=== PATIENT | female | born 1935 | race Caucasian/White ===

== ENCOUNTER 2016-05-07 20:45 | Inpatient (IN) | payer MEDICARE, OTHER ==
[2016-05-07] MEDS ORDERED: IV VANCOMYCIN PER PHARMACY 1 EACH MISC MISCELLANE PRN (20:53)
[2016-05-07] MEDS ORDERED: PIPERACILLIN-TAZOBACTAM 3.375 GM in DEXTROSE/WATER 1 50ML.BAG IVPB STA (20:53)
[2016-05-07] MEDS ORDERED: ACETAMINOPHEN TAB 500 MG TAB PO STA (20:53)
[2016-05-07] MEDS ORDERED: VANCOMYCIN 1,250 MG in SODIUM CHLORIDE 0.9% 250 ML IVPB STA (21:20)
[2016-05-07] MEDS: SODIUM CHLORIDE 0.9% 1,000 ML IV SCH (21:45)
[2016-05-07 21:55] LABS: Anisocytosis Slight; Basophils # (A) 0.2 k/uL (0-0.2); Basophils % (A) 2 %; CH 26.3; Eosinophils # (A) 0.2 k/uL (0-0.7); Eosinophils % (A) 2 %; HCT 42.6 % (34.0-46.0); HDW 2.99; HGB 12.5 gm/dL (11.4-16.0); Hypochromasia Moderate; Luc # (Auto) 0.28; Luc % (Auto) 3; Lymphocytes # (A) 0.6 k/uL (1.0-4.8); Lymphocytes % (A) 6 %; MCHC 29.3 g/dL (31.0-37.0); MCV 85.5 fL (80.0-100.0); Mean Platelet Volume 9.1; Monocytes # (A) 0.9 k/uL (0-1.0); Monocytes % (A) 9 %; Neutrophils # (A) 7.4 k/uL (1.3-7.7); Neutrophils % (A) 78 %; RBC 4.99 m/uL (3.80-5.40); RDW 16.6 % (11.5-15.5); WBC 9.5 k/uL (3.8-10.6); WBC (Perox) 9.98
[2016-05-07 22:05] LABS: INR 1.1 (<1.1); Partial Thromboplastin Time 22.8 sec (22.0-30.0)
[2016-05-07 22:22] LABS: Potassium 4.8 mmol/L (3.5-5.1); Total Bilirubin 1.1 mg/dL (0.2-1.3)
--- NOTE | 2016-05-07 22:29 | XR ---
EXAMINATION TYPE: XR cervical spine comp DATE OF EXAM: 05/07/2016 10:24 PM COMPARISON: NONE HISTORY: Fell out of the chair. Pain. TECHNIQUE: 6 views FINDINGS: Vertebra have normal alignment. There is narrowing of C5-6 disc space. There is osteopenia. Posterior elements are intact. Atlantoaxial facet joint is normal. There are no cervical ribs. IMPRESSION: Mild spondylosis. No fracture.
--- NOTE | 2016-05-07 22:31 | XR ---
EXAMINATION TYPE: XR chest 2V DATE OF EXAM: 05/07/2016 10:24 PM COMPARISON: 04/19/2016 HISTORY: Fell out of the chair. TECHNIQUE: Frontal and lateral views of the chest are obtained. FINDINGS: There is some infiltrate at the right cardiac border. There is no heart failure. There is no pneumothorax. Heart size is normal. Thoracic aorta is atheromatous. There are chest leads. IMPRESSION: There is right middle lobe infiltrate that is new compared to old exam. No heart failure seen. No fracture seen in the thoracic spine.
--- NOTE | 2016-05-07 22:32 | CT ---
EXAMINATION TYPE: CT brain wo con DATE OF EXAM: 05/07/2016 10:25 PM COMPARISON: NONE HISTORY: fall from chair CT DLP: 1098.80 mGycm Automated exposure control for dose reduction was used. FINDINGS: There is cerebral mild cortical atrophy. There is patchy hypodensity in the periventricular white mat ter. There is no mass effect nor midline shift. There is no sign of intracranial hemorrhage. The calv arium is intact. There is minor mucosal thickening in the maxillary sinuses. IMPRESSION: Cerebral atrophy and mild chronic small vessel ischemia. No acute intracranial abnormality.
[2016-05-07 22:55] LABS: Creatine Kinase MB 0.6 ng/mL (0.0-2.4)
[2016-05-07 23:12] LABS: Troponin I 0.035 ng/mL (0.000-0.034)
[2016-05-07] MEDS ORDERED: NITROGLYCERIN SL TABS 0.4 MG TAB SUBLINGUAL PRN (23:43)
[2016-05-07] MEDS ORDERED: ACETAMINOPHEN TAB 325 MG TAB PO PRN (23:43)
[2016-05-07] MEDS ORDERED: MORPHINE SULFATE 2 MG/ML SYRINGE IVP PRN (23:43)
--- NOTE | 2016-05-07 23:43 | ED ---
General Adult HPI - General Chief complaint: Recheck/Abnormal Lab/Rx Stated complaint: lower extremity pain,poss pneumonia Time Seen by Provider: 05/07/16 20:53 Source: patient Mode of arrival: EMS Limitations: no limitations - History of Present Illness Initial comments: He presented with a fever chills she has been coughing and there was a question of confusion as well according to EMS are temperature was 101.5 and she was quite tachycardic pulse rate was 123 and she is breathing fast as well she was coughing pretty hard and is bringing up phlegm. She denies any chest pain today but she has a slight chest pain yesterday he does not hurt to take a deep breath and she denies any trauma to the chest. He does not she does have a history of irregular heartbeat and it was noticed in today's EKG as well as her old EKG from 04/19/2016 also had atrial fibrillation. Denies any headaches no neck stiffness has been coughing no abdominal pain no frequency urgency dysuria no signs of TIA or CVA - Related Data Home Medications Medication Instructions Recorded Confirmed Atorvastatin [Lipitor] 20 mg PO HS 09/30/14 04/19/16 Ergocalciferol [Vitamin D2 50,000 unit PO Q14D 09/30/14 04/19/16 (DRISDOL)] Furosemide 20 mg PO BID 09/30/14 04/19/16 Cholecalciferol [Vitamin D3] 4,000 unit PO BID 07/24/15 04/19/16 Gabapentin 300 mg PO BID 07/24/15 04/19/16 Insulin Lispro [humaLOG Kwikpen] 8 unit SQ AC-TID 07/24/15 04/19/16 Isosorbide Mononitrate ER [Imdur] 30 mg PO DAILY 07/24/15 04/19/16 predniSONE 10 mg PO DAILY 07/24/15 04/19/16 Insulin Glargine,Hum.rec.anlog 14 units SQ HS 01/10/16 04/19/16 [Lux Solloida] Levothyroxine Sodium [Synthroid] 112 mcg PO DAILY 01/10/16 04/19/16 Montelukast [Singulair] 10 mg PO HS 01/10/16 04/19/16 Oxybutynin Chloride 5 mg PO DAILY 01/10/16 04/19/16 HYDROcodone/APAP 5-325MG [[place] 1 tab PO QID PRN 02/28/16 04/19/16 5-325] Vit C/E/Zn/Coppr/Lutein/Zeaxan 1 cap PO BID 02/28/16 04/19/16 [Preservision Areds 2 Softgel] Omeprazole [PriLOSEC] 20 mg PO AC-SUPPER 04/19/16 04/19/16 Aspirin [Adult Low Dose Aspirin EC] 81 mg PO DAILY 04/20/16 04/20/16 Previous Rx's Medication Instructions Recorded Temazepam [Restoril] 30 mg PO HS #12 cap 01/17/16 Clopidogrel [Plavix] 75 mg PO DAILY #30 tab 02/07/16 Diltiazem Oral [Cardizem*] 30 mg PO TID #90 tab 02/07/16 Metoprolol Tartrate [Lopressor] 25 mg PO TID #90 tab 04/21/16 Allergies Allergy/AdvReac Type Severity Reaction Status Date / Time cat dander Allergy Unknown Verified 05/07/16 21:09 Sulfa (Sulfonamide Allergy Rash/Hives Verified 05/07/16 21:09 Antibiotics) Review of Systems ROS Statement: Those systems with pertinent positive or pertinent negative responses have been documented in the HPI. ROS Other: All systems not noted in ROS Statement are negative. Past Medical History Past Medical History: Atrial Fibrillation, Asthma, Coronary Artery Disease (CAD) , Diabetes Mellitus, Deep Vein Thrombosis (DVT), GERD/Reflux, Hypertension, Myocardial Infarction ([place]), Pneumonia, Pulmonary Embolus ([place]), Thyroid Disorder Additional Past Medical History / Comment(s): Pulmonary sarcoidosis, FALL IN AUGUST , pt stated she is dm type 1, neuroptathy Last Myocardial Infarction Date:: * History of Any Multi-Drug Resistant Organisms: None Reported Past Surgical History: Heart Catheterization With Stent, Hysterectomy, Joint Replacement, Orthopedic Surgery Additional Past Surgical History / Comment(s): Dr. Rivera and Dr. Arriaga placed 6 stents 13 years ago, left knee surgery AND IN DEC 2015 HEART CATH AND STENT -PT STATED TOTAL OF 7 STENTS NOW Past Anesthesia/Blood Transfusion Reactions: No Reported Reaction Date of Last Stent Placement:: 1999 Past Psychological History: No Psychological Hx Reported Smoking Status: Never smoker Past Alcohol Use History: Occasional Past Drug Use History: None Reported - Past Family History Father Family Medical History: Myocardial Infarction ([place]) Mother Family Medical History: Liver Disease General Exam - General Exam Comments Initial Comments: General: The patient is awake and alert, in no distress, and does not appear acutely ill. Expect pale and looks pale Skin: Skin is warm and dry and no rashes or lesions are noted. Eye: Pupils are equal, round and reactive to light, extra-ocular movements are intact; there is normal conjunctiva bilaterally. Ears, nose, mouth and throat: There are moist mucous membranes and no oral lesions. Neck: The neck is supple, there is no tenderness Cardiovascular: Noticed a regular irregular heart beat, is quite tachycardia noticed heart rate of 123 Respiratory: To auscultation bilateral, it is crackles bilateral Gastrointestinal: Soft, non-distended, non-tender abdomen without masses or organomegaly noted. There is no rebound or guarding present. Bowel sounds are unremarkable. Back: There is no tenderness to palpation in the midline. There is no obvious deformity. Musculoskeletal: Normal ROM, no tenderness, There is no pedal edema. There is no calf tenderness or swelling. No cords were appreciated. Neurological: CN II-XII intact, Cranial nerves III through XII are intact. There are no obvious motor or sensory deficits. Coordination appears grossly intact. Speech is normal. Psychiatric: Cooperative, appropriate mood & affect, normal judgment. Limitations: no limitations Course Vital Signs 05/07/16 21:04 Temperature 101.1 F H Pulse Rate 123 H Respiratory 18 Rate Blood Pressure 164/82 O2 Sat by Pulse 95 Oximetry EKG Findings - EKG Comments: EKG Findings:: She has a defibrillation with the rapid ventricular response ventricular rate is 123 [place] interval, QRS duration is 86 QT/QTc is 258/369, noticed some mom ST elevation in V1 and V2 though patient hasn't no chest pain also some ST elevation in V3 her old EKG have some similar findings but this EKG have these findings more pronounced Medical Decision Making - Lab Data Result diagrams: 05/07/16 21:30 05/07/16 21:30 Lab Results 05/07/16 05/07/16 05/07/16 Range/Units 21:30 21:30 21:30 WBC 9.5 (3.8-10.6) k/uL RBC 4.99 (3.80-5.40) m/uL Hgb 12.5 (11.4-16.0) gm/dL Hct 42.6 (34.0-46.0) % MCV 85.5 (80.0-100.0) fL MCH 25.0 (25.0-35.0) pg MCHC 29.3 L (31.0-37.0) g/dL RDW 16.6 H (11.5-15.5) % Plt Count 149 L (150-450) k/uL Neutrophils % 78 % Lymphocytes % 6 % Monocytes % 9 % Eosinophils % 2 % Basophils % 2 % Neutrophils # 7.4 (1.3-7.7) k/uL Lymphocytes # 0.6 L (1.0-4.8) k/uL Monocytes # 0.9 (0-1.0) k/uL Eosinophils # 0.2 (0-0.7) k/uL Basophils # 0.2 (0-0.2) k/uL Hypochromasia Moderate Anisocytosis Slight PT (9.0-12.0) sec INR (<1.1) APTT (22.0-30.0) sec Sodium 139 (137-145) mmol/L Potassium 4.8 (3.5-5.1) mmol/L Chloride 100 (98-107) mmol/L Carbon Dioxide 27 (22-30) mmol/L Anion Gap 12 mmol/L BUN 23 H (7-17) mg/dL Creatinine 1.20 H (0.52-1.04) mg/dL Est GFR (MDRD) Af Amer 52 (>60 ml/min/1.73 sqM) Est GFR (MDRD) Non-Af 43 (>60 ml/min/1.73 sqM) Glucose 217 H (74-99) mg/dL Plasma Lactic Acid [place] (0.7-2.0) mmol/L Calcium 9.0 (8.4-10.2) mg/dL Total Bilirubin 1.1 (0.2-1.3) mg/dL AST 31 (14-36) U/L ALT 33 (9-52) U/L Alkaline Phosphatase 66 (38-126) U/L Total Creatine Kinase 120 (30-135) U/L CK-MB (CK-2) 0.6 (0.0-2.4) ng/mL CK-MB (CK-2) Rel Index 0.5 Troponin I 0.035 H* (0.000-0.034) ng/mL Total Protein 6.0 L (6.3-8.2) g/dL Albumin 3.5 (3.5-5.0) g/dL Cortisol 20 ug/dL Influenza Type A RNA (Not Detectd) Influenza Type B (PCR) (Not Detectd) 05/07/16 05/07/16 05/07/16 Range/Units 21:30 21:30 22:13 WBC (3.8-10.6) k/uL RBC (3.80-5.40) m/uL Hgb (11.4-16.0) gm/dL Hct (34.0-46.0) % MCV (80.0-100.0) fL MCH (25.0-35.0) pg MCHC (31.0-37.0) g/dL RDW (11.5-15.5) % Plt Count (150-450) k/uL Neutrophils % % Lymphocytes % % Monocytes % % Eosinophils % % Basophils % % Neutrophils # (1.3-7.7) k/uL Lymphocytes # (1.0-4.8) k/uL Monocytes # (0-1.0) k/uL Eosinophils # (0-0.7) k/uL Basophils # (0-0.2) k/uL Hypochromasia Anisocytosis PT 11.0 (9.0-12.0) sec INR 1.1 (<1.1) APTT 22.8 (22.0-30.0) sec Sodium (137-145) mmol/L Potassium (3.5-5.1) mmol/L Chloride (98-107) mmol/L Carbon Dioxide (22-30) mmol/L Anion Gap mmol/L BUN (7-17) mg/dL Creatinine (0.52-1.04) mg/dL Est GFR (MDRD) Af Amer (>60 ml/min/1.73 sqM) Est GFR (MDRD) Non-Af (>60 ml/min/1.73 sqM) Glucose (74-99) mg/dL Plasma Lactic Acid [place] 1.4 (0.7-2.0) mmol/L Calcium (8.4-10.2) mg/dL Total Bilirubin (0.2-1.3) mg/dL AST (14-36) U/L ALT (9-52) U/L Alkaline Phosphatase (38-126) U/L Total Creatine Kinase (30-135) U/L CK-MB (CK-2) (0.0-2.4) ng/mL CK-MB (CK-2) Rel Index Troponin I (0.000-0.034) ng/mL Total Protein (6.3-8.2) g/dL Albumin (3.5-5.0) g/dL Cortisol ug/dL Influenza Type A RNA Not Detected (Not Detectd) Influenza Type B (PCR) Not Detected (Not Detectd) Critical Care Time Total Critical Care Time: 39 Critical Care Time: Came in she was quite tachycardiac Neck and she had a fever she was given some Tylenol she was done given some fluid hydration and she was started on Zosyn entertaining the possibility of sepsis she no chest pain did notice her troponin was borderline elevated considering her risk factors she be admitted to hospitalist service and cardiology be consulted she does have a history of atrial fibrillation this is not new she aspirin and Plavix that she is not on any nausea OR [place] or any of those anticoagulants considering that I would hold off any anticoagulants and she has no chest pain at this point I'll leave that to cardiology Disposition Clinical Impression: Pneumonia, Tachycardia, Tachypnea, Elevated d-dimer Disposition: ADMITTED IP TO THIS HOSP Condition: Good
[2016-05-07] MEDS ORDERED: AZITHROMYCIN 500 MG in SODIUM CHLORIDE 0.9% 250 ML IVPB STA (23:51)
[2016-05-08] MEDS ORDERED: DILTIAZEM 125 MG in SODIUM CHLORIDE 0.9% 100 ML IV ONE (00:02)
[2016-05-08 00:21] LABS: Appearance,Urine Clear (Clear); Bacteria,Urine Rare /hpf; Bilirubin,Urine Negative (Negative); Glucose,Urine (UA) Negative (Negative); Ketones,Urine 1+ (Negative); Leukocyte Esterase,Urine Trace (Negative); Mucus,Urine Rare /hpf; Nitrite,Urine Negative (Negative); Particle Count 1062; Protein,Urine Negative (Negative); RBC,Urine 1 /hpf (0-5); Specific Gravity,Urine 1.012 (1.001-1.035); UA Billing (MACRO vs. MICRO) MICRO; WBC,Urine 2 /hpf (0-5)
[2016-05-08] MEDS: HYDROcodone/APAP 5-325MG 1 EACH TAB PO PRN ×3 (01:36→14:56)
[2016-05-08 02:17] VITALS: BMI 28.1
[2016-05-08 03:22] LABS: Cholesterol 124 mg/dL (<200); HDL Cholesterol 28 mg/dL (40-60); Triglycerides 131 mg/dL (<150)
[2016-05-08 03:43] LABS: Creatine Kinase MB 0.8 ng/mL (0.0-2.4)
[2016-05-08 03:54] LABS: Troponin I 0.053 ng/mL (0.000-0.034)
[2016-05-08 04:26] LABS: Glucose,Whole Blood 181 mg/dL (75-99)
[2016-05-08] MEDS: LEVOTHYROXINE 112 MCG TAB PO SCH (06:31)
[2016-05-08 06:32] LABS: Glucose,Whole Blood 213 mg/dL (75-99)
[2016-05-08] MEDS: SODIUM CHLORIDE 0.9% 1,000 ML IV SCH ×2 (06:34→16:16)
[2016-05-08] MEDS: CHOLECALCIFEROL 1,000 UNIT TAB PO SCH ×2 (07:53→20:30)
[2016-05-08] MEDS: VIT A,C & E-LUTEIN-MINERALS 1 EACH TAB PO SCH ×2 (07:53→20:31)
[2016-05-08] MEDS: ASPIRIN 325 MG TAB PO SCH (07:53)
[2016-05-08] MEDS: predniSONE 10 MG TAB PO SCH (07:54)
[2016-05-08] MEDS: FUROSEMIDE 20 MG TAB PO SCH ×2 (07:54→20:30)
[2016-05-08] MEDS: GABAPENTIN 300 MG CAP PO SCH ×2 (07:54→20:30)
[2016-05-08] MEDS: CLOPIDOGREL 75 MG TAB PO SCH (07:54)
[2016-05-08] MEDS: OXYBUTYNIN CHLORIDE 5 MG TAB PO SCH (07:54)
[2016-05-08] MEDS: ISOSORBIDE MONONITRATE ER 30 MG TAB.ER.24H PO SCH (07:54)
[2016-05-08] MEDS ORDERED: DILTIAZEM ORAL 30 MG TAB PO SCH (09:00)
[2016-05-08] MEDS ORDERED: METOPROLOL TARTRATE 25 MG TAB PO SCH (09:00)
[2016-05-08] MEDS ORDERED: NON-FORMULARY DRUG (Aspirin [Adult Low Dose Aspirin Ec] 81 MG) PO SCH (09:00)
--- NOTE | 2016-05-08 09:05 | P.CRDCN ---
History of Present Illness Consult date: 05/08/16 Requesting physician: Raimundo Hernandez Consult reason: atrial fibrillation Chief complaint: Cough and weakness History of present illness: This is a pleasant 80-year-old female who follows regularly with Dr. Rivera in the office. She has a known history of sarcoidosis, coronary artery disease with prior stent placement, chronic persistent atrial fibrillation, asthma, diabetes, hypertension, hyperlipidemia, hypothyroidism, prior DVT. She presents to the hospital primarily with symptoms of stream fatigue and weakness, with associated persistent cough of productive sputum. Patient states she was in her lazy boy chair, fell down onto the floor and was unable to get up because she was so weak. Patient denies any chest discomfort other than the pain in her chest with coughing. On arrival here patient was found to have a temperature of 101.5. Chest x-ray reveals a right middle lobe infiltrate new as compared with prior exam. CT of the brain was performed which revealed cerebral atrophy and mild chronic small vessel ischemia. No acute intracranial abnormality. EKG on arrival here showed atrial fibrillation with a rapid ventricular response. Patient has been on anticoagulation in the past, this was discontinued at some point because of bleeding, exact details unavailable. Laboratory data, potassium 4.8, BUN 23, creatinine 1.2. Troponins 0.035, 0.053. Flu screen was negative. Blood pressure on arrival 164 /80, heart rate in the 120s. At this time of my examination this morning, patient continues to have a harsh productive cough of dark yellow sputum. Denies to be in atrial fibrillation with a heart rate of 90. On a Cardizem drip at 5 mg per hour. Cardiology consultation was requested because of A. fib with RVR as well as abnormal troponins. Past Medical History Past Medical History: Atrial Fibrillation, Asthma, Coronary Artery Disease (CAD) , Diabetes Mellitus, Deep Vein Thrombosis (DVT), Hypertension, Myocardial Infarction ([place]), Pneumonia, Pulmonary Embolus ([place]), Thyroid Disorder Additional Past Medical History / Comment(s): Pulmonary sarcoidosis, FALL IN AUGUST , pt stated she is dm type 1, neuroptathy Last Myocardial Infarction Date:: * History of Any Multi-Drug Resistant Organisms: None Reported Past Surgical History: Heart Catheterization With Stent, Hysterectomy, Joint Replacement, Orthopedic Surgery Additional Past Surgical History / Comment(s): Dr. Rivera and Dr. Arriaga placed 6 stents 13 years ago, left knee surgery AND IN DEC 2015 HEART CATH AND STENT -PT STATED TOTAL OF 7 STENTS NOW Past Anesthesia/Blood Transfusion Reactions: No Reported Reaction Date of Last Stent Placement:: 1999 Past Psychological History: No Psychological Hx Reported Smoking Status: Never smoker Past Alcohol Use History: Occasional Past Drug Use History: None Reported - Past Family History Father Family Medical History: Myocardial Infarction ([place]) Mother Family Medical History: Liver Disease Medications and Allergies Home Medications Medication Instructions Recorded Confirmed Type Atorvastatin [Lipitor] 20 mg PO HS 09/30/14 05/08/16 History Ergocalciferol [Vitamin D2 50,000 unit PO Q14D 09/30/14 05/08/16 History (DRISDOL)] Furosemide 20 mg PO BID 09/30/14 05/08/16 History Cholecalciferol [Vitamin D3] 4,000 unit PO BID 07/24/15 05/08/16 History Gabapentin 300 mg PO BID 07/24/15 05/08/16 History Insulin Lispro [humaLOG Kwikpen] 8 unit SQ AC-LUNCH 07/24/15 05/08/16 History Isosorbide Mononitrate ER [Imdur] 30 mg PO DAILY 07/24/15 05/08/16 History predniSONE 10 mg PO DAILY 07/24/15 05/08/16 History Insulin Glargine,Hum.rec.anlog 14 units SQ HS 01/10/16 05/08/16 History [[place] Solostar] Levothyroxine Sodium [Synthroid] 112 mcg PO DAILY 01/10/16 05/08/16 History Montelukast [Singulair] 10 mg PO HS 01/10/16 05/08/16 History Oxybutynin Chloride 5 mg PO DAILY 01/10/16 05/08/16 History HYDROcodone/APAP 5-325MG [[place] 1 tab PO QID PRN 02/28/16 05/08/16 History 5-325] Vit C/E/Zn/Coppr/Lutein/Zeaxan 1 cap PO BID 02/28/16 05/08/16 History [Preservision Areds 2 Softgel] Omeprazole [PriLOSEC] 20 mg PO AC-SUPPER 04/19/16 05/08/16 History Aspirin [Adult Low Dose Aspirin EC] 81 mg PO DAILY 04/20/16 05/08/16 History Insulin Lispro [humaLOG Kwikpen] 7 unit SQ AC-BRKFST 05/08/16 05/08/16 History Insulin Lispro [humaLOG Kwikpen] 8 unit SQ AC-SUPPER 05/08/16 05/08/16 History Insulin Lispro [humaLOG Kwikpen] See Protocol SQ AC-TID PRN 05/08/16 05/08/16 History Allergies Allergy/AdvReac Type Severity Reaction Status Date / Time cat dander Allergy Unknown Verified 05/08/16 08:38 Sulfa (Sulfonamide Allergy Rash/Hives Verified 05/08/16 08:38 Antibiotics) Physical Exam Vitals: Vital Signs Temp Pulse Pulse Resp BP BP Pulse Ox 05/08/16 04:00 97.0 F L 101 H 18 100/58 97 05/08/16 01:16 100 F H 130 H 18 148/78 99 05/08/16 01:10 98.4 F 137 H 18 121/68 94 L 05/08/16 01:00 128 H 16 133/56 99 05/08/16 00:00 113 H 18 165/74 99 Intake and Output 05/07/16 05/08/16 05/08/16 22:59 06:59 14:59 Other: Weight 70.3 kg PHYSICAL EXAMINATION: HEENT: Head is atraumatic, normocephalic. Pupils equal, round. Neck is supple. There is no elevated jugular venous pressure. HEART EXAMINATION: Heart S1 and S2 irregular irregular CHEST EXAMINATION: A real scattered coarse wheezes and rhonchi throughout. ABDOMEN: Soft, nontender. Bowel sounds are heard. No organomegaly noted. EXTREMITIES: 2+ peripheral pulses with no evidence of peripheral edema and no calf tenderness noted. NEUROLOGIC patient is awake, alert and oriented -3. . Results 05/07/16 21:30 05/07/16 21:30 Cardiac Enzymes 05/08/16 Range/Units 02:40 CK-MB (CK-2) 0.8 (0.0-2.4) ng/mL Troponin I 0.053 H* (0.000-0.034) ng/mL Lipids 05/08/16 Range/Units 02:40 Triglycerides 131 (<150) mg/dL Cholesterol 124 (<200) mg/dL HDL Cholesterol 28 L (40-60) mg/dL Current Medications Generic Name Dose Route Start Last Admin Trade Name Freq PRN Reason Stop Dose Admin Acetaminophen 650 mg 05/07/16 23:43 Tylenol Tab PO Q4HR PRN Pain Acetaminophen/Hydrocodone Bitart 1 each 05/07/16 23:48 05/08/16 06:31 [place] 5-325 PO 1 each QID PRN Administration Pain Aspirin 325 mg 05/08/16 09:00 05/08/16 07:53 Aspirin PO 325 mg DAILY MISTI Administration Atorvastatin Calcium 20 mg 05/08/16 21:00 Lipitor PO HS MISTI Cholecalciferol 4,000 unit 05/08/16 09:00 05/08/16 07:53 Vitamin D3 PO 4,000 unit BID MISTI Administration Clopidogrel Bisulfate 75 mg 05/08/16 09:00 05/08/16 07:54 Plavix PO 75 mg DAILY MISTI Administration Ergocalciferol 50,000 unit 05/09/16 09:00 Vitamin D2 PO Q14D MISTI Furosemide 20 mg 05/08/16 09:00 05/08/16 07:54 Lasix PO 20 mg BID MISTI Administration Gabapentin 300 mg 05/08/16 09:00 05/08/16 07:54 Neurontin PO 300 mg BID MISTI Administration Sodium Chloride 1,000 mls @ 100 mls/hr 05/07/16 21:00 05/08/16 06:34 Saline 0.9% IV 100 mls/hr .Q10H MISTI Administration Diltiazem HCl 125 mg/ Sodium 125 mls @ 5 mls/hr 05/08/16 00:02 05/08/16 01:44 Chloride IV 05/09/16 00:01 5 mg/hr .Q24H ONE 5 mls/hr 5 MG/HR Administration Vancomycin HCl 1,250 mg/ 250 mls @ 125 mls/hr 05/09/16 22:00 Sodium Chloride IVPB Q48H MISTI Insulin Glargine 14 unit 05/08/16 21:00 Lantus SQ HS MISTI Isosorbide Mononitrate 30 mg 05/08/16 09:00 05/08/16 07:54 Imdur PO 30 mg DAILY MISTI Administration Levothyroxine Sodium 112 mcg 05/08/16 06:30 05/08/16 06:31 Synthroid PO 112 mcg 0630 MISTI Administration Metoprolol Tartrate 25 mg 05/08/16 09:00 05/08/16 07:54 Lopressor PO 25 mg TID MISTI Administration Montelukast Sodium 10 mg 05/08/16 21:00 Singulair PO HS MISTI Morphine Sulfate 2 mg 05/07/16 23:43 05/08/16 00:15 Morphine Sulfate (Inj) IVP 2 mg Q5M PRN Administration Chest Pain Multivitamins/Minerals 1 each 05/08/16 09:00 05/08/16 07:53 Ivite PO 1 each BID MISTI Administration Nitroglycerin 0.4 mg 05/07/16 23:43 Nitrostat SUBLINGUAL Q5M PRN Chest Pain Oxybutynin Chloride 5 mg 05/08/16 09:00 05/08/16 07:54 Ditropan PO 5 mg DAILY MISTI Administration Pantoprazole Sodium 40 mg 05/08/16 17:30 Protonix PO AC-SUPPER MISTI Prednisone 10 mg 05/08/16 09:00 05/08/16 07:54 PO 10 mg DAILY MISTI Administration Temazepam 30 mg 05/08/16 21:00 Restoril PO HS MISTI Intake and Output 05/07/16 05/08/16 05/08/16 22:59 06:59 14:59 Other: Weight 70.3 kg EKG Interpretations (text) EKG shows atrial ventricular response Assessment and Plan Plan: Assessment and plan #1 new right middle lobe pneumonia. On antibiotics. #2 atrial fibrillation with rapid ventricular response, patient has history of chronic persistent atrial fibrillation. Not a candidate for anticoagulation because of prior bleeding. #3 known history of coronary artery disease with prior stent placement, most recent stent was placed in December of last year at which time the patient underwent arthrectomy of the proximal LAD was successful stenting of the proximal LAD. #4 hypertension #5 diabetes #6 hyperlipidemia #7 sarcoidosis #8 asthma #9 abnormal troponin values, not consistent with acute coronary syndrome. Likely secondary to oxygen supply and demand mismatch. Plan An echocardiogram with Doppler study will be requested. We'll also recommend to continue antibiotics. Discontinue IV Cardizem and increase dose of beta sera. Further recommendations to follow. Obtain free T4 and TSH. DNP note has been reviewed, I agree with a documented findings and plan of care. Patient was seen and examined.
--- NOTE | 2016-05-08 09:08 | P.PN ---
Progress Note - Text This is an addendum to progress note dictated in January 2016, for clarification of dictation. Patient did not have a myocardial infarction during that admission, she did have a myocardial infarction, non-ST elevation with proximal LAD stenting in December 2015. January admission was for atrial fibrillation, chronic persistent. DNP note has been reviewed, I agree with a documented findings and plan of care. Patient was seen and examined.
--- NOTE | 2016-05-08 10:02 | ECHOF ---
Referral Reason:afib MEASUREMENTS -------- HEIGHT: 157.5 cm WEIGHT: 69.8 kg BP: 100/58 RVIDd: 2.8 cm (< 3.3) IVSd: 1.1 cm (0.6 - 1.1) LVIDd: 4.0 cm (3.9 - 5.3) LVPWd: 1.2 cm (0.6 - 1.1) IVSs: 1.6 cm LVIDs: 3.0 cm LVPWs: 1.6 cm LA Diam: 4.0 cm (2.7 - 3.8) LAESV Index (A-L): 33.53 ml/m Ao Diam: 3.0 cm (2.0 - 3.7) AV Cusp: 1.2 cm (1.5 - 2.6) MV EXCURSION: 15.488 mm (> 18.000) MV EF SLOPE: 99 mm/s (70 - 150) EPSS: 1.0 cm AV maxP.61 mmHg AV meanP.48 mmHg RAP: 5.00 mmHg RVSP: 35.99 mmHg FINDINGS -------- Atrial fibrillation. This was a technically adequate study. The left ventricular size is normal. There is borderline concentric left ventricular hypertrophy. Overall left ventricular systolic function is mildly impaired with, an EF between 45 - 50 %. Basal inferior LV wall motion is hypokinetic. The right ventricle is normal in size. LA is midly dilated 29-33ml/m2. The right atrium is normal in size. Aortic valve is trileaflet and is moderately thickened. There is mild aortic stenosis present. Peak/mean gradient across the Aortic Valve is 19.61mmHg / 10.48mmHg. The mitral valve leaflets are mild to moderately thickened. Moderate mitral annular calcification present. Mild mitral regurgitation is present. The peak and mean MV gradients are 9.45mmHg 3.32mmHg as measured by doppler. Mild tricuspid regurgitation present. There is mild pulmonary hypertension. The right ventricular systolic pressure, as measured by Doppler, is 35.99mmHg. Trace/mild (physiologic) pulmonic regurgitation. The aortic root size is normal. The inferior vena cava is mildly dilated. There is no pericardial effusion. CONCLUSIONS -------- 1. Atrial fibrillation. 2. There is mild aortic stenosis present. 3. Peak/mean gradient across the Aortic Valve is 19.61mmHg / 10.48mmHg. 4. The mitral valve leaflets are mild to moderately thickened. 5. Moderate mitral annular calcification present. 6. Mild mitral regurgitation is present. 7. The peak and mean MV gradients are 9.45mmHg 3.32mmHg as measured by doppler. 8. Mild tricuspid regurgitation present. 9. There is mild pulmonary hypertension. 10. The right ventricular systolic pressure, as measured by Doppler, is 35.99mmHg. 11. Trace/mild (physiologic) pulmonic regurgitation. 12. This was a technically adequate study. 13. The aortic root size is normal. 14. The inferior vena cava is mildly dilated. 15. There is no pericardial effusion. 16. The left ventricular size is normal. 17. There is borderline concentric left ventricular hypertrophy. 18. Overall left ventricular systolic function is mildly impaired with, an EF between 45 - 50 %. 19. The right ventricle is normal in size. 20. LA is midly dilated 29-33ml/m2. 21. The right atrium is normal in size. 22. Aortic valve is trileaflet and is moderately thickened. [employer] SCIENTIST: Kalli Tejeda RDCS
[2016-05-08 10:25] LABS: Creatine Kinase MB 1.4 ng/mL (0.0-2.4); Troponin I 0.032 ng/mL (0.000-0.034)
[2016-05-08 12:01] LABS: Glucose,Whole Blood 301 mg/dL (75-99)
[2016-05-08] MEDS ORDERED: INSULIN LISPRO (humaLOG) 300 UNIT/3 ML VIAL SQ ONE (13:07)
--- NOTE | 2016-05-08 14:02 | P.CNPUL ---
History of Present Illness Consult date: 05/08/16 Requesting physician: Raimundo Hernandez Reason for consult: pneumonia Chief complaint: Weakness, and cough. History of present illness: This is an 80-year-old female with history of multiple medical problems including sarcoidosis, coronary artery disease, chronic atrial fibrillation, bronchial asthma, hypertension, hypothyroidism, previous history of DVT. Patient has been doing relatively well since her last hospital discharge, however yesterday when she was sitting on the lazy boy chair, apparently she fell off down to the floor and she was unable to get up. She was very weak, and the patient was brought into the hospital because of weakness. Upon evaluation in the ER, she was found to have a temp of 101.5. Patient was asked if she was having any pulmonary symptoms, apparently she has been experiencing episodes of productive cough for the last few days. Some wheezing, chest x-ray showed a right middle lobe infiltrate, patient was admitted with the impression of pneumonia, and this consult was initiated. While in the ER the patient had atrial fibrillation with RVR, hence the patient was placed on Cardizem drip, and she was admitted she was also placed on empiric antibiotics for her right middle lobe pneumonia. She is already feeling better, breathing easier, minimal cough, no wheezing, no shortness of breath, no chest pain. No headache no blurred vision no dizziness. No nausea no vomiting no abdominal pain. He continues to have some generalized weakness. Troponins were noted to be a bit elevated. Otherwise her other labs were unremarkable. No evidence of leukocytosis. Review of Systems 14 point review of systems were obtained, please refer to pertinent positives and negatives in HPI Past Medical History Past Medical History: Atrial Fibrillation, Asthma, Coronary Artery Disease (CAD) , Diabetes Mellitus, Deep Vein Thrombosis (DVT), Hypertension, Myocardial Infarction ([place]), Pneumonia, Pulmonary Embolus (PE), Thyroid Disorder Additional Past Medical History / Comment(s): Pulmonary sarcoidosis, FALL IN AUGUST , pt stated she is dm type 1, neuroptathy Last Myocardial Infarction Date:: * History of Any Multi-Drug Resistant Organisms: None Reported Past Surgical History: Heart Catheterization With Stent, Hysterectomy, Joint Replacement, Orthopedic Surgery Additional Past Surgical History / Comment(s): Dr. Rivera and Dr. Arriaga placed 6 stents 13 years ago, left knee surgery AND IN DEC 2015 HEART CATH AND STENT -PT STATED TOTAL OF 7 STENTS NOW Past Anesthesia/Blood Transfusion Reactions: No Reported Reaction Date of Last Stent Placement:: 1999 Past Psychological History: No Psychological Hx Reported Smoking Status: Never smoker Past Alcohol Use History: Occasional Past Drug Use History: None Reported - Past Family History Father Family Medical History: Myocardial Infarction ([place]) Mother Family Medical History: Liver Disease Medications and Allergies Home Medications Medication Instructions Recorded Confirmed Type Atorvastatin [Lipitor] 20 mg PO HS 09/30/14 05/08/16 History Ergocalciferol [Vitamin D2 50,000 unit PO Q14D 09/30/14 05/08/16 History (DRISDOL)] Furosemide 20 mg PO BID 09/30/14 05/08/16 History Cholecalciferol [Vitamin D3] 4,000 unit PO BID 07/24/15 05/08/16 History Gabapentin 300 mg PO BID 07/24/15 05/08/16 History Insulin Lispro [humaLOG Kwikpen] 8 unit SQ AC-LUNCH 07/24/15 05/08/16 History Isosorbide Mononitrate ER [Imdur] 30 mg PO DAILY 07/24/15 05/08/16 History predniSONE 10 mg PO DAILY 07/24/15 05/08/16 History Insulin Glargine,Hum.rec.anlog 14 units SQ HS 01/10/16 05/08/16 History [[place] Solostar] Levothyroxine Sodium [Synthroid] 112 mcg PO DAILY 01/10/16 05/08/16 History Montelukast [Singulair] 10 mg PO HS 01/10/16 05/08/16 History Oxybutynin Chloride 5 mg PO DAILY 01/10/16 05/08/16 History HYDROcodone/APAP 5-325MG [[place] 1 tab PO QID PRN 02/28/16 05/08/16 History 5-325] Vit C/E/Zn/Coppr/Lutein/Zeaxan 1 cap PO BID 02/28/16 05/08/16 History [Preservision Areds 2 Softgel] Omeprazole [PriLOSEC] 20 mg PO AC-SUPPER 04/19/16 05/08/16 History Aspirin [Adult Low Dose Aspirin EC] 81 mg PO DAILY 04/20/16 05/08/16 History Insulin Lispro [humaLOG Kwikpen] 7 unit SQ AC-BRKFST 05/08/16 05/08/16 History Insulin Lispro [humaLOG Kwikpen] 8 unit SQ AC-SUPPER 05/08/16 05/08/16 History Insulin Lispro [humaLOG Kwikpen] See Protocol SQ AC-TID PRN 05/08/16 05/08/16 History Allergies Allergy/AdvReac Type Severity Reaction Status Date / Time cat dander Allergy Unknown Verified 05/08/16 08:38 Sulfa (Sulfonamide Allergy Rash/Hives Verified 05/08/16 08:38 Antibiotics) Physical Exam Vitals: Vital Signs Temp Pulse Pulse Resp BP BP Pulse Ox 05/08/16 12:00 96.9 F L 94 16 116/65 95 05/08/16 08:00 96.8 F L 105 H 16 114/66 94 L 05/08/16 04:00 97.0 F L 101 H 18 100/58 97 05/08/16 01:16 100 F H 130 H 18 148/78 99 05/08/16 01:10 98.4 F 137 H 18 121/68 94 L 05/08/16 01:00 128 H 16 133/56 99 05/08/16 00:00 113 H 18 165/74 99 Intake and Output 05/07/16 05/08/16 05/08/16 22:59 06:59 14:59 Other: # Voids 1 Weight 70.3 kg Physical Exam: Revealed an 80-year-old female in no distress HEENT:[Neck is supple.] [No neck masses.] [No thyromegaly.] [No JVD.] Chest: [Clear throughout, no crackles, no rhonchi, no wheezes.] Cardiac Exam: [Normal S1 and S2, no S3 gallop, no murmur.] Abdomen: [Soft, nontender, no megaly, no rebound, no guarding, normal bowel sounds.] Extremities: [No clubbing, no edema, no cyanosis.] Neurological Exam: [No focal neurologic deficit.] Results Impression: Acute right middle lobe pneumonia Multiple comorbidities including chronic atrial fibrillation with RVR, history of coronary artery disease and previous stent placement, history of hypertension , diabetes, sarcoidosis, bronchial asthma, and abnormal troponin values. Recommendation: Agree with the present treatment plan, patient could be switched to oral antibiotics by tomorrow, and consider discharge home. - Laboratory Findings CBC and BMP: 05/07/16 21:30 05/07/16 21:30 PT/INR, D-dimer PT 11.0 sec (9.0-12.0) 05/07/16 21:30 INR 1.1 (<1.1) 05/07/16 21:30 Abnormal lab findings: Abnormal Labs 05/08/16 05/08/16 05/08/16 00:03 02:40 02:40 POC Glucose (mg/dL) Total Creatine Kinase 257 H Troponin I 0.053 H* HDL Cholesterol 28 L Urine Ketones 1+ H Ur Leukocyte Esterase Trace H Urine Bacteria Rare H Hyaline Casts 5 H Urine Mucus Rare H 05/08/16 05/08/16 05/08/16 04:11 06:24 09:15 POC Glucose (mg/dL) 181 H 213 H Total Creatine Kinase 294 H Troponin I HDL Cholesterol Urine Ketones Ur Leukocyte Esterase Urine Bacteria Hyaline Casts Urine Mucus 05/08/16 12:00 POC Glucose (mg/dL) 301 H Total Creatine Kinase Troponin I HDL Cholesterol Urine Ketones Ur Leukocyte Esterase Urine Bacteria Hyaline Casts Urine Mucus Assessment and Plan Plan: Impression: 1 acute right middle lobe pneumonia 2 multiple comorbidities including chronic atrial fibrillation with RVR, history of underlying coronary artery disease and previous stent placement in December of last year, history of hypertension, diabetes, hyperlipidemia, sarcoidosis, bronchial asthma, and abnormal troponin. Recommendation: Agree with the present treatment plan, no changes will be made, we'll continue to follow, consider discharge planning in the next 48 hours.
[2016-05-08 14:55] LABS: Glucose,Whole Blood 312 mg/dL (75-99)
[2016-05-08] MEDS: ENOXAPARIN 30 MG/0.3 ML SYRINGE SQ SCH (16:12)
[2016-05-08 16:54] LABS: Glucose,Whole Blood 259 mg/dL (75-99)
[2016-05-08] MEDS: INSULIN LISPRO (humaLOG) 300 UNIT/3 ML VIAL SQ SCH ×3 (17:51→21:19)
[2016-05-08] MEDS: PANTOPRAZOLE 40 MG TABLET PO SCH (17:51)
[2016-05-08] MEDS: PIPERACILLIN-TAZOBACTAM 3.375 GM in DEXTROSE/WATER 1 50ML.BAG IVPB SCH (18:25)
--- NOTE | 2016-05-08 20:24 | HP ---
DATE OF ADMISSION: 05/07/2016 PRESENTING COMPLAINT: Weak, tired, cough. HISTORY OF PRESENTING COMPLAINT: A very pleasant 80-year-old patient of Dr. Gonzales whose chronic stable medical conditions include GERD, hypothyroid, osteoarthritis, coronary artery disease with stent, diabetes and peripheral neuropathy, sarcoidosis, asthma. The patient started becoming weak, tired home, cough, sputum production, ( ) fell out of a chair, and brought in, found to have pneumonia with a sepsis-like picture, atrial fibrillation with rapid ventricular rate. The patient is started on IV Cardizem and antibiotics admitted to the hospital. Review of systems: CONSTITUTIONAL: Weak and tired. HEENT: None. RESPIRATORY: As above. Sputum production. CARDIOVASCULAR: Rapid heart rate. GASTROINTESTINAL: None. GENITOURINARY: None. MUSCULOSKELETAL: Pain in multiple joints. Dermatological: Diffuse bruising. HEMATOLOGICAL: As above. LYMPHATICS: None. PSYCHIATRY: Patient is somewhat confused on presentation. NEUROLOGICAL: Numbness and tingling. Some pain in the distal limbs. PAST MEDICAL HISTORY: Atrial fibrillation, asthma, coronary artery disease with stent. Diabetes mellitus, type II, history of DVT PE, hypertension, pulmonary embolism, pulmonary sarcoidosis. PAST SURGICAL HISTORY: Cardiac cath with stent. Hysterectomy. Joint replacement, left knee surgery and also lost coronary intervention December 2005 with stent placement and had a total 7 stent placements. SOCIAL HISTORY: . Never smoked. Alcohol occasionally. FAMILY HISTORY: Myocardial infarction. HOME MEDICATIONS: 1. Prednisone 10 mg a day. 2. Preservision. 3. ( ) 1 capsule p.o. b.i.d. 4. Restoril 30 mg p.o. q.h.s. 5. Oxybutynin 5 mg p.o. daily. 6. Prilosec 20 mg before supper. 7. Singulair 10 mg q.h.s. 8. Lopressor 25 p.o. b.i.d. 9. Synthroid 112 mcg p.o. daily. 10. Imdur ER 30 mg p.o. daily. 11. Insulin Lispro 8 units with supper 7 at breakfast. Eight at lunch. 12. Insulin Lantus 14 units subcu q.h.s. 13. [place] 5 1 tablets p.o. q.i.d. p.r.n. 14. Neurontin 300 mg p.o. b.i.d. 15. Lasix 20 mg b.i.d. 16. Vitamin D2 50,000 units every 14 days. 17. Cardizem 30 mg p.o. t.i.d. 18. Plavix 75 mg a day. 19. Vitamin D3, 4000 units p.o. daily. 20. Lipitor 20 mg q.h.s. 21. Aspirin 81 mg daily. ALLERGIES TO CAT DANDER AND SULFA. On examination: Vital signs on presentation: Temperature 101.1, pulse 123, respiration 18, blood pressure 164/82, pulse ox 95% on room air. GENERAL APPEARANCE: Propped in bed, tired-appearing. EYES: Pupils equal. Conjunctivae normal. HEENT: External appearance of nose and ears normal. Oral cavity normal. NECK: JVD not raised. Mass not palpable. RESPIRATORY: Effort increased. LUNGS: Wheezing. Right base coarse crackles. CARDIOVASCULAR: Heart sounds irregular. No edema. ABDOMEN: Soft, nontender. Liver and spleen not palpable. LYMPHATIC: No lymph node palpable in neck or axillae. PSYCHIATRY: Alert and oriented x3. Mood and affect normal. NEUROLOGICAL: Pupils are equal. Cranial nerves grossly intact. MUSCULOSKELETAL: Evidence of osteoarthritis of multiple joints. Dermatological: Diffuse bruising. 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 INVESTIGATIONS: White count 9.5, hemoglobin 12.5, potassium 4.8. BUN 23, creatinine 1.20. Troponin 0.035. Chest x-ray shows right middle lobe pneumonia. ASSESSMENT: 1. Right middle lobe pneumonia, consider gram-negative organism with a sepsis-like picture present on admission. 2. Paroxysmal atrial fibrillation with rapid ventricular rate, present on admission. 3. Gastroesophageal reflux disease. 4. Hypothyroidism, chronic. 5. Primary osteoarthritis of multiple joints, bilateral. 6. Coronary artery disease with prior history of stent. 7. Diabetes mellitus type 2 with peripheral neuropathy. Chronically on insulin. 8. Chronic sarcoidosis. 9. Persistent chronic asthma with acute exacerbation. PLAN: Patient's home medication are resumed. Patient is put on nebulized bronchodilators, antibiotics. Sputum will be sent for Gram stain culture. Also put on a Cardizem drip. Consultation to pulmonary and cardiology was done. Care was discussed with the patient. Questions answered.
[2016-05-08] MEDS: ATORVASTATIN 20 MG TAB PO SCH (20:30)
[2016-05-08] MEDS: METOPROLOL TARTRATE 50 MG TAB PO SCH (20:31)
[2016-05-08] MEDS: MONTELUKAST 10 MG TAB PO SCH (20:31)
[2016-05-08 20:56] LABS: Glucose,Whole Blood 104 mg/dL (75-99)
[2016-05-08] MEDS: INSULIN GLARGINE 100 UNIT/ML 10 ML VIAL SQ SCH (21:26)
[2016-05-08] MEDS: guaiFENesin 600 MG TABLET.ER PO SCH (21:26)
[2016-05-08] MEDS: TEMAZEPAM 30 MG CAP PO SCH (21:30)
[2016-05-09] MEDS: PIPERACILLIN-TAZOBACTAM 3.375 GM in DEXTROSE/WATER 1 50ML.BAG IVPB SCH ×3 (00:19→16:23)
[2016-05-09] MEDS ORDERED: METOPROLOL TARTRATE 50 MG TAB PO STA (02:27)
[2016-05-09] MEDS: SODIUM CHLORIDE 0.9% 1,000 ML IV SCH ×2 (02:39→12:11)
[2016-05-09] MEDS ORDERED: DILTIAZEM 5 MG/ML 5 ML VIAL IVP STA (05:57)
[2016-05-09 05:59] LABS: Glucose,Whole Blood 111 mg/dL (75-99)
[2016-05-09] MEDS ORDERED: DILTIAZEM 125 MG in SODIUM CHLORIDE 0.9% 100 ML IV SCH (06:00)
[2016-05-09] MEDS: INSULIN LISPRO (humaLOG) 300 UNIT/3 ML VIAL SQ SCH ×7 (06:02→23:08)
[2016-05-09] MEDS: LEVOTHYROXINE 112 MCG TAB PO SCH (07:10)
[2016-05-09] MEDS: HYDROcodone/APAP 5-325MG 1 EACH TAB PO PRN (07:10)
[2016-05-09 07:14] LABS: Calcium 8.1 mg/dL (8.4-10.2)
[2016-05-09] MEDS: CLOPIDOGREL 75 MG TAB PO SCH (08:03)
[2016-05-09] MEDS: METOPROLOL TARTRATE 50 MG TAB PO SCH ×2 (08:04→23:02)
[2016-05-09] MEDS: CHOLECALCIFEROL 1,000 UNIT TAB PO SCH ×2 (08:04→23:03)
[2016-05-09] MEDS: FUROSEMIDE 20 MG TAB PO SCH ×2 (08:04→23:02)
[2016-05-09] MEDS: ASPIRIN 325 MG TAB PO SCH (08:05)
[2016-05-09] MEDS: GABAPENTIN 300 MG CAP PO SCH ×2 (08:05→23:02)
[2016-05-09] MEDS: ENOXAPARIN 30 MG/0.3 ML SYRINGE SQ SCH (08:05)
[2016-05-09] MEDS: ISOSORBIDE MONONITRATE ER 30 MG TAB.ER.24H PO SCH (08:05)
[2016-05-09] MEDS: OXYBUTYNIN CHLORIDE 5 MG TAB PO SCH (08:06)
[2016-05-09] MEDS: VIT A,C & E-LUTEIN-MINERALS 1 EACH TAB PO SCH ×2 (08:06→23:02)
[2016-05-09] MEDS: guaiFENesin 600 MG TABLET.ER PO SCH ×2 (08:06→23:02)
[2016-05-09] MEDS: predniSONE 10 MG TAB PO SCH (08:06)
[2016-05-09] MEDS ORDERED: ERGOCALCIFEROL 50,000 UNIT CAP PO SCH (09:00)
[2016-05-09] MEDS ORDERED: FUROSEMIDE 10 MG/ML 4 ML VIAL IV STA (10:02)
--- NOTE | 2016-05-09 10:31 | XR ---
EXAMINATION TYPE: XR chest 1V portable DATE OF EXAM: 05/09/2016 10:19 AM COMPARISON: 05/07/2016 INDICATION: Pneumonia TECHNIQUE: Single frontal view of the chest is obtained. FINDINGS: The heart size is normal. The pulmonary vasculature is normal. A right lower lobe infiltrate and consolidation is present. Findings have worsened from May 12. IMPRESSION: 1. Developing right lower lobe pneumonia.
--- NOTE | 2016-05-09 11:37 | P.PN ---
Subjective Principal diagnosis: Acute right middle lobe pneumonia This is an 80-year-old female with history of multiple medical problems including sarcoidosis, coronary artery disease, chronic atrial fibrillation, bronchial asthma, hypertension, hypothyroidism, previous history of DVT. Patient has been doing relatively well since her last hospital discharge, however yesterday when she was sitting on the lazy boy chair, apparently she fell off down to the floor and she was unable to get up. She was very weak, and the patient was brought into the hospital because of weakness. Upon evaluation in the ER, she was found to have a temp of 101.5. Patient was asked if she was having any pulmonary symptoms, apparently she has been experiencing episodes of productive cough for the last few days. Some wheezing, chest x-ray showed a right middle lobe infiltrate, patient was admitted with the impression of pneumonia, and this consult was initiated. While in the ER the patient had atrial fibrillation with RVR, hence the patient was placed on Cardizem drip, and she was admitted she was also placed on empiric antibiotics for her right middle lobe pneumonia. She is already feeling better, breathing easier, minimal cough, no wheezing, no shortness of breath, no chest pain. No headache no blurred vision no dizziness. No nausea no vomiting no abdominal pain. He continues to have some generalized weakness. Troponins were noted to be a bit elevated. Otherwise her other labs were unremarkable. No evidence of leukocytosis. Patient was reevaluated today on 05/09/16, she is feeling better, however she is having significant amount of night sweats. Chest x-ray continues to suggest possibility of right middle lobe and right lower lobe pneumonia. No documented fever overnight. Her O2 sat is 94% on room air, and again clinically the patient is feeling better. Objective - Vital Signs Vital signs: Vital Signs Temp 97.0 F L 05/09/16 08:00 Pulse 95 05/09/16 08:00 Resp 20 05/09/16 08:00 BP 99/54 05/09/16 08:00 Pulse Ox 94 L 05/09/16 08:00 Intake & Output 05/08/16 05/09/16 05/09/16 18:59 06:59 18:59 Intake Total 50 120 Balance 50 120 Weight 70.5 kg Intake: Intake, IV Titration 50 Amount Piperacillin-Tazobactam 3 50 .375 gm In Dextrose/Water 1 50ml.bag @ 12.5 mls/hr IVPB Q8HR [facility] Rx#: [id number] Oral 120 Other: Voiding Method Toilet # Voids 1 1 - Exam Physical Exam: Revealed an 80-year-old female in no distress HEENT:[Neck is supple.] [No neck masses.] [No thyromegaly.] [No JVD.] Chest: [Minimal crackles at the bases were noted today..] Cardiac Exam: [Normal S1 and S2, no S3 gallop, no murmur.] Abdomen: [Soft, nontender, no megaly, no rebound, no guarding, normal bowel sounds.] Extremities: [No clubbing, no edema, no cyanosis.] Neurological Exam: [No focal neurologic deficit.] - Labs CBC & Chem 7: 05/07/16 21:30 05/09/16 06:10 Labs: Abnormal Lab Results - Last 24 Hours (Table) 05/08/16 05/08/16 05/08/16 Range/Units 12:00 14:54 16:51 BUN (7-17) mg/dL Creatinine (0.52-1.04) mg/dL Glucose (74-99) mg/dL POC Glucose (mg/dL) 301 H 312 H 259 H (75-99) mg/dL Calcium (8.4-10.2) mg/dL 05/08/16 05/09/16 05/09/16 Range/Units 20:55 05:57 06:10 BUN 25 H (7-17) mg/dL Creatinine 1.30 H (0.52-1.04) mg/dL Glucose 100 H (74-99) mg/dL POC Glucose (mg/dL) 104 H 111 H (75-99) mg/dL Calcium 8.1 L (8.4-10.2) mg/dL Microbiology - Last 24 Hours (Table) 05/08/16 00:03 Urine Culture - Final Urine,Voided Assessment and Plan Plan: Impression: 1 acute right middle lobe pneumonia and the right lower lobe pneumonia 2 multiple comorbidities including chronic atrial fibrillation with RVR, history of underlying coronary artery disease and previous stent placement in December of last year, history of hypertension, diabetes, hyperlipidemia, sarcoidosis, bronchial asthma, and abnormal troponin. Recommendation: Agree with the present treatment plan, no changes will be made, we'll continue to follow, consider discharge planning in the next 48 hours. On oral antibiotics. Time with Patient: Less than 30
[2016-05-09 11:57] LABS: Glucose,Whole Blood 150 mg/dL (75-99)
--- NOTE | 2016-05-09 14:07 | P.PN ---
Subjective Principal diagnosis: Pneumonia This is a pleasant 80-year-old female who follows regularly with Dr. Rivera in the office. She has a known history of sarcoidosis, coronary artery disease with prior stent placement, chronic persistent atrial fibrillation, asthma, diabetes, hypertension, hyperlipidemia, hypothyroidism, prior DVT. She presents to the hospital primarily with symptoms of stream fatigue and weakness, with associated persistent cough of productive sputum. Patient states she was in her lazy boy chair, fell down onto the floor and was unable to get up because she was so weak. Patient denies any chest discomfort other than the pain in her chest with coughing. On arrival here patient was found to have a temperature of 101.5. Chest x-ray reveals a right middle lobe infiltrate new as compared with prior exam. CT of the brain was performed which revealed cerebral atrophy and mild chronic small vessel ischemia. No acute intracranial abnormality. EKG on arrival here showed atrial fibrillation with a rapid ventricular response. Patient has been on anticoagulation in the past, this was discontinued at some point because of bleeding, exact details unavailable. Continues to be in A. fib with a controlled ventricular response. Objective - Vital Signs Vital signs: Vital Signs Temp 97.1 F L 05/09/16 11:48 Pulse 78 05/09/16 11:50 Resp 20 05/09/16 11:50 BP 94/51 05/09/16 11:48 Pulse Ox 94 L 05/09/16 11:48 Intake & Output 05/08/16 05/09/16 05/09/16 18:59 06:59 18:59 Intake Total 50 570 Balance 50 570 Weight 70.5 kg Intake: IV 250 .9 @ 50 250 Intake, IV Titration 50 100 Amount Diltiazem 125 mg In 50 Sodium Chloride 0.9% 100 ml @ 10 MG/HR 10 mls/hr IV .[id number] [facility] Rx#: [id number] Piperacillin-Tazobactam 3 50 50 .375 gm In Dextrose/Water 1 50ml.bag @ 12.5 mls/hr IVPB Q8HR [facility] Rx#: [id number] Oral 220 Other: Voiding Method Toilet # Voids 1 1 - Exam PHYSICAL EXAMINATION: HEENT: Head is atraumatic, normocephalic. Pupils equal, round. Neck is supple. There is no elevated jugular venous pressure. HEART EXAMINATION: Heart S1 and S2 irregular irregular CHEST EXAMINATION: A real scattered coarse wheezes and rhonchi throughout. ABDOMEN: Soft, nontender. Bowel sounds are heard. No organomegaly noted. EXTREMITIES: 2+ peripheral pulses with no evidence of peripheral edema and no calf tenderness noted. NEUROLOGIC patient is awake, alert and oriented -3. . - Labs CBC & Chem 7: 05/07/16 21:30 05/09/16 06:10 Labs: Abnormal Lab Results - Last 24 Hours (Table) 05/08/16 05/08/16 05/08/16 Range/Units 14:54 16:51 20:55 BUN (7-17) mg/dL Creatinine (0.52-1.04) mg/dL Glucose (74-99) mg/dL POC Glucose (mg/dL) 312 H 259 H 104 H (75-99) mg/dL Calcium (8.4-10.2) mg/dL 05/09/16 05/09/16 05/09/16 Range/Units 05:57 06:10 11:51 BUN 25 H (7-17) mg/dL Creatinine 1.30 H (0.52-1.04) mg/dL Glucose 100 H (74-99) mg/dL POC Glucose (mg/dL) 111 H 150 H (75-99) mg/dL Calcium 8.1 L (8.4-10.2) mg/dL Microbiology - Last 24 Hours (Table) 05/08/16 00:03 Urine Culture - Final Urine,Voided Assessment and Plan Plan: Assessment and plan #1 new right middle lobe pneumonia. On antibiotics. #2 atrial fibrillation with rapid ventricular response, patient has history of chronic persistent atrial fibrillation. Not a candidate for anticoagulation because of prior bleeding. #3 known history of coronary artery disease with prior stent placement, most recent stent was placed in December of last year at which time the patient underwent arthrectomy of the proximal LAD was successful stenting of the proximal LAD. #4 hypertension #5 diabetes #6 hyperlipidemia #7 sarcoidosis #8 asthma #9 abnormal troponin values, not consistent with acute coronary syndrome. Likely secondary to oxygen supply and demand mismatch. Plan Echo cardiogram with Doppler study was performed which revealed an ejection fraction of 45-50%. Free T4 and TSH were normal. We will discontinue the IV Cardizem. Continue oral beta sera. DNP note has been reviewed, I agree with a documented findings and plan of care. Patient was seen and examined.
--- NOTE | 2016-05-09 17:06 | PN ---
DATE OF SERVICE: 05/09/2016 PRESENTING COMPLAINT: Cough. INTERVAL HISTORY: This very pleasant lady presented with pneumonia. Still has a cough, congested, brining up some sputum, feeling tired. Also in A. fib with rapid ventricular rate. Patient had been on Cardizem drip. Heart rate has been up to the 80s. Review of systems done for constitutional, cardiovascular, GI, pulmonary; relevant findings as above. Current medications are reviewed and include IV Zosyn and vancomycin. On examination, temperature 97, pulse 81, respirations 18, blood pressure 105/63, pulse ox 96% on room air. GENERAL APPEARANCE: Sitting up on a chair, not in distress. EYES: Pupils equal. Conjunctivae normal. NECK: JVD unable to assess. Mass not palpable. RESPIRATORY: Effort increased. LUNGS: Decreased breath sounds. Expiratory wheezing. Right basal core crackles. CARDIOVASCULAR: Heart sounds irregular. No edema. ABDOMEN: Soft, nontender. Liver and spleen not palpable. PSYCHIATRY: Alert and oriented x3. Mood, affect normal. INVESTIGATIONS: Potassium 4. BUN 25, creatinine 1.30. Chest x-ray shows infiltrate. ASSESSMENT: 1. Right middle lobe pneumonia consider gram-negative organism with a sepsis-like picture present on admission. 2. Atrial fibrillation with rapid ventricular rate on presentation, now better controlled. 3. Gastroesophageal reflux disease. 4. Hypothyroidism, chronic. 5. Primary osteoarthritis in multiple joints, bilateral. 6. Coronary artery disease with prior history of stent. 7. 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 8. Chronic sarcoidosis. 9. Persistent chronic asthma with acute exacerbation. PLAN: Continue current medication and treatment plan. Patient is slow to respond. Care was discussed with the patient. Patient's 2-D echocardiogram shows EF of 45 to 50%. Follow.
[2016-05-09] MEDS: PANTOPRAZOLE 40 MG TABLET PO SCH (17:31)
[2016-05-09] MEDS ORDERED: SENNOSIDES-DOCUSATE SODIUM 1 EACH TAB PO PRN (17:36)
[2016-05-09 17:41] LABS: Glucose,Whole Blood 111 mg/dL (75-99)
[2016-05-09 21:11] LABS: Glucose,Whole Blood 129 mg/dL (75-99)
[2016-05-09] MEDS: ATORVASTATIN 20 MG TAB PO SCH (23:02)
[2016-05-09] MEDS: MONTELUKAST 10 MG TAB PO SCH (23:03)
[2016-05-09] MEDS: TEMAZEPAM 30 MG CAP PO SCH (23:04)
[2016-05-09] MEDS: VANCOMYCIN 1,250 MG in SODIUM CHLORIDE 0.9% 250 ML IVPB SCH (23:06)
[2016-05-09] MEDS: INSULIN GLARGINE 100 UNIT/ML 10 ML VIAL SQ SCH (23:11)
[2016-05-10] MEDS: HYDROcodone/APAP 5-325MG 1 EACH TAB PO PRN ×3 (02:48→18:10)
[2016-05-10] MEDS: PIPERACILLIN-TAZOBACTAM 3.375 GM in DEXTROSE/WATER 1 50ML.BAG IVPB SCH ×3 (05:23→18:04)
[2016-05-10 06:11] LABS: Glucose,Whole Blood 128 mg/dL (75-99)
[2016-05-10 06:38] LABS: Calcium 7.7 mg/dL (8.4-10.2); Potassium 3.8 mmol/L (3.5-5.1)
[2016-05-10] MEDS: INSULIN LISPRO (humaLOG) 300 UNIT/3 ML VIAL SQ SCH ×7 (07:05→23:02)
[2016-05-10] MEDS: LEVOTHYROXINE 112 MCG TAB PO SCH (07:05)
[2016-05-10] MEDS: CHOLECALCIFEROL 1,000 UNIT TAB PO SCH ×2 (08:45→22:59)
[2016-05-10] MEDS: ASPIRIN 325 MG TAB PO SCH (08:45)
[2016-05-10] MEDS: CLOPIDOGREL 75 MG TAB PO SCH (08:46)
[2016-05-10] MEDS: ENOXAPARIN 30 MG/0.3 ML SYRINGE SQ SCH (08:46)
[2016-05-10] MEDS: GABAPENTIN 300 MG CAP PO SCH ×2 (08:46→23:00)
[2016-05-10] MEDS: FUROSEMIDE 20 MG TAB PO SCH ×2 (08:46→23:00)
[2016-05-10] MEDS: guaiFENesin 600 MG TABLET.ER PO SCH ×2 (08:47→23:00)
[2016-05-10] MEDS: METOPROLOL TARTRATE 50 MG TAB PO SCH ×2 (08:47→23:00)
[2016-05-10] MEDS: VIT A,C & E-LUTEIN-MINERALS 1 EACH TAB PO SCH ×2 (08:47→22:59)
[2016-05-10] MEDS: ISOSORBIDE MONONITRATE ER 30 MG TAB.ER.24H PO SCH (08:47)
[2016-05-10] MEDS: predniSONE 10 MG TAB PO SCH (08:48)
[2016-05-10] MEDS: OXYBUTYNIN CHLORIDE 5 MG TAB PO SCH (08:48)
[2016-05-10 12:11] LABS: Glucose,Whole Blood 127 mg/dL (75-99)
--- NOTE | 2016-05-10 13:00 | P.PN ---
Subjective Principal diagnosis: Acute right middle lobe pneumonia This is an 80-year-old female with history of multiple medical problems including sarcoidosis, coronary artery disease, chronic atrial fibrillation, bronchial asthma, hypertension, hypothyroidism, previous history of DVT. Patient has been doing relatively well since her last hospital discharge, however yesterday when she was sitting on the lazy boy chair, apparently she fell off down to the floor and she was unable to get up. She was very weak, and the patient was brought into the hospital because of weakness. Upon evaluation in the ER, she was found to have a temp of 101.5. Patient was asked if she was having any pulmonary symptoms, apparently she has been experiencing episodes of productive cough for the last few days. Some wheezing, chest x-ray showed a right middle lobe infiltrate, patient was admitted with the impression of pneumonia, and this consult was initiated. While in the ER the patient had atrial fibrillation with RVR, hence the patient was placed on Cardizem drip, and she was admitted she was also placed on empiric antibiotics for her right middle lobe pneumonia. She is already feeling better, breathing easier, minimal cough, no wheezing, no shortness of breath, no chest pain. No headache no blurred vision no dizziness. No nausea no vomiting no abdominal pain. He continues to have some generalized weakness. Troponins were noted to be a bit elevated. Otherwise her other labs were unremarkable. No evidence of leukocytosis. Patient was reevaluated today on 05/09/16, she is feeling better, however she is having significant amount of night sweats. Chest x-ray continues to suggest possibility of right middle lobe and right lower lobe pneumonia. No documented fever overnight. Her O2 sat is 94% on room air, and again clinically the patient is feeling better. Reevaluated today on 05/10/2016, patient continues to do well, she has intermittent productive cough, no fever no chills no hemoptysis no chest pain. Renal functioning however today seems to be getting a bit worse, and I believe is most likely related to diuretics. Otherwise the patient is doing well overall. And I believe we could start consider discharge planning in the next 24 hours. Objective - Vital Signs Vital signs: Vital Signs Temp 97.6 F 05/10/16 08:00 Pulse 98 05/10/16 08:00 Resp 20 05/10/16 08:00 BP 114/72 05/10/16 08:00 Pulse Ox 98 01/18/17 08:00 Intake & Output 05/09/16 05/10/16 05/10/16 18:59 06:59 18:59 Intake Total 690 100 330 Balance 690 100 330 Weight 72.3 kg Intake: IV 250 100 .9 @ 50 250 100 Intake, IV Titration 100 100 50 Amount Diltiazem 125 mg In 50 Sodium Chloride 0.9% 100 ml @ 10 MG/HR 10 mls/hr IV .[id number] [facility] Rx#: [id number] Piperacillin-Tazobactam 3 50 100 50 .375 gm In Dextrose/Water 1 50ml.bag @ 12.5 mls/hr IVPB Q8HR [facility] Rx#: [id number] Oral 340 180 Other: Voiding Method Toilet Toilet Toilet - Exam Physical Exam: Revealed an 80-year-old female in no distress HEENT:[Neck is supple.] [No neck masses.] [No thyromegaly.] [No JVD.] Chest: [Minimal crackles at the bases were noted today..] Cardiac Exam: [Normal S1 and S2, no S3 gallop, no murmur.] Abdomen: [Soft, nontender, no megaly, no rebound, no guarding, normal bowel sounds.] Extremities: [No clubbing, no edema, no cyanosis.] Neurological Exam: [No focal neurologic deficit.] - Labs CBC & Chem 7: 05/07/16 21:30 05/10/16 05:48 Labs: Abnormal Lab Results - Last 24 Hours (Table) 05/09/16 05/09/16 05/10/16 Range/Units 17:06 21:10 05:48 BUN 37 H (7-17) mg/dL Creatinine 1.42 H (0.52-1.04) mg/dL Glucose 131 H (74-99) mg/dL POC Glucose (mg/dL) 111 H 129 H (75-99) mg/dL Calcium 7.7 L (8.4-10.2) mg/dL 05/10/16 05/10/16 Range/Units 06:10 12:06 BUN (7-17) mg/dL Creatinine (0.52-1.04) mg/dL Glucose (74-99) mg/dL POC Glucose (mg/dL) 128 H 127 H (75-99) mg/dL Calcium (8.4-10.2) mg/dL Microbiology - Last 24 Hours (Table) 05/08/16 00:03 Urine Culture - Final Urine,Voided Assessment and Plan Plan: Impression: 1 acute right middle lobe pneumonia and the right lower lobe pneumonia 2 multiple comorbidities including chronic atrial fibrillation with RVR, history of underlying coronary artery disease and previous stent placement in December of last year, history of hypertension, diabetes, hyperlipidemia, sarcoidosis, bronchial asthma, and abnormal troponin. Recommendation: Agree with the present treatment plan, no changes will be made, we'll continue to follow, possible discharging the patient in the next 24 hours. Time with Patient: Less than 30
--- NOTE | 2016-05-10 15:14 | PN ---
DATE OF SERVICE: 05/10/2016 PRESENTING COMPLAINT: Cough. INTERVAL HISTORY: This is a patient who presented with pneumonia, got a cough, less congested. Minimal sputum, has been out of bed. Family at the bedside. Heart rate is better controlled. Review of systems done for constitutional, cardiovascular, GI, pulmonary; relevant findings as above. Current medications are reviewed that include IV Zosyn, Lopressor. On examination, temperature 96.3, pulse 81, respirations 16, blood pressure 94/65, pulse ox 99% on room air. GENERAL APPEARANCE: Sitting up, not in distress. EYES: Pupils equal. Conjunctivae normal. NECK: JVD unable to assess. Mass not palpable. Respiratory effort increased. LUNGS: Decreased breath sounds, slightly decreased wheezing, improved crackles. CARDIOVASCULAR: Heart sounds irregular. No edema. ABDOMEN: Soft. Liver and spleen not palpable. PSYCHIATRY: Alert and oriented x3. Mood and affect slightly anxious-appearing. INVESTIGATIONS: BUN 37, creatinine 1.42. ASSESSMENT: 1. Right lobe pneumonia, consider gram-negative organism with a sepsis-like picture, present on admission. 2. Atrial fibrillation with rapid ventricular rate on presentation, now better controlled. 3. Gastroesophageal reflux disease. 4. Hypothyroidism, chronic. 5. Primary osteoarthritis of multiple joints, bilateral. 6. Coronary artery disease with prior history of stent. 7. 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 8. Chronic sarcoidosis. 9. Persistent chronic asthma with acute exacerbation. PLAN: Continue current medication and treatment plan. Care was discussed with the patient and family at the bedside. Patient encouraged to ambulate. Will follow.
--- NOTE | 2016-05-10 15:30 | P.PN ---
Subjective Principal diagnosis: Pneumonia This is a pleasant 80-year-old female who follows regularly with Dr. Rivera in the office. She has a known history of sarcoidosis, coronary artery disease with prior stent placement, chronic persistent atrial fibrillation, asthma, diabetes, hypertension, hyperlipidemia, hypothyroidism, prior DVT. She presents to the hospital primarily with symptoms of stream fatigue and weakness, with associated persistent cough of productive sputum. Patient states she was in her lazy boy chair, fell down onto the floor and was unable to get up because she was so weak. Patient denies any chest discomfort other than the pain in her chest with coughing. On arrival here patient was found to have a temperature of 101.5. Chest x-ray reveals a right middle lobe infiltrate new as compared with prior exam. CT of the brain was performed which revealed cerebral atrophy and mild chronic small vessel ischemia. No acute intracranial abnormality. EKG on arrival here showed atrial fibrillation with a rapid ventricular response. Patient has been on anticoagulation in the past, this was discontinued at some point because of bleeding, exact details unavailable. Continues to be in A. fib with a controlled ventricular response. Objective - Vital Signs Vital signs: Vital Signs Temp 96.3 F L 05/10/16 12:00 Pulse 81 05/10/16 12:00 Resp 16 05/10/16 12:00 BP 94/65 05/10/16 12:00 Pulse Ox 99 05/10/16 12:00 Intake & Output 05/09/16 05/10/16 05/10/16 18:59 06:59 18:59 Intake Total 690 100 510 Balance 690 100 510 Weight 72.3 kg Intake: IV 250 100 .9 @ 50 250 100 Intake, IV Titration 100 100 50 Amount Diltiazem 125 mg In 50 Sodium Chloride 0.9% 100 ml @ 10 MG/HR 10 mls/hr IV .[id number] [facility] Rx#: [id number] Piperacillin-Tazobactam 3 50 100 50 .375 gm In Dextrose/Water 1 50ml.bag @ 12.5 mls/hr IVPB Q8HR [facility] Rx#: [id number] Oral 340 360 Other: Voiding Method Toilet Toilet Toilet - Exam PHYSICAL EXAMINATION: HEENT: Head is atraumatic, normocephalic. Pupils equal, round. Neck is supple. There is no elevated jugular venous pressure. HEART EXAMINATION: Heart S1 and S2 irregular irregular CHEST EXAMINATION: A real scattered coarse wheezes and rhonchi throughout. ABDOMEN: Soft, nontender. Bowel sounds are heard. No organomegaly noted. EXTREMITIES: 2+ peripheral pulses with no evidence of peripheral edema and no calf tenderness noted. NEUROLOGIC patient is awake, alert and oriented -3. . - Labs CBC & Chem 7: 05/07/16 21:30 05/10/16 05:48 Labs: Abnormal Lab Results - Last 24 Hours (Table) 05/09/16 05/09/16 05/10/16 Range/Units 17:06 21:10 05:48 BUN 37 H (7-17) mg/dL Creatinine 1.42 H (0.52-1.04) mg/dL Glucose 131 H (74-99) mg/dL POC Glucose (mg/dL) 111 H 129 H (75-99) mg/dL Calcium 7.7 L (8.4-10.2) mg/dL 05/10/16 05/10/16 Range/Units 06:10 12:06 BUN (7-17) mg/dL Creatinine (0.52-1.04) mg/dL Glucose (74-99) mg/dL POC Glucose (mg/dL) 128 H 127 H (75-99) mg/dL Calcium (8.4-10.2) mg/dL Microbiology - Last 24 Hours (Table) 05/08/16 00:03 Urine Culture - Final Urine,Voided Assessment and Plan Plan: Assessment and plan #1 new right middle lobe pneumonia. On antibiotics. #2 atrial fibrillation with rapid ventricular response, patient has history of chronic persistent atrial fibrillation. Not a candidate for anticoagulation because of prior bleeding. #3 known history of coronary artery disease with prior stent placement, most recent stent was placed in December of last year at which time the patient underwent arthrectomy of the proximal LAD was successful stenting of the proximal LAD. #4 hypertension #5 diabetes #6 hyperlipidemia #7 sarcoidosis #8 asthma #9 abnormal troponin values, not consistent with acute coronary syndrome. Likely secondary to oxygen supply and demand mismatch. Plan Echo cardiogram with Doppler study was performed which revealed an ejection fraction of 45-50%. Free T4 and TSH were normal. The tinea beta sera. We will follow this patient with you now as-needed basis only. Please call with questions. DNP note has been reviewed, I agree with a documented findings and plan of care. Patient was seen and examined.
[2016-05-10 17:02] LABS: Glucose,Whole Blood 217 mg/dL (75-99)
[2016-05-10] MEDS: PANTOPRAZOLE 40 MG TABLET PO SCH (18:04)
[2016-05-10 21:32] LABS: Glucose,Whole Blood 217 mg/dL (75-99)
[2016-05-10] MEDS: MONTELUKAST 10 MG TAB PO SCH (23:00)
[2016-05-10] MEDS: ATORVASTATIN 20 MG TAB PO SCH (23:00)
[2016-05-10] MEDS: INSULIN GLARGINE 100 UNIT/ML 10 ML VIAL SQ SCH (23:01)
[2016-05-10] MEDS: TEMAZEPAM 30 MG CAP PO SCH (23:42)
[2016-05-11] MEDS: HYDROcodone/APAP 5-325MG 1 EACH TAB PO PRN ×3 (00:12→16:10)
[2016-05-11] MEDS: PIPERACILLIN-TAZOBACTAM 3.375 GM in DEXTROSE/WATER 1 50ML.BAG IVPB SCH ×4 (00:13→23:40)
[2016-05-11 05:52] LABS: Glucose,Whole Blood 60 mg/dL (75-99)
[2016-05-11 06:14] LABS: Glucose,Whole Blood 60 mg/dL (75-99)
[2016-05-11 06:29] LABS: Glucose,Whole Blood 67 mg/dL (75-99)
[2016-05-11] MEDS: INSULIN LISPRO (humaLOG) 300 UNIT/3 ML VIAL SQ SCH ×7 (06:32→20:55)
[2016-05-11] MEDS: LEVOTHYROXINE 112 MCG TAB PO SCH (06:48)
[2016-05-11 06:52] LABS: Glucose,Whole Blood 78 mg/dL (75-99)
[2016-05-11 07:14] LABS: Calcium 8.2 mg/dL (8.4-10.2); Potassium 4.1 mmol/L (3.5-5.1)
[2016-05-11] MEDS: ENOXAPARIN 30 MG/0.3 ML SYRINGE SQ SCH (10:02)
[2016-05-11] MEDS: METOPROLOL TARTRATE 50 MG TAB PO SCH ×2 (10:02→21:06)
[2016-05-11] MEDS: guaiFENesin 600 MG TABLET.ER PO SCH ×2 (10:02→21:05)
[2016-05-11] MEDS: CLOPIDOGREL 75 MG TAB PO SCH (10:03)
[2016-05-11] MEDS: VIT A,C & E-LUTEIN-MINERALS 1 EACH TAB PO SCH ×2 (10:03→21:06)
[2016-05-11] MEDS: CHOLECALCIFEROL 1,000 UNIT TAB PO SCH ×2 (10:03→21:04)
[2016-05-11] MEDS: ASPIRIN 325 MG TAB PO SCH (10:03)
[2016-05-11] MEDS: predniSONE 10 MG TAB PO SCH (10:04)
[2016-05-11] MEDS: GABAPENTIN 300 MG CAP PO SCH ×2 (10:04→21:05)
[2016-05-11] MEDS: FUROSEMIDE 20 MG TAB PO SCH ×2 (10:04→21:05)
[2016-05-11] MEDS: ISOSORBIDE MONONITRATE ER 30 MG TAB.ER.24H PO SCH (10:04)
[2016-05-11] MEDS: OXYBUTYNIN CHLORIDE 5 MG TAB PO SCH (10:04)
--- NOTE | 2016-05-11 10:35 | XR ---
EXAMINATION TYPE: XR chest 1V DATE OF EXAM: 05/11/2016 10:28 AM HISTORY: Shortness of breath. COMPARISON: 05/09/2016 TECHNIQUE: Single view of the chest is submitted. FINDINGS: Demonstrated are scattered senescent parenchymal change. There is slight interval improvement in patchy density right medial lung base. The heart is stable. Hilar and mediastinal structures are within normal limits. Degenerative changes are seen of the dorsal spine. IMPRESSION: 1. There is slight interval improvement in patchy density right medial lung base.
[2016-05-11 11:59] LABS: Glucose,Whole Blood 145 mg/dL (75-99)
[2016-05-11 14:14] LABS: Appearance,Urine Clear (Clear); Bilirubin,Urine Negative (Negative); Glucose,Urine (UA) Negative (Negative); Ketones,Urine Negative (Negative); Leukocyte Esterase,Urine Small (Negative); Nitrite,Urine Negative (Negative); Particle Count 401; Protein,Urine Negative (Negative); Specific Gravity,Urine 1.008 (1.001-1.035); Squamous Epithelial Cell,Urine <1 /hpf (0-4); UA Billing (MACRO vs. MICRO) MICRO; Urobilinogen,Urine <2.0 mg/dL (<2.0); WBC,Urine 1 /hpf (0-5)
--- NOTE | 2016-05-11 16:09 | P.PN ---
Subjective Principal diagnosis: Acute right middle lobe pneumonia This is an 80-year-old female with history of multiple medical problems including sarcoidosis, coronary artery disease, chronic atrial fibrillation, bronchial asthma, hypertension, hypothyroidism, previous history of DVT. Patient has been doing relatively well since her last hospital discharge, however yesterday when she was sitting on the lazy boy chair, apparently she fell off down to the floor and she was unable to get up. She was very weak, and the patient was brought into the hospital because of weakness. Upon evaluation in the ER, she was found to have a temp of 101.5. Patient was asked if she was having any pulmonary symptoms, apparently she has been experiencing episodes of productive cough for the last few days. Some wheezing, chest x-ray showed a right middle lobe infiltrate, patient was admitted with the impression of pneumonia, and this consult was initiated. While in the ER the patient had atrial fibrillation with RVR, hence the patient was placed on Cardizem drip, and she was admitted she was also placed on empiric antibiotics for her right middle lobe pneumonia. She is already feeling better, breathing easier, minimal cough, no wheezing, no shortness of breath, no chest pain. No headache no blurred vision no dizziness. No nausea no vomiting no abdominal pain. He continues to have some generalized weakness. Troponins were noted to be a bit elevated. Otherwise her other labs were unremarkable. No evidence of leukocytosis. Patient was reevaluated today on 05/09/16, she is feeling better, however she is having significant amount of night sweats. Chest x-ray continues to suggest possibility of right middle lobe and right lower lobe pneumonia. No documented fever overnight. Her O2 sat is 94% on room air, and again clinically the patient is feeling better. Reevaluated today on 05/10/2016, patient continues to do well, she has intermittent productive cough, no fever no chills no hemoptysis no chest pain. Renal functioning however today seems to be getting a bit worse, and I believe is most likely related to diuretics. Otherwise the patient is doing well overall. And I believe we could start consider discharge planning in the next 24 hours. Patient was reevaluated today on 05/11/2016, she is feeling generally weak, she has intermittent episodes of cough, slight wheezing, no fever no chills no hemoptysis and no chest pain. Chest x-ray is clearly showing definite improvement in her right middle lobe and right lower lobe pneumonia. Hence I believe the patient could be considered for discharge planning in a.m. Objective - Vital Signs Vital signs: Vital Signs Temp 97.6 F 05/11/16 11:56 Pulse 68 05/11/16 11:57 Resp 18 05/11/16 11:57 BP 123/75 05/11/16 11:56 Pulse Ox 98 05/11/16 11:56 Intake & Output 05/10/16 05/11/16 05/11/16 18:59 06:59 18:59 Intake Total 630 540 530 Balance 630 540 530 Weight 73.2 kg Intake: IV 100 140 .9 @ 20 100 140 Intake, IV Titration 50 50 Amount Piperacillin-Tazobactam 3 50 50 .375 gm In Dextrose/Water 1 50ml.bag @ 12.5 mls/hr IVPB Q8HR [facility] Rx#: [id number] Oral 480 540 340 Other: Voiding Method Toilet Toilet Toilet # Voids 2 # Bowel Movements 1 - Exam Physical Exam: Revealed an 80-year-old female in no distress HEENT:[Neck is supple.] [No neck masses.] [No thyromegaly.] [No JVD.] Chest: [Minimal crackles at the bases were noted today..] Cardiac Exam: [Normal S1 and S2, no S3 gallop, no murmur.] Abdomen: [Soft, nontender, no megaly, no rebound, no guarding, normal bowel sounds.] Extremities: [No clubbing, no edema, no cyanosis.] Neurological Exam: [No focal neurologic deficit.] - Labs CBC & Chem 7: 05/07/16 21:30 05/11/16 06:13 Labs: Abnormal Lab Results - Last 24 Hours (Table) 05/10/16 05/10/16 05/11/16 Range/Units 16:56 21:30 05:50 BUN (7-17) mg/dL Creatinine (0.52-1.04) mg/dL Glucose (74-99) mg/dL POC Glucose (mg/dL) 217 H 217 H 60 L (75-99) mg/dL Calcium (8.4-10.2) mg/dL Ur Leukocyte Esterase (Negative) 01/19/17 01/19/17 01/19/17 Range/Units 06:12 06:13 06:27 BUN 39 H (7-17) mg/dL Creatinine 1.42 H (0.52-1.04) mg/dL Glucose 54 L (74-99) mg/dL POC Glucose (mg/dL) 60 L 67 L (75-99) mg/dL Calcium 8.2 L (8.4-10.2) mg/dL Ur Leukocyte Esterase (Negative) 05/11/16 05/11/16 Range/Units 11:50 12:30 BUN (7-17) mg/dL Creatinine (0.52-1.04) mg/dL Glucose (74-99) mg/dL POC Glucose (mg/dL) 145 H (75-99) mg/dL Calcium (8.4-10.2) mg/dL Ur Leukocyte Esterase Small H (Negative) Assessment and Plan Plan: Impression: 1 acute right middle lobe pneumonia and the right lower lobe pneumonia 2 multiple comorbidities including chronic atrial fibrillation with RVR, history of underlying coronary artery disease and previous stent placement in December of last year, history of hypertension, diabetes, hyperlipidemia, sarcoidosis, bronchial asthma, and abnormal troponin. Recommendation: Continue present meds, discharge plans for a.m. I will follow the patient on outpatient basis. Time with Patient: Less than 30
[2016-05-11] MEDS: FLUCONAZOLE 100 MG TAB PO SCH (16:48)
[2016-05-11 17:19] LABS: Glucose,Whole Blood 188 mg/dL (75-99)
[2016-05-11] MEDS: PANTOPRAZOLE 40 MG TABLET PO SCH (17:22)
--- NOTE | 2016-05-11 19:47 | PN ---
DATE OF SERVICE: 05/11/2016 PRESENTING COMPLAINT: Cough. INTERVAL HISTORY: This patient presented with pneumonia; has still got a cough, but no more sputum production. Breathing overall is better. Tolerating a diet. Has been out of bed. Atrial fibrillation is controlled, though remains in atrial fibrillation. Review of systems done for constitutional, cardiovascular, GI, pulmonary; relevant findings as above. Current medications are reviewed that include IV Zosyn and vancomycin. On examination, temperature 97.6, pulse 104, respiration 18, blood pressure 123/75, pulse ox 98% on room air. GENERAL APPEARANCE: Sitting up, not in distress. EYES: Pupils equal. Conjunctivae normal. HEENT: Patient has pharyngeal thrush. NECK: JVD not raised. Mass not palpable. RESPIRATORY: Effort normal. LUNGS: Diminished breath sounds. CARDIOVASCULAR: Heart sounds irregular. No edema. ABDOMEN: Soft, non-tender. Liver and spleen not palpable. PSYCHIATRY: Alert and oriented x3. Mood and affect normal. INVESTIGATIONS: White count 9.5, hemoglobin 12.5. Potassium 4.8. BUN 39, creatinine 1.42. ASSESSMENT: 1. Right lower lobe pneumonia. Consider Gram-negative organism with a sepsis-like picture, present on admission, with clinical improvement. 2. Pharyngeal candidiasis. 3. Persistent atrial fibrillation, rate controlled. 4. Gastroesophageal reflux disease. 5. Hypothyroidism, chronic. 6. Primary osteoarthritis in multiple joints, bilateral. 7. Coronary artery disease with prior history of stent. 8. Diabetes mellitus, type 2, with peripheral neuropathy, chronically on insulin. 9. Chronic sarcoidosis. 10. Persistent chronic asthma with acute exacerbation. PLAN: Patient clinically is doing much better. Will start the patient on Diflucan. Discussed with Dr. Gonzales. Hopefully we can discharge the patient tomorrow.
[2016-05-11 20:15] LABS: Glucose,Whole Blood 108 mg/dL (75-99)
[2016-05-11] MEDS: TEMAZEPAM 30 MG CAP PO SCH (20:59)
[2016-05-11] MEDS: VANCOMYCIN 1,250 MG in SODIUM CHLORIDE 0.9% 250 ML IVPB SCH (21:04)
[2016-05-11] MEDS: INSULIN GLARGINE 100 UNIT/ML 10 ML VIAL SQ SCH (21:04)
[2016-05-11] MEDS: ATORVASTATIN 20 MG TAB PO SCH (21:05)
[2016-05-11] MEDS: MONTELUKAST 10 MG TAB PO SCH (21:06)
[2016-05-11 22:45] VITALS: RESP 16
[2016-05-12] MEDS: LEVOTHYROXINE 112 MCG TAB PO SCH (06:28)
[2016-05-12 07:28] LABS: Glucose,Whole Blood 77 mg/dL (75-99)
[2016-05-12 07:28] LABS: Glucose,Whole Blood 54 mg/dL (75-99)
[2016-05-12 07:47] VITALS: BP 138/80; PULSE 102; TEMP 98.2
[2016-05-12] MEDS: INSULIN LISPRO (humaLOG) 300 UNIT/3 ML VIAL SQ SCH ×4 (08:00→13:04)
[2016-05-12] MEDS: CHOLECALCIFEROL 1,000 UNIT TAB PO SCH (08:41)
[2016-05-12] MEDS: ENOXAPARIN 30 MG/0.3 ML SYRINGE SQ SCH (08:42)
[2016-05-12] MEDS: FLUCONAZOLE 100 MG TAB PO SCH (08:42)
[2016-05-12] MEDS: ASPIRIN 325 MG TAB PO SCH (08:42)
[2016-05-12] MEDS: METOPROLOL TARTRATE 50 MG TAB PO SCH (08:42)
[2016-05-12] MEDS: guaiFENesin 600 MG TABLET.ER PO SCH (08:42)
[2016-05-12] MEDS: predniSONE 10 MG TAB PO SCH (08:43)
[2016-05-12] MEDS: OXYBUTYNIN CHLORIDE 5 MG TAB PO SCH (08:43)
[2016-05-12] MEDS: CLOPIDOGREL 75 MG TAB PO SCH (08:43)
[2016-05-12] MEDS: GABAPENTIN 300 MG CAP PO SCH (08:43)
[2016-05-12] MEDS: ISOSORBIDE MONONITRATE ER 30 MG TAB.ER.24H PO SCH (08:43)
[2016-05-12] MEDS: FUROSEMIDE 20 MG TAB PO SCH (08:43)
[2016-05-12] MEDS: VIT A,C & E-LUTEIN-MINERALS 1 EACH TAB PO SCH (08:44)
[2016-05-12 09:09] LABS: Calcium 8.6 mg/dL (8.4-10.2); Potassium 3.8 mmol/L (3.5-5.1)
[2016-05-12] MEDS: HYDROcodone/APAP 5-325MG 1 EACH TAB PO PRN (09:21)
[2016-05-12] MEDS: PIPERACILLIN-TAZOBACTAM 3.375 GM in DEXTROSE/WATER 1 50ML.BAG IVPB SCH (09:49)
[2016-05-12 12:44] LABS: Glucose,Whole Blood 150 mg/dL (75-99)
--- NOTE | 2016-05-12 15:19 | P.PN ---
Subjective This is an 80-year-old female with history of multiple medical problems including sarcoidosis, coronary artery disease, chronic atrial fibrillation, bronchial asthma, hypertension, hypothyroidism, previous history of DVT. Patient has been doing relatively well since her last hospital discharge, however yesterday when she was sitting on the lazy boy chair, apparently she fell off down to the floor and she was unable to get up. She was very weak, and the patient was brought into the hospital because of weakness. Upon evaluation in the ER, she was found to have a temp of 101.5. Patient was asked if she was having any pulmonary symptoms, apparently she has been experiencing episodes of productive cough for the last few days. Some wheezing, chest x-ray showed a right middle lobe infiltrate, patient was admitted with the impression of pneumonia, and this consult was initiated. While in the ER the patient had atrial fibrillation with RVR, hence the patient was placed on Cardizem drip, and she was admitted she was also placed on empiric antibiotics for her right middle lobe pneumonia. She is seen again today 05/12/2016 in follow-up. She is awake and alert in no acute distress. She states she is nearly back to her baseline. Less coughing less shortness of breath. She is maintaining good O2 saturations in the upper 90s on room air. Her blood and urine cultures were negative. Yesterday's chest x-ray revealed improvement in the density of the right mid lung. Objective - Vital Signs Vital signs: Vital Signs Temp 98.2 F 05/12/16 07:00 Pulse 102 H 05/12/16 07:00 Resp 16 05/12/16 08:00 BP 138/80 05/12/16 07:00 Pulse Ox 97 05/12/16 07:00 Intake & Output 05/11/16 05/12/16 05/12/16 18:59 06:59 18:59 Intake Total 710 300 100 Output Total 300 Balance 410 300 100 Intake: IV 140 300 100 .9 @ 20 140 50 Piperacillin-Tazobactam 3 50 50 .375 gm In Dextrose/Water 1 50ml.bag @ 12.5 mls/hr IVPB Q8HR [facility] Rx#: [id number] Vancomycin 1,250 mg In 250 Sodium Chloride 0.9% 250 ml @ 125 mls/hr IVPB Q48H [facility] Rx#:[id number] Intake, IV Titration 50 Amount Piperacillin-Tazobactam 3 50 .375 gm In Dextrose/Water 1 50ml.bag @ 12.5 mls/hr IVPB Q8HR [facility] Rx#: [id number] Oral 520 Output: Urine 300 Other: Voiding Method Toilet Toilet Toilet # Voids 1 3 - Exam GENERAL EXAM: Alert, active, comfortable in no apparent distress. HEAD: Normocephalic. EYES: Normal reaction of pupils, equal size. NOSE: Clear with pink turbinates. THROAT: No erythema or exudates. NECK: No masses, no JVD. CHEST: No chest wall deformity. LUNGS: Equal air entry with no crackles, wheeze, rhonchi or dullness. CVS: S1 and S2 normal with no audible murmurs, regular rhythm. ABDOMEN: No hepatosplenomegaly, normal bowel sounds, no guarding or rigidity. SPINE: No scoliosis or deformity SKIN: No rashes CENTRAL NERVOUS SYSTEM: No focal deficits, tone is normal in all 4 extremities. Extremities: There is no peripheral edema. No clubbing, no cyanosis. Peripheral pulses are intact. - Labs CBC & Chem 7: 05/07/16 21:30 05/12/16 07:50 Labs: Abnormal Lab Results - Last 24 Hours (Table) 05/11/16 05/11/16 05/12/16 Range/Units 17:16 20:13 07:10 Sodium (137-145) mmol/L BUN (7-17) mg/dL Creatinine (0.52-1.04) mg/dL Glucose (74-99) mg/dL POC Glucose (mg/dL) 188 H 108 H 54 L (75-99) mg/dL 05/12/16 05/12/16 Range/Units 07:50 12:34 Sodium 146 H (137-145) mmol/L BUN 31 H (7-17) mg/dL Creatinine 1.32 H (0.52-1.04) mg/dL Glucose 104 H (74-99) mg/dL POC Glucose (mg/dL) 150 H (75-99) mg/dL Assessment and Plan Plan: Impression: #1 Acute right middle lobe pneumonia and right lower lobe pneumonia. Improved both clinically and radiographically. #2 Chronic atrial fibrillation. #3 Coronary artery disease with previous stent placement. #4 Hypertension. #5 Diabetes mellitus. #6 Hyperlipidemia. #7 Sarcoidosis. #8 Mild intermittent asthma. Plan: The patient was seen and evaluated by Dr. Gonzales. She is cleared for discharge from the pulmonary standpoint. She'll complete her course of antibiotics, prednisone taper and usual pulmonary medications at home. She'll see us in the office in 1 week. We'll repeat her chest x-ray then. The patient is encouraged to call sooner with any recurrence of symptoms or other questions or concerns.
--- NOTE | 2016-05-13 12:33 | DS ---
DATE OF ADMISSION: 05/07/2016 DATE OF DISCHARGE: 05/12/2016 FINAL DIAGNOSES: 1. Right lower lobe pneumonia, consider gram-negative organism with a sepsis-like picture present on admission. 2. Pharyngeal candidiasis. 3. Persistent atrial fibrillation, rate controlled, not a candidate for anticoagulation because of prior bleed. 4. Gastroesophageal reflux disease. 5. Hypothyroidism, chronic. 6. Primary osteoarthritis multiple joints, bilateral. 7. Coronary artery disease with prior history of stent. 8. Diabetes mellitus type 2 with peripheral neuropathy chronically on insulin. 9. Chronic sarcoidosis. 10. Persistent chronic asthma with acute exacerbation, present on admission. HOSPITAL COURSE: This patient presented with A. fib with rapid ventricular rate, pneumonia. Medications were adjusted. Doing much better at the time of discharge. ON EXAMINATION: LUNGS: Improved air entry. PSYCH: Alert and oriented x3. CONSULTATION: Dr. Gonzales from pulmonary; Dr. Liu from cardiology. Patient's 2-D echocardiogram EF of 45% to 50%. Discharge planning more than 35 minutes. DISCHARGE MEDICATIONS: 1. Lipitor 20 mg q.h.s. 2. Vitamin D2, 50,000 units p.o. every 14 days. 3. Lasix 20 mg p.o. b.i.d. 4. Vitamin D3, 4000 units p.o. b.i.d. 5. Neurontin 300 mg p.o. b.i.d. 6. Insulin Humalog 8 units subcu at lunch. 7. Imdur ER 30 mg a day. 8. Prednisone ( ) mg for 3 days. 9. Insulin Lantus 14 units subcutaneously q.h.s. 10. Synthroid 112 mcg p.o. daily. 11. Singulair 10 mg q.h.s. 12. Oxybutynin 5 mg p.o. daily. 13. Restoril 30 mg p.o. q.h.s. 14. Plavix 75 mg p.o. daily. 15. Wickliffe 5 one tablet q.i.d. p.r.n. 16. PreserVision Areds 2 softgel 1 capsule p.o. b.i.d. 17. Prilosec 20 mg with supper. 18. Aspirin 81 mg p.o. daily. 19. Insulin Humalog 7 units at breakfast, 8 with supper. 20. Augmentin 875 one tablet p.o. q.12, ten tablets. 21. Diflucan 100 mg p.o. daily for 7 tablets. 22. Lopressor 50 mg p.o. b.i.d., new dose. 23. Cardizem discontinued. 24. Senokot-S 2 tablets p.o. b.i.d. Follow up with Dr. Gonzales on 05/18/16. BMP in 3 days.
[2016-05-13] MEDS ORDERED: VANCOMYCIN TROUGH DUE 1 EACH MISC MISCELLANE ONE (21:00)
== END 2016-05-12 15:14 | disposition home health service (06) | DRG 871 ==
LOC: EC 20:45 → 6SEL 23:40 → 4MS4W 05-11 21:40
PROVIDERS: ADMIT Hospitalist; ATTEND Hospitalist
DX: A41.9 Sepsis, unspecified organism (principal); J15.6 Pneumonia due to other Gram-negative bacteria; E10.42 Type 1 diabetes mellitus with diabetic polyneuropathy; I48.1 Persistent atrial fibrillation; J45.21 Mild intermittent asthma with (acute) exacerbation; B37.0 Candidal stomatitis; D86.9 Sarcoidosis, unspecified; K21.9 Gastro-esophageal reflux disease without esophagitis; E03.9 Hypothyroidism, unspecified; M19.91 Primary osteoarthritis, unspecified site; I25.10 Atherosclerotic heart disease of native coronary artery without angina pectoris; Z95.5 Presence of coronary angioplasty implant and graft; Z86.718 Personal history of other venous thrombosis and embolism; Z86.711 Personal history of pulmonary embolism; Z90.710 Acquired absence of both cervix and uterus; Z96.60 Presence of unspecified orthopedic joint implant; E78.5 Hyperlipidemia, unspecified; I25.2 Old myocardial infarction; I10 Essential (primary) hypertension; Z91.81 History of falling; Z79.82 Long term (current) use of aspirin; Z79.02 Long term (current) use of antithrombotics/antiplatelets; Z79.4 Long term (current) use of insulin; Z79.52 Long term (current) use of systemic steroids; Z79.899 Other long term (current) drug therapy
CPT/HCPCS: 36415; 70450; 71010; 71020; 72050; 80048; 80053; 80061; 81001; 82533; 82550; 82553; 83605; 84439; 84443; 84484; 85025; 85610; 85730; 87040; 87086; 87502; 93005; 93306; 94760; 96365; 96366; 96375; 99291

== ENCOUNTER → 2016-05-18 | Outpatient (CLI) | payer MEDICARE, OTHER ==
[2016-05-18 15:46] LABS: Calcium 9.2 mg/dL (8.4-10.2)
== END | disposition home or self-care (01) ==
LOC: LABWHC1 15:04
PROVIDERS: ATTEND Hospitalist
DX: I48.91 Unspecified atrial fibrillation (principal)
CPT/HCPCS: 36415; 80048

== ENCOUNTER → 2016-07-21 | Outpatient (CLI) | payer MEDICARE, OTHER ==
--- NOTE | 2016-07-21 11:46 | FL ---
EXAMINATION TYPE: FL barium swallow w video DATE OF EXAM ORDERED: 07/21/2016 11:41 AM HISTORY: R13.10 dysphagia. COMPARISON: None. TECHNIQUE: The patient was challenged with varying food substances ranging from thin liquids through solids. FINDINGS: There are minimal vallecular residuals. There is no evidence of penetration or aspiration. IMPRESSION: MINIMAL VALLECULAR RESIDUALS.
--- NOTE | 2016-07-25 07:44 | MM ---
Reason for exam: screening (asymptomatic). Last mammogram was performed 1 year ago. History: Patient is postmenopausal and is nulliparous. Benign excisional biopsy of the right breast. Took estrogen for 5 years beginning at age 40. Physical Findings: A clinical breast exam by your physician is recommended on an annual basis and results should be correlated with mammographic findings. MG Screening Mammo w CAD Bilateral CC and MLO view(s) were taken. Prior study comparison: July 09, 2015, bilateral MG screening mammo w CAD. June 01, 2014, bilateral MG screening mammo w CAD. May 15, 2013, bilateral digital screening mammo w/CAD. The breast tissue is heterogeneously dense. This may lower the sensitivity of mammography. Finding: There are typically benign vascular, round calcifications in both breasts. There is no discrete abnormality. ASSESSMENT: Benign, BI-RAD 2 RECOMMENDATION: Routine screening mammogram of both breasts in 1 year.
== END | disposition home or self-care (01) ==
LOC: RADFLMAIN 11:12
PROVIDERS: ATTEND Internal Medicine
DX: R13.10 Dysphagia, unspecified (principal); Z12.31 Encounter for screening mammogram for malignant neoplasm of breast
CPT/HCPCS: 92611; 74230; G0202

== ENCOUNTER 2016-07-31 19:59 | Inpatient (IN) | payer MEDICARE, OTHER ==
[2016-07-31 20:45] LABS: Glucose,Whole Blood 58 mg/dL (75-99)
[2016-07-31] MEDS ORDERED: DEXTROSE 50%-WATER 50 ML SYRINGE IVP STA (20:46)
[2016-07-31] MEDS ORDERED: DILTIAZEM 5 MG/ML 5 ML VIAL IVP STA (21:05)
[2016-07-31] MEDS ORDERED: SODIUM CHLORIDE 0.9% 1,000 ML IV STA (21:05)
--- NOTE | 2016-07-31 21:14 | ED ---
General Adult HPI - General Chief complaint: Weakness Stated complaint: Hypoglycemia Time Seen by Provider: 07/31/16 20:42 Source: patient, family, EMS, RN notes reviewed, old records reviewed Mode of arrival: EMS - History of Present Illness Initial comments: Chief complaint and history of present illness this is an 80-year-old female scone the emergency room by ambulance. Earlier today the patient had been fasting for lab tests at her doctor's office. While there she was diagnosed with probable pneumonia and placed on Levaquin. When she got home she didn't feel well, felt weak. And was found by her unconscious. EMS found that the patient's blood sugar was only 27. They gave her 1 amp of glucose and she responded rapidly. Patient does have history of chronic A. fib with RVR. When she arrived emergency room was approximately 125 to 1:30 with RVR. Patient has no other complaints. - Related Data Home Medications Medication Instructions Recorded Confirmed Atorvastatin [Lipitor] 20 mg PO HS 09/30/14 07/31/16 Ergocalciferol [Vitamin D2 50,000 unit PO Q14D 09/30/14 07/31/16 (DRISDOL)] Furosemide 20 mg PO BID 09/30/14 07/31/16 Cholecalciferol [Vitamin D3] 4,000 unit PO BID 07/24/15 07/31/16 Gabapentin 300 mg PO BID 07/24/15 07/31/16 Insulin Lispro [humaLOG Kwikpen] 8 unit SQ AC-LUNCH 07/24/15 07/31/16 Isosorbide Mononitrate ER [Imdur] 30 mg PO DAILY 07/24/15 07/31/16 predniSONE 10 mg PO DAILY 07/24/15 07/31/16 Insulin Glargine,Hum.rec.anlog 14 units SQ HS 01/10/16 07/31/16 [[place] Solostar] Levothyroxine Sodium [Synthroid] 112 mcg PO DAILY 01/10/16 07/31/16 Montelukast [Singulair] 10 mg PO HS 01/10/16 07/31/16 Oxybutynin Chloride 5 mg PO DAILY 01/10/16 07/31/16 HYDROcodone/APAP 5-325MG [[place] 1 tab PO Q6H PRN 02/28/16 07/31/16 5-325] Vit C/E/Zn/Coppr/Lutein/Zeaxan 1 cap PO BID 02/28/16 07/31/16 [Preservision Areds 2 Softgel] Omeprazole [PriLOSEC] 20 mg PO AC-SUPPER 04/19/16 07/31/16 Insulin Lispro [humaLOG Kwikpen] 7 unit SQ AC-BRKFST 05/08/16 07/31/16 Insulin Lispro [humaLOG Kwikpen] 8 unit SQ AC-SUPPER 05/08/16 07/31/16 Insulin Lispro [humaLOG Kwikpen] See Protocol SQ AC-TID PRN 05/08/16 07/31/16 Diltiazem HCl 30 mg PO BID 07/31/16 07/31/16 Levofloxacin [Levaquin] 500 mg PO DAILY 07/31/16 07/31/16 Metoprolol Tartrate [Lopressor] 50 mg PO BID 07/31/16 07/31/16 Previous Rx's Medication Instructions Recorded Temazepam [Restoril] 30 mg PO HS #12 cap 01/17/16 Clopidogrel [Plavix] 75 mg PO DAILY #30 tab 02/07/16 Allergies Allergy/AdvReac Type Severity Reaction Status Date / Time cat dander Allergy Unknown Verified 07/31/16 20:03 Sulfa (Sulfonamide Allergy Rash/Hives Verified 07/31/16 20:03 Antibiotics) Review of Systems ROS Statement: Those systems with pertinent positive or pertinent negative responses have been documented in the HPI. Review of systems. The patient's denying any visual acuity changes no headache. No chest pain but she is chronically short of breath. She has had a cough. She was placed on Levaquin today by her family physician after he diagnosed with probable pneumonia. No abdominal pain no nausea no vomiting. She has chronic left knee pain. All systems were otherwise reviewed. Past medical problems significant for A. fib with RVR. For which she takes Plavix. Also history of asthma,. Coronary disease, insulin-dependent diabetes mellitus. She did accidentally took too much insulin today when not eating for lab tests and became hypoglycemic which was treated by EMS en route. She needed food plus another half amp of D50 while in emergency room. She also has a history of hypertension, previous NE, pneumonia, PE and DVT, hypothyroidism. Chronic pulmonary sarcoidosis. Surgeries include heart catheterization with 7 stents, total hysterectomy, left knee replaced twice, and she sees a joint machine operator. Nonsmoker nondrinker ROS Other: All systems not noted in ROS Statement are negative. Past Medical History Past Medical History: Atrial Fibrillation, Asthma, Coronary Artery Disease (CAD) , Diabetes Mellitus, Deep Vein Thrombosis (DVT), Hypertension, Myocardial Infarction (NE), Pneumonia, Pulmonary Embolus (PE), Thyroid Disorder Additional Past Medical History / Comment(s): Pulmonary sarcoidosis, FALL IN AUGUST , pt stated she is dm type 1, neuroptathy Last Myocardial Infarction Date:: * History of Any Multi-Drug Resistant Organisms: None Reported Past Surgical History: Heart Catheterization With Stent, Hysterectomy, Joint Replacement, Orthopedic Surgery Additional Past Surgical History / Comment(s): Dr. Rivera and Dr. Arriaga placed 6 stents 13 years ago, left knee surgery AND IN DEC 2015 HEART CATH AND STENT -PT STATED TOTAL OF 7 STENTS NOW Past Anesthesia/Blood Transfusion Reactions: No Reported Reaction Date of Last Stent Placement:: 1999 Past Psychological History: No Psychological Hx Reported Smoking Status: Never smoker Past Alcohol Use History: Occasional Past Drug Use History: None Reported - Past Family History Father Family Medical History: Myocardial Infarction (NE) Mother Family Medical History: Liver Disease General Exam - General Exam Comments Initial Comments: General: The patient is awake and alert, in no distress, and does not appear acutely ill. After receiving IV glucose the patient awakened rapidly and feels much better. Her vital signs upon arrival to emergency room showed a pulse of 133 with a respiratory rate 20 pulse ox, 100%. Eye: Pupils are equal, round and reactive to light, extra-ocular movements are intact ; there is normal conjunctiva bilaterally. No signs of icterus. Ears, nose, mouth and throat: There are moist mucous membranes and no oral lesions. Neck: The neck is supple, there is no tenderness . Cardiovascular: Rapid heart rate, 130. Rhythm strip shows A. fib with RVR. Respiratory: Crepitant rales left base. Gastrointestinal: Soft, non-distended, non-tender abdomen without masses or organomegaly noted. There is no rebound or guarding present. No CVA tenderness. Bowel sounds are unremarkable. Back: There is no tenderness to palpation in the midline. There is no obvious deformity. No rashes noted. Musculoskeletal: Chronic left knee pain after 2 knee replacements. Also multiple bruising to the skin patient is on Plavix. Neurological: No neuro deficits complained of no noticed at this time. Skin: Multiple areas of ecchymosis on the extremities secondary to Plavix. Course Vital Signs 07/31/16 07/31/16 07/31/16 20:04 21:26 21:52 Pulse Rate 133 H 126 H 100 Respiratory 20 18 Rate Blood Pressure 108/65 131/100 O2 Sat by Pulse 100 100 Oximetry 07/31/16 22:25 Pulse Rate 126 H Respiratory Rate Blood Pressure O2 Sat by Pulse Oximetry Medical Decision Making - Medical Decision Making Medical decision making; patient's white count is 9.2 hemoglobin 12 hematocrit of 40. INR 1.2. The patient's BUN is 28 creatinine 1.1 with a GFR 48. The patient's initial glucose at home was 27. She was given glucose upon arrival to emergency room initial was 58. She then received 1 amp of D50 and her glucose is 132. She's been eating without difficulty. Chest x-ray was done and reviewed by radiologist his impression is he favors CHF exacerbation, cardiomegaly, central venous congestion. As read by Dr. rios The case discussed with Dr. dr youngblood, the patient's attending who saw her in the office this morning. She'll be continued on Levaquin and he prescribed for the possible pneumonia he diagnosed in the office today. She'll also be kept on Cardizem drip for A. fib with RVR - Lab Data Result diagrams: 07/31/16 21:40 07/31/16 21:40 Lab Results 07/31/16 07/31/16 07/31/16 Range/Units 20:41 21:40 21:40 WBC 9.2 (3.8-10.6) k/uL RBC 4.64 (3.80-5.40) m/uL Hgb 12.2 (11.4-16.0) gm/dL Hct 40.9 (34.0-46.0) % MCV 88.0 (80.0-100.0) fL MCH 26.2 (25.0-35.0) pg MCHC 29.7 L (31.0-37.0) g/dL RDW 18.0 H (11.5-15.5) % Plt Count 168 (150-450) k/uL Neutrophils % 84 % Lymphocytes % 6 % Monocytes % 8 % Eosinophils % 1 % Basophils % 0 % Neutrophils # 7.7 (1.3-7.7) k/uL Lymphocytes # 0.5 L (1.0-4.8) k/uL Monocytes # 0.8 (0-1.0) k/uL Eosinophils # 0.1 (0-0.7) k/uL Basophils # 0.0 (0-0.2) k/uL Hypochromasia Marked Anisocytosis Slight PT (9.0-12.0) sec INR (<1.1) APTT (22.0-30.0) sec Sodium (137-145) mmol/L Potassium (3.5-5.1) mmol/L Chloride (98-107) mmol/L Carbon Dioxide (22-30) mmol/L Anion Gap mmol/L BUN (7-17) mg/dL Creatinine (0.52-1.04) mg/dL Est GFR (MDRD) Af Amer (>60 ml/min/1.73 sqM) Est GFR (MDRD) Non-Af (>60 ml/min/1.73 sqM) Glucose (74-99) mg/dL POC Glucose (mg/dL) 58 L (75-99) mg/dL POC Glu Construction Manager ID Lorrie Castellanos Calcium (8.4-10.2) mg/dL Total Bilirubin (0.2-1.3) mg/dL AST (14-36) U/L ALT (9-52) U/L Alkaline Phosphatase (38-126) U/L Total Creatine Kinase 104 (30-135) U/L Total Protein (6.3-8.2) g/dL Albumin (3.5-5.0) g/dL Urine Color Urine Appearance (Clear) Urine pH (5.0-8.0) Ur Specific [place] (1.001-1.035) Urine Protein (Negative) Urine Glucose (UA) (Negative) Urine Ketones (Negative) Urine Blood (Negative) Urine Nitrite (Negative) Urine Bilirubin (Negative) Urine Urobilinogen (<2.0) mg/dL Ur Leukocyte Esterase (Negative) 07/31/16 07/31/16 07/31/16 Range/Units 21:40 21:40 21:49 WBC (3.8-10.6) k/uL RBC (3.80-5.40) m/uL Hgb (11.4-16.0) gm/dL Hct (34.0-46.0) % MCV (80.0-100.0) fL MCH (25.0-35.0) pg MCHC (31.0-37.0) g/dL RDW (11.5-15.5) % Plt Count (150-450) k/uL Neutrophils % % Lymphocytes % % Monocytes % % Eosinophils % % Basophils % % Neutrophils # (1.3-7.7) k/uL Lymphocytes # (1.0-4.8) k/uL Monocytes # (0-1.0) k/uL Eosinophils # (0-0.7) k/uL Basophils # (0-0.2) k/uL Hypochromasia Anisocytosis PT 11.6 (9.0-12.0) sec INR 1.2 (<1.1) APTT 23.6 (22.0-30.0) sec Sodium 140 (137-145) mmol/L Potassium 3.8 (3.5-5.1) mmol/L Chloride 98 (98-107) mmol/L Carbon Dioxide 30 (22-30) mmol/L Anion Gap 12 mmol/L BUN 28 H (7-17) mg/dL Creatinine 1.10 H (0.52-1.04) mg/dL Est GFR (MDRD) Af Amer 58 (>60 ml/min/1.73 sqM) Est GFR (MDRD) Non-Af 48 (>60 ml/min/1.73 sqM) Glucose 136 H (74-99) mg/dL POC Glucose (mg/dL) 132 H (75-99) mg/dL POC Glu Construction Manager ID Krissy Gonzalez Calcium 8.3 L (8.4-10.2) mg/dL Total Bilirubin 0.6 (0.2-1.3) mg/dL AST 40 H (14-36) U/L ALT 42 (9-52) U/L Alkaline Phosphatase 67 (38-126) U/L Total Creatine Kinase (30-135) U/L Total Protein 6.0 L (6.3-8.2) g/dL Albumin 3.4 L (3.5-5.0) g/dL Urine Color Urine Appearance (Clear) Urine pH (5.0-8.0) Ur Specific [place] (1.001-1.035) Urine Protein (Negative) Urine Glucose (UA) (Negative) Urine Ketones (Negative) Urine Blood (Negative) Urine Nitrite (Negative) Urine Bilirubin (Negative) Urine Urobilinogen (<2.0) mg/dL Ur Leukocyte Esterase (Negative) 07/31/16 07/31/16 Range/Units 22:15 22:22 WBC (3.8-10.6) k/uL RBC (3.80-5.40) m/uL Hgb (11.4-16.0) gm/dL Hct (34.0-46.0) % MCV (80.0-100.0) fL MCH (25.0-35.0) pg MCHC (31.0-37.0) g/dL RDW (11.5-15.5) % Plt Count (150-450) k/uL Neutrophils % % Lymphocytes % % Monocytes % % Eosinophils % % Basophils % % Neutrophils # (1.3-7.7) k/uL Lymphocytes # (1.0-4.8) k/uL Monocytes # (0-1.0) k/uL Eosinophils # (0-0.7) k/uL Basophils # (0-0.2) k/uL Hypochromasia Anisocytosis PT (9.0-12.0) sec INR (<1.1) APTT (22.0-30.0) sec Sodium (137-145) mmol/L Potassium (3.5-5.1) mmol/L Chloride (98-107) mmol/L Carbon Dioxide (22-30) mmol/L Anion Gap mmol/L BUN (7-17) mg/dL Creatinine (0.52-1.04) mg/dL Est GFR (MDRD) Af Amer (>60 ml/min/1.73 sqM) Est GFR (MDRD) Non-Af (>60 ml/min/1.73 sqM) Glucose (74-99) mg/dL POC Glucose (mg/dL) 111 H (75-99) mg/dL POC Glu Construction Manager ID Krissy Gonzalez Calcium (8.4-10.2) mg/dL Total Bilirubin (0.2-1.3) mg/dL AST (14-36) U/L ALT (9-52) U/L Alkaline Phosphatase (38-126) U/L Total Creatine Kinase (30-135) U/L Total Protein (6.3-8.2) g/dL Albumin (3.5-5.0) g/dL Urine Color Yellow Urine Appearance Clear (Clear) Urine pH 6.0 (5.0-8.0) Ur Specific [place] 1.011 (1.001-1.035) Urine Protein Negative (Negative) Urine Glucose (UA) 1+ H (Negative) Urine Ketones Trace H (Negative) Urine Blood Negative (Negative) Urine Nitrite Negative (Negative) Urine Bilirubin Negative (Negative) Urine Urobilinogen <2.0 (<2.0) mg/dL Ur Leukocyte Esterase Negative (Negative) Disposition Clinical Impression: Atrial fibrillation with rapid ventricular response, CHF exacerbation Disposition: ADMITTED IP TO THIS HOSP
[2016-07-31 21:50] LABS: Glucose,Whole Blood 132 mg/dL (75-99)
[2016-07-31 21:51] LABS: Anisocytosis Slight; Basophils % (A) 0 %; CH 26.2; Eosinophils # (A) 0.1 k/uL (0-0.7); Eosinophils % (A) 1 %; HCT 40.9 % (34.0-46.0); HDW 2.86; HGB 12.2 gm/dL (11.4-16.0); Hypochromasia Marked; Luc # (Auto) 0.13; Luc % (Auto) 1; Lymphocytes # (A) 0.5 k/uL (1.0-4.8); Lymphocytes % (A) 6 %; MCH 26.2 pg (25.0-35.0); MCHC 29.7 g/dL (31.0-37.0); Mean Platelet Volume 8.5; Monocytes # (A) 0.8 k/uL (0-1.0); Monocytes % (A) 8 %; Neutrophils # (A) 7.7 k/uL (1.3-7.7); Neutrophils % (A) 84 %; RBC 4.64 m/uL (3.80-5.40); WBC 9.2 k/uL (3.8-10.6); WBC (Perox) 9.94
[2016-07-31 21:59] LABS: Calcium 8.3 mg/dL (8.4-10.2); Potassium 3.8 mmol/L (3.5-5.1); Total Bilirubin 0.6 mg/dL (0.2-1.3)
[2016-07-31 22:03] LABS: INR 1.2 (<1.1); Partial Thromboplastin Time 23.6 sec (22.0-30.0); Prothrombin Time 11.6 sec (9.0-12.0)
--- NOTE | 2016-07-31 22:03 | XR ---
EXAMINATION TYPE: XR chest 2V DATE OF EXAM: 07/31/2016 9:59 PM COMPARISON: Chest x-ray May 18, 2016. HISTORY: Cough. Abnormal physical exam with Rales left lung base. TECHNIQUE: Frontal and lateral views of the chest are obtained. FINDINGS: There is is persistent cardiomegaly with mild central vascular congestion felt present. No large pleural effusion or pneumothorax is seen bilaterally. The osseous structures are intact. IMPRESSION: Favor CHF exacerbation as there is cardiomegaly with central vascular congestion felt pre sent. Clinical correlation advised.
[2016-07-31 22:23] LABS: Glucose,Whole Blood 111 mg/dL (75-99)
[2016-07-31 22:35] LABS: Appearance,Urine Clear (Clear); Bilirubin,Urine Negative (Negative); Glucose,Urine (UA) 1+ (Negative); Ketones,Urine Trace (Negative); Leukocyte Esterase,Urine Negative (Negative); Nitrite,Urine Negative (Negative); Protein,Urine Negative (Negative); Specific Gravity,Urine 1.011 (1.001-1.035); UA Billing (MACRO vs. MICRO) CHEM; Urobilinogen,Urine <2.0 mg/dL (<2.0)
[2016-07-31] MEDS ORDERED: ACETAMINOPHEN TAB 325 MG TAB PO PRN (22:40)
[2016-07-31] MEDS ORDERED: NALOXONE 0.4 MG/ML 1 ML VIAL IV PRN (22:40)
[2016-07-31] MEDS ORDERED: SODIUM CHLORIDE 0.9% 1,000 ML IV SCH (22:45)
[2016-07-31 22:47] LABS: Creatine Kinase MB 4.5 ng/mL (0.0-2.4)
[2016-07-31] MEDS ORDERED: FUROSEMIDE 10 MG/ML 4 ML VIAL IV STA (22:47)
[2016-07-31 22:48] LABS: Troponin I 0.217 ng/mL (0.000-0.034)
[2016-07-31] MEDS ORDERED: HEPARIN SODIUM,PORCINE/D5W PMX 25,000 UNIT in DEXTROSE/WATER 1 500ML.BAG IV SCH (23:00)
[2016-07-31] MEDS: DILTIAZEM 125 MG in SODIUM CHLORIDE 0.9% 100 ML IV ONE (23:29)
[2016-07-31 23:36] LABS: Glucose,Whole Blood 126 mg/dL (75-99)
[2016-08-01 00:13] LABS: Glucose,Whole Blood 116 mg/dL (75-99)
[2016-08-01] MEDS ORDERED: METOPROLOL TARTRATE 50 MG TAB PO STA (00:58)
[2016-08-01] MEDS: DILTIAZEM 125 MG in SODIUM CHLORIDE 0.9% 100 ML IV ONE ×3 (01:00→18:23)
[2016-08-01] MEDS: HYDROcodone/APAP 5-325MG 1 EACH TAB PO PRN ×2 (02:03→08:00)
[2016-08-01 05:34] LABS: INR 1.4 (<1.1); Partial Thromboplastin Time 46.6 sec (22.0-30.0); Prothrombin Time 13.3 sec (9.0-12.0)
[2016-08-01 05:36] LABS: Anion Gap 10 mmol/L; Blood Urea Nitrogen 28 mg/dL (7-17); Calcium 7.7 mg/dL (8.4-10.2); Carbon Dioxide 25 mmol/L (22-30); Chloride 98 mmol/L (98-107); Glucose 66 mg/dL (74-99); Magnesium 1.5 mg/dL (1.6-2.3); Non-African American GFR(MDRD) 53 (>60 ml/min/1.73 sqM); Phosphorous 3.6 mg/dL (2.5-4.5); Potassium 3.6 mmol/L (3.5-5.1); Sodium 133 mmol/L (137-145)
[2016-08-01] MEDS ORDERED: Potassium Replacement Protocol 1 EACH MISC MISCELLANE PRN ×2 (05:44→09:49)
[2016-08-01] MEDS ORDERED: Magnesium Replacement Protocol 1 EACH MISC MISCELLANE PRN ×2 (05:45→09:49)
[2016-08-01 05:50] LABS: Glucose,Whole Blood 68 mg/dL (75-99)
[2016-08-01 06:05] LABS: Creatine Kinase MB 2.8 ng/mL (0.0-2.4); Troponin I 0.561 ng/mL (0.000-0.034)
[2016-08-01 06:22] LABS: Anisocytosis Slight; CH 25.7; CHCM 30.2; HCT 34.4 % (34.0-46.0); Hypochromasia Marked; MCH 27.5 pg (25.0-35.0); MCV 85.8 fL (80.0-100.0); Mean Platelet Volume 8.5; RBC 4.01 m/uL (3.80-5.40); RDW 17.7 % (11.5-15.5); WBC 11.9 k/uL (3.8-10.6)
[2016-08-01 06:32] LABS: Glucose,Whole Blood 104 mg/dL (75-99)
[2016-08-01] MEDS: MAGNESIUM SULFATE-D5W PMX 1 GM in DEXTROSE/WATER 1 100ML.BAG IVPB SCH ×2 (06:50→10:23)
[2016-08-01] MEDS: METOPROLOL TARTRATE 50 MG TAB PO SCH ×2 (08:01→22:25)
[2016-08-01] MEDS: LEVOTHYROXINE 112 MCG TAB PO SCH (08:01)
[2016-08-01] MEDS: GABAPENTIN 300 MG CAP PO SCH ×2 (08:01→22:24)
[2016-08-01] MEDS: OXYBUTYNIN CHLORIDE 5 MG TAB PO SCH (08:02)
[2016-08-01 08:08] LABS: Glucose,Whole Blood 102 mg/dL (75-99)
[2016-08-01] MEDS ORDERED: FUROSEMIDE 20 MG TAB PO SCH ×2 (09:00→16:00)
[2016-08-01] MEDS ORDERED: LEVOFLOXACIN 500 MG TAB PO SCH (09:00)
[2016-08-01] MEDS ORDERED: DILTIAZEM ORAL 30 MG TAB PO SCH (09:00)
[2016-08-01] MEDS: INSULIN LISPRO (humaLOG) 300 UNIT/3 ML VIAL SQ SCH ×4 (09:24→22:24)
[2016-08-01] MEDS: POTASSIUM CHLORIDE 10 MEQ, LIDOCAINE 2% INJ 10 MG in SODIUM CHLORIDE 0.9% 100 ML IV SCH ×2 (09:24→10:26)
[2016-08-01] MEDS: ISOSORBIDE MONONITRATE ER 30 MG TAB.ER.24H PO SCH (10:25)
[2016-08-01] MEDS: CHOLECALCIFEROL 1,000 UNIT TAB PO SCH ×2 (10:26→22:24)
[2016-08-01 12:07] LABS: Glucose,Whole Blood 243 mg/dL (75-99)
[2016-08-01 12:08] LABS: Creatine Kinase MB 2.6 ng/mL (0.0-2.4); Troponin I 0.509 ng/mL (0.000-0.034)
[2016-08-01] MEDS ORDERED: SODIUM CHLORIDE 0.9% 500 ML IV ONE (12:12)
[2016-08-01] MEDS: predniSONE 10 MG TAB PO SCH (12:15)
[2016-08-01 12:16] LABS: Hemoglobin A1C 8.9 % (4.2-6.1)
--- NOTE | 2016-08-01 12:16 | P.HPIM ---
History of Present Illness H&P Date: 08/01/16 Chief Complaint: Unresponsive This is a 80-year-old female with past medical history noted below that went to my office yesterday morning for fasting blood work. Patient said that she was not feeling well at that time. She was complaining of worsening cough that was productive of yellowish sputum. She was evaluated by my partner Dr. Duckworth in the office and was advised to go to the hospital for further evaluation. Patient thought that she would get better. She received a prescription for Levaquin and went home with her . Later during the day, her found her very lethargic and almost unresponsive. He called EMS. Her blood glucose was found to be 27. Patient is diabetic and usually takes short-acting insulin on a sliding scale before each meal. She was brought to the emergency room and her mental status improved significantly after receiving IV D50. She was noted to be tachycardic and 12-lead EKG showed atrial fibrillation with rapid ventricular response. Patient is known to have chronic A. fib and is not on any anticoagulation because of history of recurrent bleeds. She remained hemodynamically stable. She was started on a Cardizem drip and was admitted to the intensive care unit for further evaluation. Review of Systems Review of system: 14 points review of systems were obtained and were negative except to what were mentioned in the HPI. Past Medical History Past Medical History: Atrial Fibrillation, Asthma, Coronary Artery Disease (CAD) , Diabetes Mellitus, Deep Vein Thrombosis (DVT), Hypertension, Myocardial Infarction ([place]), Pneumonia, Pulmonary Embolus (PE), Thyroid Disorder Additional Past Medical History / Comment(s): Pulmonary sarcoidosis, FALL IN AUGUST , pt stated she is dm type 1, neuroptathy Last Myocardial Infarction Date:: * History of Any Multi-Drug Resistant Organisms: None Reported Past Surgical History: Heart Catheterization With Stent, Hysterectomy, Joint Replacement, Orthopedic Surgery Additional Past Surgical History / Comment(s): Dr. Rivera and Dr. Arriaga placed 6 stents 13 years ago, left knee surgery AND IN DEC 2015 HEART CATH AND STENT -PT STATED TOTAL OF 7 STENTS NOW Past Anesthesia/Blood Transfusion Reactions: No Reported Reaction Date of Last Stent Placement:: 1999 Past Psychological History: No Psychological Hx Reported Smoking Status: Never smoker Past Alcohol Use History: Occasional Past Drug Use History: None Reported - Past Family History Father Family Medical History: Myocardial Infarction ([place]) Mother Family Medical History: Liver Disease Medications and Allergies Home Medications Medication Instructions Recorded Confirmed Type Atorvastatin [Lipitor] 20 mg PO HS 09/30/14 07/31/16 History Ergocalciferol [Vitamin D2 50,000 unit PO Q14D 09/30/14 07/31/16 History (DRISDOL)] Furosemide 20 mg PO BID 09/30/14 07/31/16 History Cholecalciferol [Vitamin D3] 4,000 unit PO BID 07/24/15 07/31/16 History Gabapentin 300 mg PO BID 07/24/15 07/31/16 History Insulin Lispro [humaLOG Kwikpen] 8 unit SQ AC-LUNCH 07/24/15 07/31/16 History Isosorbide Mononitrate ER [Imdur] 30 mg PO DAILY 07/24/15 07/31/16 History predniSONE 10 mg PO DAILY 07/24/15 07/31/16 History Insulin Glargine,Hum.rec.anlog 14 units SQ HS 01/10/16 07/31/16 History [[place] Solostar] Levothyroxine Sodium [Synthroid] 112 mcg PO DAILY 01/10/16 07/31/16 History Montelukast [Singulair] 10 mg PO HS 01/10/16 07/31/16 History Oxybutynin Chloride 5 mg PO DAILY 01/10/16 07/31/16 History HYDROcodone/APAP 5-325MG [[place] 1 tab PO Q6H PRN 02/28/16 07/31/16 History 5-325] Vit C/E/Zn/Coppr/Lutein/Zeaxan 1 cap PO BID 02/28/16 07/31/16 History [Preservision Areds 2 Softgel] Omeprazole [PriLOSEC] 20 mg PO AC-SUPPER 04/19/16 07/31/16 History Insulin Lispro [humaLOG Kwikpen] 7 unit SQ AC-BRKFST 05/08/16 07/31/16 History Insulin Lispro [humaLOG Kwikpen] 8 unit SQ AC-SUPPER 05/08/16 07/31/16 History Insulin Lispro [humaLOG Kwikpen] See Protocol SQ AC-TID PRN 05/08/16 07/31/16 History Diltiazem HCl 30 mg PO BID 07/31/16 07/31/16 History Levofloxacin [Levaquin] 500 mg PO DAILY 07/31/16 07/31/16 History Metoprolol Tartrate [Lopressor] 50 mg PO BID 07/31/16 07/31/16 History Allergies Allergy/AdvReac Type Severity Reaction Status Date / Time cat dander Allergy Unknown Verified 07/31/16 20:03 Sulfa (Sulfonamide Allergy Rash/Hives Verified 07/31/16 20:03 Antibiotics) Physical Exam Vitals: Vital Signs Temp Pulse Pulse Resp BP BP Pulse Ox 08/01/16 09:00 103 H 24 104/47 96 08/01/16 08:00 98.5 F 106 H 24 86/63 97 08/01/16 07:42 98.5 F 97 24 86/43 96 08/01/16 04:00 100 07/31/16 23:39 98.6 F 141 H 20 176/93 93 L 07/31/16 23:36 99.5 F 127 H 28 H 147/83 Intake and Output 07/31/16 08/01/16 08/01/16 22:59 06:59 14:59 Intake Total 41.084 0 Balance 41.084 0 Intake: Intake, IV Titration 41.084 0 Amount Diltiazem 125 mg In 12.917 Sodium Chloride 0.9% 100 ml @ 5 MG/HR 5 mls/hr IV .Q24H [facility] Rx#:[id number] Diltiazem 125 mg In 28.167 0 Sodium Chloride 0.9% 100 ml @ 5 MG/HR 5 mls/hr IV .Q24H [facility] Rx#:[id number] Other: Voiding Method Bedpan Bedpan Incontinent Incontinent # Voids 2 Weight 74.6 kg General: The patient is awake and alert, in no distress, and does not appear acutely ill. Eye: extra-ocular movements are intact; there is normal conjunctiva bilaterally. . Neck: The neck is supple, there is no tenderness or JVD. Cardiovascular: Normal S1-S2, no S3-S4, no murmurs. Respiratory: Lungs with bibasilar crackles Gastrointestinal: Abdomen is soft, nontender, nondistended, Musculoskeletal: Normal ROM, no tenderness, There is +1-2 pitting edema worse on the left. Neurological: There are no obvious motor or sensory deficits. Speech is normal. Skin: Skin is warm and dry. There is diffuse bruising and ecchymosis on both upper extremities up to the elbow Results CBC & Chem 7: 08/01/16 04:13 08/01/16 04:13 Labs: Abnormal Lab Results - Last 24 Hours (Table) 07/31/16 08/01/16 08/01/16 Range/Units 23:34 00:11 04:13 WBC (3.8-10.6) k/uL Hgb (11.4-16.0) gm/dL RDW (11.5-15.5) % PT (9.0-12.0) sec APTT (22.0-30.0) sec Sodium (137-145) mmol/L BUN (7-17) mg/dL Glucose (74-99) mg/dL POC Glucose (mg/dL) 126 H 116 H (75-99) mg/dL Calcium (8.4-10.2) mg/dL Magnesium (1.6-2.3) mg/dL Total Creatine Kinase 153 H (30-135) U/L CK-MB (CK-2) 2.8 H* (0.0-2.4) ng/mL Troponin I 0.561 H* (0.000-0.034) ng/mL 08/01/16 08/01/16 08/01/16 Range/Units 04:13 04:13 04:13 WBC 11.9 H (3.8-10.6) k/uL Hgb 11.0 L (11.4-16.0) gm/dL RDW 17.7 H (11.5-15.5) % PT 13.3 H (9.0-12.0) sec APTT 46.6 H (22.0-30.0) sec Sodium 133 L (137-145) mmol/L BUN 28 H (7-17) mg/dL Glucose 66 L (74-99) mg/dL POC Glucose (mg/dL) (75-99) mg/dL Calcium 7.7 L (8.4-10.2) mg/dL Magnesium 1.5 L (1.6-2.3) mg/dL Total Creatine Kinase (30-135) U/L CK-MB (CK-2) (0.0-2.4) ng/mL Troponin I (0.000-0.034) ng/mL 08/01/16 08/01/16 08/01/16 Range/Units 05:48 06:30 08:06 WBC (3.8-10.6) k/uL Hgb (11.4-16.0) gm/dL RDW (11.5-15.5) % PT (9.0-12.0) sec APTT (22.0-30.0) sec Sodium (137-145) mmol/L BUN (7-17) mg/dL Glucose (74-99) mg/dL POC Glucose (mg/dL) 68 L 104 H 102 H (75-99) mg/dL Calcium (8.4-10.2) mg/dL Magnesium (1.6-2.3) mg/dL Total Creatine Kinase (30-135) U/L CK-MB (CK-2) (0.0-2.4) ng/mL Troponin I (0.000-0.034) ng/mL 08/01/16 08/01/16 08/01/16 Range/Units 10:41 10:41 12:02 WBC (3.8-10.6) k/uL Hgb (11.4-16.0) gm/dL RDW (11.5-15.5) % PT (9.0-12.0) sec APTT 92.3 H (22.0-30.0) sec Sodium (137-145) mmol/L BUN (7-17) mg/dL Glucose (74-99) mg/dL POC Glucose (mg/dL) 243 H (75-99) mg/dL Calcium (8.4-10.2) mg/dL Magnesium (1.6-2.3) mg/dL Total Creatine Kinase 320 H (30-135) U/L CK-MB (CK-2) (0.0-2.4) ng/mL Troponin I (0.000-0.034) ng/mL Thrombosis Risk Factor Assmnt - Choose All That Apply Each Risk Factor Represents 3 Points: Age 75 years or older, History of DVT/PE Thrombosis Risk Factor Assessment Total Risk Factor Score: 6 Thrombosis Risk Factor Assessment Level: High Risk Assessment and Plan Plan: 1. Atrial fibrillation with rapid ventricular response: Currently on Cardizem drip. Cardiology consulted. Blood pressure borderline low with systolic in the 90s. I would give the patient 0.9 normal saline IV bolus 250 ml 2. Hypoglycemia: Patient is not sure if she took insulin yesterday as she was not feeling well. Blood glucose of shown improvement. We will continue to monitor closely. 3. Acute bacterial bronchitis: Currently on oral Levaquin 4. Coronary artery disease with prior stent placement last in December 2015.. We'll continue optimize medical management 5. Troponin elevation: Most likely non-thrombotic troponin leak secondary to A. fib with RVR. Patient denies any chest pain. Cardiology following. 6. Underlying sarcoidosis: Maintained chronically on low-dose prednisone. Pulmonology consulted for further evaluation. 7. Acute hypoxic respiratory failure: Wean off O2 as tolerated for O2 sat above 90% 8. Hypothyroidism maintained on levothyroxin Today. I reviewed her medication list and lab work results. Continue current regimen. Awaiting echocardiogram. Appreciate business objects consultant's recommendations. Repeat lab work in the morning. GI and DVT prophylaxis.
--- NOTE | 2016-08-01 13:35 | P.CNPUL ---
History of Present Illness Consult date: 08/01/16 Requesting physician: Shyla Alcantara Reason for consult: other (history of asthma and sarcoidosis, found unresponsive ) Chief complaint: unresponsiveness History of present illness: this is an 80-year-old female quite familiar to my service, known to have history of asthma, chronic atrial fibrillation, coronary artery disease, diabetes, history of deep vein thrombosis, hypertension, previous [place], sarcoidosis, and previous history of pulmonary embolism. Patient presented to her primary care's office yesterday for fasting blood work, and she was not feeling well. She was also complaining of some cough, productive with yellow phlegm, she was placed on Levaquin, and advised to oh to the emergency room if she did not feel well. Later during the day, patient was found lethargic and almost unresponsive by her . EMS was notified, but sugar was noted to be 27 at the time. Patient is normally on insulin for type 2 diabetes. Patient received 1 amp of D50, upon presentation to the ER she was noted to be tachycardic, in atrial fibrillation with RVR. Patient is known to have history of chronic atrial fibrillation. She was placed on Cardizem drip, admitted to the intensive care unit as overflow she was supposed to be admitted to selective but no beds were available. Presently the patient is doing much better, she has occasional cough no wheezing, no fever, no chills, no hemoptysis.chest x-ray showed mild congestive heart failure changes with central vascular congestion. Review of Systems 14 point review of systems were obtained, please refer to pertinent positives and negatives as per HPI. Past Medical History Past Medical History: Atrial Fibrillation, Asthma, Coronary Artery Disease (CAD) , Diabetes Mellitus, Deep Vein Thrombosis (DVT), Hypertension, Myocardial Infarction ([place]), Pneumonia, Pulmonary Embolus ([place]), Thyroid Disorder Additional Past Medical History / Comment(s): Pulmonary sarcoidosis, FALL IN AUGUST , pt stated she is dm type 1, neuroptathy Last Myocardial Infarction Date:: * History of Any Multi-Drug Resistant Organisms: None Reported Past Surgical History: Heart Catheterization With Stent, Hysterectomy, Joint Replacement, Orthopedic Surgery Additional Past Surgical History / Comment(s): Dr. Rivera and Dr. Arriaga placed 6 stents 13 years ago, left knee surgery AND IN DEC 2015 HEART CATH AND STENT -PT STATED TOTAL OF 7 STENTS NOW Past Anesthesia/Blood Transfusion Reactions: No Reported Reaction Date of Last Stent Placement:: 1999 Past Psychological History: No Psychological Hx Reported Smoking Status: Never smoker Past Alcohol Use History: Occasional Past Drug Use History: None Reported - Past Family History Father Family Medical History: Myocardial Infarction ([place]) Mother Family Medical History: Liver Disease Medications and Allergies Home Medications Medication Instructions Recorded Confirmed Type Atorvastatin [Lipitor] 20 mg PO HS 09/30/14 07/31/16 History Ergocalciferol [Vitamin D2 50,000 unit PO Q14D 09/30/14 07/31/16 History (DRISDOL)] Furosemide 20 mg PO BID 09/30/14 07/31/16 History Cholecalciferol [Vitamin D3] 4,000 unit PO BID 07/24/15 07/31/16 History Gabapentin 300 mg PO BID 07/24/15 07/31/16 History Insulin Lispro [humaLOG Kwikpen] 8 unit SQ AC-LUNCH 07/24/15 07/31/16 History Isosorbide Mononitrate ER [Imdur] 30 mg PO DAILY 07/24/15 07/31/16 History predniSONE 10 mg PO DAILY 07/24/15 07/31/16 History Insulin Glargine,Hum.rec.anlog 14 units SQ HS 01/10/16 07/31/16 History [[place] Solostar] Levothyroxine Sodium [Synthroid] 112 mcg PO DAILY 01/10/16 07/31/16 History Montelukast [Singulair] 10 mg PO HS 01/10/16 07/31/16 History Oxybutynin Chloride 5 mg PO DAILY 01/10/16 07/31/16 History HYDROcodone/APAP 5-325MG [[place] 1 tab PO Q6H PRN 02/28/16 07/31/16 History 5-325] Vit C/E/Zn/Coppr/Lutein/Zeaxan 1 cap PO BID 02/28/16 07/31/16 History [Preservision Areds 2 Softgel] Omeprazole [PriLOSEC] 20 mg PO AC-SUPPER 04/19/16 07/31/16 History Insulin Lispro [humaLOG Kwikpen] 7 unit SQ AC-BRKFST 05/08/16 07/31/16 History Insulin Lispro [humaLOG Kwikpen] 8 unit SQ AC-SUPPER 05/08/16 07/31/16 History Insulin Lispro [humaLOG Kwikpen] See Protocol SQ AC-TID PRN 05/08/16 07/31/16 History Diltiazem HCl 30 mg PO BID 07/31/16 07/31/16 History Levofloxacin [Levaquin] 500 mg PO DAILY 07/31/16 07/31/16 History Metoprolol Tartrate [Lopressor] 50 mg PO BID 07/31/16 07/31/16 History Allergies Allergy/AdvReac Type Severity Reaction Status Date / Time cat dander Allergy Unknown Verified 07/31/16 20:03 Sulfa (Sulfonamide Allergy Rash/Hives Verified 07/31/16 20:03 Antibiotics) Physical Exam Vitals: Vital Signs Temp Pulse Pulse Resp BP BP Pulse Ox 08/01/16 09:00 103 H 24 104/47 96 08/01/16 08:00 98.5 F 106 H 24 86/63 97 08/01/16 07:42 98.5 F 97 24 86/43 96 08/01/16 04:00 100 07/31/16 23:39 98.6 F 141 H 20 176/93 93 L 07/31/16 23:36 99.5 F 127 H 28 H 147/83 Intake and Output 07/31/16 08/01/16 08/01/16 22:59 06:59 14:59 Intake Total 41.084 221.02 Balance 41.084 221.02 Intake: Intake, IV Titration 41.084 221.02 Amount Diltiazem 125 mg In 12.917 Sodium Chloride 0.9% 100 ml @ 5 MG/HR 5 mls/hr IV .Q24H ONE Rx#:[id number] Diltiazem 125 mg In 28.167 0 Sodium Chloride 0.9% 100 ml @ 5 MG/HR 5 mls/hr IV .Q24H ONE Rx#:[id number] Heparin Sodium,Porcine/ 221.02 D5w Pmx 25,000 unit In Dextrose/Water 1 500ml. bag @ 12 UNITS/KG/HR 17.2 mls/hr IV .Q24H [facility] Rx#: [id number] Other: Voiding Method Bedpan Bedpan Incontinent Incontinent # Voids 2 Weight 74.6 kg Physical Exam: Revealed an 80-year-old female, pleasant, in no form of respiratory distress. HEENT:[Neck is supple.] [No neck masses.] [No thyromegaly.] [No JVD.] Chest: [crackles and rhonchi noted especially at the bases..] Cardiac Exam: [irregular irregular rhythmNormal S1 and S2, no S3 gallop, 2/6 systolic murmur throughout the precordium.] Abdomen: [Soft, nontender, no megaly, no rebound, no guarding, normal bowel sounds.] Extremities: [No clubbing, 1+ bipedal edema, no cyanosis.] Neurological Exam: [No focal neurologic deficit.] Results - Laboratory Findings CBC and BMP: 08/01/16 04:13 08/01/16 04:13 PT/INR, D-dimer PT 13.3 sec (9.0-12.0) H 08/01/16 04:13 INR 1.4 (<1.1) 08/01/16 04:13 Abnormal lab findings: Abnormal Labs 07/31/16 08/01/16 08/01/16 23:34 00:11 04:13 WBC Hgb RDW PT APTT Sodium BUN Glucose POC Glucose (mg/dL) 126 H 116 H Hemoglobin A1c Calcium Magnesium Total Creatine Kinase 153 H CK-MB (CK-2) 2.8 H* Troponin I 0.561 H* 08/01/16 08/01/16 08/01/16 04:13 04:13 04:13 WBC 11.9 H Hgb 11.0 L RDW 17.7 H PT 13.3 H APTT 46.6 H Sodium BUN Glucose POC Glucose (mg/dL) Hemoglobin A1c 8.9 H Calcium Magnesium Total Creatine Kinase CK-MB (CK-2) Troponin I 08/01/16 08/01/16 08/01/16 04:13 05:48 06:30 WBC Hgb RDW PT APTT Sodium 133 L BUN 28 H Glucose 66 L POC Glucose (mg/dL) 68 L 104 H Hemoglobin A1c Calcium 7.7 L Magnesium 1.5 L Total Creatine Kinase CK-MB (CK-2) Troponin I 08/01/16 08/01/16 08/01/16 08:06 10:41 10:41 WBC Hgb RDW PT APTT 92.3 H Sodium BUN Glucose POC Glucose (mg/dL) 102 H Hemoglobin A1c Calcium Magnesium Total Creatine Kinase 320 H CK-MB (CK-2) 2.6 H* Troponin I 0.509 H* 08/01/16 12:02 WBC Hgb RDW PT APTT Sodium BUN Glucose POC Glucose (mg/dL) 243 H Hemoglobin A1c Calcium Magnesium Total Creatine Kinase CK-MB (CK-2) Troponin I - Diagnostic Findings Chest x-ray: image reviewed (suggestive of mild congestive heart failure changes.) Assessment and Plan Plan: impression: 1acute hypoglycemia in a patient with history of diabetes, on insulin.patient responded well to 1 amp of D50 upon initial evaluation by EMS. 2 paroxysmal atrial fibrillation with RVR, presently on Cardizem drip. 3 mild congestive heart failure mostly related to cardiac arrhythmia. 4 recent episode of tracheobronchitis, presently on Levaquin. 5multiple comorbidities including sarcoidosis, bronchial asthma, underlying coronary artery disease, history of hypothyroidism, and history of diabetes. Recommendation: Chest x-ray, meds, treatment plan,were all reviewed. Patient will remain on Cardizem,antibiotics,bronchodilators, heparin, and we will continue to follow. Time with Patient: Greater than 30
[2016-08-01] MEDS: FUROSEMIDE 10 MG/ML 2 ML VIAL IV SCH ×2 (16:39→23:45)
[2016-08-01] MEDS: CLOPIDOGREL 75 MG TAB PO SCH (16:39)
[2016-08-01 16:41] LABS: Glucose,Whole Blood 141 mg/dL (75-99)
[2016-08-01] MEDS: IPRATROPIUM-ALBUTEROL 3 ML NEB INHALATION SCH ×2 (16:49→19:31)
[2016-08-01 17:15] LABS: Glucose,Whole Blood 159 mg/dL (75-99)
[2016-08-01] MEDS: PANTOPRAZOLE 40 MG TABLET PO SCH (17:30)
[2016-08-01 21:13] LABS: Glucose,Whole Blood 138 mg/dL (75-99)
[2016-08-01] MEDS: DILTIAZEM ORAL 60 MG TAB PO SCH (22:23)
[2016-08-01] MEDS: ATORVASTATIN 20 MG TAB PO SCH (22:24)
[2016-08-01] MEDS: MONTELUKAST 10 MG TAB PO SCH (22:25)
[2016-08-01] MEDS: HEPARIN SODIUM,PORCINE 5,000 UNIT/ML 1 ML VIAL SQ SCH (22:25)
[2016-08-01] MEDS: TEMAZEPAM 30 MG CAP PO SCH (22:27)
[2016-08-02 06:48] LABS: Glucose,Whole Blood 90 mg/dL (75-99)
[2016-08-02] MEDS: INSULIN LISPRO (humaLOG) 300 UNIT/3 ML VIAL SQ SCH ×4 (06:48→21:06)
[2016-08-02 06:52] LABS: Anisocytosis Slight; Basophils % (A) 0 %; CH 25.7; Eosinophils % (A) 0 %; HCT 33.5 % (34.0-46.0); HDW 2.65; HGB 9.8 gm/dL (11.4-16.0); Hypochromasia Marked; Luc # (Auto) 0.13; Luc % (Auto) 1; Lymphocytes # (A) 0.7 k/uL (1.0-4.8); Lymphocytes % (A) 6 %; MCH 26.1 pg (25.0-35.0); MCHC 29.3 g/dL (31.0-37.0); MCV 89.1 fL (80.0-100.0); Mean Platelet Volume 8.6; Monocytes # (A) 0.5 k/uL (0-1.0); Monocytes % (A) 5 %; Neutrophils # (A) 9.8 k/uL (1.3-7.7); Neutrophils % (A) 88 %; RBC 3.76 m/uL (3.80-5.40); RDW 17.6 % (11.5-15.5); WBC 11.2 k/uL (3.8-10.6); WBC (Perox) 11.68
[2016-08-02 07:08] LABS: Calcium 7.5 mg/dL (8.4-10.2); Magnesium 2.3 mg/dL (1.6-2.3); Phosphorous 4.8 mg/dL (2.5-4.5); Potassium 4.4 mmol/L (3.5-5.1); Total Bilirubin 0.8 mg/dL (0.2-1.3); Total Protein 5.1 g/dL (6.3-8.2)
[2016-08-02] MEDS: GABAPENTIN 300 MG CAP PO SCH ×2 (07:54→21:07)
[2016-08-02] MEDS: LEVOTHYROXINE 112 MCG TAB PO SCH (07:54)
[2016-08-02] MEDS: CHOLECALCIFEROL 1,000 UNIT TAB PO SCH ×2 (07:54→21:07)
[2016-08-02] MEDS: DILTIAZEM ORAL 60 MG TAB PO SCH ×2 (07:54→21:07)
[2016-08-02] MEDS: ISOSORBIDE MONONITRATE ER 30 MG TAB.ER.24H PO SCH (07:55)
[2016-08-02] MEDS: METOPROLOL TARTRATE 50 MG TAB PO SCH ×2 (07:55→21:07)
[2016-08-02] MEDS: predniSONE 10 MG TAB PO SCH (07:55)
[2016-08-02] MEDS: CLOPIDOGREL 75 MG TAB PO SCH (07:55)
[2016-08-02] MEDS: FUROSEMIDE 20 MG TAB PO SCH ×2 (07:55→15:23)
[2016-08-02] MEDS: OXYBUTYNIN CHLORIDE 5 MG TAB PO SCH (07:55)
[2016-08-02] MEDS: FUROSEMIDE 10 MG/ML 2 ML VIAL IV SCH (07:56)
[2016-08-02] MEDS: HEPARIN SODIUM,PORCINE 5,000 UNIT/ML 1 ML VIAL SQ SCH ×2 (07:56→21:07)
[2016-08-02] MEDS: IPRATROPIUM-ALBUTEROL 3 ML NEB INHALATION SCH ×4 (08:03→20:30)
--- NOTE | 2016-08-02 09:36 | CONS ---
DATE OF CONSULTATION: REASON FOR CONSULTATION: 1. Atrial fibrillation with a rapid ventricular rate. 2. Syncope. 3. History of CAD. This is an elderly 80-year-old lady who sees Dr. Rivera in the outpatient setting. She has history of cad with stenting of a very calcified LAD lesion performed by Dr. Liu sometime in December. This lady has a chronic atrial fibrillation and has had issues with bleeding, ecchymosis and she had bleeding into the eye as well and therefore she has not been on anticoagulation. I talked to Dr. Rivera in this regard. This lady apparently was found unresponsive. Her blood sugar when EMS checked was 27. They gave her an amp of glucose. She responded and she was brought into the hospital. She has atrial fib, rapid ventricular rate. No chest pain. She is resting comfortably, breathing easier. She has been started on heparin for atrial fib, but because of the bleeding risk, I have recommended that we discontinue heparin. She denies any chest pain. She had stenting in December of her complex calcified LAD. She is resting comfortably without symptoms at this time. PAST MEDICAL HISTORY: 1. Chronic atrial fibrillation. 2. CAD with previous PCI. 3. History of DVT. 4. Type 2 diabetes mellitus. 5. Past history of [place]. 6. She also has a history of pulmonary sarcoidosis. She is status post left knee operation. She has had stenting performed of circumflex performed in December of last year. Laboratory data suggests that her troponin is up to 0.2 and 0.5 and 0.5. The troponin pattern in the setting of hypoglycemia possible hypoxia does not suggest any significant myocardial injury. I am not recommending any intervention. Her BNP was also elevated over 9000. Please refer to the detailed note by Dr. Alcantara. Medications at home include: 1. Metoprolol tartrate 50 mg b.i.d. 2. Lipitor 20 mg daily. 3. Plavix 75 mg daily. 4. Aspirin 81 mg daily. 5. Humalog insulin. 6. Synthroid 112 mcg daily. 7. She takes the prednisone. 8. Diltiazem 30 mg b.i.d. 9. Atorvastatin 20 mg daily. ALLERGIES: SULFA. On examination blood pressure is 110/60. Patient's blood pressure was low but has improved. Heart rate is about 80 to 90, irregular. HEENT: Unremarkable. Fundus was not examined by me. Neck is supple. There is JVD of 1 cm. No carotid bruit. Heart exam reveals S1, S2 with irregular rate and rhythm, short systolic murmur at the base. Lungs reveal fine rales over both bases. ABDOMEN: Soft, nontender. Lower extremities reveal bilateral trace to 1+ edema, diminished pulses. CENTRAL NERVOUS SYSTEM: Grossly no focal deficits. IMPRESSION: 1. Syncope/hypoglycemia, which has resolved. 2. Coronary artery disease, status post PCI. 3. Chronic atrial fibrillation, not on anticoagulation because of a high bleeding risk and bleeding into her orbit. 4. Diabetes mellitus. 5. History of degenerative joint disease. RECOMMENDATIONS: Elevated troponin does not require any aggressive intervention at this time. I am recommending that we will obtain an echocardiogram to assess LV function. I would also suggest that we not use any Coumadin. I will therefore discontinue the heparin and put her on some subcu heparin instead. We will obtain echocardiogram and cautiously diurese her and based on clinical course, I will make further recommendations. Prognosis remains guarded for this patient. Thank you very much for the consult.
--- NOTE | 2016-08-02 09:57 | P.PN ---
Subjective Principal diagnosis: Unresponsiveness secondary to hypoglycemia this is an 80-year-old female quite familiar to my service, known to have history of asthma, chronic atrial fibrillation, coronary artery disease, diabetes, history of deep vein thrombosis, hypertension, previous DC, sarcoidosis, and previous history of pulmonary embolism. Patient presented to her primary care's office yesterday for fasting blood work, and she was not feeling well. She was also complaining of some cough, productive with yellow phlegm, she was placed on Levaquin, and advised to oh to the emergency room if she did not feel well. Later during the day, patient was found lethargic and almost unresponsive by her . EMS was notified, but sugar was noted to be 27 at the time. Patient is normally on insulin for type 2 diabetes. Patient received 1 amp of D50, upon presentation to the ER she was noted to be tachycardic, in atrial fibrillation with RVR. Patient is known to have history of chronic atrial fibrillation. She was placed on Cardizem drip, admitted to the intensive care unit as overflow she was supposed to be admitted to selective but no beds were available. Presently the patient is doing much better, she has occasional cough no wheezing, no fever, no chills, no hemoptysis.chest x-ray showed mild congestive heart failure changes with central vascular congestion. Patient was reevaluated today on 08/02/2016, feeling better from the pulmonary perspective and cardiac perspective, however the patient is complaining of pain in the left ankle. Apparently she had this pain for quite some time, and she would likely benefit from orthopedic consultation. Less cough and less shortness of breath noted. CBC is normal hemoglobin is 9.8 electrolytes and renal profile are unremarkable, creatinine however is a bit elevated at 1.27. Objective - Vital Signs Vital signs: Vital Signs Temp 96.6 F L 08/02/16 07:52 Pulse 100 08/02/16 08:16 Resp 20 08/02/16 08:00 BP 125/62 08/02/16 07:52 Pulse Ox 99 08/02/16 07:52 Intake & Output 08/01/16 08/02/16 08/02/16 18:59 06:59 18:59 Intake Total 827.687 180 Output Total 350 Balance 477.687 180 Weight 76.5 kg Intake: Intake, IV Titration 647.687 Amount Diltiazem 125 mg In 51.667 Sodium Chloride 0.9% 100 ml @ 5 MG/HR 5 mls/hr IV .Q24H [facility] Rx#:[id number] Heparin Sodium,Porcine/ 221.02 D5w Pmx 25,000 unit In Dextrose/Water 1 500ml. bag @ 12 UNITS/KG/HR 17.2 mls/hr IV .Q24H [facility] Rx#: [id number] Sodium Chloride 0.9% 1, 375 000 ml @ 70 mls/hr IV . [id number] [facility] Rx#:[id number] Oral 180 180 Output: Urine 350 Other: Voiding Method Incontinent Bedpan Bedpan # Voids 1 # Bowel Movements 1 - Exam Physical Exam: Revealed an 80-year-old female, pleasant, in no form of respiratory distress. HEENT:[Neck is supple.] [No neck masses.] [No thyromegaly.] [No JVD.] Chest: [crackles and rhonchi noted especially at the bases..] Cardiac Exam: [irregular irregular rhythmNormal S1 and S2, no S3 gallop, 2/6 systolic murmur throughout the precordium.] Abdomen: [Soft, nontender, no megaly, no rebound, no guarding, normal bowel sounds.] Extremities: [No clubbing, 1+ bipedal edema, no cyanosis.] Neurological Exam: [No focal neurologic deficit.] - Labs CBC & Chem 7: 08/02/16 05:57 08/02/16 05:57 Labs: Abnormal Lab Results - Last 24 Hours (Table) 08/01/16 08/01/16 08/01/16 Range/Units 04:13 10:41 10:41 WBC (3.8-10.6) k/uL RBC (3.80-5.40) m/uL Hgb (11.4-16.0) gm/dL Hct (34.0-46.0) % MCHC (31.0-37.0) g/dL RDW (11.5-15.5) % Plt Count (150-450) k/uL Neutrophils # (1.3-7.7) k/uL Lymphocytes # (1.0-4.8) k/uL APTT 92.3 H (22.0-30.0) sec Sodium (137-145) mmol/L BUN (7-17) mg/dL Creatinine (0.52-1.04) mg/dL POC Glucose (mg/dL) (75-99) mg/dL Hemoglobin A1c 8.9 H (4.2-6.1) % Calcium (8.4-10.2) mg/dL Phosphorus (2.5-4.5) mg/dL AST (14-36) U/L Total Creatine Kinase 320 H (30-135) U/L CK-MB (CK-2) 2.6 H* (0.0-2.4) ng/mL Troponin I 0.509 H* (0.000-0.034) ng/mL Total Protein (6.3-8.2) g/dL Albumin (3.5-5.0) g/dL 08/01/16 08/01/16 08/01/16 Range/Units 12:02 16:38 17:13 WBC (3.8-10.6) k/uL RBC (3.80-5.40) m/uL Hgb (11.4-16.0) gm/dL Hct (34.0-46.0) % MCHC (31.0-37.0) g/dL RDW (11.5-15.5) % Plt Count (150-450) k/uL Neutrophils # (1.3-7.7) k/uL Lymphocytes # (1.0-4.8) k/uL APTT (22.0-30.0) sec Sodium (137-145) mmol/L BUN (7-17) mg/dL Creatinine (0.52-1.04) mg/dL POC Glucose (mg/dL) 243 H 141 H 159 H (75-99) mg/dL Hemoglobin A1c (4.2-6.1) % Calcium (8.4-10.2) mg/dL Phosphorus (2.5-4.5) mg/dL AST (14-36) U/L Total Creatine Kinase (30-135) U/L CK-MB (CK-2) (0.0-2.4) ng/mL Troponin I (0.000-0.034) ng/mL Total Protein (6.3-8.2) g/dL Albumin (3.5-5.0) g/dL 08/01/16 08/01/16 08/02/16 Range/Units 19:11 21:11 05:57 WBC (3.8-10.6) k/uL RBC (3.80-5.40) m/uL Hgb (11.4-16.0) gm/dL Hct (34.0-46.0) % MCHC (31.0-37.0) g/dL RDW (11.5-15.5) % Plt Count (150-450) k/uL Neutrophils # (1.3-7.7) k/uL Lymphocytes # (1.0-4.8) k/uL APTT 37.6 H (22.0-30.0) sec Sodium 132 L (137-145) mmol/L BUN 31 H (7-17) mg/dL Creatinine 1.27 H (0.52-1.04) mg/dL POC Glucose (mg/dL) 138 H (75-99) mg/dL Hemoglobin A1c (4.2-6.1) % Calcium 7.5 L (8.4-10.2) mg/dL Phosphorus 4.8 H (2.5-4.5) mg/dL AST 81 H (14-36) U/L Total Creatine Kinase (30-135) U/L CK-MB (CK-2) (0.0-2.4) ng/mL Troponin I (0.000-0.034) ng/mL Total Protein 5.1 L (6.3-8.2) g/dL Albumin 2.7 L (3.5-5.0) g/dL 08/02/16 Range/Units 05:57 WBC 11.2 H (3.8-10.6) k/uL RBC 3.76 L (3.80-5.40) m/uL Hgb 9.8 L (11.4-16.0) gm/dL Hct 33.5 L (34.0-46.0) % MCHC 29.3 L (31.0-37.0) g/dL RDW 17.6 H (11.5-15.5) % Plt Count 142 L (150-450) k/uL Neutrophils # 9.8 H (1.3-7.7) k/uL Lymphocytes # 0.7 L (1.0-4.8) k/uL APTT (22.0-30.0) sec Sodium (137-145) mmol/L BUN (7-17) mg/dL Creatinine (0.52-1.04) mg/dL POC Glucose (mg/dL) (75-99) mg/dL Hemoglobin A1c (4.2-6.1) % Calcium (8.4-10.2) mg/dL Phosphorus (2.5-4.5) mg/dL AST (14-36) U/L Total Creatine Kinase (30-135) U/L CK-MB (CK-2) (0.0-2.4) ng/mL Troponin I (0.000-0.034) ng/mL Total Protein (6.3-8.2) g/dL Albumin (3.5-5.0) g/dL Assessment and Plan Plan: impression: 1acute hypoglycemia in a patient with history of diabetes, on insulin.patient responded well to 1 amp of D50 upon initial evaluation by EMS. 2 paroxysmal atrial fibrillation with RVR, presently on Cardizem drip. 3 mild congestive heart failure mostly related to cardiac arrhythmia. 4 recent episode of tracheobronchitis, presently on Levaquin. 5multiple comorbidities including sarcoidosis, bronchial asthma, underlying coronary artery disease, history of hypothyroidism, and history of diabetes. Recommendation: Continue present treatment plan, consider discharge planning in the next 24 hours, may benefit from orthopedic evaluation of the left ankle. Time with Patient: Less than 30
[2016-08-02 11:41] VITALS: BMI 30.8
[2016-08-02 11:59] LABS: Glucose,Whole Blood 157 mg/dL (75-99)
[2016-08-02] MEDS: LEVOFLOXACIN 250 MG TAB PO SCH (12:19)
--- NOTE | 2016-08-02 12:51 | P.PN ---
Subjective patient is doing fairly well today. Heart rate is well-controlled. She is complaining of worsening left hip pain and low back pain. She feels generally weak. Objective - Vital Signs Vital signs: Vital Signs Temp 96.8 F L 08/02/16 11:23 Pulse 100 08/02/16 12:07 Resp 20 08/02/16 11:25 BP 97/52 08/02/16 11:23 Pulse Ox 98 08/02/16 11:23 Intake & Output 08/01/16 08/02/16 08/02/16 18:59 06:59 18:59 Intake Total 827.687 180 Output Total 350 200 Balance 477.687 -20 Weight 76.5 kg 76.5 kg Intake: Intake, IV Titration 647.687 Amount Diltiazem 125 mg In 51.667 Sodium Chloride 0.9% 100 ml @ 5 MG/HR 5 mls/hr IV .Q24H [facility] Rx#:[id number] Heparin Sodium,Porcine/ 221.02 D5w Pmx 25,000 unit In Dextrose/Water 1 500ml. bag @ 12 UNITS/KG/HR 17.2 mls/hr IV .Q24H [facility] Rx#: [id number] Sodium Chloride 0.9% 1, 375 000 ml @ 70 mls/hr IV . [id number] [facility] Rx#:[id number] Oral 180 180 Output: Urine 350 200 Other: Voiding Method Incontinent Bedpan Bedpan # Voids 1 1 # Bowel Movements 1 - Exam General: The patient is awake and alert, in no distress Eye: there is normal conjunctiva bilaterally. Neck: The neck is supple, there is no JVD. Cardiovascular: Normal S1-S2, no S3-S4, no murmurs. Respiratory: Lungs clear to auscultation bilaterally Gastrointestinal: Abdomen is soft, nontender Musculoskeletal: There is no pedal edema. Neurological:. Speech is normal. Skin: Skin is warm and dry. There is bruising and ecchymosis on both hands and arms up to the elbow as well as throughout her abdomen and thighs - Labs CBC & Chem 7: 08/02/16 05:57 08/02/16 05:57 Labs: Abnormal Lab Results - Last 24 Hours (Table) 08/01/16 08/01/16 08/01/16 Range/Units 04:13 16:38 17:13 WBC (3.8-10.6) k/uL RBC (3.80-5.40) m/uL Hgb (11.4-16.0) gm/dL Hct (34.0-46.0) % MCHC (31.0-37.0) g/dL RDW (11.5-15.5) % Plt Count (150-450) k/uL Neutrophils # (1.3-7.7) k/uL Lymphocytes # (1.0-4.8) k/uL APTT (22.0-30.0) sec Sodium (137-145) mmol/L BUN (7-17) mg/dL Creatinine (0.52-1.04) mg/dL POC Glucose (mg/dL) 141 H 159 H (75-99) mg/dL Hemoglobin A1c 8.9 H (4.2-6.1) % Calcium (8.4-10.2) mg/dL Phosphorus (2.5-4.5) mg/dL AST (14-36) U/L Total Protein (6.3-8.2) g/dL Albumin (3.5-5.0) g/dL 08/01/16 08/01/16 08/02/16 Range/Units 19:11 21:11 05:57 WBC (3.8-10.6) k/uL RBC (3.80-5.40) m/uL Hgb (11.4-16.0) gm/dL Hct (34.0-46.0) % MCHC (31.0-37.0) g/dL RDW (11.5-15.5) % Plt Count (150-450) k/uL Neutrophils # (1.3-7.7) k/uL Lymphocytes # (1.0-4.8) k/uL APTT 37.6 H (22.0-30.0) sec Sodium 132 L (137-145) mmol/L BUN 31 H (7-17) mg/dL Creatinine 1.27 H (0.52-1.04) mg/dL POC Glucose (mg/dL) 138 H (75-99) mg/dL Hemoglobin A1c (4.2-6.1) % Calcium 7.5 L (8.4-10.2) mg/dL Phosphorus 4.8 H (2.5-4.5) mg/dL AST 81 H (14-36) U/L Total Protein 5.1 L (6.3-8.2) g/dL Albumin 2.7 L (3.5-5.0) g/dL 08/02/16 08/02/16 Range/Units 05:57 11:57 WBC 11.2 H (3.8-10.6) k/uL RBC 3.76 L (3.80-5.40) m/uL Hgb 9.8 L (11.4-16.0) gm/dL Hct 33.5 L (34.0-46.0) % MCHC 29.3 L (31.0-37.0) g/dL RDW 17.6 H (11.5-15.5) % Plt Count 142 L (150-450) k/uL Neutrophils # 9.8 H (1.3-7.7) k/uL Lymphocytes # 0.7 L (1.0-4.8) k/uL APTT (22.0-30.0) sec Sodium (137-145) mmol/L BUN (7-17) mg/dL Creatinine (0.52-1.04) mg/dL POC Glucose (mg/dL) 157 H (75-99) mg/dL Hemoglobin A1c (4.2-6.1) % Calcium (8.4-10.2) mg/dL Phosphorus (2.5-4.5) mg/dL AST (14-36) U/L Total Protein (6.3-8.2) g/dL Albumin (3.5-5.0) g/dL Assessment and Plan Plan: 1. Atrial fibrillation with rapid ventricular response: Currently on Cardizem orally. cardiology following. Not a candidate for anticoagulation. 2. Hypoglycemia: on presentation. Now resolved. Blood glucose within acceptable range. 3. Acute bacterial bronchitis: Currently on oral Levaquin. Would finish 7 days course 4. Coronary artery disease with prior stent placement last in December 2015.. We'll continue optimize medical management 5. Troponin elevation: Most likely non-thrombotic troponin leak secondary to A. fib with RVR. Patient denies any chest pain. 6. Underlying sarcoidosis: Maintained chronically on low-dose prednisone. seen and evaluated by pulmonology 7. Acute hypoxic respiratory failure: Wean off O2 as tolerated for O2 sat above 90% 8. Hypothyroidism maintained on levothyroxin Today. I reviewed her medication list and lab work results. Continue current regimen. Awaiting echocardiogram. I would order x-ray of the left hip and lumbar spine for further evaluation of pain. Patient is obviously debilitated and would benefit from physical therapy. to consult for PM&R to evaluate if she is a candidate for acute rehab. we will continue supportive care otherwise. Appreciate financial operations consultant's recommendations. Repeat lab work in the morning. GI and DVT prophylaxis.
--- NOTE | 2016-08-02 13:50 | XR ---
EXAMINATION TYPE: XR Hip Complete LT DATE OF EXAM: 08/02/2016 1:26 PM CLINICAL HISTORY: Chronic left hip pain. TECHNIQUE: AP and frogleg views of the left hip are obtained. COMPARISON: Pelvic x-ray January 10, 2016 FINDINGS: There is no acute fracture/dislocation evident in the left hip. Osseous structures are dem ineralized. Focal bulge or spurring superior lateral head neck junction left hip is redemonstrated. M ild axial joint space loss and acetabular spurring is again seen. There is small spur from greater tr ochanter level of left hip. There is vascular calcification left groin region and left pelvis. Rounde d densities could reflect calcified or barium-filled diverticula in the sigmoid pelvis. IMPRESSION: There is no acute fracture or dislocation in the left hip. Demineralization and degenera tive changes are redemonstrated without significant change from prior.
--- NOTE | 2016-08-02 13:54 | XR ---
EXAMINATION TYPE: XR lumbar spine 2 or 3V DATE OF EXAM: 08/02/2016 1:26 PM CLINICAL HISTORY: Acute on chronic back pain TECHNIQUE: Frontal and lateral images of the lumbar spine are obtained. COMPARISON: Lumbar spine x-ray September 09, 2013 FINDINGS: There are 5 lumbar type vertebral bodies identified. Osseous structures are demineralized which is noted to lower radiographic sensitivity. The lumbar spine shows straightened alignment witho ut evidence of acute fracture or dislocation. Vertebral body heights are within normal limits. Ther e is moderate to severe multilevel disc space narrowing with multilevel vacuum disc phenomenon and mi ld multilevel anterior spurring. Vascular calcification of overlying abdominal aorta is noted extendi ng into pelvic branch vessels. There are some opacified diverticula in the pelvis likely from recent barium swallow study July 21. IMPRESSION: Demineralization with straightening of lumbar spine and multilevel moderate to advanced d egenerative changes redemonstrated without significant change from prior study noted.
--- NOTE | 2016-08-02 14:43 | P.CONS ---
History of Present Illness - Chief Complaint medical debility - History of Present Illness the patient was admitted July 31 after being found by with loss of consciousness. Workup revealed blood sugar 27. Further workup revealed rapid heart rate and paroxysmal atrophy fibrillation. Seen by pulmonary. He prescribed and I have added OT. Should note x-rays done. LS-spine demonstrates demineralization and multilevel DDD. Left hip x-ray with demineralization. Previous functional history: As elicited from patient and corroborated by and daughter: 80-year-old left-handed white female who is lives in one floor farmhouse with . Retired. Describes independent with cooking, laundry, driving, standing shower and gait without device. Family history of cirrhosis in mother and stroke in father. Review of Systems Review of systems: ENT: Denies sneezes or discharge. Eyes: Denies discharge or photophobia. Cardiac: Denies chest pain or palpitation. Pulmonary: Denies cough or shortness of breath. Breast: Denies discharge or lumps. Gastrointestinal: Denies nausea, emesis, constipation, diarrhea. Genitourinary: Denies discharge or frequency. Musculoskeletal: aches and pains in legs. Neurologic: mild generalized weakness. Endocrine: Denies shakes or sweats. Oncology: Denies cancers. Dermatologic: Denies rash, itching, pruritus. ALLERGY/immunology: Denies sneezes, rashes. Past Medical History Past Medical History: Atrial Fibrillation, Asthma, Coronary Artery Disease (CAD) , Diabetes Mellitus, Deep Vein Thrombosis (DVT), Hypertension, Myocardial Infarction (OK), Pneumonia, Pulmonary Embolus (PE), Thyroid Disorder Additional Past Medical History / Comment(s): Pulmonary sarcoidosis, FALL IN AUGUST , pt stated she is dm type 1, neuroptathy Last Myocardial Infarction Date:: * History of Any Multi-Drug Resistant Organisms: None Reported Past Surgical History: Heart Catheterization With Stent, Hysterectomy, Joint Replacement, Orthopedic Surgery Additional Past Surgical History / Comment(s): Dr. Rivera and Dr. Arriaga placed 6 stents 13 years ago, left knee surgery AND IN DEC 2015 HEART CATH AND STENT -PT STATED TOTAL OF 7 STENTS NOW Past Anesthesia/Blood Transfusion Reactions: No Reported Reaction Date of Last Stent Placement:: 1999 Past Psychological History: No Psychological Hx Reported Smoking Status: Never smoker Past Alcohol Use History: Occasional Past Drug Use History: None Reported - Past Family History Father Family Medical History: Myocardial Infarction (OK) Mother Family Medical History: Liver Disease Medications and Allergies Home Medications Medication Instructions Recorded Confirmed Type Atorvastatin [Lipitor] 20 mg PO HS 09/30/14 07/31/16 History Ergocalciferol [Vitamin D2 50,000 unit PO Q14D 09/30/14 07/31/16 History (DRISDOL)] Furosemide 20 mg PO BID 09/30/14 07/31/16 History Cholecalciferol [Vitamin D3] 4,000 unit PO BID 07/24/15 07/31/16 History Gabapentin 300 mg PO BID 07/24/15 07/31/16 History Insulin Lispro [humaLOG Kwikpen] 8 unit SQ AC-LUNCH 07/24/15 07/31/16 History Isosorbide Mononitrate ER [Imdur] 30 mg PO DAILY 07/24/15 07/31/16 History predniSONE 10 mg PO DAILY 07/24/15 07/31/16 History Insulin Glargine,Hum.rec.anlog 14 units SQ HS 01/10/16 07/31/16 History [Toujeo Solostar] Levothyroxine Sodium [Synthroid] 112 mcg PO DAILY 01/10/16 07/31/16 History Montelukast [Singulair] 10 mg PO HS 01/10/16 07/31/16 History Oxybutynin Chloride 5 mg PO DAILY 01/10/16 07/31/16 History HYDROcodone/APAP 5-325MG [[place] 1 tab PO Q6H PRN 02/28/16 07/31/16 History 5-325] Vit C/E/Zn/Coppr/Lutein/Zeaxan 1 cap PO BID 02/28/16 07/31/16 History [Preservision Areds 2 Softgel] Omeprazole [PriLOSEC] 20 mg PO AC-SUPPER 04/19/16 07/31/16 History Insulin Lispro [humaLOG Kwikpen] 7 unit SQ AC-BRKFST 05/08/16 07/31/16 History Insulin Lispro [humaLOG Kwikpen] 8 unit SQ AC-SUPPER 05/08/16 07/31/16 History Insulin Lispro [humaLOG Kwikpen] See Protocol SQ AC-TID PRN 05/08/16 07/31/16 History Diltiazem HCl 30 mg PO BID 07/31/16 07/31/16 History Levofloxacin [Levaquin] 500 mg PO DAILY 07/31/16 07/31/16 History Metoprolol Tartrate [Lopressor] 50 mg PO BID 07/31/16 07/31/16 History Allergies Allergy/AdvReac Type Severity Reaction Status Date / Time cat dander Allergy Unknown Verified 07/31/16 20:03 Sulfa (Sulfonamide Allergy Rash/Hives Verified 07/31/16 20:03 Antibiotics) Physical Exam Vitals: Vital Signs Temp Pulse Pulse Resp BP BP BP 08/02/16 12:07 100 08/02/16 11:55 100 08/02/16 11:25 77 20 08/02/16 11:23 96.8 F L 77 20 97/52 08/02/16 08:16 100 08/02/16 08:04 108 H 08/02/16 08:00 102 H 20 08/02/16 07:52 96.6 F L 102 H 20 125/62 08/02/16 04:00 97 F L 86 18 99/58 08/02/16 00:00 96.7 F L 104 H 18 98/50 08/01/16 20:00 100.1 F H 114 H 18 122/84 08/01/16 19:43 90 08/01/16 19:32 92 08/01/16 17:15 98.8 F 96 18 103/60 08/01/16 16:00 98.2 F 98 23 109/72 08/01/16 15:00 84 22 92/57 Pulse Ox 08/02/16 12:07 08/02/16 11:55 08/02/16 11:25 08/02/16 11:23 98 08/02/16 08:16 08/02/16 08:04 08/02/16 08:00 08/02/16 07:52 99 08/02/16 04:00 100 08/02/16 00:00 95 08/01/16 20:00 100 08/01/16 19:43 08/01/16 19:32 08/01/16 17:15 96 08/01/16 16:00 99 08/01/16 15:00 98 Intake and Output 08/01/16 08/02/16 08/02/16 22:59 06:59 14:59 Intake Total 231.667 660 Output Total 200 Balance 231.667 460 Intake: IV 240 .9 @ 20 240 Intake, IV Titration 51.667 Amount Diltiazem 125 mg In 51.667 Sodium Chloride 0.9% 100 ml @ 5 MG/HR 5 mls/hr IV .Q24H [facility] Rx#:[id number] Oral 180 420 Output: Urine 200 Other: Voiding Method Incontinent Bedpan Bedpan # Voids 2 1 1 Weight 76.5 kg 76.5 kg Patient Weight 08/03/16 06:59 Weight 76.5 kg Skin: atrophic and multiple bruises/ecchymoses noted, especially arms. General: Medium build and comfortable appearance. Head: Normocephalic, atraumatic. Eyes: Symmetric. Pupils equal round. Ears: Symmetric. Hearing within normal limits. Mouth: Clear. Neck: Supple. Carotid without bruit. Cardiac: Regular rate and rhythm. Lungs: Clear anteriorly and posteriorly. Abdomen: Soft active nontender. Extremities: Normal tone. Neurological: Mental status: Alert, cooperative, pleasant. Cranial nerves: Symmetric facial tone and trapezius. Motor: able to elevate arms off of bed but not legs. Sensation: Intact throughout. DTRs: Symmetric and equal throughout. Mobility: patient and would visitors and did not attempt to sit or stand. Defer to PT evaluation. Results CBC & Chem 7: 08/02/16 05:57 08/02/16 05:57 Labs: Abnormal Lab Results - Last 24 Hours (Table) 08/01/16 08/01/16 08/01/16 Range/Units 16:38 17:13 19:11 WBC (3.8-10.6) k/uL RBC (3.80-5.40) m/uL Hgb (11.4-16.0) gm/dL Hct (34.0-46.0) % MCHC (31.0-37.0) g/dL RDW (11.5-15.5) % Plt Count (150-450) k/uL Neutrophils # (1.3-7.7) k/uL Lymphocytes # (1.0-4.8) k/uL APTT 37.6 H (22.0-30.0) sec Sodium (137-145) mmol/L BUN (7-17) mg/dL Creatinine (0.52-1.04) mg/dL POC Glucose (mg/dL) 141 H 159 H (75-99) mg/dL Calcium (8.4-10.2) mg/dL Phosphorus (2.5-4.5) mg/dL AST (14-36) U/L Total Protein (6.3-8.2) g/dL Albumin (3.5-5.0) g/dL 08/01/16 08/02/16 08/02/16 Range/Units 21:11 05:57 05:57 WBC 11.2 H (3.8-10.6) k/uL RBC 3.76 L (3.80-5.40) m/uL Hgb 9.8 L (11.4-16.0) gm/dL Hct 33.5 L (34.0-46.0) % MCHC 29.3 L (31.0-37.0) g/dL RDW 17.6 H (11.5-15.5) % Plt Count 142 L (150-450) k/uL Neutrophils # 9.8 H (1.3-7.7) k/uL Lymphocytes # 0.7 L (1.0-4.8) k/uL APTT (22.0-30.0) sec Sodium 132 L (137-145) mmol/L BUN 31 H (7-17) mg/dL Creatinine 1.27 H (0.52-1.04) mg/dL POC Glucose (mg/dL) 138 H (75-99) mg/dL Calcium 7.5 L (8.4-10.2) mg/dL Phosphorus 4.8 H (2.5-4.5) mg/dL AST 81 H (14-36) U/L Total Protein 5.1 L (6.3-8.2) g/dL Albumin 2.7 L (3.5-5.0) g/dL 08/02/16 Range/Units 11:57 WBC (3.8-10.6) k/uL RBC (3.80-5.40) m/uL Hgb (11.4-16.0) gm/dL Hct (34.0-46.0) % MCHC (31.0-37.0) g/dL RDW (11.5-15.5) % Plt Count (150-450) k/uL Neutrophils # (1.3-7.7) k/uL Lymphocytes # (1.0-4.8) k/uL APTT (22.0-30.0) sec Sodium (137-145) mmol/L BUN (7-17) mg/dL Creatinine (0.52-1.04) mg/dL POC Glucose (mg/dL) 157 H (75-99) mg/dL Calcium (8.4-10.2) mg/dL Phosphorus (2.5-4.5) mg/dL AST (14-36) U/L Total Protein (6.3-8.2) g/dL Albumin (3.5-5.0) g/dL Assessment and Plan (1) Atrial fibrillation with RVR Status: Acute Plan: impression: 1. Medical debility. 2. Diabetes with admission blood sugar of 27. 3. Paroxysmal atrial fibrillation with rapid ventricular response. 4. Hypertension. 5. Asthma. 6. History of DVTand PE. 7. History of [place]. Comments and plan: At this time PT and OT are prescribed. We'll follow with yourself. Hopefully patient admitted and treated quickly and so functional deficits should be kept to a minimum. We'll follow with yourself closely.
[2016-08-02] MEDS: HYDROcodone/APAP 5-325MG 1 EACH TAB PO PRN (15:29)
--- NOTE | 2016-08-02 15:41 | P.PN ---
Subjective Principal diagnosis: Syncope/hypoglycemia This is an 80-year-old female who follows regularly with Dr. Rivera in the office. She has a history of coronary artery disease with prior LAD stenting, chronic persistent atrial fibrillation, hypertension, hyperlipidemia, diabetes, pulmonary sarcoidosis. Patient has not been in anticoagulation because of significant ecchymosis and bleeding. Patient presented to the hospital on this occasion because she was found to be unresponsive. Her blood sugars were documented at that time to be 27. She was given an amp of glucose, after which she responded and then she was brought to the emergency room for further evaluation. Cardiology was consulted because of atrial fibrillation with rapid ventricular response As well as abnormal troponin. Blood pressure today 98/60 with a heart rate in the 70s. CBC 11.2, hemoglobin 9.8, sodium 132, potassium 4.4, BUN 31, creatinine 1.2. Objective - Vital Signs Vital signs: Vital Signs Temp 96.8 F L 08/02/16 11:23 Pulse 100 08/02/16 12:07 Resp 20 08/02/16 11:25 BP 97/52 08/02/16 11:23 Pulse Ox 98 08/02/16 11:23 Intake & Output 08/01/16 08/02/16 08/02/16 18:59 06:59 18:59 Intake Total 827.687 660 Output Total 350 200 Balance 477.687 460 Weight 76.5 kg 76.5 kg Intake: IV 240 .9 @ 20 240 Intake, IV Titration 647.687 Amount Diltiazem 125 mg In 51.667 Sodium Chloride 0.9% 100 ml @ 5 MG/HR 5 mls/hr IV .Q24H ONE Rx#:[id number] Heparin Sodium,Porcine/ 221.02 D5w Pmx 25,000 unit In Dextrose/Water 1 500ml. bag @ 12 UNITS/KG/HR 17.2 mls/hr IV .Q24H MISTI Rx#: [id number] Sodium Chloride 0.9% 1, 375 000 ml @ 70 mls/hr IV . [id number] MISTI Rx#:[id number] Oral 180 420 Output: Urine 350 200 Other: Voiding Method Incontinent Bedpan Bedpan # Voids 1 1 # Bowel Movements 1 - Exam PHYSICAL EXAMINATION: HEENT: Head is atraumatic, normocephalic. Pupils equal, round. Neck is supple. There is no elevated jugular venous pressure. HEART EXAMINATION: Heart S1 S2 1 systolic murmur is heard. CHEST EXAMINATION: Reveal coarse crackles bilaterally. ABDOMEN: One plus peripheral pulses with 1+ bilateral peripheral edema.. EXTREMITIES: 2+ peripheral pulses with no evidence of peripheral edema and no calf tenderness noted. Evidence of significant ecchymosis on bilateral arms. NEUROLOGIC patient is awake, alert and oriented -3. . - Labs CBC & Chem 7: 08/02/16 05:57 08/02/16 05:57 Labs: Abnormal Lab Results - Last 24 Hours (Table) 08/01/16 08/01/16 08/01/16 Range/Units 16:38 17:13 19:11 WBC (3.8-10.6) k/uL RBC (3.80-5.40) m/uL Hgb (11.4-16.0) gm/dL Hct (34.0-46.0) % MCHC (31.0-37.0) g/dL RDW (11.5-15.5) % Plt Count (150-450) k/uL Neutrophils # (1.3-7.7) k/uL Lymphocytes # (1.0-4.8) k/uL APTT 37.6 H (22.0-30.0) sec Sodium (137-145) mmol/L BUN (7-17) mg/dL Creatinine (0.52-1.04) mg/dL POC Glucose (mg/dL) 141 H 159 H (75-99) mg/dL Calcium (8.4-10.2) mg/dL Phosphorus (2.5-4.5) mg/dL AST (14-36) U/L Total Protein (6.3-8.2) g/dL Albumin (3.5-5.0) g/dL 08/01/16 08/02/16 08/02/16 Range/Units 21:11 05:57 05:57 WBC 11.2 H (3.8-10.6) k/uL RBC 3.76 L (3.80-5.40) m/uL Hgb 9.8 L (11.4-16.0) gm/dL Hct 33.5 L (34.0-46.0) % MCHC 29.3 L (31.0-37.0) g/dL RDW 17.6 H (11.5-15.5) % Plt Count 142 L (150-450) k/uL Neutrophils # 9.8 H (1.3-7.7) k/uL Lymphocytes # 0.7 L (1.0-4.8) k/uL APTT (22.0-30.0) sec Sodium 132 L (137-145) mmol/L BUN 31 H (7-17) mg/dL Creatinine 1.27 H (0.52-1.04) mg/dL POC Glucose (mg/dL) 138 H (75-99) mg/dL Calcium 7.5 L (8.4-10.2) mg/dL Phosphorus 4.8 H (2.5-4.5) mg/dL AST 81 H (14-36) U/L Total Protein 5.1 L (6.3-8.2) g/dL Albumin 2.7 L (3.5-5.0) g/dL 08/02/16 Range/Units 11:57 WBC (3.8-10.6) k/uL RBC (3.80-5.40) m/uL Hgb (11.4-16.0) gm/dL Hct (34.0-46.0) % MCHC (31.0-37.0) g/dL RDW (11.5-15.5) % Plt Count (150-450) k/uL Neutrophils # (1.3-7.7) k/uL Lymphocytes # (1.0-4.8) k/uL APTT (22.0-30.0) sec Sodium (137-145) mmol/L BUN (7-17) mg/dL Creatinine (0.52-1.04) mg/dL POC Glucose (mg/dL) 157 H (75-99) mg/dL Calcium (8.4-10.2) mg/dL Phosphorus (2.5-4.5) mg/dL AST (14-36) U/L Total Protein (6.3-8.2) g/dL Albumin (3.5-5.0) g/dL Assessment and Plan (1) Syncope Status: Acute (2) Coronary artery disease Status: Acute (3) Atrial fibrillation, chronic Status: Acute (4) Diabetes Status: Acute (5) Hypertension Status: Acute (6) Hyperlipidemia Status: Acute (7) Ecchymosis Status: Acute Plan: From cardiology's perspective, we'll recommend to continue the patient on her current medications. She is not a candidate for anticoagulation because of significant ecchymosis and bleeding. We'll follow this patient with you now on an as-needed basis only, please don't hesitate to call with any questions. DNP note has been reviewed, I agree with a documented findings and plan of care. Patient was seen and examined.
[2016-08-02 16:16] LABS: Glucose,Whole Blood 185 mg/dL (75-99)
[2016-08-02] MEDS: PANTOPRAZOLE 40 MG TABLET PO SCH (17:03)
[2016-08-02 20:57] LABS: Glucose,Whole Blood 289 mg/dL (75-99)
[2016-08-02] MEDS: ATORVASTATIN 20 MG TAB PO SCH (21:07)
[2016-08-02] MEDS: MONTELUKAST 10 MG TAB PO SCH (21:07)
[2016-08-02] MEDS: INSULIN GLARGINE 100 UNIT/ML 10 ML VIAL SQ SCH (21:09)
[2016-08-02] MEDS: TEMAZEPAM 30 MG CAP PO SCH (21:11)
[2016-08-03 05:53] LABS: Glucose,Whole Blood 154 mg/dL (75-99)
[2016-08-03] MEDS: INSULIN LISPRO (humaLOG) 300 UNIT/3 ML VIAL SQ SCH ×4 (06:23→21:47)
[2016-08-03 06:58] LABS: Calcium 7.9 mg/dL (8.4-10.2); Phosphorous 4.8 mg/dL (2.5-4.5); Potassium 4.4 mmol/L (3.5-5.1); Total Bilirubin 0.8 mg/dL (0.2-1.3); Total Protein 5.5 g/dL (6.3-8.2)
[2016-08-03] MEDS: HYDROcodone/APAP 5-325MG 1 EACH TAB PO PRN (07:30)
[2016-08-03 07:49] LABS: Anisocytosis Slight; Basophils % (A) 0 %; CH 25.3; CHCM 28.9; Eosinophils % (A) 0 %; HCT 32.7 % (34.0-46.0); HDW 2.67; Hypochromasia Marked; Luc # (Auto) 0.19; Luc % (Auto) 2; Lymphocytes # (A) 0.8 k/uL (1.0-4.8); Lymphocytes % (A) 10 %; MCH 27.1 pg (25.0-35.0); MCHC 30.8 g/dL (31.0-37.0); Mean Platelet Volume 8.4; Monocytes # (A) 0.4 k/uL (0-1.0); Monocytes % (A) 5 %; Neutrophils # (A) 6.4 k/uL (1.3-7.7); Neutrophils % (A) 82 %; RBC 3.71 m/uL (3.80-5.40); RDW 17.4 % (11.5-15.5); WBC 7.8 k/uL (3.8-10.6); WBC (Perox) 8.44
[2016-08-03] MEDS: IPRATROPIUM-ALBUTEROL 3 ML NEB INHALATION SCH ×4 (08:32→20:19)
[2016-08-03] MEDS: CHOLECALCIFEROL 1,000 UNIT TAB PO SCH ×2 (08:58→20:52)
[2016-08-03] MEDS: CLOPIDOGREL 75 MG TAB PO SCH (09:00)
[2016-08-03] MEDS: FUROSEMIDE 20 MG TAB PO SCH ×2 (09:00→16:44)
[2016-08-03] MEDS: DILTIAZEM ORAL 60 MG TAB PO SCH ×2 (09:00→20:51)
[2016-08-03] MEDS: GABAPENTIN 300 MG CAP PO SCH ×2 (09:01→20:51)
[2016-08-03] MEDS: ISOSORBIDE MONONITRATE ER 30 MG TAB.ER.24H PO SCH (09:02)
[2016-08-03] MEDS: HEPARIN SODIUM,PORCINE 5,000 UNIT/ML 1 ML VIAL SQ SCH ×2 (09:02→20:51)
[2016-08-03] MEDS: LEVOTHYROXINE 112 MCG TAB PO SCH (09:02)
[2016-08-03] MEDS: OXYBUTYNIN CHLORIDE 5 MG TAB PO SCH (09:03)
[2016-08-03] MEDS: METOPROLOL TARTRATE 50 MG TAB PO SCH ×2 (09:03→20:51)
[2016-08-03] MEDS: predniSONE 10 MG TAB PO SCH (09:46)
--- NOTE | 2016-08-03 10:41 | ECHOF ---
Referral Reason:Elevated Trop MEASUREMENTS -------- HEIGHT: 157.5 cm WEIGHT: 76.2 kg BP: 97/52 RVIDd: 2.7 cm (< 3.3) IVSd: 1.3 cm (0.6 - 1.1) LVIDd: 3.8 cm (3.9 - 5.3) LVPWd: 1.3 cm (0.6 - 1.1) IVSs: 1.8 cm LVIDs: 2.9 cm LVPWs: 1.4 cm LA Diam: 3.8 cm (2.7 - 3.8) LAESV Index (A-L): 29.99 ml/m Ao Diam: 2.8 cm (2.0 - 3.7) AV Cusp: 0.9 cm (1.5 - 2.6) LA Diam: 3.1 cm (2.7 - 3.8) MV EXCURSION: 11.106 mm (> 18.000) MV EF SLOPE: 77 mm/s (70 - 150) EPSS: 0.8 cm AV maxP.57 mmHg AV meanP.16 mmHg RAP: 15.00 mmHg RVSP: 48.30 mmHg FINDINGS -------- Atrial fibrillation. This was a technically good study. There is mild concentric left ventricular hypertrophy. Overall left ventricular systolic function is mildly impaired with, an EF between 45 - 50 %. Basal inferior LV wall motion is hypokinetic. Basal inferoseptal LV wall motion is hypokinetic. LA is midly dilated 29-33ml/m2. RA appears enlarged. There is mild aortic stenosis present. Peak/mean gradient across the Aortic Valve is 19.57mmHg / 11.16mmHg. The mitral valve leaflets are mildly thickened. Mild mitral annular calcification present. Ezmj-nj-jvtyzfuu mitral regurgitation is present. Hmbo-fq-xzvtsoxf tricuspid regurgitation present. There is moderate pulmonary hypertension. The right ventricular systolic pressure, as measured by Doppler, is 48.30mmHg. Trace/mild (physiologic) pulmonic regurgitation. The aortic root size is normal. The inferior vena cava is dilated with no significant inspiratory collapse which is consistent estimated right atrial pressure of >15 mmHg. Echo free space may represent effusion or a pericardial fat pad. CONCLUSIONS -------- 1. Atrial fibrillation. 2. Peak/mean gradient across the Aortic Valve is 19.57mmHg / 11.16mmHg. 3. The mitral valve leaflets are mildly thickened. 4. Mild mitral annular calcification present. 5. Twiq-mw-ckslwghs mitral regurgitation is present. 6. Fxtt-vw-ialenzku tricuspid regurgitation present. 7. There is moderate pulmonary hypertension. 8. The right ventricular systolic pressure, as measured by Doppler, is 48.30mmHg. 9. Trace/mild (physiologic) pulmonic regurgitation. 10. The aortic root size is normal. 11. The inferior vena cava is dilated with no significant inspiratory collapse which is consistent estimated right atrial pressure of >15 mmHg. 12. This was a technically good study. 13. Echo free space may represent effusion or a pericardial fat pad. 14. There is mild concentric left ventricular hypertrophy. 15. Overall left ventricular systolic function is mildly impaired with, an EF between 45 - 50 %. 16. Basal inferior LV wall motion is hypokinetic. 17. Basal inferoseptal LV wall motion is hypokinetic. 18. LA is midly dilated 29-33ml/m2. 19. RA appears enlarged. 20. There is mild aortic stenosis present. VEHICLE OPERATOR: Gilma Petty RDCS
[2016-08-03 12:19] LABS: Glucose,Whole Blood 149 mg/dL (75-99)
--- NOTE | 2016-08-03 12:19 | P.PN ---
Subjective Principal diagnosis: Unresponsiveness secondary to hypoglycemia this is an 80-year-old female quite familiar to my service, known to have history of asthma, chronic atrial fibrillation, coronary artery disease, diabetes, history of deep vein thrombosis, hypertension, previous [place], sarcoidosis, and previous history of pulmonary embolism. Patient presented to her primary care's office yesterday for fasting blood work, and she was not feeling well. She was also complaining of some cough, productive with yellow phlegm, she was placed on Levaquin, and advised to oh to the emergency room if she did not feel well. Later during the day, patient was found lethargic and almost unresponsive by her . EMS was notified, but sugar was noted to be 27 at the time. Patient is normally on insulin for type 2 diabetes. Patient received 1 amp of D50, upon presentation to the ER she was noted to be tachycardic, in atrial fibrillation with RVR. Patient is known to have history of chronic atrial fibrillation. She was placed on Cardizem drip, admitted to the intensive care unit as overflow she was supposed to be admitted to [facility] but no beds were available. Presently the patient is doing much better, she has occasional cough no wheezing, no fever, no chills, no hemoptysis.chest x-ray showed mild congestive heart failure changes with central vascular congestion. Patient was reevaluated today on 08/02/2016, feeling better from the pulmonary perspective and cardiac perspective, however the patient is complaining of pain in the left ankle. Apparently she had this pain for quite some time, and she would likely benefit from orthopedic consultation. Less cough and less shortness of breath noted. CBC is normal hemoglobin is 9.8 electrolytes and renal profile are unremarkable, creatinine however is a bit elevated at 1.27. Patient was reevaluated today on , feeling better, breathing easier, no further episodes of hypoglycemia or syncope. Patient is off IV Cardizem, and the [facility] is handling her atrial fibrillation. Patient was seen by Dr. Huitron, and being considered for possible rehab. No cough no wheezing no shortness of breath. Labs showed relatively normal CBC, hemoglobin is 10 creatinine is 1.40 BUN is 41. Objective - Vital Signs Vital signs: Vital Signs Temp 98.6 F 08/03/16 07:42 Pulse 92 08/03/16 08:40 Resp 19 08/03/16 11:32 BP 115/62 08/03/16 07:42 Pulse Ox 97 08/03/16 04:00 Intake & Output 08/02/16 08/03/16 08/03/16 18:59 06:59 18:59 Intake Total 900 240 180 Output Total 200 1900 Balance 700 -1660 180 Weight 76.5 kg 77.5 kg Intake: IV 240 240 .9 @ 20 240 240 Oral 660 180 Output: Urine 200 1200 Straight 600 Post Void Residual 700 Other: Voiding Method Bedpan Bedpan Bedpan # Voids 1 1 - Exam Physical Exam: Revealed an 80-year-old female, pleasant, in no form of respiratory distress. HEENT:[Neck is supple.] [No neck masses.] [No thyromegaly.] [No JVD.] Chest: [crackles and rhonchi noted especially at the bases..] Cardiac Exam: [irregular irregular rhythmNormal S1 and S2, no S3 gallop, 2/6 systolic murmur throughout the precordium.] Abdomen: [Soft, nontender, no megaly, no rebound, no guarding, normal bowel sounds.] Extremities: [No clubbing, 1+ bipedal edema, no cyanosis.] Neurological Exam: [No focal neurologic deficit.] - Labs CBC & Chem 7: 08/03/16 05:58 08/03/16 05:58 Labs: Abnormal Lab Results - Last 24 Hours (Table) 08/02/16 08/02/16 08/03/16 Range/Units 16:11 20:49 05:50 RBC (3.80-5.40) m/uL Hgb (11.4-16.0) gm/dL Hct (34.0-46.0) % MCHC (31.0-37.0) g/dL RDW (11.5-15.5) % Lymphocytes # (1.0-4.8) k/uL Sodium (137-145) mmol/L BUN (7-17) mg/dL Creatinine (0.52-1.04) mg/dL Glucose (74-99) mg/dL POC Glucose (mg/dL) 185 H 289 H 154 H (75-99) mg/dL Calcium (8.4-10.2) mg/dL Phosphorus (2.5-4.5) mg/dL AST (14-36) U/L Total Protein (6.3-8.2) g/dL Albumin (3.5-5.0) g/dL 08/03/16 08/03/16 Range/Units 05:58 05:58 RBC 3.71 L (3.80-5.40) m/uL Hgb 10.0 L (11.4-16.0) gm/dL Hct 32.7 L (34.0-46.0) % MCHC 30.8 L (31.0-37.0) g/dL RDW 17.4 H (11.5-15.5) % Lymphocytes # 0.8 L (1.0-4.8) k/uL Sodium 134 L (137-145) mmol/L BUN 41 H (7-17) mg/dL Creatinine 1.40 H (0.52-1.04) mg/dL Glucose 127 H (74-99) mg/dL POC Glucose (mg/dL) (75-99) mg/dL Calcium 7.9 L (8.4-10.2) mg/dL Phosphorus 4.8 H (2.5-4.5) mg/dL AST 69 H (14-36) U/L Total Protein 5.5 L (6.3-8.2) g/dL Albumin 2.9 L (3.5-5.0) g/dL Assessment and Plan Plan: impression: 1acute hypoglycemia in a patient with history of diabetes, on insulin.patient responded well to 1 amp of D50 upon initial evaluation by EMS. 2 paroxysmal atrial fibrillation with RVR, presently off Cardizem drip 3 mild congestive heart failure mostly related to cardiac arrhythmia. 4 recent episode of tracheobronchitis, presently on Levaquin. 5multiple comorbidities including sarcoidosis, bronchial asthma, underlying coronary artery disease, history of hypothyroidism, and history of diabetes. Recommendation: Continue present treatment plan, consider discharge planning in the next 24 hours, patient is being considered for possible admission to rehab facility. Time with Patient: Less than 30
[2016-08-03] MEDS: LEVOFLOXACIN 250 MG TAB PO SCH (12:27)
[2016-08-03] MEDS: NYSTATIN 100,000 UNIT/ML SUSP 500,000 UNIT/5 ML CUP PO SCH ×3 (12:28→21:48)
--- NOTE | 2016-08-03 13:00 | P.PN ---
Subjective Patient is doing a lot better today. Heart rate well controlled. Objective - Vital Signs Vital signs: Vital Signs Temp 97.6 F 08/03/16 12:00 Pulse 89 08/03/16 12:00 Resp 16 08/03/16 12:00 BP 97/57 08/03/16 12:00 Pulse Ox 100 08/03/16 12:00 Intake & Output 08/02/16 08/03/16 08/03/16 18:59 06:59 18:59 Intake Total 900 240 180 Output Total 200 1900 Balance 700 -1660 180 Weight 76.5 kg 77.5 kg Intake: IV 240 240 .9 @ 20 240 240 Oral 660 180 Output: Urine 200 1200 Straight 600 Post Void Residual 700 Other: Voiding Method Bedpan Bedpan Bedpan # Voids 1 1 - Exam General: The patient is awake and alert, in no distress Eye: there is normal conjunctiva bilaterally. Neck: The neck is supple, there is no JVD. Cardiovascular: Normal S1-S2, no S3-S4, no murmurs. Respiratory: Lungs clear to auscultation bilaterally Gastrointestinal: Abdomen is soft, nontender Musculoskeletal: There is no pedal edema. Neurological:. Speech is normal. Skin: Skin is warm and dry. There is bruising and ecchymosis on both hands and arms up to the elbow as well as throughout her abdomen and thighs - Labs CBC & Chem 7: 08/03/16 05:58 08/03/16 05:58 Labs: Abnormal Lab Results - Last 24 Hours (Table) 08/02/16 08/02/16 08/03/16 Range/Units 16:11 20:49 05:50 RBC (3.80-5.40) m/uL Hgb (11.4-16.0) gm/dL Hct (34.0-46.0) % MCHC (31.0-37.0) g/dL RDW (11.5-15.5) % Lymphocytes # (1.0-4.8) k/uL Sodium (137-145) mmol/L BUN (7-17) mg/dL Creatinine (0.52-1.04) mg/dL Glucose (74-99) mg/dL POC Glucose (mg/dL) 185 H 289 H 154 H (75-99) mg/dL Calcium (8.4-10.2) mg/dL Phosphorus (2.5-4.5) mg/dL AST (14-36) U/L Total Protein (6.3-8.2) g/dL Albumin (3.5-5.0) g/dL 08/03/16 08/03/16 08/03/16 Range/Units 05:58 05:58 11:34 RBC 3.71 L (3.80-5.40) m/uL Hgb 10.0 L (11.4-16.0) gm/dL Hct 32.7 L (34.0-46.0) % MCHC 30.8 L (31.0-37.0) g/dL RDW 17.4 H (11.5-15.5) % Lymphocytes # 0.8 L (1.0-4.8) k/uL Sodium 134 L (137-145) mmol/L BUN 41 H (7-17) mg/dL Creatinine 1.40 H (0.52-1.04) mg/dL Glucose 127 H (74-99) mg/dL POC Glucose (mg/dL) 149 H (75-99) mg/dL Calcium 7.9 L (8.4-10.2) mg/dL Phosphorus 4.8 H (2.5-4.5) mg/dL AST 69 H (14-36) U/L Total Protein 5.5 L (6.3-8.2) g/dL Albumin 2.9 L (3.5-5.0) g/dL Assessment and Plan Plan: 1. Atrial fibrillation with rapid ventricular response: Currently on Cardizem orally. cardiology following. Not a candidate for anticoagulation. Heart rate well controlled 2. Hypoglycemia: on presentation. Now resolved. Blood glucose within acceptable range. 3. Acute bacterial bronchitis: Currently on oral Levaquin. Would finish 7 days course 4. Coronary artery disease with prior stent placement last in December 2015.. We'll continue optimize medical management 5. Troponin elevation: Most likely non-thrombotic troponin leak secondary to A. fib with RVR. Patient denies any chest pain. 6. Underlying sarcoidosis: Maintained chronically on low-dose prednisone. seen and evaluated by pulmonology 7. Acute hypoxic respiratory failure: Wean off O2 as tolerated for O2 sat above 90% 8. Hypothyroidism maintained on levothyroxin 9. Ischemic cardiomyopathy with systolic heart failure and estimated ejection fraction of 45%: Now compensated 10. Moderate pulmonary hypertension Today. I reviewed her medication list and lab work results. Continue current regimen. we will continue supportive care otherwise. Appreciate artist consultant's recommendations. Repeat lab work in the morning. GI and DVT prophylaxis. For discharge tomorrow awaiting recommendation for acute rehab versus home with home care.
[2016-08-03 17:07] LABS: Glucose,Whole Blood 164 mg/dL (75-99)
[2016-08-03] MEDS: PANTOPRAZOLE 40 MG TABLET PO SCH (17:38)
[2016-08-03] MEDS: ATORVASTATIN 20 MG TAB PO SCH (20:51)
[2016-08-03] MEDS: MONTELUKAST 10 MG TAB PO SCH (20:51)
[2016-08-03 20:56] LABS: Glucose,Whole Blood 202 mg/dL (75-99)
[2016-08-03] MEDS: INSULIN GLARGINE 100 UNIT/ML 10 ML VIAL SQ SCH (21:46)
[2016-08-03] MEDS: TEMAZEPAM 30 MG CAP PO SCH (21:47)
[2016-08-04 05:49] LABS: Glucose,Whole Blood 100 mg/dL (75-99)
[2016-08-04] MEDS: INSULIN LISPRO (humaLOG) 300 UNIT/3 ML VIAL SQ SCH ×2 (06:05→12:30)
[2016-08-04 06:08] VITALS: RESP 20
[2016-08-04 06:39] LABS: Anisocytosis Slight; Basophils % (A) 0 %; CH 26.3; CHCM 30.5; Eosinophils % (A) 0 %; HCT 32.3 % (34.0-46.0); HGB 10.1 gm/dL (11.4-16.0); Hypochromasia Moderate; Luc # (Auto) 0.21; Luc % (Auto) 4; Lymphocytes # (A) 0.8 k/uL (1.0-4.8); Lymphocytes % (A) 16 %; MCHC 31.1 g/dL (31.0-37.0); MCV 86.6 fL (80.0-100.0); Mean Platelet Volume 8.1; Monocytes # (A) 0.5 k/uL (0-1.0); Monocytes % (A) 10 %; Neutrophils # (A) 3.5 k/uL (1.3-7.7); Neutrophils % (A) 70 %; RBC 3.73 m/uL (3.80-5.40); RDW 17.5 % (11.5-15.5)
[2016-08-04 06:47] LABS: Calcium 7.7 mg/dL (8.4-10.2); Phosphorous 4.2 mg/dL (2.5-4.5); Potassium 4.1 mmol/L (3.5-5.1); Total Bilirubin 0.7 mg/dL (0.2-1.3); Total Protein 5.3 g/dL (6.3-8.2)
[2016-08-04] MEDS: CHOLECALCIFEROL 1,000 UNIT TAB PO SCH (08:24)
[2016-08-04] MEDS: DILTIAZEM ORAL 60 MG TAB PO SCH (08:24)
[2016-08-04] MEDS: FUROSEMIDE 20 MG TAB PO SCH (08:24)
[2016-08-04] MEDS: METOPROLOL TARTRATE 50 MG TAB PO SCH (08:24)
[2016-08-04] MEDS: GABAPENTIN 300 MG CAP PO SCH (08:24)
[2016-08-04] MEDS: predniSONE 10 MG TAB PO SCH (08:24)
[2016-08-04] MEDS: LEVOTHYROXINE 112 MCG TAB PO SCH (08:25)
[2016-08-04] MEDS: NYSTATIN 100,000 UNIT/ML SUSP 500,000 UNIT/5 ML CUP PO SCH ×2 (08:25→12:30)
[2016-08-04] MEDS: CLOPIDOGREL 75 MG TAB PO SCH (08:25)
[2016-08-04] MEDS: ISOSORBIDE MONONITRATE ER 30 MG TAB.ER.24H PO SCH (08:25)
[2016-08-04] MEDS: OXYBUTYNIN CHLORIDE 5 MG TAB PO SCH (08:25)
[2016-08-04] MEDS: HEPARIN SODIUM,PORCINE 5,000 UNIT/ML 1 ML VIAL SQ SCH (08:25)
[2016-08-04] MEDS: IPRATROPIUM-ALBUTEROL 3 ML NEB INHALATION SCH ×2 (08:32→13:32)
[2016-08-04 08:35] VITALS: TEMP 97.6
--- NOTE | 2016-08-04 10:52 | P.DS ---
Providers Date of admission: 07/31/16 22:41 Expected date of discharge: 08/04/16 Attending physician: Shyla [facility] Consults: 08/01/16 03:33 Consult Physician Urgent Consulting Provider: Khadijah Arriaga Consult Reason/Comments: Afib RVR Do you want consulting provider notified?: Yes, Notify in am 08/01/16 09:49 Consult Physician Routine Consulting Provider: Merari Gonzales Consult Reason/Comments: COPD Do you want consulting provider notified?: Yes 08/02/16 12:47 Consult Physician Routine Consulting Provider: Ton Phillips Consult Reason/Comments: physical debility. Do you want consulting provider notified?: Yes Primary care physician: Bess Kaiser Hospital Course: This is a 80-year-old female with complex past medical history noted below who presented to the hospital initially with hypoglycemia after she was found unresponsive by her . Patient improved significantly after receiving IV D50 by EMS. She was found in the emergency room to be in atrial fibrillation with rapid ventricular response. She was admitted to the hospital and was seen and evaluated by multiple specialists. She remained hemodynamically stable throughout her hospitalization. Her clinical condition improved significantly. She will be discharged home in a stable condition. She will have home care visiting nurses arranged. Mucosa list of her medical problems addressed during this hospitalization. 1. Atrial fibrillation with rapid ventricular response: Currently on Cardizem and metoprolol orally. cardiology following. Not a candidate for anticoagulation. Heart rate well controlled 2. Hypoglycemia: on presentation. Now resolved. Blood glucose within acceptable range. 3. Acute bacterial bronchitis: Currently on oral Levaquin. Would finish 7 days course 4. Coronary artery disease with prior stent placement last in December 2015.. We'll continue optimize medical management 5. Troponin elevation: Most likely non-thrombotic troponin leak secondary to A. fib with RVR. Patient denies any chest pain. 6. Underlying sarcoidosis: Maintained chronically on low-dose prednisone. seen and evaluated by pulmonology 7. Acute hypoxic respiratory failure: Wean off O2 as tolerated for O2 sat above 90% 8. Hypothyroidism maintained on levothyroxin 9. Ischemic cardiomyopathy with systolic heart failure and estimated ejection fraction of 45%: Now compensated 10. Moderate pulmonary hypertension Plan - Discharge Summary New Discharge Prescriptions: Diltiazem Oral [Cardizem*] 60 mg PO BID #60 tab Insulin Lispro [humaLOG Kwikpen] 4 unit SQ AC-LUNCH #1 insuln.pen Insulin Lispro [humaLOG Kwikpen] 4 unit SQ AC-BRKFST #1 insuln.pen Levofloxacin [Levaquin] 250 mg PO 1200 #5 tab Nystatin 100,000 Unit/ml Susp [Mycostatin Oral Susp] 500,000 unit PO QID #28 cup Discharge Medication List Atorvastatin [Lipitor] 20 mg PO HS 09/30/14 [History] Ergocalciferol [Vitamin D2 (DRISDOL)] 50,000 unit PO Q14D 09/30/14 [History] Furosemide 20 mg PO BID 09/30/14 [History] Gabapentin 300 mg PO BID 07/24/15 [History] Isosorbide Mononitrate ER [Imdur] 30 mg PO DAILY 07/24/15 [History] predniSONE 10 mg PO DAILY 07/24/15 [History] Insulin Glargine,Hum.rec.anlog [[place] Solostar] 14 units SQ HS 01/10/16 [ History] Levothyroxine Sodium [Synthroid] 112 mcg PO DAILY 01/10/16 [History] Montelukast [Singulair] 10 mg PO HS 01/10/16 [History] Oxybutynin Chloride 5 mg PO DAILY 01/10/16 [History] Temazepam [Restoril] 30 mg PO HS #12 cap 01/17/16 [Rx] Clopidogrel [Plavix] 75 mg PO DAILY #30 tab 02/07/16 [Rx] HYDROcodone/APAP 5-325MG [[place] 5-325] 1 tab PO Q6H PRN 02/28/16 [History] Vit C/E/Zn/Coppr/Lutein/Zeaxan [Preservision Areds 2 Softgel] 1 cap PO BID 02/27 [History] Omeprazole [PriLOSEC] 20 mg PO AC-SUPPER 04/19/16 [History] Metoprolol Tartrate [Lopressor] 50 mg PO BID 07/31/16 [History] Cholecalciferol [Vitamin D3] 2,000 unit PO DAILY #0 08/04/16 [Rx] Diltiazem Oral [Cardizem*] 60 mg PO BID #60 tab 08/04/16 [Rx] Insulin Lispro [humaLOG Kwikpen] 4 unit SQ AC-BRKFST #1 insuln.pen 08/04/16 [Rx] Insulin Lispro [humaLOG Kwikpen] 4 unit SQ AC-LUNCH #1 insuln.pen 08/04/16 [Rx] Levofloxacin [Levaquin] 250 mg PO 1200 #5 tab 08/04/16 [Rx] Nystatin 100,000 Unit/ml Susp [Mycostatin Oral Susp] 500,000 unit PO QID #28 cup 08/04/16 [Rx] Follow up Appointment(s)/Referral(s): [facility], [NON-STAFF] - 1 Week Shyla Alcantara MD [Primary Care Provider] - 08/14/16 1:30 pm Care Plan Goals (MU): Fasting blood work appointment on 07/31/16 at [address] Alcantara office Discharge Disposition: HOME WITH HOME HEALTH SERVICES
[2016-08-04 12:00] LABS: Glucose,Whole Blood 211 mg/dL (75-99)
[2016-08-04] MEDS: LEVOFLOXACIN 250 MG TAB PO SCH (12:30)
--- NOTE | 2016-08-04 12:47 | P.PN ---
Subjective Principal diagnosis: Unresponsiveness secondary to hypoglycemia this is an 80-year-old female quite familiar to my service, known to have history of asthma, chronic atrial fibrillation, coronary artery disease, diabetes, history of deep vein thrombosis, hypertension, previous GA, sarcoidosis, and previous history of pulmonary embolism. Patient presented to her primary care's office yesterday for fasting blood work, and she was not feeling well. She was also complaining of some cough, productive with yellow phlegm, she was placed on Levaquin, and advised to oh to the emergency room if she did not feel well. Later during the day, patient was found lethargic and almost unresponsive by her . EMS was notified, but sugar was noted to be 27 at the time. Patient is normally on insulin for type 2 diabetes. Patient received 1 amp of D50, upon presentation to the ER she was noted to be tachycardic, in atrial fibrillation with RVR. Patient is known to have history of chronic atrial fibrillation. She was placed on Cardizem drip, admitted to the intensive care unit as overflow she was supposed to be admitted to selective but no beds were available. Presently the patient is doing much better, she has occasional cough no wheezing, no fever, no chills, no hemoptysis.chest x-ray showed mild congestive heart failure changes with central vascular congestion. Patient was reevaluated today on 08/02/2016, feeling better from the pulmonary perspective and cardiac perspective, however the patient is complaining of pain in the left ankle. Apparently she had this pain for quite some time, and she would likely benefit from orthopedic consultation. Less cough and less shortness of breath noted. CBC is normal hemoglobin is 9.8 electrolytes and renal profile are unremarkable, creatinine however is a bit elevated at 1.27. Patient was reevaluated today on 08/03/2016, feeling better, breathing easier, no further episodes of hypoglycemia or syncope. Patient is off IV Cardizem, and the assembler wet wash is handling her atrial fibrillation. Patient was seen by Dr. Huitron, and being considered for possible rehab. No cough no wheezing no shortness of breath. Labs showed relatively normal CBC, hemoglobin is 10 creatinine is 1.40 BUN is 41. Reevaluated today on 08/04/2016, patient continues to do well, discharge planning is in progress possibly today. Labs from today were reviewed, and they seem to be relatively unremarkable. Objective - Vital Signs Vital signs: Vital Signs Temp 97.6 F 08/04/16 08:28 Pulse 88 08/04/16 08:45 Resp 20 08/04/16 08:34 BP 103/58 08/04/16 08:28 Pulse Ox 98 08/04/16 08:28 Intake & Output 08/03/16 08/04/16 08/04/16 18:59 06:59 18:59 Intake Total 960 160 180 Output Total 1750 Balance 960 -1590 180 Weight 74.9 kg Intake: IV 240 160 .9 @ 20 240 160 Oral 720 180 Output: Urine 1750 Other: Voiding Method Bedpan Toilet Toilet Bedpan Bedpan # Voids 3 1 - Exam Physical Exam: Revealed an 80-year-old female, pleasant, in no form of respiratory distress. HEENT:[Neck is supple.] [No neck masses.] [No thyromegaly.] [No JVD.] Chest: [Diminished breath sounds at the bases, no crackles or rhonchi or wheezes..] Cardiac Exam: [irregular irregular rhythmNormal S1 and S2, no S3 gallop, 2/6 systolic murmur throughout the precordium.] Abdomen: [Soft, nontender, no megaly, no rebound, no guarding, normal bowel sounds.] Extremities: [No clubbing, 1+ bipedal edema, no cyanosis.] Neurological Exam: [No focal neurologic deficit.] - Labs CBC & Chem 7: 08/04/16 06:00 08/04/16 05:57 Labs: Abnormal Lab Results - Last 24 Hours (Table) 08/03/16 08/03/16 08/04/16 Range/Units 17:02 20:28 05:45 RBC (3.80-5.40) m/uL Hgb (11.4-16.0) gm/dL Hct (34.0-46.0) % RDW (11.5-15.5) % Lymphocytes # (1.0-4.8) k/uL Sodium (137-145) mmol/L BUN (7-17) mg/dL Creatinine (0.52-1.04) mg/dL POC Glucose (mg/dL) 164 H 202 H 100 H (75-99) mg/dL Calcium (8.4-10.2) mg/dL AST (14-36) U/L Total Protein (6.3-8.2) g/dL Albumin (3.5-5.0) g/dL 08/04/16 08/04/16 08/04/16 Range/Units 05:57 06:00 11:56 RBC 3.73 L (3.80-5.40) m/uL Hgb 10.1 L (11.4-16.0) gm/dL Hct 32.3 L (34.0-46.0) % RDW 17.5 H (11.5-15.5) % Lymphocytes # 0.8 L (1.0-4.8) k/uL Sodium 136 L (137-145) mmol/L BUN 42 H (7-17) mg/dL Creatinine 1.28 H (0.52-1.04) mg/dL POC Glucose (mg/dL) 211 H (75-99) mg/dL Calcium 7.7 L (8.4-10.2) mg/dL AST 61 H (14-36) U/L Total Protein 5.3 L (6.3-8.2) g/dL Albumin 2.8 L (3.5-5.0) g/dL Assessment and Plan Plan: impression: 1acute hypoglycemia in a patient with history of diabetes, on insulin.patient responded well to 1 amp of D50 upon initial evaluation by EMS. 2 paroxysmal atrial fibrillation with RVR, presently off Cardizem drip 3 mild congestive heart failure mostly related to cardiac arrhythmia. 4 recent episode of tracheobronchitis, presently on Levaquin. 5multiple comorbidities including sarcoidosis, bronchial asthma, underlying coronary artery disease, history of hypothyroidism, and history of diabetes. Recommendation: Continue present treatment plan, agree with discharge planning today. Follow up on outpatient basis. Time with Patient: Less than 30
[2016-08-04 12:55] VITALS: BP 101/54; PULSE 90
== END 2016-08-04 14:53 | disposition home health service (06) | DRG 308 ==
LOC: EC 19:59 → 6ICU 22:41 → 6SEL 08-01 16:46
PROVIDERS: ADMIT Internal Medicine; ATTEND Internal Medicine
DX: I48.0 Paroxysmal atrial fibrillation (principal); J96.01 Acute respiratory failure with hypoxia; E10.649 Type 1 diabetes mellitus with hypoglycemia without coma; I48.1 Persistent atrial fibrillation; I11.0 Hypertensive heart disease with heart failure; I48.2 Chronic atrial fibrillation; E03.9 Hypothyroidism, unspecified; E78.5 Hyperlipidemia, unspecified; I25.10 Atherosclerotic heart disease of native coronary artery without angina pectoris; I25.2 Old myocardial infarction; I25.5 Ischemic cardiomyopathy; I25.84 Coronary atherosclerosis due to calcified coronary lesion; I27.2 Other secondary pulmonary hypertension; J45.909 Unspecified asthma, uncomplicated; D86.0 Sarcoidosis of lung; M19.90 Unspecified osteoarthritis, unspecified site; M25.552 Pain in left hip; M25.572 Pain in left ankle and joints of left foot; M54.5 Low back pain; E10.40 Type 1 diabetes mellitus with diabetic neuropathy, unspecified; J20.9 Acute bronchitis, unspecified; R32 Unspecified urinary incontinence; Z79.02 Long term (current) use of antithrombotics/antiplatelets; Z79.4 Long term (current) use of insulin; Z79.82 Long term (current) use of aspirin; Z79.899 Other long term (current) drug therapy; Z79.52 Long term (current) use of systemic steroids; Z95.5 Presence of coronary angioplasty implant and graft; Z88.2 Allergy status to sulfonamides; Z96.652 Presence of left artificial knee joint; Z82.49 Family history of ischemic heart disease and other diseases of the circulatory system
CPT/HCPCS: 36415; 71020; 72100; 73502; 80048; 80053; 81003; 82550; 82553; 83036; 83735; 83880; 84100; 84484; 85025; 85027; 85610; 85730; 87086; 93005; 93306; 94640; 96361; 96365; 96368; 96375; 96376; 99285

== ENCOUNTER 2016-10-03 12:51 | Emergency (ER) | payer MEDICARE, OTHER ==
[2016-10-03] MEDS ORDERED: ACETAMINOPHEN TAB 500 MG TAB PO STA (13:19)
[2016-10-03] MEDS ORDERED: IBUPROFEN IV 600 MG in SODIUM CHLORIDE 0.9% 250 ML IV STA (13:19)
--- NOTE | 2016-10-03 13:19 | ED ---
General Adult HPI - General Chief complaint: Recheck/Abnormal Lab/Rx Stated complaint: All over soreness, weakness Time Seen by Provider: 10/03/16 12:55 Source: patient, RN notes reviewed Mode of arrival: wheelchair Limitations: physical limitation - History of Present Illness Initial comments: This is an 81-year-old female who comes in states all of her joints hurt May started hurting on and gotten worse since . Patient has a fever but she's unaware that she has a fever. Patient states she has urinary frequency lately but no dysuria or hematuria. Patient denies any urgency as well. Patient denies any cough. Patient denies any difficulty breathing or shortness of breath. Patient denies any chest pain or palpitations. Patient denies any new lesions or rashes or areas of redness on her body. Patient's denying any headache or neck pain patient denies numbness or weakness. Patient states he only complaint is that her whole body aches. - Related Data Home Medications Medication Instructions Recorded Confirmed Atorvastatin [Lipitor] 20 mg PO HS 09/30/14 10/03/16 Ergocalciferol [Vitamin D2 50,000 unit PO WE 09/30/14 10/03/16 (DRISDOL)] Furosemide 20 mg PO BID 09/30/14 10/03/16 Isosorbide Mononitrate ER [Imdur] 30 mg PO DAILY 07/24/15 10/03/16 predniSONE 10 mg PO DAILY 07/24/15 10/03/16 Insulin Glargine,Hum.rec.anlog 16 units SQ DAILY 01/10/16 10/03/16 [Lux Li] Montelukast [Singulair] 10 mg PO HS 01/10/16 10/03/16 Oxybutynin Chloride 5 mg PO DAILY 01/10/16 10/03/16 HYDROcodone/APAP 5-325MG [[place] 1 tab PO Q6H PRN 02/28/16 10/03/16 5-325] Omeprazole [PriLOSEC] 20 mg PO DAILY 04/19/16 10/03/16 Metoprolol Tartrate [Lopressor] 50 mg PO BID 07/31/16 10/03/16 Gabapentin [Neurontin] 300 mg PO BID 10/03/16 10/03/16 Insulin Lispro [humaLOG Kwikpen] 6 unit SQ AC-TID 10/03/16 10/03/16 Levothyroxine Sodium [Synthroid] 100 mcg PO DAILY 10/03/16 10/03/16 Previous Rx's Medication Instructions Recorded Temazepam [Restoril] 30 mg PO HS #12 cap 01/17/16 Clopidogrel [Plavix] 75 mg PO DAILY #30 tab 02/07/16 Diltiazem Oral [Cardizem*] 60 mg PO BID #60 tab 08/04/16 Nitrofurantoin Monohyd/M-Cryst 100 mg PO Q12HR #14 cap 10/03/16 [Macrobid] Allergies Allergy/AdvReac Type Severity Reaction Status Date / Time cat dander Allergy Unknown Verified 10/03/16 12:58 Sulfa (Sulfonamide Allergy Rash/Hives Verified 10/03/16 12:58 Antibiotics) Review of Systems ROS Statement: Those systems with pertinent positive or pertinent negative responses have been documented in the HPI. ROS Other: All systems not noted in ROS Statement are negative. Past Medical History Past Medical History: Atrial Fibrillation, Asthma, Coronary Artery Disease (CAD) , Diabetes Mellitus, Deep Vein Thrombosis (DVT), Hypertension, Myocardial Infarction ([place]), Pneumonia, Pulmonary Embolus ([place]), Thyroid Disorder Additional Past Medical History / Comment(s): Pulmonary sarcoidosis, FALL IN AUGUST , pt stated she is dm type 1, neuroptathy Last Myocardial Infarction Date:: * History of Any Multi-Drug Resistant Organisms: None Reported Past Surgical History: Heart Catheterization With Stent, Hysterectomy, Joint Replacement, Orthopedic Surgery Additional Past Surgical History / Comment(s): Dr. Rivera and Dr. Arriaga placed 6 stents 13 years ago, left knee surgery AND IN DEC 2015 HEART CATH AND STENT -PT STATED TOTAL OF 7 STENTS NOW Past Anesthesia/Blood Transfusion Reactions: No Reported Reaction Date of Last Stent Placement:: 1999 Past Psychological History: No Psychological Hx Reported Smoking Status: Never smoker Past Alcohol Use History: Occasional Past Drug Use History: None Reported - Past Family History Father Family Medical History: Myocardial Infarction ([place]) Mother Family Medical History: Liver Disease General Exam - General Exam Comments Initial Comments: GENERAL: Patient is well-developed and well-nourished. Patient is nontoxic and well- hydrated and is in mild distress. ENT: Neck is soft and supple. No significant lymphadenopathy is noted. Oropharynx is clear. Moist mucous membranes. Neck has full range of motion without eliciting any pain. EYES: The sclera were anicteric and conjunctiva were pink and moist. Extraocular movements were intact and pupils were equal round and reactive to light. Eyelids were unremarkable. PULMONARY: Unlabored respirations. Good breath sounds bilaterally. No audible rales rhonchi or wheezing was noted. CARDIOVASCULAR: There is a regular rate and rhythm without any murmurs gallops or rubs. ABDOMEN: Soft and nontender with normal bowel sounds. No palpable organomegaly was noted. There is no palpable pulsatile mass. SKIN: Skin is clear with no lesions or rashes and otherwise unremarkable. NEUROLOGIC: Patient is alert and oriented x3. Cranial nerves II through XII are grossly intact. Motor and sensory are also intact. Normal speech, volume and content. Symmetrical smile. MUSCULOSKELETAL: Normal extremities with adequate strength and full range of motion. No lower extremity swelling or edema. No calf tenderness. LYMPHATICS: No significant lymphadenopathy is noted PSYCHIATRIC: Normal psychiatric evaluation. Normal interpersonal interactions appears functionally intact in deals appropriately with others. No signs of depression. No signs of anxiety. Limitations: physical limitation Course Vital Signs 10/03/16 10/03/16 12:55 14:04 Temperature 100.5 F H Pulse Rate 100 95 Respiratory 20 18 Rate Blood Pressure 116/59 97/59 O2 Sat by Pulse 96 93 L Oximetry Medical Decision Making - Medical Decision Making EKG shows atrial fibrillation with occasional PVC at 91 bpm QRS is 86 QT interval 366 QTC is 450. Patient urinary tract infection and give the patient a gram of Rocephin emergency department. Stated she felt much better she no longer felt weak she was able to get up and ambulate on her own. - Lab Data Result diagrams: 10/03/16 13:50 10/03/16 13:50 Lab Results 10/03/16 10/03/16 10/03/16 Range/Units 13:25 13:50 13:50 WBC 8.5 (3.8-10.6) k/uL RBC 4.54 (3.80-5.40) m/uL Hgb 11.9 (11.4-16.0) gm/dL Hct 39.1 (34.0-46.0) % MCV 86.1 (80.0-100.0) fL MCH 26.3 (25.0-35.0) pg MCHC 30.5 L (31.0-37.0) g/dL RDW 15.9 H (11.5-15.5) % Plt Count 213 (150-450) k/uL Neutrophils % 88 % Lymphocytes % 6 % Monocytes % 3 % Eosinophils % 0 % Basophils % 1 % Neutrophils # 7.5 (1.3-7.7) k/uL Lymphocytes # 0.5 L (1.0-4.8) k/uL Monocytes # 0.3 (0-1.0) k/uL Eosinophils # 0.0 (0-0.7) k/uL Basophils # 0.1 (0-0.2) k/uL Hypochromasia Marked PT (9.0-12.0) sec INR (<1.1) APTT (22.0-30.0) sec Sodium 134 L (137-145) mmol/L Potassium 5.1 (3.5-5.1) mmol/L Chloride 102 (98-107) mmol/L Carbon Dioxide 22 (22-30) mmol/L Anion Gap 10 mmol/L BUN 19 H (7-17) mg/dL Creatinine 1.10 H (0.52-1.04) mg/dL Est GFR (MDRD) Af Amer 57 (>60 ml/min/1.73 sqM) Est GFR (MDRD) Non-Af 47 (>60 ml/min/1.73 sqM) Glucose 194 H (74-99) mg/dL Plasma Lactic Acid [place] (0.7-2.0) mmol/L Calcium 8.4 (8.4-10.2) mg/dL Total Bilirubin 0.8 (0.2-1.3) mg/dL AST 23 (14-36) U/L ALT 31 (9-52) U/L Alkaline Phosphatase 63 (38-126) U/L Total Protein 5.6 L (6.3-8.2) g/dL Albumin 2.9 L (3.5-5.0) g/dL Urine Color Yellow Urine Appearance Clear (Clear) Urine pH 6.5 (5.0-8.0) Ur Specific [place] 1.010 (1.001-1.035) Urine Protein Negative (Negative) Urine Glucose (UA) Negative (Negative) Urine Ketones Negative (Negative) Urine Blood Negative (Negative) Urine Nitrite Negative (Negative) Urine Bilirubin Negative (Negative) Urine Urobilinogen 2.0 (<2.0) mg/dL Ur Leukocyte Esterase Large H (Negative) Urine RBC 1 (0-5) /hpf Urine WBC 13 H (0-5) /hpf Ur Squamous Epith Cells <1 (0-4) /hpf Hyaline Casts 4 H (0-2) /lpf Urine Mucus Rare H (None) /hpf 10/03/16 10/03/16 Range/Units 13:50 13:50 WBC (3.8-10.6) k/uL RBC (3.80-5.40) m/uL Hgb (11.4-16.0) gm/dL Hct (34.0-46.0) % MCV (80.0-100.0) fL MCH (25.0-35.0) pg MCHC (31.0-37.0) g/dL RDW (11.5-15.5) % Plt Count (150-450) k/uL Neutrophils % % Lymphocytes % % Monocytes % % Eosinophils % % Basophils % % Neutrophils # (1.3-7.7) k/uL Lymphocytes # (1.0-4.8) k/uL Monocytes # (0-1.0) k/uL Eosinophils # (0-0.7) k/uL Basophils # (0-0.2) k/uL Hypochromasia PT 11.4 (9.0-12.0) sec INR 1.1 (<1.1) APTT 23.8 (22.0-30.0) sec Sodium (137-145) mmol/L Potassium (3.5-5.1) mmol/L Chloride (98-107) mmol/L Carbon Dioxide (22-30) mmol/L Anion Gap mmol/L BUN (7-17) mg/dL Creatinine (0.52-1.04) mg/dL Est GFR (MDRD) Af Amer (>60 ml/min/1.73 sqM) Est GFR (MDRD) Non-Af (>60 ml/min/1.73 sqM) Glucose (74-99) mg/dL Plasma Lactic Acid [place] 1.4 (0.7-2.0) mmol/L Calcium (8.4-10.2) mg/dL Total Bilirubin (0.2-1.3) mg/dL AST (14-36) U/L ALT (9-52) U/L Alkaline Phosphatase (38-126) U/L Total Protein (6.3-8.2) g/dL Albumin (3.5-5.0) g/dL Urine Color Urine Appearance (Clear) Urine pH (5.0-8.0) Ur Specific [place] (1.001-1.035) Urine Protein (Negative) Urine Glucose (UA) (Negative) Urine Ketones (Negative) Urine Blood (Negative) Urine Nitrite (Negative) Urine Bilirubin (Negative) Urine Urobilinogen (<2.0) mg/dL Ur Leukocyte Esterase (Negative) Urine RBC (0-5) /hpf Urine WBC (0-5) /hpf Ur Squamous Epith Cells (0-4) /hpf Hyaline Casts (0-2) /lpf Urine Mucus (None) /hpf Disposition Clinical Impression: Urinary tract infection, Generalized weakness Disposition: HOME SELF-CARE Condition: Good Instructions: Urinary Tract Infection in Women (ED) Prescriptions: Nitrofurantoin Monohyd/M-Cryst [Macrobid] 100 mg PO Q12HR #14 cap Referrals: Shyla Alcantara MD [STAFF PHYSICIAN] - 1-2 days Time of Disposition: 15:18
[2016-10-03 13:46] LABS: Appearance,Urine Clear (Clear); Bilirubin,Urine Negative (Negative); Glucose,Urine (UA) Negative (Negative); Ketones,Urine Negative (Negative); Leukocyte Esterase,Urine Large (Negative); Mucus,Urine Rare /hpf; Nitrite,Urine Negative (Negative); PH, Urine 6.5 (5.0-8.0); Particle Count 2520; Protein,Urine Negative (Negative); RBC,Urine 1 /hpf (0-5); Squamous Epithelial Cell,Urine <1 /hpf (0-4); UA Billing (MACRO vs. MICRO) MICRO; WBC,Urine 13 /hpf (0-5)
[2016-10-03] MEDS: SODIUM CHLORIDE 0.9% 500 ML IV SCH ×2 (13:58→15:00)
[2016-10-03 14:15] LABS: Basophils # (A) 0.1 k/uL (0-0.2); Basophils % (A) 1 %; CH 26.3; CHCM 30.7; Eosinophils % (A) 0 %; HCT 39.1 % (34.0-46.0); HDW 3.04; HGB 11.9 gm/dL (11.4-16.0); Hypochromasia Marked; Luc # (Auto) 0.16; Luc % (Auto) 2; Lymphocytes # (A) 0.5 k/uL (1.0-4.8); Lymphocytes % (A) 6 %; MCH 26.3 pg (25.0-35.0); MCHC 30.5 g/dL (31.0-37.0); MCV 86.1 fL (80.0-100.0); Mean Platelet Volume 8.3; Monocytes # (A) 0.3 k/uL (0-1.0); Monocytes % (A) 3 %; Neutrophils # (A) 7.5 k/uL (1.3-7.7); Neutrophils % (A) 88 %; RBC 4.54 m/uL (3.80-5.40); RDW 15.9 % (11.5-15.5); WBC 8.5 k/uL (3.8-10.6); WBC (Perox) 8.84
[2016-10-03 14:18] VITALS: RESP 18
[2016-10-03 14:21] LABS: Calcium 8.4 mg/dL (8.4-10.2); Potassium 5.1 mmol/L (3.5-5.1); Total Bilirubin 0.8 mg/dL (0.2-1.3); Total Protein 5.6 g/dL (6.3-8.2)
[2016-10-03 14:22] LABS: INR 1.1 (<1.1); Partial Thromboplastin Time 23.8 sec (22.0-30.0); Prothrombin Time 11.4 sec (9.0-12.0)
--- NOTE | 2016-10-03 15:06 | XR ---
EXAMINATION TYPE: XR chest 2V DATE OF EXAM: 10/03/2016 COMPARISON: July 31, 2016 HISTORY: Dyspnea TECHNIQUE: Frontal and lateral views of the chest are obtained. FINDINGS: There is subtle reticulation over the mid and lower lung zones bilaterally which can corre late with mild diffuse interstitial phase pulmonary edema if clinically supported. No sayda lung consolidation or major atelectasis. The pleural spaces are negative. The cardiac silhouette is top normal in size. Mediastinal silhouette and bones and soft tissues are u nremarkable. IMPRESSION: Findings suggest mild interstitial phase pulmonary edema.
[2016-10-03 15:50] VITALS: BP 112/69; PULSE 89; TEMP 96.9
== END 2016-10-03 15:59 | disposition home or self-care (01) ==
LOC: EC 12:51
DX: N39.0 Urinary tract infection, site not specified (principal); R53.1 Weakness; I25.10 Atherosclerotic heart disease of native coronary artery without angina pectoris; J45.909 Unspecified asthma, uncomplicated; I10 Essential (primary) hypertension; I48.91 Unspecified atrial fibrillation; E07.9 Disorder of thyroid, unspecified; I25.2 Old myocardial infarction; Z79.899 Other long term (current) drug therapy; Z79.4 Long term (current) use of insulin; Z79.52 Long term (current) use of systemic steroids; Z88.2 Allergy status to sulfonamides; Z91.048 Other nonmedicinal substance allergy status; Z95.5 Presence of coronary angioplasty implant and graft
CPT/HCPCS: 36415; 93005; 80053; 83605; 85025; 85610; 85730; 81001; 87040; 87086; 71020; 99285; 96365; 96367; J0696; J1741; 87077; 87186

== ENCOUNTER → 2016-10-30 | Outpatient (CLI) | payer MEDICARE, OTHER ==
[2016-10-30 11:45] LABS: ALT 34 U/L (9-52); AST 36 U/L (14-36); Alkaline Phosphatase 79 U/L (38-126); Anion Gap 10 mmol/L; Blood Urea Nitrogen 17 mg/dL (7-17); Calcium 9.1 mg/dL (8.4-10.2); Carbon Dioxide 29 mmol/L (22-30); Chloride 106 mmol/L (98-107); Cholesterol 135 mg/dL (<200); Glucose 78 mg/dL (74-99); HDL Cholesterol 41 mg/dL (40-60); Non-African American GFR(MDRD) 53 (>60 ml/min/1.73 sqM); Potassium 4.1 mmol/L (3.5-5.1); Sodium 145 mmol/L (137-145); Total Protein 6.6 g/dL (6.3-8.2); Triglycerides 132 mg/dL (<150)
[2016-10-30 15:07] LABS: Urine Creatinine 165.2 mg/dL
== END | disposition home or self-care (01) ==
LOC: LABWHC1 09:54
PROVIDERS: ATTEND Internal Medicine Endocrinology, Diabetes & Metabolism
DX: E11.65 Type 2 diabetes mellitus with hyperglycemia (principal)
CPT/HCPCS: 36415; 80053; 80061; 82043; 82570; 83036; 84443

== ENCOUNTER 2017-01-26 13:49 | Inpatient (IN) | payer MEDICARE, OTHER ==
--- NOTE | 2017-01-26 14:04 | ED ---
General Adult HPI - General Stated complaint: Poss CVA Time Seen by Provider: 01/26/17 13:50 Source: RN notes reviewed - History of Present Illness Initial comments: This is an 81-year-old female presents emergency Department with changing symptoms. At home states approximately half an hour ago the patient appeared to have some right-sided facial droop and slurred speech and it resolved within a few minutes. Patient then got up was trying to walk and fell and hurt her right leg she complains of knee and thigh pain. EMS stated that she was alert and oriented 4 and had no deficits however when they arrived to the hospital he started to notice right-sided facial droop and some right arm weakness. They also noted the patient was more confused and unable to answer questions that she had previously answered. Currently patient planes of right thigh and knee pain she also does not know the date which she did earlier and she does not know the Pres. home she knew earlier. Patient denies any headache patient denies any numbness but does state her right leg is very weak. Patient denies any chest pain palpitations difficulty breathing shortness of breath per patient denies any fever chills or cough. Patient denies any trauma. - Related Data Home Medications Medication Instructions Recorded Confirmed Atorvastatin [Lipitor] 20 mg PO HS 09/30/14 01/26/17 Ergocalciferol [Vitamin D2 50,000 unit PO WE 09/30/14 01/26/17 (DRISDOL)] Furosemide 20 mg PO BID 09/30/14 01/26/17 Isosorbide Mononitrate ER [Imdur] 30 mg PO DAILY 07/24/15 01/26/17 predniSONE 10 mg PO DAILY 07/24/15 01/26/17 Insulin Glargine,Hum.rec.anlog 16 units SQ DAILY 01/10/16 01/26/17 [[place] Solostar] Montelukast [Singulair] 10 mg PO HS 01/10/16 01/26/17 Oxybutynin Chloride 5 mg PO DAILY 01/10/16 01/26/17 Omeprazole [PriLOSEC] 20 mg PO DAILY 04/19/16 01/26/17 Gabapentin [Neurontin] 300 mg PO BID 10/03/16 01/26/17 Insulin Lispro [humaLOG Kwikpen] 6 unit SQ AC-TID 10/03/16 01/26/17 Levothyroxine Sodium [Synthroid] 100 mcg PO DAILY 10/03/16 01/26/17 Aspirin EC [Ecotrin Low Dose] 81 mg PO DAILY 01/26/17 01/26/17 Metoprolol Tartrate [Lopressor] 25 mg PO BID 01/26/17 01/26/17 traZODone HCL 50 mg PO HS 01/26/17 01/26/17 Previous Rx's Medication Instructions Recorded Diltiazem Oral [Cardizem*] 60 mg PO BID #60 tab 08/04/16 Allergies Allergy/AdvReac Type Severity Reaction Status Date / Time cat dander Allergy Unknown Verified 01/26/17 15:01 Sulfa (Sulfonamide Allergy Rash/Hives Verified 01/26/17 15:01 Antibiotics) Review of Systems ROS Statement: Those systems with pertinent positive or pertinent negative responses have been documented in the HPI. ROS Other: All systems not noted in ROS Statement are negative. Past Medical History Past Medical History: Atrial Fibrillation, Asthma, Coronary Artery Disease (CAD) , Diabetes Mellitus, Deep Vein Thrombosis (DVT), Hypertension, Myocardial Infarction ([place]), Pneumonia, Pulmonary Embolus ([place]), Thyroid Disorder Additional Past Medical History / Comment(s): Pulmonary sarcoidosis, FALL IN AUGUST , pt stated she is dm type 1, neuroptathy Last Myocardial Infarction Date:: * History of Any Multi-Drug Resistant Organisms: None Reported Past Surgical History: Heart Catheterization With Stent, Hysterectomy, Joint Replacement, Orthopedic Surgery Additional Past Surgical History / Comment(s): Dr. Rivera and Dr. Arriaga placed 6 stents 13 years ago, left knee surgery AND IN DEC 2015 HEART CATH AND STENT -PT STATED TOTAL OF 7 STENTS NOW Past Anesthesia/Blood Transfusion Reactions: No Reported Reaction Date of Last Stent Placement:: 1999 Past Psychological History: No Psychological Hx Reported Smoking Status: Never smoker Past Alcohol Use History: Occasional Past Drug Use History: None Reported - Past Family History Father Family Medical History: Myocardial Infarction ([place]) Mother Family Medical History: Liver Disease General Exam - General Exam Comments Initial Comments: GENERAL: Patient is well-developed and well-nourished. Patient is nontoxic and well- hydrated and is in no acute distress. ENT: Neck is soft and supple. No significant lymphadenopathy is noted. Oropharynx is clear. Moist mucous membranes. Neck has full range of motion without eliciting any pain. EYES: The sclera were anicteric and conjunctiva were pink and moist. Extraocular movements were intact and pupils were equal round and reactive to light. Eyelids were unremarkable. PULMONARY: Unlabored respirations. Good breath sounds bilaterally. No audible rales rhonchi or wheezing was noted. CARDIOVASCULAR: There is a regular rate and rhythm without any murmurs gallops or rubs. ABDOMEN: Soft and nontender with normal bowel sounds. No palpable organomegaly was noted. There is no palpable pulsatile mass. SKIN: Skin is clear with no lesions or rashes and otherwise unremarkable. NEUROLOGIC: Patient is alert and oriented 2. The right side of the patient's face appears to be droopy however when she smiles both sides were her eyes equally EMS states this was not the case a few minutes ago.. Patient is unable to lift the right leg off the bed but cannot determine whether it weakness or the patient was having too much pain to do so. Normal speech, volume and content. Symmetrical smile. MUSCULOSKELETAL: Normal extremities with adequate strength and full range of motion. No lower extremity swelling or edema. No calf tenderness. LYMPHATICS: No significant lymphadenopathy is noted PSYCHIATRIC: Normal psychiatric evaluation. Course Vital Signs 01/26/17 01/26/17 01/26/17 13:54 14:15 15:04 Temperature 97.2 F L Pulse Rate 61 70 81 Respiratory 18 18 18 Rate Blood Pressure 149/67 153/72 153/78 O2 Sat by Pulse 95 99 98 Oximetry Medical Decision Making - Medical Decision Making EKG shows atrial fibrillation with PVCs at 78 bpm QRS is 80 QT interval [address] of the brain shows a 1.5 cm area of decreased attenuation within the left insular cortex may reflect an acute ischemia. X-ray of the chest shows no acute abnormality. Hip x-ray shows a comminuted impacted intertrochanteric fracture of the proximal right femur x-ray of the knee shows no acute abnormality I spoke with Dr. Ramirez and admitted the patient to Dr. Ramirez and I consult the neurology and a consult to Dr. Peters - Lab Data Result diagrams: 01/26/17 14:23 01/26/17 14:59 Lab Results 01/26/17 01/26/17 01/26/17 Range/Units 14:23 14:59 14:59 WBC 13.8 H (3.8-10.6) k/uL RBC 4.56 (3.80-5.40) m/uL Hgb 11.8 (11.4-16.0) gm/dL Hct 39.7 (34.0-46.0) % MCV 87.0 (80.0-100.0) fL MCH 26.0 (25.0-35.0) pg MCHC 29.8 L (31.0-37.0) g/dL RDW 20.1 H (11.5-15.5) % Plt Count 178 (150-450) k/uL Neutrophils % 84 % Lymphocytes % 7 % Monocytes % 6 % Eosinophils % 2 % Basophils % 1 % Neutrophils # 11.6 H (1.3-7.7) k/uL Lymphocytes # 0.9 L (1.0-4.8) k/uL Monocytes # 0.8 (0-1.0) k/uL Eosinophils # 0.3 (0-0.7) k/uL Basophils # 0.1 (0-0.2) k/uL Hypochromasia Marked Anisocytosis Moderate PT 10.7 (9.0-12.0) sec INR 1.1 (<1.2) APTT 21.0 L (22.0-30.0) sec Sodium 138 (137-145) mmol/L Potassium 4.5 (3.5-5.1) mmol/L Chloride 105 (98-107) mmol/L Carbon Dioxide 24 (22-30) mmol/L Anion Gap 9 mmol/L BUN 26 H (7-17) mg/dL Creatinine 1.10 H (0.52-1.04) mg/dL Est GFR (MDRD) Af Amer 57 (>60 ml/min/1.73 sqM) Est GFR (MDRD) Non-Af 47 (>60 ml/min/1.73 sqM) Glucose 225 H (74-99) mg/dL Calcium 8.5 (8.4-10.2) mg/dL Total Bilirubin 0.6 (0.2-1.3) mg/dL AST 30 (14-36) U/L ALT 37 (9-52) U/L Alkaline Phosphatase 80 (38-126) U/L Total Creatine Kinase (30-135) U/L Total Protein 5.7 L (6.3-8.2) g/dL Albumin 3.3 L (3.5-5.0) g/dL 01/26/17 Range/Units 14:59 WBC (3.8-10.6) k/uL RBC (3.80-5.40) m/uL Hgb (11.4-16.0) gm/dL Hct (34.0-46.0) % MCV (80.0-100.0) fL MCH (25.0-35.0) pg MCHC (31.0-37.0) g/dL RDW (11.5-15.5) % Plt Count (150-450) k/uL Neutrophils % % Lymphocytes % % Monocytes % % Eosinophils % % Basophils % % Neutrophils # (1.3-7.7) k/uL Lymphocytes # (1.0-4.8) k/uL Monocytes # (0-1.0) k/uL Eosinophils # (0-0.7) k/uL Basophils # (0-0.2) k/uL Hypochromasia Anisocytosis PT (9.0-12.0) sec INR (<1.2) APTT (22.0-30.0) sec Sodium (137-145) mmol/L Potassium (3.5-5.1) mmol/L Chloride (98-107) mmol/L Carbon Dioxide (22-30) mmol/L Anion Gap mmol/L BUN (7-17) mg/dL Creatinine (0.52-1.04) mg/dL Est GFR (MDRD) Af Amer (>60 ml/min/1.73 sqM) Est GFR (MDRD) Non-Af (>60 ml/min/1.73 sqM) Glucose (74-99) mg/dL Calcium (8.4-10.2) mg/dL Total Bilirubin (0.2-1.3) mg/dL AST (14-36) U/L ALT (9-52) U/L Alkaline Phosphatase (38-126) U/L Total Creatine Kinase 37 (30-135) U/L Total Protein (6.3-8.2) g/dL Albumin (3.5-5.0) g/dL Disposition Clinical Impression: Cerebrovascular accident Disposition: ADMITTED IP TO THIS [facility] Referrals: Merari Gonzales MD [Primary Care Provider] - 1-2 days Time of Disposition: 15:56
[2017-01-26 14:33] LABS: Anisocytosis Moderate; Basophils # (A) 0.1 k/uL (0-0.2); Basophils % (A) 1 %; CH 26.1; CHCM 30.3; Eosinophils # (A) 0.3 k/uL (0-0.7); Eosinophils % (A) 2 %; HCT 39.7 % (34.0-46.0); HDW 2.86; HGB 11.8 gm/dL (11.4-16.0); Hypochromasia Marked; Luc # (Auto) 0.11; Luc % (Auto) 1; Lymphocytes # (A) 0.9 k/uL (1.0-4.8); Lymphocytes % (A) 7 %; MCHC 29.8 g/dL (31.0-37.0); Mean Platelet Volume 10.2; Monocytes # (A) 0.8 k/uL (0-1.0); Monocytes % (A) 6 %; Neutrophils # (A) 11.6 k/uL (1.3-7.7); Neutrophils % (A) 84 %; RBC 4.56 m/uL (3.80-5.40); RDW 20.1 % (11.5-15.5); WBC 13.8 k/uL (3.8-10.6); WBC (Perox) 14.53
--- NOTE | 2017-01-26 14:55 | CT ---
EXAMINATION TYPE: CT brain wo con for TPA DATE OF EXAM: 01/26/2017 COMPARISON: 05/07/2016 HISTORY: confusion CT DLP: 1126.[address] of the brain was performed. 1.5 cm area of decreased attenuation within the left insular cortex may reflect an area of acute isch emia. No evidence for hemorrhagic transformation. The ventricles, basal cisterns and sulci overlying the cerebral convexities demonstrate mild enlargem ent. There is no evidence for intracranial hemorrhage or sulcal effacement. There is decreased attenuation about the periventricular white matter and deep white matter of both c erebral hemispheres, compatible with chronic small vessel ischemia. Differential diagnosis does inclu de demyelination. Physiologic calcifications of the basal ganglia again noted. No mass effects are seen.No midline shift. Osseous calvarium is intact. If symptoms persist consider MRI. IMPRESSION: 1. 1.5 cm area of decreased attenuation within the left insular cortex may reflect an area of acute ischemia. No evidence for hemorrhagic transformation. 2. Age related atrophic and chronic small vessel ischemic change
[2017-01-26 15:32] LABS: Calcium 8.5 mg/dL (8.4-10.2); Potassium 4.5 mmol/L (3.5-5.1); Total Bilirubin 0.6 mg/dL (0.2-1.3); Total Protein 5.7 g/dL (6.3-8.2)
[2017-01-26 15:41] LABS: Creatine Kinase 37 U/L (30-135)
[2017-01-26 15:42] LABS: INR 1.1 (<1.2); Prothrombin Time 10.7 sec (9.0-12.0)
--- NOTE | 2017-01-26 15:44 | XR ---
EXAMINATION TYPE: XR chest 2V DATE OF EXAM: 01/26/2017 COMPARISON: Chest x-ray October 03, 2016 HISTORY: Fall with chest pain. TECHNIQUE: Frontal and lateral views of the chest are obtained. FINDINGS: There is chronic parenchymal change without suspicious focal air space opacity, pleural ef fusion, or pneumothorax seen. The cardiac silhouette size is mildly enlarged with atherosclerotic th oracic aorta. The osseous structures are demineralized. IMPRESSION: Mild cardiomegaly and chronic parenchymal changes without acute pulmonary process.
--- NOTE | 2017-01-26 15:46 | XR ---
EXAMINATION TYPE: XR Hip RT and AP Pelvis DATE OF EXAM: 01/26/2017 COMPARISON: Pelvic and right hip x-ray January 10, 2016 HISTORY: Fall injury with pelvic and right hip pain. TECHNIQUE: A single AP view of the pelvis is obtained. Two views of the right hip are obtained. FINDINGS: Osseous structures are demineralized. There is acute impacted comminuted intertrochanteric fracture right proximal femur. No hip joint dislocation is present. There is prominent vascular calcification bilateral groin region extending into pelvis superiorly. Th ere is moderate axial joint space loss both hip joints redemonstrated. Sacroiliac joints are maintain ed. There is multilevel moderate to severe disc space narrowing and spurring in the visualized lumbar spine. IMPRESSION: There is acute comminuted impacted intertrochanteric fracture of the proximal right femu r. (Initial encounter close type post traumatic fracture)
--- NOTE | 2017-01-26 15:48 | XR ---
EXAMINATION TYPE: XR knee limited RT DATE OF EXAM: 01/26/2017 CLINICAL HISTORY: pain TECHNIQUE: twoviews of the right knee are obtained. COMPARISON: None. FINDINGS: There is no acute fracture/dislocation. The tri-compartment joint spaces appear moderatel y narrowed. Vascular calcifications identified. IMPRESSION: There is no acute fracture or dislocation.ICD 10 NO FRACTURE, INITIAL EVALUATION
[2017-01-26 15:53] LABS: Creatine Kinase MB 1.4 ng/mL (0.0-2.4); Troponin I <0.012 ng/mL (0.000-0.034)
[2017-01-26] MEDS ORDERED: MORPHINE SULFATE 2 MG/ML SYRINGE IVP ONE (16:00)
[2017-01-26] MEDS ORDERED: ASPIRIN 325 MG TAB PO STA (16:00)
[2017-01-26 16:47] LABS: Appearance,Urine Clear (Clear); Bilirubin,Urine Negative (Negative); Glucose,Urine (UA) Negative (Negative); Ketones,Urine Negative (Negative); Leukocyte Esterase,Urine Negative (Negative); Nitrite,Urine Negative (Negative); Protein,Urine Negative (Negative); Specific Gravity,Urine 1.006 (1.001-1.035); UA Billing (MACRO vs. MICRO) CHEM; Urobilinogen,Urine <2.0 mg/dL (<2.0)
--- NOTE | 2017-01-26 17:14 | P.CNOR ---
History of Present Illness - HPI Consult date: 01/26/17 Consult reason: fracture (Right hip fracture) History of present illness: The patient is a pleasant 81-year-old female who presented to the emergency department after sustaining a fall outside of a restaurant today. She fell directly onto her right hip and had immediate right hip pain. The patient presented to the ER via EMS. X-rays were taken and revealed a right comminuted intertrochanteric femur fracture. It is also suspected that she had a TIA due to a right-sided facial droop. She also has a skin tear to her left forearm after the fall. She denies any other injuries at this time. She states her pain is controlled if she does not move her right leg. The patient does have a history of a previous CVA in December 2015 and was on Plavix for 1 year. She states that she stopped taking Plavix approximately 1 month ago and is currently taking aspirin 81 mg daily. She also has a history of A. fib and has had multiple hospital admissions due to A. fib. Today, the patient denies fever, chills, rigors, shortness of breath, chest pain , abdominal pain, nausea, vomiting, and diarrhea. Review of Systems Constitutional: Reports as per HPI, Denies chills, Denies fever Cardiovascular: Denies chest pain, Denies shortness of breath Respiratory: Denies cough Gastrointestinal: Denies abdominal pain Musculoskeletal: right: hip pain Integumentary: Reports wounds (skin tear on left forearm) Past Medical History Past Medical History: Atrial Fibrillation, Asthma, Coronary Artery Disease (CAD) , Diabetes Mellitus, Deep Vein Thrombosis (DVT), Hypertension, Myocardial Infarction ([place]), Pneumonia, Pulmonary Embolus (PE), Thyroid Disorder Additional Past Medical History / Comment(s): Pulmonary sarcoidosis, FALL IN AUGUST , pt stated she is dm type 1, neuroptathy Last Myocardial Infarction Date:: * History of Any Multi-Drug Resistant Organisms: None Reported Past Surgical History: Heart Catheterization With Stent, Hysterectomy, Joint Replacement, Orthopedic Surgery Additional Past Surgical History / Comment(s): Dr. Rivera and Dr. Arriaga placed 6 stents 13 years ago, left knee surgery AND IN DEC 2015 HEART CATH AND STENT -PT STATED TOTAL OF 7 STENTS NOW Past Anesthesia/Blood Transfusion Reactions: No Reported Reaction Date of Last Stent Placement:: 1999 Past Psychological History: No Psychological Hx Reported Smoking Status: Never smoker Past Alcohol Use History: Occasional Past Drug Use History: None Reported - Past Family History Father Family Medical History: Myocardial Infarction ([place]) Mother Family Medical History: Liver Disease Medications and Allergies Home Medications Medication Instructions Recorded Confirmed Type Atorvastatin [Lipitor] 20 mg PO HS 09/30/14 01/26/17 History Ergocalciferol [Vitamin D2 50,000 unit PO WE 09/30/14 01/26/17 History (DRISDOL)] Furosemide 20 mg PO BID 09/30/14 01/26/17 History Isosorbide Mononitrate ER [Imdur] 30 mg PO DAILY 07/24/15 01/26/17 History predniSONE 10 mg PO DAILY 07/24/15 01/26/17 History Insulin Glargine,Hum.rec.anlog 16 units SQ DAILY 01/10/16 01/26/17 History [Touray Solostar] Montelukast [Singulair] 10 mg PO HS 01/10/16 01/26/17 History Oxybutynin Chloride 5 mg PO DAILY 01/10/16 01/26/17 History Omeprazole [PriLOSEC] 20 mg PO DAILY 04/19/16 01/26/17 History Diltiazem Oral [Cardizem*] 60 mg PO BID #60 tab 08/04/16 01/26/17 Rx Gabapentin [Neurontin] 300 mg PO BID 10/03/16 01/26/17 History Insulin Lispro [humaLOG Kwikpen] 6 unit SQ AC-TID 10/03/16 01/26/17 History Levothyroxine Sodium [Synthroid] 100 mcg PO DAILY 10/03/16 01/26/17 History Aspirin EC [Ecotrin Low Dose] 81 mg PO DAILY 01/26/17 01/26/17 History Metoprolol Tartrate [Lopressor] 25 mg PO BID 01/26/17 01/26/17 History traZODone HCL 50 mg PO HS 01/26/17 01/26/17 History Allergies Allergy/AdvReac Type Severity Reaction Status Date / Time cat dander Allergy Unknown Verified 01/26/17 15:01 Sulfa (Sulfonamide Allergy Rash/Hives Verified 01/26/17 15:01 Antibiotics) Physical Examination The patient is an 81-year-old female who is alert and oriented 3. She is in no acute distress. Head is normocephalic, atraumatic. No pain upon palpation to the cervical spine and no step-offs noted. Exam of the upper extremities reveal no obvious deformities or pain upon range of motion. There is a skin tear with a dressing in place on the left forearm. Exam of the left lower extremity reveals no obvious deformity or pain upon range of motion. There is multiple bruises to the bilateral lower and upper extremities. Exam of the right lower extremity reveals shortening and external rotation. There is pain upon logrolling of the right leg. Pain upon palpation to the lateral right hip. Calves are soft and nontender. Circulatory and neurological status is intact. Results - Labs Labs: Abnormal Lab Results - Last 24 Hours (Table) 01/26/17 01/26/17 01/26/17 Range/Units 14:23 14:59 14:59 WBC 13.8 H (3.8-10.6) k/uL MCHC 29.8 L (31.0-37.0) g/dL RDW 20.1 H (11.5-15.5) % Neutrophils # 11.6 H (1.3-7.7) k/uL Lymphocytes # 0.9 L (1.0-4.8) k/uL APTT 21.0 L (22.0-30.0) sec BUN 26 H (7-17) mg/dL Creatinine 1.10 H (0.52-1.04) mg/dL Glucose 225 H (74-99) mg/dL Total Protein 5.7 L (6.3-8.2) g/dL Albumin 3.3 L (3.5-5.0) g/dL H & H 01/26/17 Range/Units 14:23 Hgb 11.8 (11.4-16.0) gm/dL Hct 39.7 (34.0-46.0) % Coagulation 01/26/17 Range/Units 14:59 INR 1.1 (<1.2) Result Diagrams: 01/26/17 14:23 01/26/17 14:59 - Diagnostic results Hip x-ray: image reviewed (Right hip x-rays reveals comminuted impacted intertrochanteric fracture of the proximal right femur. No other fractures noted.) Assessment and Plan (1) Intertrochanteric fracture of right femur Status: Acute (2) Cerebrovascular accident Status: Acute (3) Atrial fibrillation Status: Acute Plan: The clinical and x-ray findings were discussed with the patient in the patient' s at the bedside in the ER. The case was also discussed at length with Dr. Grimm. We are planning an intertrochanteric nailing for tomorrow morning at 8 AM if cleared medically. The patient will be nothing by mouth at midnight tonight. Surgical risks were discussed at length with the patient and the patient's . Possible risks and complications including but not limited to risk of bleeding, infection, dislocation, DVT, stroke, heart attack, and were discussed. The patient is agreeable to proceed with surgery tomorrow. We will await medical clearance and possible neurology clearance.
[2017-01-26] MEDS ORDERED: ceFAZolin 2 GM in SODIUM CHLORIDE 0.9% 100 ML IVPB ONE (17:16)
[2017-01-26] MEDS: INSULIN LISPRO (humaLOG) 300 UNIT/3 ML VIAL SQ SCH (18:01)
[2017-01-26] MEDS: FUROSEMIDE 20 MG TAB PO SCH (18:02)
[2017-01-26] MEDS: MORPHINE SULFATE 2 MG/ML SYRINGE IVP PRN (18:41)
--- NOTE | 2017-01-26 18:51 | HP ---
HISTORY AND PHYSICAL DATE OF ADMISSION: 01/26/17 CHIEF COMPLAINT: Fall with right hip pain, difficulty speaking, weakness on the right side. HISTORY OF PRESENT ILLNESS: This is another admission for this 81-year-old, white female. She was apparently standing and "passed out" and fell down. She is weak on the right side afterwards and had difficulty speaking. She came to emergency room. Her neurologic function gradually returned to normal. However, she was found to have a right hip fracture. She was admitted. She has a history of atrial fibrillation. She has had no chest pain, loss of bladder or bowel control, shortness of breath, orthopnea, PND, etc., she is also diabetic. REVIEW OF SYSTEMS: She denies any headache, diplopia, or current cranial nerve or sensory motor difficulties. She has no cough, hemoptysis, shortness of breath, chest pain, orthopnea, PND, abdominal pain, nausea, vomiting, hematemesis, melena, hematochezia, jaundice, hematuria, frequency, urgency, dysuria, renal disease, etc. She thinks her diabetes is under good control. PAST MEDICAL HISTORY: Past medical history, family history, personal and social history reveal MEDICATIONS: She has been on: 1. Trazodone 50 mg. 2. Prednisone 10 mg once a day. 3. Oxybutynin 5 mg once a day. 4. Prilosec 20 mg once a day. 5. Singular 10 mg once a day. 6. Toprol 25 mg b.i.d. 7. Thyroid 0.1 mg a day. 8. Imdur 30 mg once a day. 9. 16 units a day with 6 units of fast acting insulin before each meal. 10.Neurontin 300 mg b.i.d. 11.Lasix 20 mg b.i.d. 12.Vitamin D2. 13.Cardizem 60 mg b.i.d. 14.Lipitor 20 mg q.h.s. 15.81 mg of aspirin. 16.She is not on any other anticoagulants. ALLERGIC: TO SULFA. She has never smoked. PHYSICAL EXAM: Blood pressure 149/67 with a pulse of 86 and irregularly irregular. Respirations 32, and she is afebrile. In general she appeared to be well developed, well nourished in no acute distress. She is awake and alert. Oriented. Head, ears, eyes, nose, mouth and throat were normal. Carotids normal. Neck veins not distended. The chest is clear. Cardiac exam demonstrated atrial fibrillation. No murmurs or extra sounds. Abdomen is soft, nontender, without visceromegaly or masses. Extremities are unremarkable except for external rotation right hip. Neurological seemed to be intact. Sensory and motor exam is normal now. Speech was intact. IMPRESSION: 1. Transient ischemic attack with fall. 2. Fracture of the right hip. 3. Atrial fibrillation. 4. Insulin-dependent diabetes mellitus. PLAN: 1. Bed rest. 2. IV fluids. 3. CT of the brain. 4. Carotid duplex imaging. 5. Echocardiogram. 6. Orthopedic consult. 7. ALPHONSE score would indicate that she should be on either Coumadin or novel anticoagulant after surgery. MMODL / IJN: [id number] /
[2017-01-26] MEDS: traZODone HCL 50 MG TAB PO SCH (20:22)
[2017-01-26] MEDS: METOPROLOL TARTRATE 25 MG TAB PO SCH (20:22)
[2017-01-26] MEDS: DILTIAZEM ORAL 60 MG TAB PO SCH (20:22)
[2017-01-26] MEDS: GABAPENTIN 300 MG CAP PO SCH (20:22)
[2017-01-26] MEDS: MONTELUKAST 10 MG TAB PO SCH (20:22)
[2017-01-26] MEDS: ATORVASTATIN 20 MG TAB PO SCH (20:22)
--- NOTE | 2017-01-26 20:50 | US ---
EXAMINATION TYPE: US carotid duplex BILAT DATE OF EXAM: 01/26/2017 COMPARISON: NONE CLINICAL HISTORY: Stenosis. possible CVA EXAM MEASUREMENTS: RIGHT: Peak Systolic Velocity (PSV) cm/sec ----- Right CCA: 41.2 ----- Right ICA: 192.6 ----- Right ECA: 206.0 ICA/CCA ratio: 4.7 RIGHT: End Diastole cm/sec ----- Right CCA: 10.6 ----- Right ICA: 64.8 ----- Right ECA: 0.0 LEFT: Peak Systolic Velocity (PSV) cm/sec ----- Left CCA: 41.9 ----- Left ICA: 61.0 ----- Left ECA: 157.8 ICA/CCA ratio: 1.5 LEFT: End Diastole cm/sec ----- Left CCA: 12.0 ----- Left ICA: 27.8 ----- Left ECA: 0.0 VERTEBRALS (direction of flow): Right Vertebral: Antegrade Left Vertebral: Antegrade Rhythm: Arrhythmia Right CCA significant stenosis. Elevated right ECA, proximal, mid, and distal ICA. Elevated left ECA. Plaque seen in right bulb extending into ICA. Plaque seen in left bulb extending into ICA and ECA No wall thickening IMPRESSION: There is antegrade flow in the vertebral arteries. The images and measurements suggest within 70% stenosis in the right internal and external carotid ar teries. There is close to 50% stenosis in the left internal carotid artery. Criteria for Assigning % of Stenosis / Diameter reduction (Estimation based on the indirect measurements of the internal carotid artery velocities (ICA PSV). 1. Normal (no stenosis)=ICA PSV < 125 cm/s: ratio < 2.0: ICA EDV<40 cm/s. 2. Less than 50% stenosis=ICA PSV < 125 cm/s: ratio < 2.0: ICA EDV<40 cm/s. 3. 50 to 69% stenosis=ICA PSV of 125 to 230 cm/s: ration 2.0 ? 4.0: ICA EDV 40-100 cm/s. 4. Greater than 70% stenosis to near occlusion= ICA PSV > 230 cm/s: ratio > 4.0: ICA EDV > 100 cm/s. 5. Near occlusion= ICA PSV velocities may be low or undetectable: variable ratio and ICA EDV. 6. Total occlusion=unable to detect flow.
[2017-01-26 22:11] LABS: Glucose,Whole Blood 287 mg/dL (75-99)
[2017-01-27] MEDS: MORPHINE SULFATE 2 MG/ML SYRINGE IVP PRN (03:37)
[2017-01-27] MEDS: LEVOTHYROXINE 100 MCG TAB PO SCH (05:14)
[2017-01-27] MEDS: PANTOPRAZOLE 40 MG TABLET PO SCH (05:14)
[2017-01-27 06:23] LABS: Glucose,Whole Blood 196 mg/dL (75-99)
[2017-01-27] MEDS: INSULIN LISPRO (humaLOG) 300 UNIT/3 ML VIAL SQ SCH ×5 (06:25→21:03)
[2017-01-27 07:46] LABS: Cholesterol 146 mg/dL (<200); HDL Cholesterol 47 mg/dL (40-60)
[2017-01-27] MEDS ORDERED: ASPIRIN 81 MG PO SCH (09:00)
[2017-01-27] MEDS ORDERED: ASPIRIN 325 MG TAB PO SCH (09:00)
[2017-01-27] MEDS ORDERED: predniSONE 10 MG TAB PO SCH (09:00)
[2017-01-27] MEDS ORDERED: IV FLUID CONTINUATION 1,000 ML IV ONE (09:33)
[2017-01-27] MEDS ORDERED: SUCCINYLCHOLINE CHLORIDE 100 MG/5 ML SYR IV ONE (09:33)
[2017-01-27] MEDS ORDERED: LIDOCAINE 1% INJ 10MG/ML (20 ML MDV) ONE (09:33)
[2017-01-27] MEDS ORDERED: PHENYLEPHRINE-0.9% NACL SYG 1 MG/10 ML SYRINGE ONE (09:33)
[2017-01-27] MEDS ORDERED: ETOMIDATE 2 MG/ML 10 ML VIAL ONE (09:33)
[2017-01-27] MEDS ORDERED: HYDROCORTISONE SUCCINATE 100 MG/2 ML VIAL ONE (09:33)
[2017-01-27] MEDS ORDERED: fentaNYL (PF) 50 MCG/ML 2 ML AMP ONE (09:33)
[2017-01-27] MEDS ORDERED: ESMOLOL 100 MG/10 ML VIAL ONE (09:33)
[2017-01-27] MEDS ORDERED: SODIUM CHLORIDE 0.9% 50 ML with ceFAZolin 1,000 MG IV ONE ×2 (10:00)
[2017-01-27] MEDS ORDERED: LACTATED RINGERS 1,000 ML IV ONE (10:50)
--- NOTE | 2017-01-27 11:11 | FL ---
FLUOROSCOPY 1 minute and 22 seconds of fluoroscopy time were utilized during internal fixation of the right hip. 3 images document the procedure.
--- NOTE | 2017-01-27 11:19 | P.OP ---
Date of Procedure: 01/27/17 Procedure(s) Performed: PREOPERATIVE DIAGNOSIS: Right hip comminuted intertrochanteric fracture. POSTOPERATIVE DIAGNOSIS: Right hip comminuted intertrochanteric fracture. OPERATION: Right hip comminuted intertrochanteric fracture closed reduction and intramedullary nailing using Synthes IT nail. ANESTHESIA: Gen. ESTIMATED BLOOD LOSS: 100 mL. COMPLICATIONS: None OPERATIVE FINDINGS: See dictation INDICATIONS: is an 81-year-old female with a history of falling and sustaining a right comminuted intertrochanteric fracture. She has multiple medical problems, including diabetes, sarcoidosis for which she is on long-term steroids, and is currently being worked up for stroke/TIA. The patient presents to the operating room today for closed reduction and intramedullary nailing. I and the anesthesiologist have discussed with her and her family that she is high risk for this procedure. I discussed the risks of surgery in detail as being inclusive of but not limited to: Bleeding, infection, scarring, discomfort, blood vessel and/or nerve damage, need for further surgery, malunion , nonunion, gait disturbance including persistent or permanent limp, limb length inequality, arthritis, hardware failure, blood clot, pulmonary embolism, , and other risks. The consent form has been signed. PROCEDURE: After appropriate consent was obtained, the patient was taken to the operating room and placed in supine position. General anesthetic was administered and after confirmation of adequate anesthesia, the patient was carefully placed in the supine position on the operating room table in the fracture table. The patient was placed up against a well-padded peroneal post. Care was taken to make sure about that all pressure points were adequately padded. The affected leg was placed in boot traction and the unaffected leg was placed in a well leg aguayo. Using gentle longitudinal distraction as well as adduction and internal rotation , the fracture was reduced as assessed by AP and lateral C-arm imaging. Once a satisfactory reduction had been obtained, the thigh was prepped and draped in the usual aseptic fashion using ChloraPrep. Ioban drape was used for the case and the patient received intravenous antibiotics prior to incision. Timeout was called, confirming patient identity, side, procedure, and administration of antibiotics. The incision was then created with a #10 blade just proximal to the greater trochanter laterally. It was carried down through skin into the subcutaneous tissues and through fascia. Hemostasis was obtained using electrocautery. The tip of the greater trochanter was palpated and a guide pin was placed at the tip and directed into the femoral shaft as assessed with C-arm imaging. Once optimal pin position had been obtained, a 17 mm reamer was used over the guide pin to create a path for the IT nail. IT nail selected was assembled to the insertion jig on the back table and bushings were checked for accuracy. The nail was then inserted using gentle mallet taps until it was fully deployed. The amount of rotation of the implant was assessed based on the amount of anteversion of the femoral neck. This was rotated to match the patient's femoral neck anteversion and the helical blade guide was placed through the insertion jig and through an incision on the lateral side of the thigh more distal than the first. Once this guide was placed against the lateral cortex of the femur, a guide pin was drilled into the central region of the femoral head and neck as based on AP and lateral C-arm imaging. Once optimal pin position had been obtained, the guidewire was measured and appropriately sized helical blade was selected. The path for the helical blade was prepared using a tapered reamer. The helical blade was then inserted using gentle mallet taps along the guidewire until it was fully deployed. There was no displacement of the fracture during this step. The anti-rotation screw was locked down and the insertion apparatus for the helical blade was removed. The guide pin was then removed. Traction was then removed from the leg and the distal interlock was placed through the jig using standard technique. Finally, the insertion jig for the nail was removed and final C-arm images were taken and saved in both AP and lateral planes. The final x-rays showed satisfactory positioning of the implant and good reduction of the fracture. The top of the nail was plugged with a small quantity of bone wax and the incisions were then thoroughly irrigated with normal saline. Final hemostasis was obtained using electrocautery and closure of the fascia was performed using 0-Vicryl suture. 2-0 Vicryl suture was used in the subcutaneous tissues and standard skin closure was performed. Sterile dressing was then applied and the patient was carefully removed from the fracture table frame and placed onto the stretcher. The patient tolerated the procedure well. There were no complications and above noted blood loss. The patient was then subsequently transferred to recovery room in stable condition. Sponge and needle counts were correct.
[2017-01-27 11:30] LABS: Glucose,Whole Blood 199 mg/dL (75-99)
[2017-01-27] MEDS: METOPROLOL TARTRATE 25 MG TAB PO SCH ×2 (11:57→20:30)
[2017-01-27] MEDS: FUROSEMIDE 20 MG TAB PO SCH ×2 (11:57→16:39)
[2017-01-27] MEDS: ISOSORBIDE MONONITRATE ER 30 MG TAB.ER.24H PO SCH (11:58)
[2017-01-27] MEDS: GABAPENTIN 300 MG CAP PO SCH ×2 (11:58→20:30)
[2017-01-27] MEDS: OXYBUTYNIN CHLORIDE 5 MG TAB PO SCH (11:59)
[2017-01-27] MEDS: DILTIAZEM ORAL 60 MG TAB PO SCH ×2 (12:01→20:30)
[2017-01-27] MEDS ORDERED: MAGNESIUM HYDROXIDE 2,400 MG/10 ML CUP PO PRN (12:12)
[2017-01-27] MEDS ORDERED: NALOXONE 0.4 MG/ML 1 ML VIAL IV PRN (12:12)
[2017-01-27] MEDS ORDERED: HYDROmorphone 0.5 MG/0.5 ML SYRINGE IVP PRN ×3 (12:12)
[2017-01-27] MEDS ORDERED: hydrOXYzine PAMOATE 25 MG CAP PO PRN (12:12)
[2017-01-27] MEDS: INSULIN GLARGINE 100 UNIT/ML 10 ML VIAL SQ SCH (12:37)
--- NOTE | 2017-01-27 12:39 | DS ---
DISCHARGE SUMMARY CHIEF COMPLAINT: Syncope, TIA and right hip fracture. HISTORY OF PRESENT ILLNESS: This lady apparently has her own physician and was assigned to be to me by mistake and she will be transferred to the care of her own private doctor. MMODL / IJN: [id number] /
--- NOTE | 2017-01-27 13:42 | P.CNPUL ---
History of Present Illness Consult date: 01/27/17 Requesting physician: Shyla Alcantara Reason for consult: dyspnea Chief complaint: status post fall, right hip pain History of present illness: This is a very pleasant 81-year-old female patient who follows with Dr. Olson as her primary care physician. she has a history of atrial fibrillation, coronary artery disease with multiple stent placement, diabetes mellitus, DVT, hypertension, pulmonary embolism, hypothyroidism. She also follows with Dr. Gonzales in our office for sarcoidosis. She has been maintained on prednisone 10 mg for approximately 2 years now.she had been doing fairly well until yesterday. She was out to lunch with her and suddenly developed a right-sided facial droop and slurred speech. She initially declined to go to the hospital. The and got her outside and went to get the car and she had fallen and was complaining of right hip pain and was brought here for the same.he was found to have continued right-sided facial droop and slurred speech and some confusion.a computed tomography scan of the brain did reveal a 1.5 cm area of decreased attenuation within the left insular cortex possibly reflecting an acute ischemia. There is no evidence of hemorrhagic transformation. data Dopplers revealed 70% stenosis in the right internal and external carotid arteries.she was also found to have a right hip comminuted intertrochanteric fracture and has undergone right hip closed reduction and intramedullary nailing today. She is seen in consultation on the selective care unit postoperatively. Currently she is awake and alert in no acute distress. She is oriented 3 but is slow to respond at times.her chest x- ray revealed mild cardiomegaly and chronic parenchymal changes without acute pulmonary process. She denies any worsening shortness of breath, cough or congestion. She states her sarcoidosis has been stable for quite some time.she is maintaining O2 saturations in the high 90s on room air. She's been afebrile. Slightly tachycardic. She is currently on cefazolin. Review of Systems 14 point review of system was conducted. All negative other than as mentioned in the HPI. Past Medical History Past Medical History: Atrial Fibrillation, Asthma, Coronary Artery Disease (CAD) , Diabetes Mellitus, Deep Vein Thrombosis (DVT), Hypertension, Myocardial Infarction ([place]), Pneumonia, Pulmonary Embolus (PE), Thyroid Disorder Additional Past Medical History / Comment(s): Pulmonary sarcoidosis, FALL IN AUGUST , pt stated she is dm type 1, neuroptathy Last Myocardial Infarction Date:: * History of Any Multi-Drug Resistant Organisms: None Reported Past Surgical History: Heart Catheterization With Stent, Hysterectomy, Joint Replacement, Orthopedic Surgery Additional Past Surgical History / Comment(s): Dr. Rivera and Dr. Arriaga placed 6 stents 13 years ago, left knee surgery AND IN DEC 2015 HEART CATH AND STENT -PT STATED TOTAL OF 7 STENTS NOW Past Anesthesia/Blood Transfusion Reactions: No Reported Reaction Date of Last Stent Placement:: 1999 Past Psychological History: No Psychological Hx Reported Smoking Status: Never smoker Past Alcohol Use History: Occasional Past Drug Use History: None Reported - Past Family History Father Family Medical History: Myocardial Infarction ([place]) Mother Family Medical History: Liver Disease Medications and Allergies Home Medications Medication Instructions Recorded Confirmed Type Atorvastatin [Lipitor] 20 mg PO HS 09/30/14 01/26/17 History Ergocalciferol [Vitamin D2 50,000 unit PO WE 09/30/14 01/26/17 History (LEN)] Furosemide 20 mg PO BID 09/30/14 01/26/17 History Isosorbide Mononitrate ER [Imdur] 30 mg PO DAILY 07/24/15 01/26/17 History predniSONE 10 mg PO DAILY 07/24/15 01/26/17 History Insulin Glargine,Hum.rec.anlog 16 units SQ DAILY 01/10/16 01/26/17 History [Toujeo Solostar] Montelukast [Singulair] 10 mg PO HS 01/10/16 01/26/17 History Oxybutynin Chloride 5 mg PO DAILY 01/10/16 01/26/17 History Omeprazole [PriLOSEC] 20 mg PO DAILY 04/19/16 01/26/17 History Diltiazem Oral [Cardizem*] 60 mg PO BID #60 tab 08/04/16 01/26/17 Rx Gabapentin [Neurontin] 300 mg PO BID 10/03/16 01/26/17 History Insulin Lispro [humaLOG Kwikpen] 6 unit SQ AC-TID 10/03/16 01/26/17 History Levothyroxine Sodium [Synthroid] 100 mcg PO DAILY 10/03/16 01/26/17 History Aspirin EC [Ecotrin Low Dose] 81 mg PO DAILY 01/26/17 01/26/17 History Metoprolol Tartrate [Lopressor] 25 mg PO BID 01/26/17 01/26/17 History traZODone HCL 50 mg PO HS 01/26/17 01/26/17 History Allergies Allergy/AdvReac Type Severity Reaction Status Date / Time cat dander Allergy Unknown Verified 01/26/17 15:01 Sulfa (Sulfonamide Allergy Rash/Hives Verified 01/26/17 15:01 Antibiotics) Physical Exam Vitals: Vital Signs Temp Pulse Pulse Pulse Resp BP BP 01/27/17 11:26 118 H 16 143/87 01/27/17 11:08 96.8 F L 123 H 16 136/94 01/27/17 08:30 97.0 F L 118 H 138/73 01/27/17 08:10 112 H 01/27/17 08:00 97.0 F L 118 H 138/73 01/27/17 06:10 95 18 145/68 01/27/17 04:00 97.9 F 96 18 152/79 01/27/17 02:10 90 18 142/80 01/27/17 00:00 97.5 F L 99 16 122/67 01/26/17 23:00 95 16 133/69 01/26/17 22:00 92 16 137/70 01/26/17 20:00 96.9 F L 102 H 18 141/71 01/26/17 19:10 96 18 136/78 01/26/17 17:10 96.5 F L 101 H 101 H 16 182/95 01/26/17 16:30 97 F L 88 16 168/77 01/26/17 15:04 81 18 153/78 01/26/17 14:15 70 18 153/72 01/26/17 13:54 97.2 F L 61 18 149/67 Pulse Ox 01/27/17 11:26 99 01/27/17 11:08 97 01/27/17 08:30 99 01/27/17 08:10 01/27/17 08:00 99 01/27/17 06:10 100 01/27/17 04:00 99 01/27/17 02:10 99 01/27/17 00:00 99 01/26/17 23:00 99 01/26/17 22:00 99 10/06/17 20:00 100 01/26/17 19:10 99 01/26/17 17:10 98 01/26/17 16:30 100 01/26/17 15:04 98 01/26/17 14:15 99 01/26/17 13:54 95 Intake and Output 01/26/17 01/27/17 01/27/17 22:59 06:59 14:59 Intake Total 900 Output Total 500 1300 250 Balance -500 -1300 650 Intake: IV 900 Output: Urine 500 1300 100 Estimated Blood Loss 150 Other: Voiding Method Indwelling Catheter Indwelling Catheter Indwelling Catheter Weight 71.5 kg 72 kg GENERAL EXAM: Alert, comfortable in no apparent distress. HEAD: Normocephalic. EYES: Normal reaction of pupils, equal size. NOSE: Clear with pink turbinates. THROAT: No erythema or exudates. NECK: No masses, no JVD. CHEST: No chest wall deformity. LUNGS: Equal air entry with no crackles, wheeze, rhonchi or dullness. CVS: S1 and S2 normal with no audible murmurs, irregular rhythm. ABDOMEN: No hepatosplenomegaly, normal bowel sounds, no guarding or rigidity. SPINE: No scoliosis or deformity SKIN: Multiple areas of ecchymosis. extremities: Dressing to the right hip is clean and dry. There is trace peripheral edema. No clubbing, no cyanosis. Peripheral pulses are intact. Results - Laboratory Findings CBC and BMP: 01/26/17 14:23 01/26/17 14:59 PT/INR, D-dimer PT 10.7 sec (9.0-12.0) 01/26/17 14:59 INR 1.1 (<1.2) 01/26/17 14:59 Abnormal lab findings: Abnormal Labs 01/26/17 01/26/17 01/26/17 14:23 14:59 14:59 WBC 13.8 H MCHC 29.8 L RDW 20.1 H Neutrophils # 11.6 H Lymphocytes # 0.9 L APTT 21.0 L BUN 26 H Creatinine 1.10 H Glucose 225 H POC Glucose (mg/dL) Total Protein 5.7 L Albumin 3.3 L Triglycerides 01/26/17 01/27/17 01/27/17 21:58 06:02 06:21 WBC MCHC RDW Neutrophils # Lymphocytes # APTT BUN Creatinine Glucose POC Glucose (mg/dL) 287 H 196 H Total Protein Albumin Triglycerides 150 H 01/27/17 11:28 WBC MCHC RDW Neutrophils # Lymphocytes # APTT BUN Creatinine Glucose POC Glucose (mg/dL) 199 H Total Protein Albumin Triglycerides - Diagnostic Findings Chest x-ray: image reviewed Assessment and Plan Plan: Impression: #1 Acute right-sided CVA/TIA with right-sided facial droop, slurred speech and confusion.computed tomography scan of the brain reveals a 1.5 cm area of decreased attenuation within the left insular cortex suspicious for acute ischemia. No evidence of hemorrhagic transformation. #2 Right hip comminuted intertrochanteric fracture, status post closed reduction and intra-medullary nailing. Postoperative day #0. #3 Sarcoidosis, currently inactive and stable maintained on prednisone 10 mg daily. #4 Atrial fibrillation. #5 Coronary artery disease with history of multiple stent placements. #6 Hypertension. #7 Hyperlipidemia. #8 Diabetes mellitus. #9 Diabetic neuropathy.U #10 Hypothyroidism. Plan: The patient was seen and evaluated by Dr. Leija. Her CAT scan, chest x-ray and labs were all reviewed. She is currently stable from the pulmonary standpoint. We will initiate incentive spirometer and encourage cough and deep breathing exercises. We'll also add hydrocortisone all 50 mg every 8 hours and discontinue her prednisone for now. We will continue to follow and make further recommendations based on her clinical status. Time with Patient: Greater than 30
[2017-01-27 13:45] LABS: Anisocytosis Slight; Basophils # (A) 0.1 k/uL (0-0.2); Basophils % (A) 0 %; CH 25.7; CHCM 29.6; Eosinophils # (A) 0.1 k/uL (0-0.7); Eosinophils % (A) 1 %; HDW 2.83; HGB 10.1 gm/dL (11.4-16.0); Hypochromasia Marked; Luc # (Auto) 0.25; Luc % (Auto) 1; Lymphocytes # (A) 1.2 k/uL (1.0-4.8); Lymphocytes % (A) 5 %; MCH 26.8 pg (25.0-35.0); MCHC 30.7 g/dL (31.0-37.0); MCV 87.4 fL (80.0-100.0); Mean Platelet Volume 9.4; Monocytes # (A) 1.7 k/uL (0-1.0); Monocytes % (A) 7 %; Neutrophils # (A) 21.6 k/uL (1.3-7.7); Neutrophils % (A) 87 %; RBC 3.78 m/uL (3.80-5.40); RDW 19.2 % (11.5-15.5); WBC 24.8 k/uL (3.8-10.6); WBC (Perox) 25.15
--- NOTE | 2017-01-27 14:24 | ECHOF ---
Referral Reason:AFIB MEASUREMENTS -------- HEIGHT: 157.5 cm WEIGHT: 71.7 kg BP: 145/68 IVSd: 1.2 cm (0.6 - 1.1) LVIDd: 3.6 cm (3.9 - 5.3) LVPWd: 1.3 cm (0.6 - 1.1) IVSs: 1.4 cm LVIDs: 3.3 cm LVPWs: 1.1 cm LA Diam: 3.6 cm (2.7 - 3.8) LAESV Index (A-L): 55.39 ml/m Ao Diam: 2.9 cm (2.0 - 3.7) AV Cusp: 0.7 cm (1.5 - 2.6) LA Diam: 4.4 cm (2.7 - 3.8) MV EXCURSION: 13.883 mm (> 18.000) MV EF SLOPE: 72 mm/s (70 - 150) EPSS: 1.3 cm MV E Eliazar: 1.13 m/s MV DecT: 159 ms MV A Eliazar: 0.44 m/s MV E/A Ratio: 2.59 AV maxP.25 mmHg AV meanP.98 mmHg RAP: 5.00 mmHg RVSP: 59.61 mmHg FINDINGS -------- Atrial fibrillation. This was a technically adequate study. The left ventricular size is normal. There is mild concentric left ventricular hypertrophy. Overall left ventricular systolic function is low-normal with, an EF between 50 - 55 %. The right ventricle is normal in size. LA is severely dilated >40 ml/m2 The right atrial size is normal. There is moderate to severe aortic valve sclerosis. There is mild aortic regurgitation. Peak/mean gradient across the Aortic Valve is 24.25mmHg / 12.98mmHg. Aov is stenotic with decrease opening. Moderate mitral annular calcification present. Mild mitral regurgitation is present. Mild tricuspid regurgitation present. There is moderate pulmonary hypertension. The right ventricular systolic pressure, as measured by Doppler, is 59.61mmHg. Moderate pulmonic regurgitation. The aortic root size is normal. There is no pericardial effusion. CONCLUSIONS -------- 1. Atrial fibrillation. 2. Mild mitral regurgitation is present. 3. Mild tricuspid regurgitation present. 4. There is moderate pulmonary hypertension. 5. Moderate pulmonic regurgitation. 6. The aortic root size is normal. 7. There is no pericardial effusion. 8. There is mild concentric left ventricular hypertrophy. 9. Overall left ventricular systolic function is low-normal with, an EF between 50 - 55 %. 10. LA is severely dilated >40 ml/m2 11. There is moderate to severe aortic valve sclerosis. 12. There is mild aortic regurgitation. 13. Peak/mean gradient across the Aortic Valve is 24.25mmHg / 12.98mmHg. 14. Aov is stenotic with decrease opening. 15. Moderate mitral annular calcification present. HRIS ADMINISTRATOR: Mónica Monk RDCS
--- NOTE | 2017-01-27 14:51 | P.HPIM ---
History of Present Illness H&P Date: 01/27/17 Popeye Penny is an 81-year-old female who presented to emergency Department with right sided facial drooping, confusion, and fall with right lower extremity pain. At home states approximately half an hour ago the patient appeared to have some right-sided facial droop and slurred speech and it resolved within a few minutes. Patient then got up was trying to walk and fell and hurt her right leg she complains of knee and thigh pain. EMS stated that she was alert and oriented 3 initially, however she started getting confused and not able to answer questions. She was brought in to [facility] emergency room, x-ray revealed evidence of acute fracture of the proximal Femur on the right. She was admitted to telemetry floor orthopedic consultation was requested. Past Medical History Past Medical History: Atrial Fibrillation, Asthma, Coronary Artery Disease (CAD) , Diabetes Mellitus, Deep Vein Thrombosis (DVT), Hypertension, Myocardial Infarction ([place]), Pneumonia, Pulmonary Embolus (PE), Thyroid Disorder Additional Past Medical History / Comment(s): Pulmonary sarcoidosis, FALL IN AUGUST , pt stated she is dm type 1, neuroptathy Last Myocardial Infarction Date:: * History of Any Multi-Drug Resistant Organisms: None Reported Past Surgical History: Heart Catheterization With Stent, Hysterectomy, Joint Replacement, Orthopedic Surgery Additional Past Surgical History / Comment(s): Dr. Rivera and Dr. Arriaga placed 6 stents 13 years ago, left knee surgery AND IN DEC 2015 HEART CATH AND STENT -PT STATED TOTAL OF 7 STENTS NOW Past Anesthesia/Blood Transfusion Reactions: No Reported Reaction Date of Last Stent Placement:: 1999 Past Psychological History: No Psychological Hx Reported Smoking Status: Never smoker Past Alcohol Use History: Occasional Past Drug Use History: None Reported - Past Family History Father Family Medical History: Myocardial Infarction (MD) Mother Family Medical History: Liver Disease Medications and Allergies Home Medications Medication Instructions Recorded Confirmed Type Atorvastatin [Lipitor] 20 mg PO HS 09/30/14 01/26/17 History Ergocalciferol [Vitamin D2 50,000 unit PO WE 09/30/14 01/26/17 History (DRISDOL)] Furosemide 20 mg PO BID 09/30/14 01/26/17 History Isosorbide Mononitrate ER [Imdur] 30 mg PO DAILY 07/24/15 01/26/17 History predniSONE 10 mg PO DAILY 07/24/15 01/26/17 History Insulin Glargine,Hum.rec.anlog 16 units SQ DAILY 01/10/16 01/26/17 History [Toujeo Solostar] Montelukast [Singulair] 10 mg PO HS 01/10/16 01/26/17 History Oxybutynin Chloride 5 mg PO DAILY 01/10/16 01/26/17 History Omeprazole [PriLOSEC] 20 mg PO DAILY 04/19/16 01/26/17 History Diltiazem Oral [Cardizem*] 60 mg PO BID #60 tab 08/04/16 01/26/17 Rx Gabapentin [Neurontin] 300 mg PO BID 10/03/16 01/26/17 History Insulin Lispro [humaLOG Kwikpen] 6 unit SQ AC-TID 10/03/16 01/26/17 History Levothyroxine Sodium [Synthroid] 100 mcg PO DAILY 10/03/16 01/26/17 History Aspirin EC [Ecotrin Low Dose] 81 mg PO DAILY 01/26/17 01/26/17 History Metoprolol Tartrate [Lopressor] 25 mg PO BID 01/26/17 01/26/17 History traZODone HCL 50 mg PO HS 01/26/17 01/26/17 History Allergies Allergy/AdvReac Type Severity Reaction Status Date / Time cat dander Allergy Unknown Verified 01/26/17 15:01 Sulfa (Sulfonamide Allergy Rash/Hives Verified 01/26/17 15:01 Antibiotics) Physical Exam Vitals: Vital Signs Temp Pulse Pulse Pulse Resp BP BP 01/27/17 11:08 96.8 F L 123 H 16 136/94 01/27/17 08:30 97.0 F L 118 H 138/73 01/27/17 08:10 112 H 01/27/17 08:00 97.0 F L 118 H 138/73 01/27/17 06:10 95 18 145/68 01/27/17 04:00 97.9 F 96 18 152/79 01/27/17 02:10 90 18 142/80 01/27/17 00:00 97.5 F L 99 16 122/67 01/26/17 23:00 95 16 133/69 01/26/17 22:00 92 16 137/70 01/26/17 20:00 96.9 F L 102 H 18 141/71 01/26/17 19:10 96 18 136/78 01/26/17 17:10 96.5 F L 101 H 101 H 16 182/95 01/26/17 16:30 97 F L 88 16 168/77 01/26/17 15:04 81 18 153/78 01/26/17 14:15 70 18 153/72 01/26/17 13:54 97.2 F L 61 18 149/67 Pulse Ox 01/27/17 11:08 97 01/27/17 08:30 99 01/27/17 08:10 01/27/17 08:00 99 01/27/17 06:10 100 01/27/17 04:00 99 01/27/17 02:10 99 01/27/17 00:00 99 01/26/17 23:00 99 01/26/17 22:00 99 01/26/17 20:00 100 01/26/17 19:10 99 01/26/17 17:10 98 01/26/17 16:30 100 01/26/17 15:04 98 01/26/17 14:15 99 01/26/17 13:54 95 Intake and Output 01/26/17 01/27/17 01/27/17 22:59 06:59 14:59 Intake Total 900 Output Total 500 1300 250 Balance -500 -1300 650 Intake: IV 900 Output: Urine 500 1300 100 Estimated Blood Loss 150 Other: Voiding Method Indwelling Catheter Indwelling Catheter Indwelling Catheter Weight 71.5 kg 72 kg In general patient is alert and oriented in no apparent distress HEENT head normocephalic and atraumatic Neck is supple no JVD no goiter no lymphadenopathy Chest exam reveals a few scattered rhonchi no wheezing Cardiac exam reveals irregular heart sounds S1 and S2, no gallops no murmurs Abdomen is soft nontender no organomegaly with normal bowel sounds Extremity exam reveals minimal edema was evidence of external rotation of the right hip Neurological examination reveals no gross focal deficit at this time Results CBC & Chem 7: 01/26/17 14:23 01/26/17 14:59 Labs: Abnormal Lab Results - Last 24 Hours (Table) 01/26/17 01/26/17 01/26/17 Range/Units 14:23 14:59 14:59 WBC 13.8 H (3.8-10.6) k/uL MCHC 29.8 L (31.0-37.0) g/dL RDW 20.1 H (11.5-15.5) % Neutrophils # 11.6 H (1.3-7.7) k/uL Lymphocytes # 0.9 L (1.0-4.8) k/uL APTT 21.0 L (22.0-30.0) sec BUN 26 H (7-17) mg/dL Creatinine 1.10 H (0.52-1.04) mg/dL Glucose 225 H (74-99) mg/dL POC Glucose (mg/dL) (75-99) mg/dL Total Protein 5.7 L (6.3-8.2) g/dL Albumin 3.3 L (3.5-5.0) g/dL Triglycerides (<150) mg/dL 01/26/17 01/27/17 01/27/17 Range/Units 21:58 06:02 06:21 WBC (3.8-10.6) k/uL MCHC (31.0-37.0) g/dL RDW (11.5-15.5) % Neutrophils # (1.3-7.7) k/uL Lymphocytes # (1.0-4.8) k/uL APTT (22.0-30.0) sec BUN (7-17) mg/dL Creatinine (0.52-1.04) mg/dL Glucose (74-99) mg/dL POC Glucose (mg/dL) 287 H 196 H (75-99) mg/dL Total Protein (6.3-8.2) g/dL Albumin (3.5-5.0) g/dL Triglycerides 150 H (<150) mg/dL Thrombosis Risk Factor Assmnt - Choose All That Apply Each Factor Represents 1 point: Medical pt on bed rest Each Risk Factor Represents 2 Points: Major surgery Each Risk Factor Represents 3 Points: Age 75 years or older Thrombosis Risk Factor Assessment Total Risk Factor Score: 6 Thrombosis Risk Factor Assessment Level: High Risk Assessment and Plan Plan: #1 transient ischemic attack, with a right sided facial drooping and possibly right lower extremity weakness, at this time symptoms have resolved. Neurological consultation was Dr. Faust was initiated in the emergency room. #2 fall with right proximal femur fracture, orthopedic surgery consultation was requested. #3 evidence of atrial fibrillation heart rate is well-controlled #4 underlying history of insulin-dependent diabetes mellitus #5 underlying history of asthma and sarcoidosis stable at this time Patient is scheduled for surgery by orthopedic surgery Dr. Grimm today Will follow closely for medical management
[2017-01-27] MEDS ORDERED: METOPROLOL TARTRATE 25 MG TAB PO STA (15:14)
[2017-01-27] MEDS: ceFAZolin 2 GM in SODIUM CHLORIDE 0.9% 100 ML IVPB SCH (16:43)
[2017-01-27] MEDS: HYDROCORTISONE SUCCINATE 100 MG/2 ML VIAL IV SCH (16:43)
[2017-01-27 16:50] LABS: Glucose,Whole Blood 346 mg/dL (75-99)
[2017-01-27] MEDS: ATORVASTATIN 20 MG TAB PO SCH (20:30)
[2017-01-27] MEDS: traZODone HCL 50 MG TAB PO SCH (20:31)
[2017-01-27] MEDS: MONTELUKAST 10 MG TAB PO SCH (20:31)
[2017-01-27] MEDS: HYDROcodone/APAP 5-325MG 1 EACH TAB PO PRN (20:31)
[2017-01-27] MEDS: SENNOSIDES-DOCUSATE SODIUM 1 EACH TAB PO SCH (20:31)
[2017-01-27 21:01] LABS: Glucose,Whole Blood 215 mg/dL (75-99)
[2017-01-27 22:31] LABS: Hemoglobin A1C 7.9 % (4.2-6.1)
[2017-01-28] MEDS: ceFAZolin 2 GM in SODIUM CHLORIDE 0.9% 100 ML IVPB SCH (00:41)
[2017-01-28] MEDS: HYDROCORTISONE SUCCINATE 100 MG/2 ML VIAL IV SCH ×3 (00:41→17:28)
[2017-01-28 05:55] LABS: Glucose,Whole Blood 120 mg/dL (75-99)
[2017-01-28] MEDS: INSULIN LISPRO (humaLOG) 300 UNIT/3 ML VIAL SQ SCH ×7 (06:17→21:25)
[2017-01-28] MEDS: LEVOTHYROXINE 100 MCG TAB PO SCH (06:35)
[2017-01-28] MEDS: PANTOPRAZOLE 40 MG TABLET PO SCH (06:35)
[2017-01-28] MEDS: INSULIN GLARGINE 100 UNIT/ML 10 ML VIAL SQ SCH (08:28)
[2017-01-28] MEDS: ISOSORBIDE MONONITRATE ER 30 MG TAB.ER.24H PO SCH (08:29)
[2017-01-28] MEDS: METOPROLOL TARTRATE 25 MG TAB PO SCH ×2 (08:29→21:30)
[2017-01-28] MEDS: DILTIAZEM ORAL 60 MG TAB PO SCH ×2 (08:29→21:30)
[2017-01-28] MEDS: FUROSEMIDE 20 MG TAB PO SCH ×2 (08:29→17:28)
[2017-01-28] MEDS: GABAPENTIN 300 MG CAP PO SCH ×2 (08:29→21:30)
[2017-01-28] MEDS: OXYBUTYNIN CHLORIDE 5 MG TAB PO SCH (08:30)
--- NOTE | 2017-01-28 09:17 | P.PN ---
Subjective Progress Note Date: 01/28/17 Principal diagnosis: Intertrochanteric fracture right hip. Status post closed reduction and insertion of intertrochanteric nail right hip. This is an 81-year-old female who is status post closed reduction with insertion of intertrochanteric nail of the right hip. She is doing well from an orthopedic standpoint. She has no new complaints or concerns today. Vital signs and labs are stable. Objective - Vital Signs Vital signs: Vital Signs Temp 98.0 F 01/28/17 03:49 Pulse 101 H 01/28/17 03:49 Resp 16 01/28/17 03:49 BP 106/66 01/28/17 03:49 Pulse Ox 100 01/28/17 03:49 Intake & Output 01/27/17 01/28/17 01/28/17 18:59 06:59 18:59 Intake Total 1180 340 Output Total 250 100 Balance 930 240 Weight 75 kg Intake: IV 900 Intake, IV Titration 60 100 Amount Lactated Ringers 1,000 ml 60 As IV .[facility] Rx#: [id number] ceFAZolin 2 gm In Sodium 100 Chloride 0.9% 100 ml @ 100 mls/hr IVPB Q8HR [facility] Rx#:[id number] Oral 220 240 Output: Urine 100 100 Estimated Blood Loss 150 Other: Voiding Method Indwelling Catheter Indwelling Catheter - Exam This is a pleasant 81-year-old female in no acute distress. She is alert and oriented 3. Exam of the right lower extremity reveals that her dressing is clean, dry and intact. There is minimal soft tissue swelling about the thigh. She has full foot and ankle motion without difficulty or pain. Neurovascular status to the lower extremity is intact. - Labs CBC & Chem 7: 01/27/17 13:08 01/26/17 14:59 Labs: Abnormal Lab Results - Last 24 Hours (Table) 01/27/17 01/27/17 01/27/17 Range/Units 11:28 13:08 13:08 WBC 24.8 H (3.8-10.6) k/uL RBC 3.78 L (3.80-5.40) m/uL Hgb 10.1 L (11.4-16.0) gm/dL Hct 33.0 L (34.0-46.0) % MCHC 30.7 L (31.0-37.0) g/dL RDW 19.2 H (11.5-15.5) % Plt Count 149 L (150-450) k/uL Neutrophils # 21.6 H (1.3-7.7) k/uL Monocytes # 1.7 H (0-1.0) k/uL POC Glucose (mg/dL) 199 H (75-99) mg/dL Hemoglobin A1c 7.9 H (4.2-6.1) % 01/27/17 01/27/17 01/28/17 Range/Units 16:49 20:59 05:50 WBC (3.8-10.6) k/uL RBC (3.80-5.40) m/uL Hgb (11.4-16.0) gm/dL Hct (34.0-46.0) % MCHC (31.0-37.0) g/dL RDW (11.5-15.5) % Plt Count (150-450) k/uL Neutrophils # (1.3-7.7) k/uL Monocytes # (0-1.0) k/uL POC Glucose (mg/dL) 346 H 215 H 120 H (75-99) mg/dL Hemoglobin A1c (4.2-6.1) % Assessment and Plan (1) Intertrochanteric fracture of right femur Status: Acute (2) Atrial fibrillation Status: Acute (3) Cerebrovascular accident Status: Acute Plan: Continue care. She is nonweightbearing to the right lower extremity with walker. She'll most likely need rehab placement.
[2017-01-28 11:34] LABS: Glucose,Whole Blood 140 mg/dL (75-99)
--- NOTE | 2017-01-28 11:38 | P.PN ---
Subjective Progress Note Date: 01/28/17 Principal diagnosis: Shortness of breath status post fall right hip pain/fracture Progress note dated 01/28/2017 This is an 81-year-old female who we saw yesterday in consultation for Dr. Duckworth. The patient has a history of acute right-sided CVA/TIA with right- sided facial droop. In addition, the patient fell and had a comminuted right hip fracture status post closed reduction with intramedullary nailing. She is postop day #1. In addition, she has a history of quiesced and sarcoidosis maintained on prednisone 10 mg a day, atrial fibrillation, CAD, multiple stent placements, hypertension, hyperlipidemia, diabetes, diabetic neuropathy, and hypothyroidism. The patient's about the same today as she was yesterday. We told the patient was very important for her to use her incentive spirometer. We did switch her prednisone to hydrocortisone 50 mg every 8 for stress coverage. Overall prognosis is very guarded. The significant CVA and right hip fracture along with all her other medical problems put her at higher risk for deterioration. Objective - Vital Signs Vital signs: Vital Signs Temp 98.5 F 01/28/17 08:00 Pulse 117 H 01/28/17 08:00 Resp 16 01/28/17 03:49 BP 106/60 01/28/17 08:00 Pulse Ox 100 01/28/17 08:00 Intake & Output 01/27/17 01/28/17 01/28/17 18:59 06:59 18:59 Intake Total 1180 340 100 Output Total 250 100 Balance 930 240 100 Weight 75 kg Intake: IV 900 Intake, IV Titration 60 100 Amount Lactated Ringers 1,000 ml 60 As IV .STK-MED ONE Rx#: [id number] ceFAZolin 2 gm In Sodium 100 Chloride 0.9% 100 ml @ 100 mls/hr IVPB Q8HR [facility] Rx#:[id number] Oral 220 240 100 Output: Urine 100 100 Estimated Blood Loss 150 Other: Voiding Method Indwelling Catheter Indwelling Catheter - Exam No acute distress, oriented 3. Very lethargic and somnolent initially. HEENT examination is unremarkable. Mucous membranes are moist. No oral lesions. Slight right facial droop noted. Neck supple. Full range of motion. No adenopathy or thyromegaly. Neck veins are flat. Cardiovascular examination reveals regular rhythm rate. S1-S2 normal. No S3 or S4. No discernible murmur. Lungs reveal a few scattered rhonchi. Breath sounds are equal. No wheezes or crackles. Abdomen soft bowel sounds are heard. No masses or tenderness. Extremities are intact. No cyanosis clubbing or edema. Skin is without rash or lesion. Neurologic examination reveals a right facial droop and some slurred speech. - Labs CBC & Chem 7: 01/27/17 13:08 01/26/17 14:59 Labs: Abnormal Lab Results - Last 24 Hours (Table) 01/27/17 01/27/17 01/27/17 Range/Units 13:08 13:08 16:49 WBC 24.8 H (3.8-10.6) k/uL RBC 3.78 L (3.80-5.40) m/uL Hgb 10.1 L (11.4-16.0) gm/dL Hct 33.0 L (34.0-46.0) % MCHC 30.7 L (31.0-37.0) g/dL RDW 19.2 H (11.5-15.5) % Plt Count 149 L (150-450) k/uL Neutrophils # 21.6 H (1.3-7.7) k/uL Monocytes # 1.7 H (0-1.0) k/uL POC Glucose (mg/dL) 346 H (75-99) mg/dL Hemoglobin A1c 7.9 H (4.2-6.1) % 01/27/17 01/28/17 Range/Units 20:59 05:50 WBC (3.8-10.6) k/uL RBC (3.80-5.40) m/uL Hgb (11.4-16.0) gm/dL Hct (34.0-46.0) % MCHC (31.0-37.0) g/dL RDW (11.5-15.5) % Plt Count (150-450) k/uL Neutrophils # (1.3-7.7) k/uL Monocytes # (0-1.0) k/uL POC Glucose (mg/dL) 215 H 120 H (75-99) mg/dL Hemoglobin A1c (4.2-6.1) % Assessment and Plan (1) Cerebrovascular accident Status: Acute (2) Intertrochanteric fracture of right femur Status: Acute (3) Atrial fibrillation Status: Acute (4) CAD (coronary artery disease) Status: Acute (5) Coronary artery disease Status: Acute (6) Diabetes Status: Acute (7) Fall at home Status: Acute (8) HTN (hypertension) Status: Acute (9) Hyperlipidemia Status: Acute (10) Hypothyroid Status: Acute (11) NSTEMI (non-ST elevated myocardial infarction) Status: Acute (12) Paroxysmal a-fib Status: Acute (13) Syncope Status: Acute (14) Sarcoidosis Status: Acute Plan: Plan dated 01/28/2017. Her x-rays labs and medications were all reviewed. She is reasonably stable from the pulmonary standpoint. We recommend deep breathing coughing clearing of secretions. Head of bed should be elevated all times. In addition, the patient should use her incentive spirometer every hour while awake. In addition , we bumped her steroids up to hydrocortisone 50 mg IV every 8 hours for stress doses. The prednisone was discontinued for now. Time with Patient: Less than 30
--- NOTE | 2017-01-28 11:49 | P.PN ---
Subjective Progress Note Date: 01/28/17 Popeye Penny is an 81-year-old female who presented to emergency Department with right sided facial drooping, confusion, and fall with right lower extremity pain. At home states approximately half an hour ago the patient appeared to have some right-sided facial droop and slurred speech and it resolved within a few minutes. Patient then got up was trying to walk and fell and hurt her right leg she complains of knee and thigh pain. EMS stated that she was alert and oriented 3 initially, however she started getting confused and not able to answer questions. She was brought in to [facility] emergency room, x-ray revealed evidence of acute fracture of the proximal Femur on the right. She was admitted to telemetry floor orthopedic consultation was requested. On 01/28/2017 patient is somnolent responsive to stimuli denies pain or discomfort at this time closes her eyes frequently. White blood count has increased to 24,000, will check chest x-ray and urine analysis to rule out any source of infection. Neurology consultation was requested in regard to acute stroke, carotid Doppler was ordered. Objective - Vital Signs Vital signs: Vital Signs Temp 98.5 F 01/28/17 08:00 Pulse 117 H 01/28/17 08:00 Resp 16 01/28/17 03:49 BP 106/60 01/28/17 08:00 Pulse Ox 100 01/28/17 08:00 Intake & Output 01/27/17 01/28/17 01/28/17 18:59 06:59 18:59 Intake Total 1180 340 100 Output Total 250 100 Balance 930 240 100 Weight 75 kg Intake: IV 900 Intake, IV Titration 60 100 Amount Lactated Ringers 1,000 ml 60 As IV .STK-[facility] ONE Rx#: [id number] ceFAZolin 2 gm In Sodium 100 Chloride 0.9% 100 ml @ 100 mls/hr IVPB Q8HR [facility] Rx#:[id number] Oral 220 240 100 Output: Urine 100 100 Estimated Blood Loss 150 Other: Voiding Method Indwelling Catheter Indwelling Catheter - Exam In general patient is alert and oriented in no apparent distress HEENT head normocephalic and atraumatic Neck is supple no JVD no goiter no lymphadenopathy Chest exam reveals a few scattered rhonchi no wheezing Cardiac exam reveals irregular heart sounds S1 and S2, no gallops no murmurs Abdomen is soft nontender no organomegaly with normal bowel sounds Extremity exam reveals minimal edema was evidence of external rotation of the right hip Neurological examination reveals no gross focal deficit at this time - Labs CBC & Chem 7: 01/27/17 13:08 01/26/17 14:59 Labs: Abnormal Lab Results - Last 24 Hours (Table) 01/27/17 01/27/17 01/27/17 Range/Units 13:08 13:08 16:49 WBC 24.8 H (3.8-10.6) k/uL RBC 3.78 L (3.80-5.40) m/uL Hgb 10.1 L (11.4-16.0) gm/dL Hct 33.0 L (34.0-46.0) % MCHC 30.7 L (31.0-37.0) g/dL RDW 19.2 H (11.5-15.5) % Plt Count 149 L (150-450) k/uL Neutrophils # 21.6 H (1.3-7.7) k/uL Monocytes # 1.7 H (0-1.0) k/uL POC Glucose (mg/dL) 346 H (75-99) mg/dL Hemoglobin A1c 7.9 H (4.2-6.1) % 01/27/17 01/28/17 01/28/17 Range/Units 20:59 05:50 11:33 WBC (3.8-10.6) k/uL RBC (3.80-5.40) m/uL Hgb (11.4-16.0) gm/dL Hct (34.0-46.0) % MCHC (31.0-37.0) g/dL RDW (11.5-15.5) % Plt Count (150-450) k/uL Neutrophils # (1.3-7.7) k/uL Monocytes # (0-1.0) k/uL POC Glucose (mg/dL) 215 H 120 H 140 H (75-99) mg/dL Hemoglobin A1c (4.2-6.1) % Assessment and Plan Plan: #1 transient ischemic attack, with a right sided facial drooping and possibly right lower extremity weakness, at this time symptoms have resolved. Neurological consultation was Dr. Shuayto was initiated in the emergency room. Will check carotid Doppler #2 fall with right proximal femur fracture, orthopedic surgery consultation was requested, patient underwent surgery yesterday #3 evidence of atrial fibrillation heart rate is well-controlled #4 underlying history of insulin-dependent diabetes mellitus #5 underlying history of asthma and sarcoidosis stable at this time #6 leukocytosis with check chest x-ray and check urine analysis #7 for DVT prophylaxis Will initiate Lovenox 40 mg subcu once daily Will follow closely for medical management
--- NOTE | 2017-01-28 12:12 | XR ---
EXAMINATION TYPE: XR chest 1V portable DATE OF EXAM: 01/28/2017 HISTORY: leukocytosis, cough. REFERENCE: Previous study dated 01/26/2017. FINDINGS: The heart is mildly enlarged. There is stable parenchymal changes at both lung bases. Pleur al spaces are clear. IMPRESSION: STABLE APPEARANCE TO THE CHEST.
[2017-01-28] MEDS: ENOXAPARIN 40 MG/0.4 ML SYRINGE SQ SCH (12:14)
--- NOTE | 2017-01-28 15:03 | P.CNNES ---
History of Present Illness Consult date: 01/28/17 Requesting physician: Isiah Garcia Reason for Consult: TIA Chief complaint: AMS possible TIA History of Present Illness: Note: CONSULTATION DELAYED THE PATIENT WAS IN THE OPERATING ROOM AT TIME OF ROUNDING ON 01/27/17 Patient is an 81-year-old female presented to emergency department with right- sided facial droop, confusion and fall with right lower extremity pain. Patient was at home and began experiencing right-sided facial droop, slurred speech which resolved in a few minutes. Patient got up and was trying to ambulate, fell, her right leg, complained of knee and thigh pain. EMS stated the patient was alert and oriented 3 however she started becoming confused and not able to answer questions on arrival at the ED. Upon arrival at the ED, patient did have an x-ray with a noted acute fracture of the proximal femur on the right. She was admitted to the telemetry floor. January 27, 2017 in the morning, patient was taken to the OR by orthopedics for right fracture. Neurology was rounding attempted to round on the patient on January 27. Nursing staff advised that the patient have been taken to the operating room and was unavailable for consultation. January 28, 2017: On contact, the patient was somewhat follows in bed, resting in no acute distress. She was somewhat somnolent but denied pain or discomfort. Review of laboratory blood work reveals that the patient has a significantly elevated white blood cell count. CT of the brain on January 26 noted acute ischemic stroke in the left insular cortex. Patient was on 81 mg aspirin, Lipitor at home. Carotid Doppler ordered by care team. Review of Systems systems not noted previously or negative. Past Medical History Past Medical History: Atrial Fibrillation, Asthma, Coronary Artery Disease (CAD) , Diabetes Mellitus, Deep Vein Thrombosis (DVT), Hypertension, Myocardial Infarction (SC), Pneumonia, Pulmonary Embolus (PE), Thyroid Disorder Additional Past Medical History / Comment(s): Pulmonary sarcoidosis, FALL IN AUGUST , pt stated she is dm type 1, neuroptathy Last Myocardial Infarction Date:: * History of Any Multi-Drug Resistant Organisms: None Reported Past Surgical History: Heart Catheterization With Stent, Hysterectomy, Joint Replacement, Orthopedic Surgery Additional Past Surgical History / Comment(s): Dr. Rivera and Dr. Arriaga placed 6 stents 13 years ago, left knee surgery AND IN DEC 2015 HEART CATH AND STENT -PT STATED TOTAL OF 7 STENTS NOW Past Anesthesia/Blood Transfusion Reactions: No Reported Reaction Date of Last Stent Placement:: 1999 Past Psychological History: No Psychological Hx Reported Smoking Status: Never smoker Past Alcohol Use History: Occasional Past Drug Use History: None Reported - Past Family History Father Family Medical History: Myocardial Infarction (SC) Mother Family Medical History: Liver Disease Medications and Allergies Home Medications Medication Instructions Recorded Confirmed Type Atorvastatin [Lipitor] 20 mg PO HS 09/30/14 01/26/17 History Ergocalciferol [Vitamin D2 50,000 unit PO WE 09/30/14 01/26/17 History (DRISDOL)] Furosemide 20 mg PO BID 09/30/14 01/26/17 History Isosorbide Mononitrate ER [Imdur] 30 mg PO DAILY 07/24/15 01/26/17 History predniSONE 10 mg PO DAILY 07/24/15 01/26/17 History Insulin Glargine,Hum.rec.anlog 16 units SQ DAILY 01/10/16 01/26/17 History [[place] Solostar] Montelukast [Singulair] 10 mg PO HS 01/10/16 01/26/17 History Oxybutynin Chloride 5 mg PO DAILY 01/10/16 01/26/17 History Omeprazole [PriLOSEC] 20 mg PO DAILY 04/19/16 01/26/17 History Diltiazem Oral [Cardizem*] 60 mg PO BID #60 tab 08/04/16 01/26/17 Rx Gabapentin [Neurontin] 300 mg PO BID 10/03/16 01/26/17 History Insulin Lispro [humaLOG Kwikpen] 6 unit SQ AC-TID 10/03/16 01/26/17 History Levothyroxine Sodium [Synthroid] 100 mcg PO DAILY 10/03/16 01/26/17 History Aspirin EC [Ecotrin Low Dose] 81 mg PO DAILY 01/26/17 01/26/17 History Metoprolol Tartrate [Lopressor] 25 mg PO BID 01/26/17 01/26/17 History traZODone HCL 50 mg PO HS 01/26/17 01/26/17 History Allergies Allergy/AdvReac Type Severity Reaction Status Date / Time cat dander Allergy Unknown Verified 01/26/17 15:01 Sulfa (Sulfonamide Allergy Rash/Hives Verified 01/26/17 15:01 Antibiotics) Physical Examination - Vital Signs Vital Signs: Vital Signs Temp Pulse Resp BP Pulse Ox 01/28/17 12:00 93 115/57 99 01/28/17 08:00 98.5 F 117 H 106/60 100 01/28/17 03:49 98.0 F 101 H 16 106/66 100 01/28/17 00:00 96 16 01/27/17 19:58 96 16 01/27/17 19:56 97.5 F L 96 16 120/97 98 01/27/17 18:10 93 01/27/17 16:10 140 H 98/65 94 L Intake and Output 01/27/17 01/28/17 01/28/17 22:59 06:59 14:59 Intake Total 460 100 280 Output Total 100 Balance 360 100 280 Intake: Intake, IV Titration 100 Amount ceFAZolin 2 gm In Sodium 100 Chloride 0.9% 100 ml @ 100 mls/hr IVPB Q8HR [facility] Rx#:[id number] Oral 460 280 Output: Urine 100 Other: Voiding Method Indwelling Catheter Indwelling Catheter Weight 75 kg Constitutional: AOx3, cooperative HEENT: NC/AT, no facial asymmetry is seen. Throat: Supple, no masses Respiratory: No increased work of breathing Cardiac: Regular rate and Rhythm GI: non tender, non distended Musculoskeletal: Soda Clerk strengths are unequal bilaterally 3/5 on the right, 4/5 on the left Lower extremity strengths are unequal; right lower extremity- ortho fixation repair, left lower extremity 4/5. Neurological: CN II-XII in tact, patient was AOx3, speech and language are slurred and slowed, right sided unilateralizing weakness, no seizure activity note on physical exam. Sensation was normal. Integementary: no rash, no erythema Psychiatric: mood and affect appropriate Results - Laboratory Findings CBC and BMP: 01/27/17 13:08 01/26/17 14:59 Abnormal Lab Findings: Abnormal Labs 01/26/17 01/26/17 01/26/17 14:23 14:59 14:59 WBC 13.8 H RBC Hgb Hct MCHC 29.8 L RDW 20.1 H Plt Count Neutrophils # 11.6 H Lymphocytes # 0.9 L Monocytes # APTT 21.0 L BUN 26 H Creatinine 1.10 H Glucose 225 H POC Glucose (mg/dL) Hemoglobin A1c Total Protein 5.7 L Albumin 3.3 L Triglycerides 01/26/17 01/27/17 01/27/17 21:58 06:02 06:21 WBC RBC Hgb Hct MCHC RDW Plt Count Neutrophils # Lymphocytes # Monocytes # APTT BUN Creatinine Glucose POC Glucose (mg/dL) 287 H 196 H Hemoglobin A1c Total Protein Albumin Triglycerides 150 H 01/27/17 01/27/17 01/27/17 11:28 13:08 13:08 WBC 24.8 H RBC 3.78 L Hgb 10.1 L Hct 33.0 L MCHC 30.7 L RDW 19.2 H Plt Count 149 L Neutrophils # 21.6 H Lymphocytes # Monocytes # 1.7 H APTT BUN Creatinine Glucose POC Glucose (mg/dL) 199 H Hemoglobin A1c 7.9 H Total Protein Albumin Triglycerides 01/27/17 01/27/17 01/28/17 16:49 20:59 05:50 WBC RBC Hgb Hct MCHC RDW Plt Count Neutrophils # Lymphocytes # Monocytes # APTT BUN Creatinine Glucose POC Glucose (mg/dL) 346 H 215 H 120 H Hemoglobin A1c Total Protein Albumin Triglycerides 01/28/17 11:33 WBC RBC Hgb Hct MCHC RDW Plt Count Neutrophils # Lymphocytes # Monocytes # APTT BUN Creatinine Glucose POC Glucose (mg/dL) 140 H Hemoglobin A1c Total Protein Albumin Triglycerides Assessment and Plan (1) Cerebrovascular accident Status: Acute (2) Fall at home Status: Acute Plan: 1. CVA with right-sided deficits 2. Right lower extremity fracture 3. Altered mental statusencephalopathy secondary to infectious process The patient does appear to have suffered a CVA based on imaging and physical exam findings, the patient may also have concurrent underlying encephalopathy related to infectious process as evidenced by her elevated white blood cell count. Patient will be switched from 81 mg aspirin to Plavix, continue Lipitor. Patient's lipid panel only noted elevated triglycerides. Recommend consult for speech, PT, OT. Ordered EEG. Continue neuro checks as scheduled and recommended, continue fall precautions. serum homocysteine level ordered. Status; Neurology will continue to follow and provide updates as need or warranted. I discussed the patient's pertinent medical information with Dr. Faust. He agrees with the plan of care as implemented.
[2017-01-28 16:54] LABS: Glucose,Whole Blood 88 mg/dL (75-99)
[2017-01-28 20:41] LABS: Glucose,Whole Blood 103 mg/dL (75-99)
[2017-01-28] MEDS: traZODone HCL 50 MG TAB PO SCH (21:30)
[2017-01-28] MEDS: MONTELUKAST 10 MG TAB PO SCH (21:30)
[2017-01-28] MEDS: ATORVASTATIN 20 MG TAB PO SCH (21:30)
[2017-01-28] MEDS: SENNOSIDES-DOCUSATE SODIUM 1 EACH TAB PO SCH (21:30)
[2017-01-29] MEDS: HYDROCORTISONE SUCCINATE 100 MG/2 ML VIAL IV SCH ×4 (00:25→23:42)
[2017-01-29 02:41] LABS: Appearance,Urine Clear (Clear); Bilirubin,Urine Negative (Negative); Glucose,Urine (UA) Negative (Negative); Ketones,Urine Negative (Negative); Leukocyte Esterase,Urine Negative (Negative); Nitrite,Urine Negative (Negative); Protein,Urine Negative (Negative); Specific Gravity,Urine 1.011 (1.001-1.035); UA Billing (MACRO vs. MICRO) CHEM; Urobilinogen,Urine <2.0 mg/dL (<2.0)
[2017-01-29 05:59] LABS: Glucose,Whole Blood 125 mg/dL (75-99)
[2017-01-29] MEDS: INSULIN LISPRO (humaLOG) 300 UNIT/3 ML VIAL SQ SCH ×7 (06:05→21:20)
[2017-01-29 06:30] LABS: Anisocytosis Slight; Basophils % (A) 0 %; CHCM 29.3; Eosinophils % (A) 0 %; HCT 28.3 % (34.0-46.0); HDW 2.68; Hypochromasia Marked; Luc # (Auto) 0.18; Luc % (Auto) 1; Lymphocytes # (A) 0.7 k/uL (1.0-4.8); Lymphocytes % (A) 3 %; MCHC 29.1 g/dL (31.0-37.0); MCV 89.3 fL (80.0-100.0); Mean Platelet Volume 8.7; Monocytes # (A) 1.2 k/uL (0-1.0); Monocytes % (A) 5 %; Neutrophils # (A) 20.2 k/uL (1.3-7.7); Neutrophils % (A) 90 %; RBC 3.18 m/uL (3.80-5.40); WBC 22.4 k/uL (3.8-10.6); WBC (Perox) 23.36
[2017-01-29 06:36] LABS: HGB 8.2 gm/dL (11.4-16.0)
[2017-01-29 06:37] LABS: Total Bilirubin 0.4 mg/dL (0.2-1.3)
[2017-01-29] MEDS: PANTOPRAZOLE 40 MG TABLET PO SCH (06:37)
[2017-01-29] MEDS: LEVOTHYROXINE 100 MCG TAB PO SCH (06:37)
[2017-01-29] MEDS ORDERED: CLOPIDOGREL 75 MG TAB PO SCH (09:00)
[2017-01-29] MEDS: GABAPENTIN 300 MG CAP PO SCH ×2 (09:46→20:07)
[2017-01-29] MEDS: FUROSEMIDE 20 MG TAB PO SCH (09:46)
[2017-01-29] MEDS: ENOXAPARIN 40 MG/0.4 ML SYRINGE SQ SCH (09:46)
[2017-01-29] MEDS: DILTIAZEM ORAL 60 MG TAB PO SCH ×2 (09:46→20:07)
[2017-01-29] MEDS: ISOSORBIDE MONONITRATE ER 30 MG TAB.ER.24H PO SCH (09:48)
[2017-01-29] MEDS: METOPROLOL TARTRATE 25 MG TAB PO SCH ×2 (09:48→20:08)
[2017-01-29] MEDS: OXYBUTYNIN CHLORIDE 5 MG TAB PO SCH (09:48)
[2017-01-29] MEDS: HYDROcodone/APAP 5-325MG 1 EACH TAB PO PRN ×3 (09:59→20:21)
[2017-01-29] MEDS: INSULIN GLARGINE 100 UNIT/ML 10 ML VIAL SQ SCH (10:14)
[2017-01-29 11:10] LABS: Glucose,Whole Blood 165 mg/dL (75-99)
[2017-01-29] MEDS ORDERED: RX INFO: IV CONTRAST WAS GIVEN 1 EACH MISC MISCELLANE PRN (11:12)
[2017-01-29] MEDS ORDERED: SODIUM CHLORIDE 0.9% 500 ML IV ONE (11:40)
--- NOTE | 2017-01-29 11:44 | CT ---
EXAMINATION TYPE: CT brain wo con for TPA DATE OF EXAM: 01/29/2017 COMPARISON: 01/26/2017 CT brain HISTORY: CVA CT DLP: 1067.5 mGycm Automated exposure control for dose reduction was used. Helical acquisition through the brain. FINDINGS: Brain density is stable. There is no hemorrhage or hydrocephalus. Periventricular white matter shows patchy low attenuation. Cortical atrophy is likely age-related. Cerebral vascular calcifications agai n noted. Mucosal disease present within the maxillary sinus. IMPRESSION: STABLE EXAM, NO ACUTE ABNORMALITY IS EVIDENT, MRI MAY BE OF BENEFIT. AGE-RELATED CHANGES OF ATROPHY A ND PROBABLE CHRONIC SMALL VESSEL ISCHEMIA.
--- NOTE | 2017-01-29 12:33 | CT ---
EXAMINATION TYPE: CT angio head neck DATE OF EXAM: 01/29/2017 HISTORY: Right sided facial droop COMPARISON: CT brain same date CT DLP: 227.8 mGycm. Automated Exposure Control for Dose Reduction was Utilized. TECHNIQUE: CTA scan of the neck is performed with IV Contrast, patient injected with 65 mL of Omnipa que 350, axial images are obtained, coronal and sagittal reformatted images are reviewed. Three-D rec onstructed images are created on an independent workstation and reviewed. FINDINGS: Carotid/Vascular Structures: Patent. Transverse aorta shows 2 superior aortic branch vessels. The lef t and right common carotid, the innominate, left and right subclavian, vertebral arteries are patent, the right vertebral artery is dominant. There is no evident filling defect present, no dissection. A theromatous changes are present. [place] is patent. The carotid bifurcation on the right shows atheromatous change. Hemodynamic significant stenosis is p resent within the proximal internal carotid artery on the right. Findings are estimated 50-69% diamet er reduction. Stenosis is in the plane of imaging. Other: Lung apices are within normal limits. IMPRESSION: Hemodynamic significant stenosis is suspected within the proximal internal carotid artery on the right, consider carotid Doppler correlation.
[2017-01-29 13:24] LABS: Anisocytosis Moderate; Basophils % (A) 0 %; CH 27.3; CHCM 31.9; Eosinophils # (A) 0.1 k/uL (0-0.7); Eosinophils % (A) 1 %; HCT 24.6 % (34.0-46.0); HDW 3.04; HGB 7.5 gm/dL (11.4-16.0); Hypochromasia Slight; Luc # (Auto) 0.17; Luc % (Auto) 1; Lymphocytes # (A) 0.7 k/uL (1.0-4.8); Lymphocytes % (A) 3 %; MCH 26.2 pg (25.0-35.0); MCHC 30.4 g/dL (31.0-37.0); MCV 86.2 fL (80.0-100.0); Microcytosis Slight; Monocytes % (A) 9 %; Neutrophils # (A) 19.6 k/uL (1.3-7.7); Neutrophils % (A) 86 %; RBC 2.86 m/uL (3.80-5.40); RDW 20.4 % (11.5-15.5); WBC 22.7 k/uL (3.8-10.6); WBC (Perox) 23.59
--- NOTE | 2017-01-29 13:24 | CONS ---
CONSULTATION Mrs. Penny is an 81-year-old female with known history of coronary artery disease, status post percutaneous revascularization most recently in December 2015 when she underwent stenting of her LAD. She also prior to that has underwent stenting of the LAD in 1994 as well as the circumflex in 1997. She has a known chronically occluded right coronary artery. She presented with syncopal episode, fall and fracture of the right hip and underwent surgical intervention. The patient has a persistent chronic atrial fibrillation, but has not been anticoagulated in the past because of prior episode of bleeding. It does not appear that she had any recent episode of bleeding. She has history of sarcoidosis and has been followed by Dr. Gonzales in that regard. On presentation, she had facial droop and slurred speech. The patient denies any chest discomfort. She denies any recurrent angina pectoris. She feels that her breathing has been stable. She denies any palpitation. She has discomfort to the lower extremities. No clear PND nor orthopnea. During this admission, she underwent a carotid duplex scan that revealed 70% right internal artery stenosis and 50% on the left. She subsequently today underwent a CT angiogram that confirmed this stenosis on the right side. A brain CT that was obtained today as well, showed no acute changes with chronic small-vessel disease. She had an echocardiogram on the 27 of January that revealed a preserved left ventricular size and systolic function with evidence of aortic stenosis and a very calcified vessel with reduced opening yet the mean gradient was only 13 mmHg. Her ejection fraction was 50% to 55%. There was mild mitral and tricuspid regurgitation with moderate pulmonary regurgitation and a right-sided pressure of close to 60 mmHg consistent with moderate to severe pulmonary hypertension. Her coronary risk factors are remarkable for the history of hypertension, hyperlipidemia and diabetic. MEDICATIONS: Her medications at home included aspirin, Lipitor 20 mg daily, diltiazem 60 mg twice a day, furosemide 20 mg twice a day, insulin, isosorbide mononitrate 30 mg daily, levothyroxine 0.1 mg daily, metoprolol tartrate 25 mg twice a day, Singulair, omeprazole, oxybutynin, prednisone and trazodone. REVIEW OF SYSTEMS: RESPIRATORY SYSTEM: She has sarcoidosis with chronic dyspnea on exertion. GI SYSTEM: She denies any recent GI bleeding. No peptic ulcer disease. SYSTEM: No dysuria or hematuria. NERVOUS SYSTEM. She had a stroke as noted. PHYSICAL EXAMINATION: She is an 81-year-old female, alert, in no apparent distress. Blood pressure 103/60 with the heart in 90s. HEAD: Normocephalic. EYES: Sclerae anicteric. NECK: No bruit. LUNGS: Clear to auscultation anteriorly. HEART: Irregular, irregular. S1, S2. No S3 with systolic murmur 3/6 early to mid- peaking. No diastolic murmur. ABDOMEN: Soft, nontender. Positive bowel sounds. No organomegaly. EXTREMITIES: With trace edema. Significant ecchymosis noted on the upper extremities. LAB DATA: Lab data revealed a BUN and creatinine 42 and 1.2. Hemoglobin of 8.2. White blood cell of 22.4. Her EKG is consistent with atrial fibrillation with nonspecific ST-T wave changes. Her chest x-ray done yesterday revealed no evidence of infiltrate. IMPRESSION: 1. Status post cerebrovascular accident with a history of chronic persistent atrial fibrillation. The patient was not anticoagulated in the past because of bleeding. 2. Fracture right hip, status post surgery. 3. History of coronary artery disease with multiple percutaneous revascularization, most recently December of last year. 4. Hypertension. 5. Hyperlipidemia. 6. Diabetes mellitus. 7. Anemia. RECOMMENDATION: The patient according to her lab data appears to be dehydrated. I will cut down the Lasix to once a day. In regard to the anticoagulation, I do not believe that neither aspirin nor Plavix add any protection since she has the persistent atrial fibrillation and that is most likely the cause of her event. The patient will benefit from anticoagulation. Although she had a prior episode of bleeding and I do not have any clear documentation of that at this point, but it does not appear that she had any event over the last year and I will give her a trial with Eliquis 2.5 mg twice a day with close followup of her hemoglobin. I will hold antiplatelets since she is anticoagulated and she has not had any acute ischemic event for about a year. Unfortunately, the prognosis is guarded in view of her overall status. Thank you for this consult. We will follow with you. MMODL / IJN: [id number] /
--- NOTE | 2017-01-29 13:36 | CONS ---
CONSULTATION This is an 81-year-old female. She is known to me from the office. The patient has been admitted to [facility] with history of facial droop, confusion with complete recovery. At that time, patient fell down and had a fracture of the hip for that patient went to open reduction. However, her confusion and drooping face has improved, there was no evidence of any motor deficit. The patient had a CT of the carotids which shows about right side 70% and a ultrasound of the carotid shows right side 70%, left side 50%. ON EXAMINATION: Patient was seen in her room. Her vital signs were stable. She has been complaining of pain in the right and left lower extremity. NECK: Supple. No bruit appreciated. ABDOMEN: Soft, nontender. Femoral pulses are present. Neuro exam shows normal motor function of her lower extremity. Her speech has improved. She has history of atrial fibrillation on Eliquis. History of coronary artery disease. Diabetes mellitus. Deep venous thrombosis in the past. Hypertension. Myocardial infarction. History of pulmonary embolism. Thyroid disorder. PLAN: The patient has about 50% stenosis on the left side; right side 70% stenosis with no neuro deficit. Recommendation is medical management and we will follow with you. The patient had acute fracture of the hip. We will watch very closely and follow with you. MMODL / IJN: [id number] /
[2017-01-29] MEDS: APIXABAN 2.5 MG TABLET PO SCH ×2 (13:43→20:07)
--- NOTE | 2017-01-29 13:45 | P.PN ---
Subjective Progress Note Date: 01/29/17 Principal diagnosis: Intertrochanteric fracture right hip. Status post closed reduction and insertion of intertrochanteric nail right hip. This is an 81-year-old female who is status post closed reduction with insertion of intertrochanteric nail of the right hip. She is doing well from an orthopedic standpoint. She has no new complaints or concerns today. Vital signs and labs are stable. Objective - Vital Signs Vital signs: Vital Signs Temp 97.4 F L 01/29/17 09:30 Pulse 92 01/29/17 13:25 Resp 16 01/29/17 11:53 BP 140/83 01/29/17 13:25 Pulse Ox 96 01/29/17 12:02 Intake & Output 01/28/17 01/29/17 01/29/17 18:59 06:59 18:59 Intake Total 460 120 60 Output Total 1000 700 Balance -540 -580 60 Weight 72 kg Intake: Oral 460 120 60 Output: Urine 1000 700 Other: Voiding Method Indwelling Catheter Indwelling Catheter Indwelling Catheter # Bowel Movements 1 - Exam This is a pleasant 81-year-old female in no acute distress. She is alert and oriented 3. Exam of the right lower extremity reveals that her dressing is clean, dry and intact. There is minimal soft tissue swelling about the thigh. She has full foot and ankle motion without difficulty or pain. Neurovascular status to the lower extremity is intact. - Labs CBC & Chem 7: 01/29/17 12:08 01/29/17 05:48 Labs: Abnormal Lab Results - Last 24 Hours (Table) 01/28/17 01/29/17 01/29/17 Range/Units 20:38 05:48 05:50 WBC 22.4 H (3.8-10.6) k/uL RBC 3.18 L (3.80-5.40) m/uL Hgb 8.2 L D (11.4-16.0) gm/dL Hct 28.3 L (34.0-46.0) % MCHC 29.1 L (31.0-37.0) g/dL RDW 19.0 H (11.5-15.5) % Plt Count (150-450) k/uL Neutrophils # 20.2 H (1.3-7.7) k/uL Lymphocytes # 0.7 L (1.0-4.8) k/uL Monocytes # 1.2 H (0-1.0) k/uL BUN 42 H (7-17) mg/dL Creatinine 1.20 H (0.52-1.04) mg/dL Glucose 108 H (74-99) mg/dL POC Glucose (mg/dL) 103 H (75-99) mg/dL Calcium 8.0 L (8.4-10.2) mg/dL Total Protein 5.0 L (6.3-8.2) g/dL Albumin 2.7 L (3.5-5.0) g/dL 01/29/17 01/29/17 01/29/17 Range/Units 05:55 11:07 12:08 WBC 22.7 H (3.8-10.6) k/uL RBC 2.86 L (3.80-5.40) m/uL Hgb 7.5 L (11.4-16.0) gm/dL Hct 24.6 L (34.0-46.0) % MCHC 30.4 L (31.0-37.0) g/dL RDW 20.4 H (11.5-15.5) % Plt Count 135 L (150-450) k/uL Neutrophils # 19.6 H (1.3-7.7) k/uL Lymphocytes # 0.7 L (1.0-4.8) k/uL Monocytes # 2.0 H (0-1.0) k/uL BUN (7-17) mg/dL Creatinine (0.52-1.04) mg/dL Glucose (74-99) mg/dL POC Glucose (mg/dL) 125 H 165 H (75-99) mg/dL Calcium (8.4-10.2) mg/dL Total Protein (6.3-8.2) g/dL Albumin (3.5-5.0) g/dL Microbiology - Last 24 Hours (Table) 01/29/17 02:30 Urine Culture - Preliminary Urine,Catheterized Assessment and Plan (1) Intertrochanteric fracture of right femur Status: Acute (2) Atrial fibrillation Status: Acute (3) Cerebrovascular accident Status: Acute Plan: Continue care. She is nonweightbearing to the right lower extremity with walker. She'll most likely need rehab placement.
--- NOTE | 2017-01-29 14:16 | P.PN ---
Subjective Progress Note Date: 01/29/17 Popeye Penny is an 81-year-old female who presented to emergency Department with right sided facial drooping, confusion, and fall with right lower extremity pain. At home states approximately half an hour ago the patient appeared to have some right-sided facial droop and slurred speech and it resolved within a few minutes. Patient then got up was trying to walk and fell and hurt her right leg she complains of knee and thigh pain. EMS stated that she was alert and oriented 3 initially, however she started getting confused and not able to answer questions. She was brought in to [facility] emergency room, x-ray revealed evidence of acute fracture of the proximal Femur on the right. She was admitted to telemetry floor orthopedic consultation was requested. 01/29/2017 code stroke was called and patient this morning. She again had slurring of the speech and right facial droop. Symptoms are showing improvement. Patient did have a repeat computed tomography scan of the brain completed showing no acute changes. CTA showing hemodynamic significant stenosis suspected in the proximal internal carotid artery on the right. Patient did have atrial fibrillation with rapid ventricular response. She does have known chronic persistent atrial fibrillation and had not been on anticoagulation due to bleeding. Patient evaluated by cardiology. They have added Eliquis 2.5 mg twice a day since there has been no active bleeding for over a year. Patient also evaluated by Dr. Baptiste there is no surgical needed intervention needed for the internal carotid artery stenosis. Objective - Vital Signs Vital signs: Vital Signs Temp 97.4 F L 01/29/17 09:30 Pulse 92 01/29/17 13:25 Resp 16 01/29/17 11:53 BP 140/83 01/29/17 13:25 Pulse Ox 96 01/29/17 12:02 Intake & Output 01/28/17 01/29/17 01/29/17 18:59 06:59 18:59 Intake Total 460 120 60 Output Total 1000 700 Balance -540 -580 60 Weight 72 kg Intake: Oral 460 120 60 Output: Urine 1000 700 Other: Voiding Method Indwelling Catheter Indwelling Catheter Indwelling Catheter # Bowel Movements 1 - Exam Head normocephalic Neck supple Lungs clear to auscultation bilaterally no wheezing or crackles Heart regular rate and rhythm S1-S2, no rub or gallop Abdomen is soft nontender nondistended positive bowel sounds no hepatosplenomegaly Extremities no edema Neuro alert and orientated to 3. Right facial droop noted as well as slurred speech. Slightly improved since this morning per - Labs CBC & Chem 7: 01/29/17 12:08 01/29/17 05:48 Labs: Abnormal Lab Results - Last 24 Hours (Table) 01/28/17 01/29/17 01/29/17 Range/Units 20:38 05:48 05:50 WBC 22.4 H (3.8-10.6) k/uL RBC 3.18 L (3.80-5.40) m/uL Hgb 8.2 L D (11.4-16.0) gm/dL Hct 28.3 L (34.0-46.0) % MCHC 29.1 L (31.0-37.0) g/dL RDW 19.0 H (11.5-15.5) % Plt Count (150-450) k/uL Neutrophils # 20.2 H (1.3-7.7) k/uL Lymphocytes # 0.7 L (1.0-4.8) k/uL Monocytes # 1.2 H (0-1.0) k/uL BUN 42 H (7-17) mg/dL Creatinine 1.20 H (0.52-1.04) mg/dL Glucose 108 H (74-99) mg/dL POC Glucose (mg/dL) 103 H (75-99) mg/dL Calcium 8.0 L (8.4-10.2) mg/dL Total Protein 5.0 L (6.3-8.2) g/dL Albumin 2.7 L (3.5-5.0) g/dL 01/29/17 01/29/17 01/29/17 Range/Units 05:55 11:07 12:08 WBC 22.7 H (3.8-10.6) k/uL RBC 2.86 L (3.80-5.40) m/uL Hgb 7.5 L (11.4-16.0) gm/dL Hct 24.6 L (34.0-46.0) % MCHC 30.4 L (31.0-37.0) g/dL RDW 20.4 H (11.5-15.5) % Plt Count 135 L (150-450) k/uL Neutrophils # 19.6 H (1.3-7.7) k/uL Lymphocytes # 0.7 L (1.0-4.8) k/uL Monocytes # 2.0 H (0-1.0) k/uL BUN (7-17) mg/dL Creatinine (0.52-1.04) mg/dL Glucose (74-99) mg/dL POC Glucose (mg/dL) 125 H 165 H (75-99) mg/dL Calcium (8.4-10.2) mg/dL Total Protein (6.3-8.2) g/dL Albumin (3.5-5.0) g/dL Microbiology - Last 24 Hours (Table) 01/29/17 02:30 Urine Culture - Preliminary Urine,Catheterized Assessment and Plan Plan: 1. CVA with right-sided deficits: Computed tomography scan of the brain on admission shows a 1.5 cm area of decreased attenuation within the left insular cortex may reflect an area of acute ischemia. Stroke likely secondary to patient's atrial fibrillation. Cardiology has added Eliquis 2.5 mg twice a day. Plavix has been discontinued. Patient had recurrent symptoms this morning of right facial droop and slurring of speech. Repeat computed tomography scan of brain shows no acute changes. Neurology was notified. Continue Lipitor. Continue PT OT. Patient evaluated by speech therapy. Echo showing EF of 50-55%, moderate pulmonary hypertension, aortic stenosis. 70% internal carotid artery stenosis and 50% left internal carotid artery stenosis noted on carotid Doppler. Patient evaluated by vascular surgery. No need for surgical intervention. 2. Chronic persistent atrial fibrillation with an episode of rapid ventricular response. Cardiology following. Continue Cardizem, metoprolol and anticoagulation with Eliquis 3. Fall with right proximal femur fracture status post closed reduction and intramedullary nailing: Orthopedics are following. Surgery completed on 2016 4. History of sarcoidosis: Pulmonary following. They've added IV Solu-Cortef. Discontinued oral prednisone 5. Anemia: Possibly to blood loss anemia secondary to surgery. Add iron supplement. Check iron studies. 6. History of asthma stable 7. Leukocytosis likely initially reactive to femur fracture. Now leukocytosis secondary to steroids and urinalysis is negative. 8. Chronic kidney disease, stage IIIB. Continue monitoring kidney functions. Cardiology cut Lasix back to once a day. 9. History of myocardial infarction, coronary artery disease and 7 cardiac stents 10. Diabetes mellitus, insulin-dependent: Blood sugar stable continue with current medication I performed an examination of the patient and discussed their management with the physician Machinist [employer]. I have reviewed the Physician Machinist Helper [employer]'s notes and agree with the documented findings and plan of care
--- NOTE | 2017-01-29 15:46 | P.PN ---
Subjective Progress Note Date: 01/29/17 Principal diagnosis: CVA neurology is following on an 81-year-old female who presented to the emergency room with right-sided facial droop, confusion and fall with right lower extremity pain. Patient did have documented right lower extremity fracture which was managed by orthopedics. Patient was rounded on yesterday. CT of the brain on January 26, 2017 noted possible acute ischemia of the left insular cortex. Patient was treated for stroke. Carotid Doppler at that time was ordered. Carotid Doppler noted left internal carotid 50% occlusion and right internal carotid 70% occlusion. yesterday, the patient was noted to be stable with no new deficits. Patient denied any deficits or any unilateral weakness, new numbness and tingling or any neurological changes is not previously known. Physical therapy was attempting to work with the patient earlier today when the patient began having TIA-like symptoms. Supervising physician was contacted and a stat CT of the brain and CT angiogram were ordered. Vascular consult was also ordered based on the previous stenosis. Patient was also experiencing atrial fibrillation. Cardiology consult was also requested by supervising physician by phone nursing staff. On contact, the patient is semi-Fowlers in bed, resting in no acute distress. action is alert and oriented 3. Patient denies any new deficits. Patient states the vascular has been in to see her and is advised that I do not recommend surgery given her age and comorbidities. Objective - Vital Signs Vital signs: Vital Signs Temp 97.4 F L 01/29/17 09:30 Pulse 101 H 01/29/17 13:54 Resp 16 01/29/17 11:53 BP 142/69 01/29/17 13:54 Pulse Ox 96 01/29/17 12:02 Intake & Output 01/28/17 01/29/17 01/29/17 18:59 06:59 18:59 Intake Total 460 120 60 Output Total 1000 700 Balance -540 -580 60 Weight 72 kg Intake: Oral 460 120 60 Output: Urine 1000 700 Other: Voiding Method Indwelling Catheter Indwelling Catheter Indwelling Catheter # Bowel Movements 1 - Exam Constitutional: AOx3, cooperative HEENT: NC/AT, no facial asymmetry is seen. Throat: Supple, no masses Respiratory: No increased work of breathing Cardiac: Regular rate and Rhythm GI: non tender, non distended Musculoskeletal: Ore Washer strengths are unequal bilaterally 3/5 on the right, 4 out of 5 on the left. Lower extremity strength are unequal; right lower extremityorthopedic fixation repair, left lower extremity 4/5., Lower extremity strengths are equal bilaterally at 5/5. Neurological: CN II-XII in tact, patient was AOx3, speech and language are slurred and slowed, but improved since yesterday, unilateralizing weakness right lower extremity, no seizure activity note on physical exam. Sensation was normal. Integementary: no rash, no erythema Psychiatric: mood and affect appropriate - Labs CBC & Chem 7: 01/29/17 12:08 01/29/17 05:48 Labs: Abnormal Lab Results - Last 24 Hours (Table) 01/28/17 01/29/17 01/29/17 Range/Units 20:38 05:48 05:50 WBC 22.4 H (3.8-10.6) k/uL RBC 3.18 L (3.80-5.40) m/uL Hgb 8.2 L D (11.4-16.0) gm/dL Hct 28.3 L (34.0-46.0) % MCHC 29.1 L (31.0-37.0) g/dL RDW 19.0 H (11.5-15.5) % Plt Count (150-450) k/uL Neutrophils # 20.2 H (1.3-7.7) k/uL Lymphocytes # 0.7 L (1.0-4.8) k/uL Monocytes # 1.2 H (0-1.0) k/uL BUN 42 H (7-17) mg/dL Creatinine 1.20 H (0.52-1.04) mg/dL Glucose 108 H (74-99) mg/dL POC Glucose (mg/dL) 103 H (75-99) mg/dL Calcium 8.0 L (8.4-10.2) mg/dL Total Protein 5.0 L (6.3-8.2) g/dL Albumin 2.7 L (3.5-5.0) g/dL 01/29/17 01/29/17 01/29/17 Range/Units 05:55 11:07 12:08 WBC 22.7 H (3.8-10.6) k/uL RBC 2.86 L (3.80-5.40) m/uL Hgb 7.5 L (11.4-16.0) gm/dL Hct 24.6 L (34.0-46.0) % MCHC 30.4 L (31.0-37.0) g/dL RDW 20.4 H (11.5-15.5) % Plt Count 135 L (150-450) k/uL Neutrophils # 19.6 H (1.3-7.7) k/uL Lymphocytes # 0.7 L (1.0-4.8) k/uL Monocytes # 2.0 H (0-1.0) k/uL BUN (7-17) mg/dL Creatinine (0.52-1.04) mg/dL Glucose (74-99) mg/dL POC Glucose (mg/dL) 125 H 165 H (75-99) mg/dL Calcium (8.4-10.2) mg/dL Total Protein (6.3-8.2) g/dL Albumin (3.5-5.0) g/dL Microbiology - Last 24 Hours (Table) 01/29/17 02:30 Urine Culture - Preliminary Urine,Catheterized Assessment and Plan (1) Cerebrovascular accident Status: Acute (2) Fall at home Status: Acute Plan: 1. CVA with right-sided deficits 2. Right lower extremity fracture 3. Altered mental statusencephalopathy secondary to infectious process 4. Atrial fibrillation The patient does appear to have suffered a CVA based on imaging and physical exam findings, the patient may also have concurrent underlying encephalopathy related to infectious process as evidenced by her elevated white blood cell count. Patient was switched from Plavix to Eliquis based on this morning's TIA- like activity. Lipitor was increased as noted. Continue consults for speech, PT , OT. Ordered EEG. Continue neuro checks as scheduled and recommended, continue fall precautions. Serum homocysteine level was normal. Vascular has already consulted for stenosis and cardiology is on consult for atrial fibrillation. Status; Neurology I'll follow on as-needed basis. Contact our office with any further questions. I discussed the patient's pertinent medical information with Dr. Faust. He agrees with the plan of care as implemented.
[2017-01-29 16:18] LABS: Glucose,Whole Blood 171 mg/dL (75-99)
--- NOTE | 2017-01-29 17:00 | P.PN ---
Subjective This is an 81-year-old female who we saw yesterday in consultation for Dr. Duckworth. The patient has a history of acute right-sided CVA/TIA with right- sided facial droop. In addition, the patient fell and had a comminuted right hip fracture status post closed reduction with intramedullary nailing. She is postop day #2. In addition, she has a history of quiesced and sarcoidosis maintained on prednisone 10 mg a day, atrial fibrillation, CAD, multiple stent placements, hypertension, hyperlipidemia, diabetes, diabetic neuropathy, and hypothyroidism. The patient's about the same today as she was yesterday. We told the patient was very important for her to use her incentive spirometer. We did switch her prednisone to hydrocortisone 50 mg every 8 for stress coverage. Overall prognosis is very guarded. The significant CVA and right hip fracture along with all her other medical problems put her at higher risk for deterioration. On 01/29/2017 the patient is being seen in follow-up. No active respirator difficulties. No cough sputum production chest tightness or wheezing. The patient is on stress dose hydrocortisone. This surgical wound site over the right hip area dry clean and intact. The patient had another episode of right facial droop this afternoon and for that reason the patient was seen by neurology. She is significantly recovered for now and she has some minimal residual right facial weakness. Note that the carotid Doppler noted left internal carotid stenosis 50% occlusion in the right internal carotid stenosis 70% occlusion. The motor function the right upper extremity and the right lower extremities is decent. The patient is having a good cough reflex. She is alert and awake and following commands and answering questions appropriately. No confusion. No new deficits for now. Objective - Vital Signs Vital signs: Vital Signs Temp 97 F L 01/29/17 16:10 Pulse 101 H 01/29/17 16:10 Resp 16 01/29/17 16:10 BP 149/74 01/29/17 16:10 Pulse Ox 100 01/29/17 16:10 Intake & Output 01/28/17 01/29/17 01/29/17 18:59 06:59 18:59 Intake Total 460 120 560 Output Total 1000 700 Balance -540 -580 560 Weight 72 kg Intake: IV 500 Sodium Chloride 0.9% 500 500 ml @ 999 mls/hr IV .Q31M ONE Rx#:[id number] Oral 460 120 60 Output: Urine 1000 700 Other: Voiding Method Indwelling Catheter Indwelling Catheter Indwelling Catheter # Bowel Movements 1 - Exam Constitutional: AOx3, cooperative HEENT: NC/AT, no facial asymmetry is seen. Throat: Supple, no masses Respiratory: No increased work of breathing Cardiac: Regular rate and Rhythm GI: non tender, non distended Musculoskeletal: Technical Service Representative strengths are unequal bilaterally 3/5 on the right, 4 out of 5 on the left. Lower extremity strength are unequal; right lower extremityorthopedic fixation repair, left lower extremity 4/5., Lower extremity strengths are equal bilaterally at 5/5. Neurological: CN II-XII in tact, patient was AOx3, speech and language are slurred and slowed, but improved since yesterday, unilateralizing weakness right lower extremity, no seizure activity note on physical exam. Sensation was normal. Integementary: no rash, no erythema Psychiatric: mood and affect appropriate - Labs CBC & Chem 7: 01/29/17 12:08 01/29/17 05:48 Labs: Abnormal Lab Results - Last 24 Hours (Table) 01/28/17 01/29/17 01/29/17 Range/Units 20:38 05:48 05:50 WBC 22.4 H (3.8-10.6) k/uL RBC 3.18 L (3.80-5.40) m/uL Hgb 8.2 L D (11.4-16.0) gm/dL Hct 28.3 L (34.0-46.0) % MCHC 29.1 L (31.0-37.0) g/dL RDW 19.0 H (11.5-15.5) % Plt Count (150-450) k/uL Neutrophils # 20.2 H (1.3-7.7) k/uL Lymphocytes # 0.7 L (1.0-4.8) k/uL Monocytes # 1.2 H (0-1.0) k/uL BUN 42 H (7-17) mg/dL Creatinine 1.20 H (0.52-1.04) mg/dL Glucose 108 H (74-99) mg/dL POC Glucose (mg/dL) 103 H (75-99) mg/dL Calcium 8.0 L (8.4-10.2) mg/dL Total Protein 5.0 L (6.3-8.2) g/dL Albumin 2.7 L (3.5-5.0) g/dL 01/29/17 01/29/17 01/29/17 Range/Units 05:55 11:07 12:08 WBC 22.7 H (3.8-10.6) k/uL RBC 2.86 L (3.80-5.40) m/uL Hgb 7.5 L (11.4-16.0) gm/dL Hct 24.6 L (34.0-46.0) % MCHC 30.4 L (31.0-37.0) g/dL RDW 20.4 H (11.5-15.5) % Plt Count 135 L (150-450) k/uL Neutrophils # 19.6 H (1.3-7.7) k/uL Lymphocytes # 0.7 L (1.0-4.8) k/uL Monocytes # 2.0 H (0-1.0) k/uL BUN (7-17) mg/dL Creatinine (0.52-1.04) mg/dL Glucose (74-99) mg/dL POC Glucose (mg/dL) 125 H 165 H (75-99) mg/dL Calcium (8.4-10.2) mg/dL Total Protein (6.3-8.2) g/dL Albumin (3.5-5.0) g/dL 01/29/17 Range/Units 16:12 WBC (3.8-10.6) k/uL RBC (3.80-5.40) m/uL Hgb (11.4-16.0) gm/dL Hct (34.0-46.0) % MCHC (31.0-37.0) g/dL RDW (11.5-15.5) % Plt Count (150-450) k/uL Neutrophils # (1.3-7.7) k/uL Lymphocytes # (1.0-4.8) k/uL Monocytes # (0-1.0) k/uL BUN (7-17) mg/dL Creatinine (0.52-1.04) mg/dL Glucose (74-99) mg/dL POC Glucose (mg/dL) 171 H (75-99) mg/dL Calcium (8.4-10.2) mg/dL Total Protein (6.3-8.2) g/dL Albumin (3.5-5.0) g/dL Microbiology - Last 24 Hours (Table) 01/29/17 02:30 Urine Culture - Preliminary Urine,Catheterized Assessment and Plan Plan: Assessment 1 pulmonary sarcoidosis, currently inactive in stable 2 chronic steroid use currently on stress dose hydrocortisone 3 CVA with right-sided deficits with bilateral carotid artery disease, neurology and vascular surgeries on the case 4 fall with right lower extremity fracture, post ORIF of a proximal femur fracture and the surgery was done on 01/27/2017 5 chronic kidney failure, stage III disease 6 coronary artery disease previous myocardial infarction previous coronary stenting 7 diabetes mellitus 8 chronic anemia Plan Pulmonary status is stable. Follow-up with neurology. Patient was started on anticoagulation with Eliquis. Vascular surgeries on the case. We'll see the patient on as-needed basis. Her condition is stable for now.
[2017-01-29 18:50] LABS: Iron Saturation 1.8 (12.00-45.00)
[2017-01-29] MEDS: traZODone HCL 50 MG TAB PO SCH (20:08)
[2017-01-29] MEDS: MONTELUKAST 10 MG TAB PO SCH (20:08)
[2017-01-29] MEDS: SENNOSIDES-DOCUSATE SODIUM 1 EACH TAB PO SCH (20:08)
[2017-01-29] MEDS: FERROUS SULFATE 325 MG TAB PO SCH (20:12)
[2017-01-29] MEDS: ATORVASTATIN 40 MG TAB PO SCH (20:12)
[2017-01-29 21:00] LABS: Glucose,Whole Blood 174 mg/dL (75-99)
[2017-01-30 05:42] LABS: Glucose,Whole Blood 136 mg/dL (75-99)
[2017-01-30] MEDS: LEVOTHYROXINE 100 MCG TAB PO SCH (06:25)
[2017-01-30] MEDS: PANTOPRAZOLE 40 MG TABLET PO SCH (06:26)
[2017-01-30] MEDS: HYDROcodone/APAP 5-325MG 1 EACH TAB PO PRN ×2 (06:26→18:24)
[2017-01-30] MEDS: INSULIN LISPRO (humaLOG) 300 UNIT/3 ML VIAL SQ SCH ×7 (06:55→21:38)
[2017-01-30 07:00] LABS: Anion Gap 8 mmol/L; Blood Urea Nitrogen 40 mg/dL (7-17); Calcium 7.6 mg/dL (8.4-10.2); Carbon Dioxide 25 mmol/L (22-30); Chloride 107 mmol/L (98-107); Glucose 111 mg/dL (74-99); Non-African American GFR(MDRD) 60 (>60 ml/min/1.73 sqM); Potassium 5.2 mmol/L (3.5-5.1); Sodium 140 mmol/L (137-145)
[2017-01-30] MEDS: OXYBUTYNIN CHLORIDE 5 MG TAB PO SCH (08:27)
[2017-01-30] MEDS: HYDROCORTISONE SUCCINATE 100 MG/2 ML VIAL IV SCH (08:27)
[2017-01-30] MEDS: GABAPENTIN 300 MG CAP PO SCH ×2 (08:27→20:50)
[2017-01-30] MEDS: FERROUS SULFATE 325 MG TAB PO SCH ×2 (08:28→20:50)
[2017-01-30] MEDS: APIXABAN 2.5 MG TABLET PO SCH ×2 (08:28→20:50)
[2017-01-30] MEDS: INSULIN GLARGINE 100 UNIT/ML 10 ML VIAL SQ SCH (08:38)
[2017-01-30] MEDS: ISOSORBIDE MONONITRATE ER 30 MG TAB.ER.24H PO SCH (08:44)
[2017-01-30] MEDS: METOPROLOL TARTRATE 25 MG TAB PO SCH ×2 (08:44→21:43)
[2017-01-30] MEDS ORDERED: ENOXAPARIN 30 MG/0.3 ML SYRINGE SQ SCH (09:00)
--- NOTE | 2017-01-30 09:59 | P.PN ---
Subjective Progress Note Date: 01/30/17 Principal diagnosis: Status post right hip IT nail This is a 81 year-old female post right hip IT nail. This is post-op day 3. The patient was evaluated at the bedside today. She is currently being set up for an EEG. The patient denies nausea, vomiting, abdominal pain, shortness of breath, and chest pain this morning. She states her pain is controlled at this time. The patient has not been up with physical therapy. Objective - Vital Signs Vital signs: Vital Signs Temp 98.1 F 01/30/17 08:10 Pulse 124 H 01/30/17 08:10 Resp 16 01/30/17 08:10 BP 128/61 01/30/17 08:10 Pulse Ox 100 01/30/17 08:10 Intake & Output 01/29/17 01/30/17 01/30/17 18:59 06:59 18:59 Intake Total 680 320 Output Total 1725 Balance 680 -1405 Weight 73 kg Intake: IV 500 Sodium Chloride 0.9% 500 500 ml @ 999 mls/hr IV .Q31M ONE Rx#:[id number] Oral 180 320 Output: Urine 1725 Straight 200 Other: Voiding Method Indwelling Catheter Indwelling Catheter # Bowel Movements 1 - Exam The patient does not appear in acute distress. Alert and orientated x3. Dressing is intact with a large amount of serosanginous drainage. Incision appears fine with no erythema or active drainage. Radha intact. Ecchymosis is present to the thigh and lower abdomen on the right side. Calf is soft and nontender. Good foot and ankle motion without difficulty. Sensation and circulatory status is intact. - Labs CBC & Chem 7: 01/30/17 05:39 01/30/17 05:39 Labs: Abnormal Lab Results - Last 24 Hours (Table) 01/29/17 01/29/17 01/29/17 Range/Units 05:48 11:07 12:08 WBC 22.7 H (3.8-10.6) k/uL RBC 2.86 L (3.80-5.40) m/uL Hgb 7.5 L (11.4-16.0) gm/dL Hct 24.6 L (34.0-46.0) % MCHC 30.4 L (31.0-37.0) g/dL RDW 20.4 H (11.5-15.5) % Plt Count 135 L (150-450) k/uL Neutrophils # 19.6 H (1.3-7.7) k/uL Lymphocytes # 0.7 L (1.0-4.8) k/uL Monocytes # 2.0 H (0-1.0) k/uL Potassium (3.5-5.1) mmol/L BUN (7-17) mg/dL Glucose (74-99) mg/dL POC Glucose (mg/dL) 165 H (75-99) mg/dL Calcium (8.4-10.2) mg/dL Iron 4 L (50-170) ug/dL TIBC 222 L (228-460) ug/dL Iron Saturation 1.80 L (12.00-45.00) 01/29/17 01/29/17 01/30/17 Range/Units 16:12 20:57 05:39 WBC (3.8-10.6) k/uL RBC (3.80-5.40) m/uL Hgb (11.4-16.0) gm/dL Hct (34.0-46.0) % MCHC (31.0-37.0) g/dL RDW (11.5-15.5) % Plt Count (150-450) k/uL Neutrophils # (1.3-7.7) k/uL Lymphocytes # (1.0-4.8) k/uL Monocytes # (0-1.0) k/uL Potassium 5.2 H (3.5-5.1) mmol/L BUN 40 H (7-17) mg/dL Glucose 111 H (74-99) mg/dL POC Glucose (mg/dL) 171 H 174 H (75-99) mg/dL Calcium 7.6 L (8.4-10.2) mg/dL Iron (50-170) ug/dL TIBC (228-460) ug/dL Iron Saturation (12.00-45.00) 01/30/17 Range/Units 05:39 WBC (3.8-10.6) k/uL RBC (3.80-5.40) m/uL Hgb (11.4-16.0) gm/dL Hct (34.0-46.0) % MCHC (31.0-37.0) g/dL RDW (11.5-15.5) % Plt Count (150-450) k/uL Neutrophils # (1.3-7.7) k/uL Lymphocytes # (1.0-4.8) k/uL Monocytes # (0-1.0) k/uL Potassium (3.5-5.1) mmol/L BUN (7-17) mg/dL Glucose (74-99) mg/dL POC Glucose (mg/dL) 136 H (75-99) mg/dL Calcium (8.4-10.2) mg/dL Iron (50-170) ug/dL TIBC (228-460) ug/dL Iron Saturation (12.00-45.00) Microbiology - Last 24 Hours (Table) 01/29/17 02:30 Urine Culture - Preliminary Urine,Catheterized Assessment and Plan (1) Intertrochanteric fracture of right femur Status: Acute (2) Cerebrovascular accident Status: Acute (3) Atrial fibrillation Status: Acute Plan: 1. Continue pain control 2. Anticoagulation with Eliquis per medical management 3. Start physical therapy and ambulation if cleared medically 4. Anticipate discharge to skilled rehab once medically cleared.
[2017-01-30 10:09] LABS: Anisocytosis Moderate; CH 26.8; CHCM 31.1; HCT 26.1 % (34.0-46.0); HDW 3.04; HGB 7.8 gm/dL (11.4-16.0); Hypochromasia Moderate; MCH 26.1 pg (25.0-35.0); MCV 87.1 fL (80.0-100.0); Mean Platelet Volume 11.7; RBC 2.99 m/uL (3.80-5.40); RDW 20.1 % (11.5-15.5); WBC 21.9 k/uL (3.8-10.6)
--- NOTE | 2017-01-30 10:59 | P.PN ---
Subjective Progress Note Date: 01/30/17 Popeye Penny is an 81-year-old female who presented to emergency Department with right sided facial drooping, confusion, and fall with right lower extremity pain. At home states approximately half an hour ago the patient appeared to have some right-sided facial droop and slurred speech and it resolved within a few minutes. Patient then got up was trying to walk and fell and hurt her right leg she complains of knee and thigh pain. EMS stated that she was alert and oriented 3 initially, however she started getting confused and not able to answer questions. She was brought in to [facility] emergency room, x-ray revealed evidence of acute fracture of the proximal Femur on the right. She was admitted to telemetry floor orthopedic consultation was requested. 01/29/2017 code stroke was called and patient this morning. She again had slurring of the speech and right facial droop. Symptoms are showing improvement. Patient did have a repeat computed tomography scan of the brain completed showing no acute changes. CTA showing hemodynamic significant stenosis suspected in the proximal internal carotid artery on the right. Patient did have atrial fibrillation with rapid ventricular response. She does have known chronic persistent atrial fibrillation and had not been on anticoagulation due to bleeding. Patient evaluated by cardiology. They have added Eliquis 2.5 mg twice a day since there has been no active bleeding for over a year. Patient also evaluated by Dr. Baptiste there is no surgical needed intervention needed for the internal carotid artery stenosis. 01/30/2017 patient is lying in bed comfortably. Patient is noted improvement in her slurring of speech and right-sided facial droop. Patient's blood pressure and heart rate has been monitored closely. We do not want the blood pressure to drop too low. Therefore cardiology has made some changes to medications. Imdur was discontinued. Patient was able to get the metoprolol this morning. Cardizem will be given later today. Patient did have the atrophic relation with rapid ventricular response. Heart rate is getting up to 122. Again cardiology has given metoprolol this morning per patient scheduled to us. Patient denies any chest pain or shortness of breath. Denies any nausea or vomiting. She did have a small bowel movement. Patient still has Schmidt catheter in place. Objective - Vital Signs Vital signs: Vital Signs Temp 98.1 F 01/30/17 08:10 Pulse 124 H 01/30/17 08:10 Resp 16 01/30/17 08:10 BP 128/61 01/30/17 08:10 Pulse Ox 100 01/30/17 08:10 Intake & Output 01/29/17 01/30/17 01/30/17 18:59 06:59 18:59 Intake Total 680 320 Output Total 1725 Balance 680 -1405 Weight 73 kg Intake: IV 500 Sodium Chloride 0.9% 500 500 ml @ 999 mls/hr IV .Q31M ONE Rx#:[id number] Oral 180 320 Output: Urine 1725 Straight 200 Other: Voiding Method Indwelling Catheter Indwelling Catheter # Bowel Movements 1 - Exam Head normocephalic Neck supple Lungs mild crackles in the right lower lobe Heart regular rate and rhythm S1-S2, no rub or gallop Abdomen is soft nontender nondistended positive bowel sounds no hepatosplenomegaly Extremities no edema. Patient has significant bruising on all 4 extremities Neuro alert and orientated to 3. Right facial droop noted as well as slurred speech. - Labs CBC & Chem 7: 01/30/17 05:39 01/30/17 05:39 Labs: Abnormal Lab Results - Last 24 Hours (Table) 01/29/17 01/29/17 01/29/17 Range/Units 05:48 11:07 12:08 WBC 22.7 H (3.8-10.6) k/uL RBC 2.86 L (3.80-5.40) m/uL Hgb 7.5 L (11.4-16.0) gm/dL Hct 24.6 L (34.0-46.0) % MCHC 30.4 L (31.0-37.0) g/dL RDW 20.4 H (11.5-15.5) % Plt Count 135 L (150-450) k/uL Neutrophils # 19.6 H (1.3-7.7) k/uL Lymphocytes # 0.7 L (1.0-4.8) k/uL Monocytes # 2.0 H (0-1.0) k/uL Potassium (3.5-5.1) mmol/L BUN (7-17) mg/dL Glucose (74-99) mg/dL POC Glucose (mg/dL) 165 H (75-99) mg/dL Calcium (8.4-10.2) mg/dL Iron 4 L (50-170) ug/dL TIBC 222 L (228-460) ug/dL Iron Saturation 1.80 L (12.00-45.00) 01/29/17 01/29/17 01/30/17 Range/Units 16:12 20:57 05:39 WBC (3.8-10.6) k/uL RBC (3.80-5.40) m/uL Hgb (11.4-16.0) gm/dL Hct (34.0-46.0) % MCHC (31.0-37.0) g/dL RDW (11.5-15.5) % Plt Count (150-450) k/uL Neutrophils # (1.3-7.7) k/uL Lymphocytes # (1.0-4.8) k/uL Monocytes # (0-1.0) k/uL Potassium 5.2 H (3.5-5.1) mmol/L BUN 40 H (7-17) mg/dL Glucose 111 H (74-99) mg/dL POC Glucose (mg/dL) 171 H 174 H (75-99) mg/dL Calcium 7.6 L (8.4-10.2) mg/dL Iron (50-170) ug/dL TIBC (228-460) ug/dL Iron Saturation (12.00-45.00) 01/30/17 01/30/17 Range/Units 05:39 05:39 WBC 21.9 H (3.8-10.6) k/uL RBC 2.99 L (3.80-5.40) m/uL Hgb 7.8 L (11.4-16.0) gm/dL Hct 26.1 L (34.0-46.0) % MCHC 30.0 L (31.0-37.0) g/dL RDW 20.1 H (11.5-15.5) % Plt Count (150-450) k/uL Neutrophils # (1.3-7.7) k/uL Lymphocytes # (1.0-4.8) k/uL Monocytes # (0-1.0) k/uL Potassium (3.5-5.1) mmol/L BUN (7-17) mg/dL Glucose (74-99) mg/dL POC Glucose (mg/dL) 136 H (75-99) mg/dL Calcium (8.4-10.2) mg/dL Iron (50-170) ug/dL TIBC (228-460) ug/dL Iron Saturation (12.00-45.00) Microbiology - Last 24 Hours (Table) 01/29/17 02:30 Urine Culture - Preliminary Urine,Catheterized Assessment and Plan Plan: 1. CVA with right-sided deficits: Computed tomography scan of the brain on admission shows a 1.5 cm area of decreased attenuation within the left insular cortex may reflect an area of acute ischemia. Stroke likely secondary to patient's atrial fibrillation. Cardiology has added Eliquis 2.5 mg twice a day. Plavix has been discontinued. Patient had recurrent symptoms this morning of right facial droop and slurring of speech. Repeat computed tomography scan of brain shows no acute changes. Neurology was notified. Continue Lipitor. Continue PT OT. Patient evaluated by speech therapy. Echo showing EF of 50-55%, moderate pulmonary hypertension, aortic stenosis. 70% internal carotid artery stenosis and 50% left internal carotid artery stenosis noted on carotid Doppler. Patient evaluated by vascular surgery. No need for surgical intervention. 2. Chronic persistent atrial fibrillation with an episode of rapid ventricular response. Cardiology following. Continue Cardizem, metoprolol and anticoagulation with Eliquis. Cardiology adjusted medications for the blood pressure does not drop too rapid. 3. Fall with right proximal femur fracture status post closed reduction and intramedullary nailing: Orthopedics are following. Surgery completed on 2016. Adjusted pain medication due to dropping patient's blood pressure. Will discontinue the IV Dilaudid and Vistaril. Decrease the [place] to only 5 mg 1 every 6 hours as needed for pain 4. History of sarcoidosis: Pulmonary following. Site Cortef discontinued. Patient restarted on prednisone 40 mg daily 5. Anemia: Possibly to blood loss anemia secondary to surgery and iron deficiency anemia. Patient's iron level is 4. No active signs of bleeding. She was started on ferrous sulfate 325 mg twice a day yesterday. Hemoglobin today 7.8 6. History of asthma stable 7. Leukocytosis likely initially reactive to femur fracture. Now leukocytosis secondary to steroids and urinalysis is negative. 8. Chronic kidney disease, stage IIIB. Continue monitoring kidney functions. Cardiology cut Lasix back to once a day. 9. History of myocardial infarction, coronary artery disease and 7 cardiac stents 10. Diabetes mellitus, insulin-dependent: Blood sugar stable continue with current medication I performed an examination of the patient and discussed their management with the physician Kettle Skimmer. I have reviewed the Physician Kettle Skimmer's notes and agree with the documented findings and plan of care
[2017-01-30 11:53] LABS: Glucose,Whole Blood 229 mg/dL (75-99)
[2017-01-30] MEDS: SODIUM CHLORIDE 0.9% 1,000 ML IV SCH (12:05)
[2017-01-30] MEDS: DILTIAZEM ORAL 60 MG TAB PO SCH ×3 (12:30→18:23)
[2017-01-30] MEDS ORDERED: SODIUM FERRIC GLUCONAT-SUCROSE 125 MG in SODIUM CHLORIDE 0.9% 100 ML IVPB ONE (14:57)
[2017-01-30] MEDS: FUROSEMIDE 20 MG TAB PO SCH (16:01)
--- NOTE | 2017-01-30 16:04 | P.PN ---
Subjective Progress Note Date: 01/30/17 Principal diagnosis: CVA This is an 81-year-old female with known history of coronary artery disease status post percutaneous revascularization most recently in December 2015 at which time she underwent angioplasty with stenting of the LAD. She presented to the hospital with a syncopal episode, fall and fracture of the right hip and underwent surgical intervention. Patient has chronic persistent atrial fibrillation, but has not been on anticoagulation in the past because of prior episode of bleeding. Patient has history of sarcoidosis as well. On presentation here patient was found to have a facial droop with associated slurring of speech. Code stroke was again called through the night last night. Dr. Garza did have a lengthy discussion with the patient and her regarding the importance of anticoagulation. He also stated that being on aspirin and Plavix would not prevent the patient from recurrent strokes. He initiated the patient on Eliquis. She was seen and examined today, lying comfortably in bed. Improvement in slurring of speech and right-sided facial droop noted. Patient's blood pressure was low this morning and Imdur was discontinued. Objective - Vital Signs Vital signs: Vital Signs Temp 97 F L 01/30/17 11:27 Pulse 97 01/30/17 11:40 Resp 16 01/30/17 11:27 BP 118/66 01/30/17 11:40 Pulse Ox 99 01/30/17 11:40 Intake & Output 01/29/17 01/30/17 01/30/17 18:59 06:59 18:59 Intake Total 680 320 580 Output Total 1725 325 Balance 680 -1405 255 Weight 73 kg Intake: IV 500 100 Sodium Chloride 0.9% 1, 100 000 ml @ 50 mls/hr IV . Q20H MISIT Rx#:[id number] Sodium Chloride 0.9% 500 500 ml @ 999 mls/hr IV .Q31M ONE Rx#:[id number] Intake, IV Titration 140 Amount Sodium Chloride 0.9% 1, 140 000 ml @ 50 mls/hr IV . Q20H MISTI Rx#:[id number] Oral 180 320 340 Output: Urine 1725 325 Straight 200 Other: Voiding Method Indwelling Catheter Indwelling Catheter Indwelling Catheter # Bowel Movements 1 - Exam PHYSICAL EXAMINATION: HEENT: Head is atraumatic, normocephalic. Pupils equal, round. Neck is supple. There is no elevated jugular venous pressure. HEART EXAMINATION: Heart S1 and S2 irregularly irregular a systolic murmur is heard. CHEST EXAMINATION: Lungs are clear to auscultation and precussion. No chest wall tenderness is noted on palpation or with deep breathing. ABDOMEN: Soft, nontender. Bowel sounds are heard. No organomegaly noted]. EXTREMITIES:[ 2+ peripheral pulses with trace evidence of peripheral edema and no calf tenderness noted]. Significant ecchymosis noted of the bilateral upper extremities NEUROLOGIC [patient is awake, alert and oriented -3.] . - Labs CBC & Chem 7: 01/30/17 05:39 01/30/17 05:39 Labs: Abnormal Lab Results - Last 24 Hours (Table) 01/29/17 01/29/17 01/29/17 Range/Units 05:48 16:12 20:57 WBC (3.8-10.6) k/uL RBC (3.80-5.40) m/uL Hgb (11.4-16.0) gm/dL Hct (34.0-46.0) % MCHC (31.0-37.0) g/dL RDW (11.5-15.5) % Potassium (3.5-5.1) mmol/L BUN (7-17) mg/dL Glucose (74-99) mg/dL POC Glucose (mg/dL) 171 H 174 H (75-99) mg/dL Calcium (8.4-10.2) mg/dL Iron 4 L (50-170) ug/dL TIBC 222 L (228-460) ug/dL Iron Saturation 1.80 L (12.00-45.00) 01/30/17 01/30/17 01/30/17 Range/Units 05:39 05:39 05:39 WBC 21.9 H (3.8-10.6) k/uL RBC 2.99 L (3.80-5.40) m/uL Hgb 7.8 L (11.4-16.0) gm/dL Hct 26.1 L (34.0-46.0) % MCHC 30.0 L (31.0-37.0) g/dL RDW 20.1 H (11.5-15.5) % Potassium 5.2 H (3.5-5.1) mmol/L BUN 40 H (7-17) mg/dL Glucose 111 H (74-99) mg/dL POC Glucose (mg/dL) 136 H (75-99) mg/dL Calcium 7.6 L (8.4-10.2) mg/dL Iron (50-170) ug/dL TIBC (228-460) ug/dL Iron Saturation (12.00-45.00) 01/30/17 Range/Units 11:45 WBC (3.8-10.6) k/uL RBC (3.80-5.40) m/uL Hgb (11.4-16.0) gm/dL Hct (34.0-46.0) % MCHC (31.0-37.0) g/dL RDW (11.5-15.5) % Potassium (3.5-5.1) mmol/L BUN (7-17) mg/dL Glucose (74-99) mg/dL POC Glucose (mg/dL) 229 H (75-99) mg/dL Calcium (8.4-10.2) mg/dL Iron (50-170) ug/dL TIBC (228-460) ug/dL Iron Saturation (12.00-45.00) Assessment and Plan (1) Chronic a-fib Status: Acute (2) Cerebrovascular accident Status: Acute (3) Intertrochanteric fracture of right femur Status: Acute (4) Sarcoidosis Status: Acute (5) Hyperlipidemia Status: Acute (6) Hypertension Status: Acute (7) Hypothyroid Status: Acute Plan: From cardiology's perspective, we'll recommend to continue the patient on her current medications including Eliquis 2.5 mg one tablet by mouth twice a day. Discontinue Imdur. DNP note has been reviewed, I agree with a documented findings and plan of care. Patient was seen and examined.
[2017-01-30 16:34] LABS: Glucose,Whole Blood 167 mg/dL (75-99)
--- NOTE | 2017-01-30 20:19 | P.PN ---
Subjective Progress Note Date: 01/30/17 Principal diagnosis: CVA Received multiple phone calls today while in office from nurse only in addition to multiple phone calls to Dr Faust regarding concerns for the patient of the patient experiencing "right facial droop, unable to maintain 140 mmHg Systolic" , per patient's RN, she stated that the PA Cira was upset that the patient was signed off on by neurology and disagreed with that position. HERIBERTO was reportedly adamant that the patent needed further neurology oversight, wanted Neurology to re-evaluate the patient and had the nurse facilitate her concerns. Upon entry to the room found patient high fowlers in bed with the day shit nurse (Cornelia) and a nurse tech caring for the patient. Patient was alert & oriented x3, no acute distress, no new focal neurological deficits noted on visual observation. Symptoms likely related to orthostatic hypotension with the nurse verbalizing SBP drop of 10-20 mmHg and often associated with increased physcical activity or positional changes in addition to uncontrolled heart rate which could likely be contributing to her symptoms. Patient has already noted and documented stenosis of 70% and 50% and was evaluated by vascular surgery and advised that they would not intervene at this time. Therefore, due to Ms Penny not being a surgical candidate, she now needs to be medical management. Continue with current medications, will sign off, patient to follow up in office within 2 weeks after discharge. Objective - Vital Signs Vital signs: Vital Signs Temp 97.8 F 01/30/17 19:45 Pulse 111 H 01/30/17 19:45 Resp 19 01/30/17 19:45 BP 137/69 01/30/17 19:45 Pulse Ox 95 01/30/17 19:45 Intake & Output 01/30/17 01/30/17 01/31/17 06:59 18:59 06:59 Intake Total 320 580 120 Output Total 1725 325 Balance -1405 255 120 Weight 73 kg Intake: IV 100 Sodium Chloride 0.9% 1, 100 000 ml @ 50 mls/hr IV . Q20H MISTI Rx#:[id number] Intake, IV Titration 140 Amount Sodium Chloride 0.9% 1, 140 000 ml @ 50 mls/hr IV . Q20H MISTI Rx#:[id number] Oral 320 340 120 Output: Urine 1725 325 Straight 200 Other: Voiding Method Indwelling Catheter Indwelling Catheter - Labs CBC & Chem 7: 10/10/17 05:39 01/30/17 05:39 Labs: Abnormal Lab Results - Last 24 Hours (Table) 01/29/17 01/29/17 01/30/17 Range/Units 05:48 20:57 05:39 WBC (3.8-10.6) k/uL RBC (3.80-5.40) m/uL Hgb (11.4-16.0) gm/dL Hct (34.0-46.0) % MCHC (31.0-37.0) g/dL RDW (11.5-15.5) % Potassium 5.2 H (3.5-5.1) mmol/L BUN 40 H (7-17) mg/dL Glucose 111 H (74-99) mg/dL POC Glucose (mg/dL) 174 H (75-99) mg/dL Calcium 7.6 L (8.4-10.2) mg/dL Iron 4 L (50-170) ug/dL TIBC 222 L (228-460) ug/dL Iron Saturation 1.80 L (12.00-45.00) 01/30/17 01/30/17 01/30/17 Range/Units 05:39 05:39 11:45 WBC 21.9 H (3.8-10.6) k/uL RBC 2.99 L (3.80-5.40) m/uL Hgb 7.8 L (11.4-16.0) gm/dL Hct 26.1 L (34.0-46.0) % MCHC 30.0 L (31.0-37.0) g/dL RDW 20.1 H (11.5-15.5) % Potassium (3.5-5.1) mmol/L BUN (7-17) mg/dL Glucose (74-99) mg/dL POC Glucose (mg/dL) 136 H 229 H (75-99) mg/dL Calcium (8.4-10.2) mg/dL Iron (50-170) ug/dL TIBC (228-460) ug/dL Iron Saturation (12.00-45.00) 01/30/17 Range/Units 16:32 WBC (3.8-10.6) k/uL RBC (3.80-5.40) m/uL Hgb (11.4-16.0) gm/dL Hct (34.0-46.0) % MCHC (31.0-37.0) g/dL RDW (11.5-15.5) % Potassium (3.5-5.1) mmol/L BUN (7-17) mg/dL Glucose (74-99) mg/dL POC Glucose (mg/dL) 167 H (75-99) mg/dL Calcium (8.4-10.2) mg/dL Iron (50-170) ug/dL TIBC (228-460) ug/dL Iron Saturation (12.00-45.00) Microbiology - Last 24 Hours (Table) 01/29/17 02:30 Urine Culture - Final Urine,Catheterized Assessment and Plan (1) Cerebrovascular accident Status: Acute (2) Fall at home Status: Acute
[2017-01-30] MEDS: ATORVASTATIN 40 MG TAB PO SCH (20:50)
[2017-01-30] MEDS: MONTELUKAST 10 MG TAB PO SCH (20:50)
[2017-01-30] MEDS: SENNOSIDES-DOCUSATE SODIUM 1 EACH TAB PO SCH (20:50)
[2017-01-30] MEDS: traZODone HCL 50 MG TAB PO SCH (20:51)
[2017-01-30 20:58] LABS: Glucose,Whole Blood 185 mg/dL (75-99)
[2017-01-31 05:49] VITALS: RESP 19
[2017-01-31] MEDS: DILTIAZEM ORAL 60 MG TAB PO SCH (05:54)
[2017-01-31] MEDS: LEVOTHYROXINE 100 MCG TAB PO SCH (05:55)
[2017-01-31 05:57] LABS: Glucose,Whole Blood 86 mg/dL (75-99)
[2017-01-31 06:34] LABS: Anion Gap 4 mmol/L; Blood Urea Nitrogen 36 mg/dL (7-17); Calcium 7.5 mg/dL (8.4-10.2); Carbon Dioxide 28 mmol/L (22-30); Chloride 107 mmol/L (98-107); Glucose 70 mg/dL (74-99); Non-African American GFR(MDRD) 57 (>60 ml/min/1.73 sqM); Potassium 3.8 mmol/L (3.5-5.1); Sodium 139 mmol/L (137-145)
[2017-01-31 06:41] LABS: Anisocytosis Slight; CH 25.7; CHCM 28.2; HCT 25.3 % (34.0-46.0); HGB 7.3 gm/dL (11.4-16.0); Hypochromasia Marked; MCH 26.2 pg (25.0-35.0); MCHC 28.6 g/dL (31.0-37.0); MCV 91.7 fL (80.0-100.0); Mean Platelet Volume 8.1; RBC 2.76 m/uL (3.80-5.40); RDW 19.3 % (11.5-15.5); WBC (Perox) 13.11
[2017-01-31 07:04] LABS: Add Differential Manual Differential
[2017-01-31 07:10] LABS: Band Neutrophils % 1 %; Manual Review Performed; Nucleated Red Blood Cells 3 /100 WBC (0-0); Total Cells Counted 200; WBC 12.6 k/uL (3.8-10.6)
[2017-01-31 07:11] LABS: Polychromasia Present; Target Cells Present
[2017-01-31] MEDS: INSULIN LISPRO (humaLOG) 300 UNIT/3 ML VIAL SQ SCH ×4 (07:39→12:49)
[2017-01-31 08:48] VITALS: TEMP 97.2
[2017-01-31] MEDS: SODIUM CHLORIDE 0.9% 1,000 ML IV SCH (08:50)
[2017-01-31] MEDS: PANTOPRAZOLE 40 MG TABLET PO SCH (08:51)
[2017-01-31] MEDS: FERROUS SULFATE 325 MG TAB PO SCH (08:51)
[2017-01-31] MEDS: APIXABAN 2.5 MG TABLET PO SCH (08:51)
[2017-01-31] MEDS: GABAPENTIN 300 MG CAP PO SCH (08:51)
[2017-01-31] MEDS: OXYBUTYNIN CHLORIDE 5 MG TAB PO SCH (08:52)
[2017-01-31] MEDS: FUROSEMIDE 20 MG TAB PO SCH (08:52)
[2017-01-31] MEDS ORDERED: predniSONE 20 MG TAB PO SCH (09:00)
[2017-01-31] MEDS: INSULIN GLARGINE 100 UNIT/ML 10 ML VIAL SQ SCH (09:00)
--- NOTE | 2017-01-31 10:34 | P.PN ---
Subjective Progress Note Date: 01/31/17 Principal diagnosis: CVA This is an 81-year-old female with known history of coronary artery disease status post percutaneous revascularization most recently in December 2015 at which time she underwent angioplasty with stenting of the LAD. She presented to the hospital with a syncopal episode, fall and fracture of the right hip and underwent surgical intervention. Patient has chronic persistent atrial fibrillation, but has not been on anticoagulation in the past because of prior episode of bleeding. Patient has history of sarcoidosis as well. On presentation here patient was found to have a facial droop with associated slurring of speech. Code stroke was again called through the night last night. Dr. Garza did have a lengthy discussion with the patient and her regarding the importance of anticoagulation. He also stated that being on aspirin and Plavix would not prevent the patient from recurrent strokes. He initiated the patient on Eliquis. She was seen and examined today, lying comfortably in bed. Improvement in slurring of speech and right-sided facial droop noted. Patient's blood pressure was low this morning and Imdur was discontinued. 01/31/2017 Patient seen and examined this morning, blood pressure today 128/60, heart rate in the 90s. White blood cell count 12.6, hemoglobin 7.3, sodium 139, potassium 3.8, BUN 36, creatinine 0.9. Slept well through the night last night, no complaints this morning. Objective - Vital Signs Vital signs: Vital Signs Temp 97.2 F L 01/31/17 08:00 Pulse 107 H 01/31/17 08:00 Resp 19 01/31/17 04:00 BP 128/69 01/31/17 08:00 Pulse Ox 96 01/31/17 08:00 Intake & Output 01/30/17 01/31/17 01/31/17 18:59 06:59 18:59 Intake Total 580 370 Output Total 325 950 Balance 255 -580 Weight 74.5 kg Intake: IV 100 Sodium Chloride 0.9% 1, 100 000 ml @ 50 mls/hr IV . Q20H MISTI Rx#:[id number] Intake, IV Titration 140 150 Amount Sodium Chloride 0.9% 1, 140 150 000 ml @ 50 mls/hr IV . Q20H MISTI Rx#:[id number] Oral 340 220 Output: Urine 325 950 Uretheral (Schmidt) 350 Other: Voiding Method Indwelling Catheter Indwelling Catheter - Exam PHYSICAL EXAMINATION: HEENT: Head is atraumatic, normocephalic. Pupils equal, round. Neck is supple. There is no elevated jugular venous pressure. HEART EXAMINATION: Heart S1 and S2 irregularly irregular a systolic murmur is heard. CHEST EXAMINATION: Lungs are clear to auscultation and precussion. No chest wall tenderness is noted on palpation or with deep breathing. ABDOMEN: Soft, nontender. Bowel sounds are heard. No organomegaly noted]. EXTREMITIES:[ 2+ peripheral pulses with trace evidence of peripheral edema and no calf tenderness noted]. Significant ecchymosis noted of the bilateral upper extremities NEUROLOGIC [patient is awake, alert and oriented -3.] . - Labs CBC & Chem 7: 01/31/17 05:54 01/31/17 05:54 Labs: Abnormal Lab Results - Last 24 Hours (Table) 01/30/17 01/30/17 01/30/17 Range/Units 11:45 16:32 20:56 WBC (3.8-10.6) k/uL RBC (3.80-5.40) m/uL Hgb (11.4-16.0) gm/dL Hct (34.0-46.0) % MCHC (31.0-37.0) g/dL RDW (11.5-15.5) % Neutrophils # (Manual) (1.3-7.7) k/uL Monocytes # (Manual) (0-1.0) k/uL Nucleated RBCs (0-0) /100 WBC BUN (7-17) mg/dL Glucose (74-99) mg/dL POC Glucose (mg/dL) 229 H 167 H 185 H (75-99) mg/dL Calcium (8.4-10.2) mg/dL 01/31/17 01/31/17 Range/Units 05:54 05:54 WBC 12.6 H (3.8-10.6) k/uL RBC 2.76 L (3.80-5.40) m/uL Hgb 7.3 L (11.4-16.0) gm/dL Hct 25.3 L (34.0-46.0) % MCHC 28.6 L (31.0-37.0) g/dL RDW 19.3 H (11.5-15.5) % Neutrophils # (Manual) 10.30 H (1.3-7.7) k/uL Monocytes # (Manual) 1.13 H (0-1.0) k/uL Nucleated RBCs 3 H (0-0) /100 WBC BUN 36 H (7-17) mg/dL Glucose 70 L (74-99) mg/dL POC Glucose (mg/dL) (75-99) mg/dL Calcium 7.5 L (8.4-10.2) mg/dL Microbiology - Last 24 Hours (Table) 01/29/17 02:30 Urine Culture - Final Urine,Catheterized Assessment and Plan (1) Chronic a-fib Status: Acute (2) Cerebrovascular accident Status: Acute (3) Intertrochanteric fracture of right femur Status: Acute (4) Sarcoidosis Status: Acute (5) Hyperlipidemia Status: Acute (6) Hypertension Status: Acute (7) Hypothyroid Status: Acute Plan: From cardiology's perspective, we'll recommend to continue the patient on her current medications including Eliquis 2.5 mg one tablet by mouth twice a day. She may be able to be transferred to rehab whenever cleared by her primary. We will make her a follow-up appointment to see Dr. Fox in the office post discharge. DNP note has been reviewed, I agree with a documented findings and plan of care. Patient was seen and examined.
--- NOTE | 2017-01-31 11:35 | P.DS ---
Providers Date of admission: 01/26/17 16:07 Expected date of discharge: 01/31/17 Attending physician: Shyla Alcantara Consults: 01/26/17 15:59 Consult Physician Routine Consulting Provider: Dileep Grimm Consult Reason/Comments: Right hip fracture Do you want consulting provider notified?: Yes Consult Physician Routine Consulting Provider: Lea Faust Consult Reason/Comments: CVA Do you want consulting provider notified?: Yes 01/27/17 11:15 Consult Physician Urgent Consulting Provider: Merari Gonzales Consult Reason/Comments: known patient--sarcoidosis, postoperative hip fracture Do you want consulting provider notified?: Yes 01/28/17 11:23 Consult Physician Routine Consulting Provider: Lea Faust Consult Reason/Comments: acute CVA Do you want consulting provider notified?: Yes 01/29/17 11:36 Consult Physician Urgent Consulting Provider: Saúl Baptiste Consult Reason/Comments: right carotid 70% Do you want consulting provider notified?: Yes 01/29/17 11:38 Consult Physician Urgent Consulting Provider: Majo Garza Consult Reason/Comments: afib cva anticoagulation Do you want consulting provider notified?: Yes 01/31/17 10:39 Consult Physician Routine Consulting Provider: Ton Phillips Consult Reason/Comments: weakness/stroke Do you want consulting provider notified?: Yes Primary care physician: Merari Gonzales [facility] Course: 1. CVA with right-sided deficits: Computed tomography scan of the brain on admission shows a 1.5 cm area of decreased attenuation within the left insular cortex may reflect an area of acute ischemia. Stroke likely secondary to patient's atrial fibrillation. Cardiology has added Eliquis 2.5 mg twice a day. Plavix has been discontinued. Continue Lipitor. Continue PT OT. Patient evaluated by speech therapy. Echo showing EF of 50-55%, moderate pulmonary hypertension, aortic stenosis. 70% internal carotid artery stenosis and 50% left internal carotid artery stenosis noted on carotid Doppler. Patient evaluated by vascular surgery. No need for surgical intervention. 2. Chronic persistent atrial fibrillation with an episode of rapid ventricular response. 3. Fall with right proximal femur fracture status post closed reduction and intramedullary nailing: Follow-up with orthopedic as directed 4. History of sarcoidosis 5. Iron deficiency anemia: No active signs of bleeding. She was started on ferrous sulfate 325 mg twice a day 6. History of asthma stable 7. Chronic kidney disease, stage IIIB. 9. History of myocardial infarction, coronary artery disease and 7 cardiac stents 10. Diabetes mellitus, insulin-dependent Patient will be discharged to [facility] for rehab. I will continue to follow up on her closely. Patient Condition at Discharge: Poor Plan - Discharge Summary New Discharge Prescriptions: New Apixaban [Eliquis] 2.5 mg PO BID tab Ferrous Sulfate [Iron (65 MG Elemental)] 325 mg PO BID tab Furosemide [Lasix] 20 mg PO DAILY tab HYDROcodone/APAP 5-325MG [[place] 5-325] 1 each PO Q6HR PRN #60 tab PRN Reason: Pain Scale 6 To 10 Continue Atorvastatin [Lipitor] 20 mg PO HS Ergocalciferol [Vitamin D2 (DRISDOL)] 50,000 unit PO WE predniSONE 10 mg PO DAILY Oxybutynin Chloride 5 mg PO DAILY Montelukast [Singulair] 10 mg PO HS Insulin Glargine,Hum.rec.anlog [Toujeo Solloida] 16 units SQ DAILY Omeprazole [PriLOSEC] 20 mg PO DAILY Diltiazem Oral [Cardizem*] 60 mg PO BID #60 tab Gabapentin [Neurontin] 300 mg PO BID Levothyroxine Sodium [Synthroid] 100 mcg PO DAILY traZODone HCL 50 mg PO HS Metoprolol Tartrate [Lopressor] 25 mg PO BID Changed Insulin Lispro [humaLOG Kwikpen] 4 unit SQ AC-TID #0 Discontinued Furosemide 20 mg PO BID Isosorbide Mononitrate ER [Imdur] 30 mg PO DAILY Aspirin EC [Ecotrin Low Dose] 81 mg PO DAILY Discharge Medication List Atorvastatin [Lipitor] 20 mg PO HS 09/30/14 [History] Ergocalciferol [Vitamin D2 (DRISDOL)] 50,000 unit PO WE 09/30/14 [History] predniSONE 10 mg PO DAILY 07/24/15 [History] Insulin Glargine,Hum.rec.anlog [Toujeo Solostar] 16 units SQ DAILY 01/10/16 [ History] Montelukast [Singulair] 10 mg PO HS 01/10/16 [History] Oxybutynin Chloride 5 mg PO DAILY 01/10/16 [History] Omeprazole [PriLOSEC] 20 mg PO DAILY 04/19/16 [History] Diltiazem Oral [Cardizem*] 60 mg PO BID #60 tab 08/04/16 [Rx] Gabapentin [Neurontin] 300 mg PO BID 10/03/16 [History] Levothyroxine Sodium [Synthroid] 100 mcg PO DAILY 10/03/16 [History] Metoprolol Tartrate [Lopressor] 25 mg PO BID 01/26/17 [History] traZODone HCL 50 mg PO HS 01/26/17 [History] Apixaban [Eliquis] 2.5 mg PO BID tab 01/31/17 [Rx] Ferrous Sulfate [Iron (65 MG Elemental)] 325 mg PO BID tab 01/31/17 [Rx] Furosemide [Lasix] 20 mg PO DAILY tab 01/31/17 [Rx] HYDROcodone/APAP 5-325MG [[place] 5-325] 1 each PO Q6HR PRN #60 tab 01/31/17 [Rx] Insulin Lispro [humaLOG Kwikpen] 4 unit SQ AC-TID #0 01/31/17 [Rx] Follow up Appointment(s)/Referral(s): Dafne Caldera, [NON-STAFF] - As Needed Shyla Alcantara MD [STAFF PHYSICIAN] - 1 Week Dileep Grimm MD [STAFF PHYSICIAN] - 10 Days Patient Instructions/Handouts: Transient Ischemic Attack (DC), Leg Fracture (DC ) Activity/Diet/Wound Care/Special Instructions: Cardiology has cleared patient per Marry. Discharge Disposition: TRANSFER TO SNF/ECF
--- NOTE | 2017-01-31 11:44 | P.PN ---
Subjective Progress Note Date: 01/31/17 Principal diagnosis: Intertrochanteric fracture right hip. Status post closed reduction and insertion of intertrochanteric nail right hip. This is an 81-year-old female who is status post closed reduction with insertion of intertrochanteric nail of the right hip. She is stable from an orthopedic standpoint. She is quite sleepy today. Hemoglobin is 7.3. Objective - Vital Signs Vital signs: Vital Signs Temp 97.2 F L 01/31/17 08:00 Pulse 107 H 01/31/17 08:00 Resp 19 01/31/17 04:00 BP 128/69 01/31/17 08:00 Pulse Ox 96 01/31/17 08:00 Intake & Output 01/30/17 01/31/17 01/31/17 18:59 06:59 18:59 Intake Total 580 370 Output Total 325 950 200 Balance 255 -580 -200 Weight 74.5 kg Intake: IV 100 Sodium Chloride 0.9% 1, 100 000 ml @ 50 mls/hr IV . Q20H MISTI Rx#:[id number] Intake, IV Titration 140 150 Amount Sodium Chloride 0.9% 1, 140 150 000 ml @ 50 mls/hr IV . Q20H MISTI Rx#:[id number] Oral 340 220 Output: Urine 325 950 200 Uretheral (Schmidt) 350 200 Other: Voiding Method Indwelling Catheter Indwelling Catheter - Exam This is a pleasant 81-year-old female in no acute distress. She is resting soundly. She is arousable but will not remaining awake for more than a few seconds. Exam of the right lower extremity reveals that her dressing is clean, dry and intact. There is increased swelling and ecchymosis about the thigh. There are 2 fracture blisters noted to the medial thigh. Neurovascular status to the lower extremity is intact. - Labs CBC & Chem 7: 01/31/17 05:54 01/31/17 05:54 Labs: Abnormal Lab Results - Last 24 Hours (Table) 01/30/17 01/30/17 01/30/17 Range/Units 11:45 16:32 20:56 WBC (3.8-10.6) k/uL RBC (3.80-5.40) m/uL Hgb (11.4-16.0) gm/dL Hct (34.0-46.0) % MCHC (31.0-37.0) g/dL RDW (11.5-15.5) % Neutrophils # (Manual) (1.3-7.7) k/uL Monocytes # (Manual) (0-1.0) k/uL Nucleated RBCs (0-0) /100 WBC BUN (7-17) mg/dL Glucose (74-99) mg/dL POC Glucose (mg/dL) 229 H 167 H 185 H (75-99) mg/dL Calcium (8.4-10.2) mg/dL 01/31/17 01/31/17 Range/Units 05:54 05:54 WBC 12.6 H (3.8-10.6) k/uL RBC 2.76 L (3.80-5.40) m/uL Hgb 7.3 L (11.4-16.0) gm/dL Hct 25.3 L (34.0-46.0) % MCHC 28.6 L (31.0-37.0) g/dL RDW 19.3 H (11.5-15.5) % Neutrophils # (Manual) 10.30 H (1.3-7.7) k/uL Monocytes # (Manual) 1.13 H (0-1.0) k/uL Nucleated RBCs 3 H (0-0) /100 WBC BUN 36 H (7-17) mg/dL Glucose 70 L (74-99) mg/dL POC Glucose (mg/dL) (75-99) mg/dL Calcium 7.5 L (8.4-10.2) mg/dL Microbiology - Last 24 Hours (Table) 01/29/17 02:30 Urine Culture - Final Urine,Catheterized Assessment and Plan (1) Intertrochanteric fracture of right femur Status: Acute (2) Atrial fibrillation Status: Acute (3) Cerebrovascular accident Status: Acute (4) Postoperative anemia due to acute blood loss Status: Acute Plan: The clinical findings are discussed with the nursing staff. We will defer treatment of her postoperative anemia to internal medicine. Nursing is advised to keep an eye on the fracture blisters. She may be discharged to inpatient rehab when cleared medically. I would recommend antibiotic prophylactically secondary to the posterior formation. She is nonweightbearing to the right lower extremity with walker.
[2017-01-31] MEDS ORDERED: ERGOCALCIFEROL 50,000 UNIT CAP PO SCH (12:00)
[2017-01-31 12:07] LABS: Glucose,Whole Blood 103 mg/dL (75-99)
[2017-01-31] MEDS: METOPROLOL TARTRATE 25 MG TAB PO SCH (12:38)
[2017-01-31 14:36] VITALS: BP 142/72; PULSE 119
[2017-01-31] MEDS: HYDROcodone/APAP 5-325MG 1 EACH TAB PO PRN (15:12)
--- NOTE | 2017-02-13 19:16 | EEG ---
ELECTROENCEPHALOGRAM REPORT DATE OF SERVICE: 01/30/2017 REASON FOR TESTING: Altered mental status. DESCRIPTION OF THE PROCEDURE: This EEG was performed using a 21 channel digital electroencephalograph, following international 10-20 system. DESCRIPTION OF THE RECORDING: From the beginning of the tracing, and with patient's eyes closed, the background rhythm was mostly consisting of 8 hertz alpha frequency in the posterior occipital leads. No obvious asymmetry is seen. Occasional movement and muscle artifacts are seen. Photic stimulation was performed with a minimal driving response seen. No pathological waves were elicited. Hyperventilation was not performed. The patient remains awake throughout the tracing. No epileptiform discharges were seen. Her EKG lead showed an irregularly irregular rhythm with a normal rate. INTERPRETATION: This awake EEG can be considered within normal limits except her EKG lead showed an irregularly irregular rhythm with a normal rate. No epileptiform discharges were seen. The absence of epileptiform discharges does not rule out the diagnosis of epilepsy, therefore clinical correlation is recommended. MMCARLIN / IJEloy: [id number] /
== END 2017-01-31 15:49 | DRG 480 ==
LOC: EC 13:49 → 6SEL 16:07
PROVIDERS: ADMIT Internal Medicine; ATTEND Internal Medicine
PROC: 0QS606Z Reposition Right Upper Femur with Intramedullary Internal Fixation Device, Open Approach (ICD-10-PCS; principal; 2017-01-27 09:00)
DX: S72.141A Displaced intertrochanteric fracture of right femur, initial encounter for closed fracture (principal); I63.9 Cerebral infarction, unspecified; E43 Unspecified severe protein-calorie malnutrition; G93.40 Encephalopathy, unspecified; I48.1 Persistent atrial fibrillation; E10.22 Type 1 diabetes mellitus with diabetic chronic kidney disease; E10.40 Type 1 diabetes mellitus with diabetic neuropathy, unspecified; I27.20 Pulmonary hypertension, unspecified; I08.3 Combined rheumatic disorders of mitral, aortic and tricuspid valves; I09.89 Other specified rheumatic heart diseases; I65.23 Occlusion and stenosis of bilateral carotid arteries; I48.2 Chronic atrial fibrillation; N18.3 Chronic kidney disease, stage 3 (moderate); D86.0 Sarcoidosis of lung; D50.9 Iron deficiency anemia, unspecified; D72.829 Elevated white blood cell count, unspecified; E03.9 Hypothyroidism, unspecified; T38.0X5A Adverse effect of glucocorticoids and synthetic analogues, initial encounter; E78.5 Hyperlipidemia, unspecified; I12.9 Hypertensive chronic kidney disease with stage 1 through stage 4 chronic kidney disease, or unspecified chronic kidney disease; I25.10 Atherosclerotic heart disease of native coronary artery without angina pectoris; I25.2 Old myocardial infarction; I49.3 Ventricular premature depolarization; I95.1 Orthostatic hypotension; J45.909 Unspecified asthma, uncomplicated; S51.812A Laceration without foreign body of left forearm, initial encounter; R29.810 Facial weakness; R47.81 Slurred speech; Z79.4 Long term (current) use of insulin; Z79.52 Long term (current) use of systemic steroids; Z79.82 Long term (current) use of aspirin; Z79.899 Other long term (current) drug therapy; Z88.2 Allergy status to sulfonamides; Z95.5 Presence of coronary angioplasty implant and graft; Z91.81 History of falling; Z82.49 Family history of ischemic heart disease and other diseases of the circulatory system; W19.XXXA Unspecified fall, initial encounter; Y92.009 Unspecified place in unspecified non-institutional (private) residence as the place of occurrence of the external cause; Y92.239 Unspecified place in hospital as the place of occurrence of the external cause
CPT/HCPCS: 36415; 70450; 70496; 70498; 71010; 71020; 73501; 73502; 80048; 80053; 80061; 81003; 82550; 82553; 82728; 83036; 83090; 83540; 83550; 84484; 85025; 85027; 85610; 85730; 86850; 86900; 86901; 87086; 93005; 93306; 93880; 95819; 96374; 99285